=== PATIENT | female | born 1955 | race Caucasian/White ===

== ENCOUNTER → 2018-11-08 16:11 | Outpatient (CLI) | payer OTHER, SELFPAY ==
[2018-11-11 16:06] LABS: HPV Reflexed? NOT INDICATED
== END ==
PROVIDERS: Visit Provider Obstetrics & Gynecology
DX: Z01.419 Encounter for gynecological examination (general) (routine) without abnormal findings (principal)
CPT/HCPCS: 88175; G0145

== ENCOUNTER 2021-11-02 03:55 | Emergency (ER) | payer MEDICARE, OTHER, SELFPAY ==
[2021-11-02 03:56] VITALS: BP 171/101; PULSE 73; RESP 15; TEMP 36.6; O2SAT 99; BMI 21.8
[2021-11-02 04:10] VITALS: BP 158/99; PULSE 69; RESP 15; O2SAT 96
--- NOTE | 2021-11-02 04:12 | EX.ED.VIS.UR ---
HPI HPI - URI History of Present Illness Chief Complaint: Ear Problem Narrative Narrative: 66-year-old female presenting with left ear pain. She states it woke him up from sleep. She states has had a cold for a couple of days with a minor cough. She states she is also had a little bit of loss of her voice. She denies fever, chills, body aches. She denies shortness of breath or chest pain. Patient states that she does not feel significantly congested nasally. She states she has a history of sporadic ear infections as an adult. Patient states that she developed a headache and took [place] plus cold medicine. She states that this did not help. ROS ROS ED Constitutional Constitutional ED: Denies chills or fever(s) Eyes Eyes: Denies blurry vision or diplopia ENT ENT ED: Denies rhinorrhea Cardiovascular Cardiovascular: Denies chest pain or palpitations Respiratory/Chest Respiratory/Chest: Reports cough; Denies dyspnea Gastrointestinal Gastrointestinal: Denies abdominal pain or nausea Genitourinary Genitourinary ED: Denies dysuria or hematuria Musculoskeletal Musculoskeletal: Denies myalgias Integumentary Denies rash Neurologic Neurologic: Reports headache(s); Denies paresthesias or weakness Psychiatric Psychiatric: Denies anxiety or depression PFSH PFSH Home Medications amoxicillin-pot clavulanate 1 tab PO BID #20 tab 11/02/21 [Rx Last Taken Unknown] atorvastatin 20 mg PO QHS 11/02/21 [History Last Taken Unknown] Allergy/AdvReac Type Severity Reaction Status Date / Time celecoxib [From Celebrex] Allergy Itching Verified 11/02/21 03:59 levofloxacin [From Levaquin] Allergy Other Verified 11/02/21 03:59 Social History Smoking Status: Never smoker EXAM Physical Exam Const Vital Signs: 11/02/21 03:56 Temperature 97.8 F Temperature Source Oral Pulse Rate 73 Respiratory Rate 15 Blood Pressure 171/101 H Blood Pressure Mean 124 Pulse Ox 99 Oxygen Delivery Method Room Air General Appearance ED: Negative for pallor HEENT Reports moist mucous membranes normocephalic External Ear: external ears normal and mastoids normal Tympanic Membrane ED: Yes TM normal on the right and TM abnormal obstructed by cerumen Neck supple Resp normal respiratory effort Cardio Rate: regular rate Rhythm: regular rhythm Neuro oriented x3 and CN's II-XII intact bilaterally Sensorium / Orientation: alert Psych mental status grossly normal Skin General Skin Exam: Negative for jaundice or pallor MDM MDM MDM Narrative Medical decision making narrative: Patient presenting with left ear pain. She has a cerumen impaction. I cannot see her eardrum. The right side looks okay. Patient states that she has earwax removal kits at home and can do this herself. She states she is very concerned that she has an ear infection and has had these repeatedly as an adult. She request antibiotics for this. The rest of her HEENT exam is normal. I will start her on Augmentin and discharged home with a prescription for this. She will do her best to remove the cerumen impaction. I did give her follow-up with ENT if needed for cerumen impaction versus not improving otitis. Impression: 1. Left ear cerumen impaction 2. Otitis media Discharge Plan Triage Chief Complaint: Ear Problem ED Provider: Chintan Lynn Dx/Rx/DC Orders Instructions: CERUMEN IMPACTION, Home Care, ED Otitis Media Antibiotic ... Prescriptions: New amoxicillin-pot clavulanate 875-125 mg tablet 1 tab PO BID Qty: 20 RF: 0 No Action atorvastatin 20 mg tablet 20 mg PO QHS RF: 0 Primary Care Provider: Care Physician,No Primary Referrals: Chas Jenkins MD [STAFF PHYSICIAN] - 3-5 Days Care Physician,No Primary [Primary Care Provider] - Disposition Disposition: Home, Self Care
[2021-11-02] MEDS: Amox/Clavulanate 875 MG Tablet PO (04:28)
== END 2021-11-02 04:32 | disposition home or self-care (01) ==
LOC: ED 04:25
PROVIDERS: Emergency Provider Student in an Organized Health Care Education/Training Program; PCP Family Medicine; Visit Provider Student in an Organized Health Care Education/Training Program
DX: H61.22 Impacted cerumen, left ear (principal); H66.92 Otitis media, unspecified, left ear
CPT/HCPCS: 99283

== ENCOUNTER → 2022-03-10 | Outpatient (CLI) | payer MEDICARE, BC, SELFPAY ==
[2022-03-10 12:59] LABS: Bacteria 0 SEEN /hpf (None Seen); Mucous, Urine 0 SEEN /hpf (<or=2+); Squamous Epithelial Cells - UA 0 SEEN /hpf (5-10)
[2022-03-10 13:02] LABS: Color, Urine Yellow (Yellow); Glucose, Dipstick Normal (Normal); Ketone-Dipstick Negative (Negative); Leukocyte Esterase-Dipstick 25 /ul (Negative); Nitrite-Dipstick Negative (Negative); Occult Blood-Urine 25 /ul (Negative); Protein-Dipstick 15 mg/dl (Negative); Specific Gravity, Urine 1.015 (1.002-1.030); Urine Bilirubin Dipstick Negative (Negative); Urine Clarity Clear (Clear); Urine Urobilinogen Normal (Normal); Urine pH 6.5 (5.0 - 8.0)
[2022-03-10 13:08] LABS: Red Blood Cells-Urine 0-5 SEEN /hpf (0-5); White Blood Cells 0-5 SEEN /hpf (0-5)
== END | disposition home or self-care (01) ==
PROVIDERS: Visit Provider Physician Assistant
DX: R10.9 Unspecified abdominal pain (principal)
CPT/HCPCS: 81001; 87086; 87088

== ENCOUNTER → 2022-04-12 | Outpatient (CLI) | payer MEDICARE, BC, SELFPAY ==
[2022-04-12 08:00] LABS: Absolute Lymphocyte Count 2.07 X10^3/uL (0.83-4.51); Absolute Neutrophil Count 2.6 X10^3/uL (2.0-7.7); Basophil# 0.06 X10^3/uL; Basophil% 1.1 % (0-1); Eosinophil# 0.17 X10^3/uL; Eosinophils% 3.2 % (0-5); Hematocrit 40.5 % (37-47); Hemoglobin 13.7 g/dL (12.0-15.0); Lymphocyte # 2.07 X10^3/ul (0.83-4.51); Lymphocyte % 38.9 % (19-41); Mean Corp Hgb Conc 33.8 g/dL (32-36); Mean Corpuscular Hgb 32.7 pg (27.0-32.0); Mean Corpuscular Volume 96.7 fL (81-99); Mean Platelet Vol. 9.7 fl (6.2-12.0); Monocyte% 7.5 % (0-10); NRBC Flagged by Analyzer 0 % (0-5); Neutrophil # 2.61 X10^3/uL (2.7-7.7); Neutrophil % 49.1 % (47-70); Platelet Count 242 K/mm3 (150-450); RBC Distribution Width CV 12.5 % (11.6-14.6); RBC Distribution Width SD 44.6 fl (35.1-43.9); Red Blood Count 4.19 M/mm3 (4.2-5.4); White Blood Count 5.3 K/mm3 (4.4-11.0)
[2022-04-12 08:59] LABS: Anion Gap 4 (5-15); BUN 19 mg/dL (7-18); BUN/Creat Ratio 21.5 RATIO (10-20); Calcium,Total 8.9 mg/dL (8.5-10.1); Chloride 105 mmol/L (98-107); Cholesterol 194 mg/dL (200); Creatinine, Serum 0.88 mg/dL (0.55-1.02); EST Glomerular Filtration Rate 68 mL/min (>60); Est Glom Filt Rate - Afr Amer 82 mL/min (>60); Glucose 85 mg/dL (74-106); High Density Lipoprotein 96 mg/dL; Potassium 4.4 mmol/L (3.5-5.1); Sodium Level 140 mmol/L (136-145); Triglycerides 60 mg/dL; Very Low Density Lipoprotein 12 mg/dL (5-40)
== END | disposition home or self-care (01) ==
LOC: MTLAB 07:21 → LAB 07:22
PROVIDERS: PCP Family Medicine; Referring Provider Family Medicine; Visit Provider Family Medicine
DX: E78.5 Hyperlipidemia, unspecified (principal); Z13.0 Encounter for screening for diseases of the blood and blood-forming organs and certain disorders involving the immune mechanism; Z13.1 Encounter for screening for diabetes mellitus
CPT/HCPCS: 36415; 80048; 80061; 85025

== ENCOUNTER → 2022-07-07 | Outpatient (CLI) | payer MEDICARE, BC, SELFPAY ==
[2022-07-09 17:32] LABS: HPV APTIMA, High Risk Negative (Negative)
== END | disposition home or self-care (01) ==
LOC: LABSPEC 09:52
PROVIDERS: PCP Family Medicine; Visit Provider Student in an Organized Health Care Education/Training Program
DX: Z12.4 Encounter for screening for malignant neoplasm of cervix (principal)
CPT/HCPCS: 87624; 88175; G0145

== ENCOUNTER → 2022-07-15 | Outpatient (CLI) | payer MEDICARE, BC, SELFPAY ==
--- NOTE | 2022-07-15 14:36 | BD_ITS ---
STUDY: DUAL ENERGY X-RAY ABSORPTIOMETRY / DXA REASON FOR EXAM: Female, 67 years old. [id number] TECHNIQUE: Bone Mineral Density (BMD) measurements of lumbar spine and bilateral hips were obtained. COMPARISON: None. FINDINGS: Lumbar Spine (L1-L4): g/cm2 (0.887) / T-score (-1.5) / Z-score (0.5) Findings are suggestive of osteopenia with a low fracture risk. Left Femur Total: g/cm2 (0.910) / T-score (-0.3) / Z-score (1.1) Left Femoral Neck: g/cm2 (0.767) / T-score (-0.7) / Z-score (0.9) Right Femur Total: g/cm2 (0.873) / T-score (-0.6) / Z-score (0.8) Right Femoral Neck: g/cm2 (0.727) / T-score (-1.1) / Z-score (0.5) BD/Dexa Bone Density Study IMPRESSION: The patient is considered osteopenic as outlined below according to World [place] Organization (WHO) criteria with a low fracture risk. Reference Information: The T-score is the number of standard deviations above or below the standard which is normal for young adults at their peak bone mineral density. The World Health Organization (WHO) interprets the T-scores as follows: Above -1 Normal bone density Between -1 and -2.5 Osteopenia Equal to / or below -2.5 Osteoporosis As a practical clinical guideline, osteopenia may be graded as follows: Mild -1 through -1.5 Moderate -1.6 through -2.0 Severe -2.1 through -2.4 The Z-score is the number of standard deviations above or below age-matched controls. A Z-score of less than -1.5 would be considered abnormal. References: 1. NIH Osteoporosis and Related Bone Diseases www osteo.org 2. International Society for Clinical Densitometry www iscd.org 3. National Osteoporosis Foundation www nof.org Electronically Signed: Danny De Paz MD at 8:41 EST ,
--- NOTE | 2022-07-15 14:36 | BI_ITS ---
MAMMOGRAPHY - BILATERAL SCREENING REASON FOR EXAM: Female, 67 years old. Routine annual screening examination. PERTINENT HISTORY: Non-contributory. TECHNIQUE: Digital bilateral breast enma (3D mammographic acquisition) in the CC and MLO projections. 2-D mediolateral oblique (MLO) and craniocaudad (CC) views of both breasts were obtained. CAD: Full Field Digital Mammography with Computer Added Detection was performed. COMPARISON: Comparison is made with prior outside examination dated 03/25/2021. FINDINGS: Breast Composition: The breasts are extremely dense, which lowers the sensitivity of mammography. There are no dominant masses or suspicious calcifications. No other significant abnormalities are identified. There has been no significant change since the prior study. BI/SCRN MAMM (CAD)W/ENMA BILAT IMPRESSION: Stable bilateral screening mammogram. Yearly follow-up mammogram recommended. (A) ASSESSMENT CATEGORY: BIRADS Category 1: Negative. A letter regarding these results will be sent to the patient by the facility within 30 days. Approximately 10% of breast cancers are not detected by mammography. A normal mammogram should not delay biopsy of a clinically suspicious abnormality. [id number] Electronically Signed: Danny De Paz MD at 15:44 EST ,
== END | disposition home or self-care (01) ==
LOC: OPBD 14:33
PROVIDERS: PCP Family Medicine; Referring Provider Student in an Organized Health Care Education/Training Program; Visit Provider Student in an Organized Health Care Education/Training Program
DX: N95.9 Unspecified menopausal and perimenopausal disorder (principal); Z12.31 Encounter for screening mammogram for malignant neoplasm of breast
CPT/HCPCS: 77063; 77067; 77080

== ENCOUNTER → 2023-07-13 | Outpatient (CLI) | payer MEDICARE, BC, SELFPAY ==
[2023-07-13 13:03] LABS: AST(SGOT) 26 U/L (15-37); Alanine Aminotransfer ALT/SGPT 32 U/L (13-56); Albumin, Serum 3.7 g/dL (3.2-5.0); Alkaline Phosphatase 109 U/L (45-117); Bilirubin, Direct 0.15 mg/dL (0.00-0.30); Globulin 3.2 g/dL (2.2-4.2); Protein, Total 6.9 g/dL (6.4-8.2)
== END | disposition home or self-care (01) ==
LOC: LAB 11:22
PROVIDERS: PCP Family Medicine; Referring Provider Family Medicine; Visit Provider Family Medicine
DX: R79.89 Other specified abnormal findings of blood chemistry (principal)
CPT/HCPCS: 36415; 80076

== ENCOUNTER 2024-02-01 13:00 | Outpatient (RCR) | payer MEDICARE, BC, SELFPAY ==
--- NOTE | 2023-12-22 14:35 | HP.PTEVAL ---
Patient's Visit Information Visit Information Visit Information: CAPRICE MUELLER is a 68 year old F referred to Physical Therapy by Dr. Junito Márquez DO with a diagnosis of LUMBAR RADICULOPATHY. Date of Evaluation: 12/22/23 Physical Therapist: Nelda Flores PT, Cert MDT Visit Plan Frequency: 2-3x /Week Duration: 4-6 Weeks Plan: Neutral Spine Core Stability Exercises. Safia LE Strengthening. R Knee ROM/Stretching. R knee modalities as needed. Instruction in Proper Posture Control, Body Mechanics, and Appropriate Activity Modifications. HEP Instruction Subjective Subjective: Work/Leisure: RETIRED. 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 LIKES TO READ. Present symptoms: R LOW BACK PAIN. R GROIN, R THIGH, R KNEE, R LEG AND R FOOT PAIN. SAFIA TOE NUMBNESS. WORSENING OF SAFIA LEG CRAMPS AT NIGHT. Present since: NINE MONTHS Pain Scale: WORST 4/10, LEAST 0/10 Currently: 1/10 Is it getting better, worse or staying the same: STAYING THE SAME FOR THE PAST MONTH Commenced as a result of: BENDING IN [place]OGA FELT A ZINGER IN R LOW BACK. Symptoms at onset: R LOW BACK PAIN Worse: SITTING, LEANING, GARDENING, SLEEPING, PROLONGED WALKING IT TIGHTENS UP SOMETIMES. Better: ROLLING HELPS FOR ABOUT 15 MIN, IBUPROFEN, ICING KNEE Disturbed sleep: YES Previous history/Previous treatment: NO H/O LOW BACK PROBLEMS. TENDS TO USE CHIROPRACTIC A LOT AND THEY HAVE ADJUSTED HER LOW BACK BUT NOT FOR ANY LOW BACK PAIN OR PROBLEMS. NO CHIROPRACTIC IN THE LAST 9 MONTHS ON LOW BACK. Treatment this episode: NONE - IT WAS COMING AND GOING SO NONE. ONE CONSULT WITH DR. METCALF. HE REFERRED HER TO DR. GUILLEN AND THAT [facility] IS PENDING IN 2 WEEKS. ALSO PRESCRIBED PREDNISONE AND SHE IS ON DAY 4 OF 5. HE ALSO LOOKED AT HER KNEE. SHE HAD KNEE X-RAYS SHOWING BONE ON BONE AND SHE REPORTS SHE ALSO HAS A SMALL MENISCUS TEAR FROM [address]. [address] MÁRQUEZ IS CONCERNED HER BACK IS A PROBLEM TOO. Coughing/sneezing/straining: NE ON PAIN. Gait: PATIENT REPORTS SHE IS WALKING SLOWER AND WALKING IS LESS COMFORTABLE. Bowel or Bladder Dysfunction: NO Unexplained weight loss: NO Imaging: NO LOW BACK IMAGING. PMH/Recent major surgery: HIGH CHOLESTEROL. cryptogenic polyneuropathy. Objective Objective: Sitting/Standing Posture: NORMAL LORDOSIS. NO RELEVANT LATERAL SHIFT. Other Observations: INDEP GAIT AND TRANSFERS. Sensory deficit: SAFIA LE LIGHT TOUCH SENSATION GROSSLY INTACT AND SYMMETRICAL INCLUDING TOES. ROM deficit: SAFIA LE'S WFL AND PATIENT DENIES PAIN WITH TESTING EXCEPT -15 TO 120 R KNEE ROM Motor deficit: SAFIA LE'S GROSSLY 5/5 EXCEPT R HIP 4/5 AND R KNEE 4/5 (IN AVAILABLE ROM) Reflexes: 2+ Dural Signs: POSITIVE R LE Lumbar mvmt loss: flex - NIL ext - MIN R SG - MIN L SG - MIN PATIENT REPORTS R LB TIGHTNESS WITH ASFIA SG TESTING THAT REMAINS W A RESULT. Core strength: GOOD Palpation: NO ACUTE TENDERNESS WITH PALPATION OF LUMBAR SPINE OR SACRUM BUT INCREASED M. TONE R LUMBAR PARASPINALS. TREATMENT: NEUROMUSCULAR REEDUCATION - RETRAINING OF MVMT AND POSTURE FOR SITTING, LYING AND STANDING ACTIVITIES. PATIENT DEMONSTRATED/COMMUNICATED A GOOD UNDERSTANDING OF ALL INSTRUCTIONS AFTER GIVEN. Balance/Special Test Scores Oswestry Low Back Score: 10 Goals Goal 1:: DECREASE C/O LOW BACK AND R LE SX'S BY AT LEAST 75% TO HELP RETURN TO PLOF Goal Time Frame: 4-6 Weeks Goal 2:: IMPROVE BENDING/LEANING, WALKING, SITTING, SLEEP AND RECREATIONAL FUNCTION Goal Time Frame: 4-6 Weeks Goal 3:: PATIENT WILL BE INDEP WITH A HEP FOR CONTINUED IMPROVEMENT ONCE FORMAL PHYSICAL THERAPY CONCLUDES. Goal Time Frame: 4-6 Weeks Rehabilitation Potential Physical Therapy Diagnosis: THIS PATIENT PRESENTS TO PT WITH R LOW BACK AND LE PAIN AND TIGHTNESS, CORE WEAKNESS AND LIMITED FUNCTION IN TERMS OF BENDING, WALKING, SITTING, SLEEP AND RECREATIONAL HOBBIES. Rehabilitation Potential: Good Anticipated Interventions Patient/Client Instruction: Educate patient on: Condition, Plan of Care and Risk Factors For the Purpose of:: To improve self management Therapeutic Exercise to Include: Strength training, Body mechanics, Postural training, Flexibilty training, Neuromotor development and Dynamic Lumbar Stabilization For the Purpose of:: To decrease pain, To improve muscle performance and motor function, To increase tolerance to activity/condition/position, To improve ability of physical actions for home/community/work/leisure and To improve gait and locomotor functions Cryotherapy (ice pack, ice massage): Yes (Low back and/or R knee) Thermo therapy (hot pack): Yes (Low back and/or R knee) Ultrasound (thermal/non thermal): Yes (R low back 1.5 w/cm2 and/or R knee 1.3 w/cm2) For the Purpose of:: To decrease pain, To increase ROM and To improve nutrient delivery to tissue Text: Thank you for the opportunity to evaluate your patient. For Medicare and Medicare HMO plans, please review the plan of care and approve it. It will need to be FAXED BACK to us at [phone] for Medicare purposes. For Medicare only, by signing this I certify the plan of care. Please let me know if there are questions or concerns regarding this plan of care. Physician Signature: Date:
--- NOTE | 2024-01-06 10:14 | HP.PTREVAL ---
Re-Evaluation Intro: Dr. Junito Andrews, DO, It has been my pleasure to treat CAPRICE MUELLER over the last 8 visits for LUMBAR RADICULOPATHY. Please see the progress note below for an update on the physical therapy plan of care! Subjective Subjective: PATIENT REPORTS HER LEG ISN'T SPASMING AND ISN'T TIGHT. SITTING IS ALSO BETTER. SLEEPING IS A LOT BETTER. SHE REPORTS HER LEG SX'S WERE THE MAIN ISSUE AND TO A LARGE EXTENT THAT HAS CLEARED UP. SHE REPORTS SHE IS STILL HAVING RIGHT LOW BACK TIGHTNESS THAT TURNS INTO PAIN AND WRAPS AROUND INTO HER GROIN BUT IT ISN'T NEAR BAD IT WAS. SHE REPORTS SITTING IS STILL THE MOST provocative position. SHE ALSO REPORTS SHE IS STILL LIMITING BENDING LIFTING AND TWISTING SO SHE IS NOT BACK TO HER NORMAL ACTIVITY LEVEL. SHE REPORTS IF SHE WALKS TOO FAR IT ALSO PROVOKES HER SX'S. PATIENT REPORTS ALL OF HER SX'S COME AND GO. PATIENT REPORTS SHE HAS 4 LONG DAYS OF DRIVING COMING UP AND NEEDS STRATEGIES TO TRY TO DEAL WITH THAT. CONSULT WITH DR. GUILLEN STILL PENDING. Objective Objective/Function: PATIENT IS IMPROVING BUT SHE STILL HAS LIMITED LUMBAR EXTENSION ROM, CORE STRENGTH AND FUNCTION. SHE IS A GOOD CANDIDATE TO CONTINUE PT BASED ON PROGRESS MADE AND ROOM FOR FURTHER IMPROVEMENT. PATIENT IS AGREEABLE. UPON EXAM TODAY: ROM deficit: R KNEE AROM IN SUPINE WITH A HEEL SLIDE HAS IMPROVED TO -11 TO 136 DEG BUT SHE STILL HAS ERP BOTH DIRECTIONS. Motor deficit: SAFIA LE'S GROSSLY 5/5 EXCEPT R HIP 4+/5 AND R KNEE 4/5 (IN AVAILABLE ROM) Dural Signs: R LE DURAL SIGN IS NEG NOW AND L REMAINS NEG Lumbar mvmt loss: flex - NIL ext - MIN TO MOD R SG - NIL L SG - NIL LUMBAR ROM TESTING NO LONGER PROVOKES PAIN. Core strength: THERE IS SOME WEAKNESS EVIDENT WITH CHALLENGE TODAY. Palpation: NO ACUTE TENDERNESS WITH PALPATION OF LUMBAR SPINE OR SACRUM BUT MILD INCREASED M. TONE R LUMBAR PARASPINALS. OTHER: GOOD MECHANICAL AND SYMPTOMATIC RESPONSE TO REP EIL. ASYMPTOMATIC UPON DEPARTURE. Plan Plan Plan: CONT PT 1-2 TIMES A WK X 3-4 WKS TRIAL OF LINDSEY'S EXT PRINCIPLE OF TREATMENT AND PROGRESSION OF CORE AND LE STRENGTHENING. Balance/Gait/Functional tests Balance/Special Test Scores Oswestry Low Back Score: 8 Goals Goals Goal 1:: DECREASE C/O LOW BACK AND R LE SX'S BY AT LEAST 75% TO HELP RETURN TO PLOF Goal Time Frame: 4-6 Weeks Goal Progress: Progressing Goal 2:: IMPROVE BENDING/LEANING, WALKING, SITTING, SLEEP AND RECREATIONAL FUNCTION Goal Time Frame: 4-6 Weeks Goal Progress: Progressing Goal 3:: PATIENT WILL BE INDEP WITH A HEP FOR CONTINUED IMPROVEMENT ONCE FORMAL PHYSICAL THERAPY CONCLUDES. Goal Time Frame: 4-6 Weeks Goal Progress: Progressing Anticipated Interventions Anticipated Interventions Patient/Client Instruction: Educate patient on: Condition, Plan of Care and Risk Factors For the Purpose of:: To improve self management Therapeutic Exercise to Include: Strength training, Body mechanics, Postural training, Flexibilty training, Neuromotor development and Dynamic Lumbar Stabilization For the Purpose of:: To decrease pain, To improve muscle performance and motor function, To increase tolerance to activity/condition/position, To improve ability of physical actions for home/community/work/leisure and To improve gait and locomotor functions Cryotherapy (ice pack, ice massage): Yes (Low back and/or R knee) Thermo therapy (hot pack): Yes (Low back and/or R knee) Ultrasound (thermal/non thermal): Yes (R low back 1.5 w/cm2 and/or R knee 1.3 w/cm2) For the Purpose of:: To decrease pain, To increase ROM and To improve nutrient delivery to tissue Re-Evaluation Ending Re-evaluation ending: Please do not hesitate to contact me at [phone] by phone or if you have questions or concerns regarding this new plan of care! Sincerely, Nelda Flores, PT, Cert MDT
--- NOTE | 2024-02-01 14:09 | HP.PTDCSUM_ITS ---
Discharge Summary D/C summary: It has been my pleasure to treat CAPRICE MUELLER referred by Dr. Junito Andrews DO, with the diagnosis of LUMBAR RADICULOPATHY for a total of 12 visit(s). Discharge Date: 02/01/24 Please see the following information for a summary of their discharge status. Subjective Subjective: SAW DR. GUILLEN TODAY FOR LUMBAR MRI RESULTS AND HE SAW SLIGHT BULGE BETWEEN L3 AND L4 AND RECOMMENDED NICK. SHE STATES HE DIDN'T RECOMMEND FURTHER PT. SHE PLANS TO HAVE NICK NEXT THURSDAY BY DR. GUILLEN. SHE WOULD LIKE TO REVIEW EX RECOMMENDATIONS FOR DISCHARGE TODAY. STILL GETTING FLEEING JABS OUTSIDE OF R ANKLE WHICH DR. GUILLEN STATES MIGHT RELATE TO HER LUMBAR SPINE AND MIGHT BE HELPED BY THE NICK. SHE REPORTS SHE HAS LEARNED A LOT, MADE A LOT OF CHANGES AND IS A LOT BETTER SINCE STARTING PT. Pain Bilateral Back: Pain Intensity (Out of 10): 0 R knee: Pain Intensity (Out of 10): 1 Overall Improvement % Improvement: 90 Objective Objective/Function: THIS PATIENT IS IMPROVING BUT SHE STILL HAS LIMITED LUMBAR EXTENSION ROM, CORE STRENGTH AND FUNCTION (PAIN WITH SITTING AND WALKING). SHE IS A GOOD CANDIDATE TO CONTINUE PT BASED ON PROGRESS MADE AND ROOM FOR FURTHER IMPROVEMENT BUT NO FURTHER PT HAS BEEN RECOMMENDED AT THIS POINT AND SHE IS G OING TO HAVE AN NICK NEXT THURSDAY. SHE PLANS TO PURSUE PERSONAL TRAINING NEEDED. UPON EXAM TODAY: ROM deficit: R KNEE AROM IN SUPINE WITH A HEEL SLIDE IS -5 TO 130 DEG WITH ERP BOTH DIRECTIONS. Motor deficit: SAFIA LE'S GROSSLY 5/5 EXCEPT R HIP 4+/5 AND R KNEE 4/5 (IN AVAILABLE ROM) Dural Signs: NEGATIVE SAFIA LE'S. Lumbar mvmt loss: flex - NIL ext - MIN R SG - NIL L SG - NIL NO INCREASED C/O PAIN WITH LUMBAR ROM TESTING TODAY. Core strength: MILD WEAKNESS. Goals Goal 1:: DECREASE C/O LOW BACK AND R LE SX'S BY AT LEAST 75% TO HELP RETURN TO PLOF Goal Progress: Goal Met Goal 2:: IMPROVE BENDING/LEANING, WALKING, SITTING, SLEEP AND RECREATIONAL FUNCTION Goal Progress: Goal Met Goal 3:: PATIENT WILL BE INDEP WITH A HEP FOR CONTINUED IMPROVEMENT ONCE FORMAL PHYSICAL THERAPY CONCLUDES. Goal Progress: Goal Met Plan Plan: D/C. PATIENT AGREEABLE. WE WOULD BE HAPPY TO RESUME PT NEEDED IN THE FUTURE. D/C Information d/c sentence: If there are questions or concerns regarding this patient's physical therapy, please feel free to call me at [phone]. Thank you for the referral of this patient. Sincerely, Nelda Flores, PT, Cert MDT Balance/Gait/Functional tests Balance/Special Test Scores Oswestry Low Back Score: 3 Improvement % Improvement: 90
== END 2024-02-01 14:17 | disposition home or self-care (01) ==
LOC: PT 13:00
PROVIDERS: PCP Family Medicine; Referring Provider Student in an Organized Health Care Education/Training Program; Visit Provider Student in an Organized Health Care Education/Training Program
DX: M54.16 Radiculopathy, lumbar region (principal)
CPT/HCPCS: 97110; 97112; 97162; 97530

== ENCOUNTER → 2024-04-07 | Outpatient (CLI) | payer MEDICARE, BC, SELFPAY ==
--- NOTE | 2024-04-07 10:32 | BI_ITS ---
MAMMOGRAPHY - BILATERAL SCREENING 3-D TOMOSYNTHESIS REASON FOR EXAM: Female, 69 years old. SCREENING PERTINENT HISTORY: No significant family history. TECHNIQUE: 2-D mammograms and 3-D Tomosynthesis of the breast (s) were performed. CAD was performed. COMPARISON: 07/15/2022 FINDINGS: The breast composition is Extermely dense tissue. Scattered benign calcifications are seen. No dense spiculated masses or suspicious microcalcifications are identified. No architectural distortion is identified. There is no skin thickening or retraction. There has been no significant change since the prior study. BI/SCRN MAMM (CAD)W/ENMA BILAT IMPRESSION: No mammographic signs of malignancy. Routine yearly mammograms recommended. ASSESSMENT CATEGORY: BIRADS Category 1: Negative. A letter regarding these results will be sent to the patient by the facility within 30 days. FOLLOW UP RECOMMENDATION: Yearly follow up mammogram recommended. (A) Approximately 10% of breast cancers are not detected by mammography. A normal mammogram should not delay biopsy of a clinically suspicious abnormality. Electronically Signed: Kevin Palomino MD at 13:21 EDT ,
== END | disposition home or self-care (01) ==
LOC: OPBI 10:29
PROVIDERS: PCP Family Medicine; Referring Provider Family Medicine; Visit Provider Family Medicine
DX: Z12.31 Encounter for screening mammogram for malignant neoplasm of breast (principal)
CPT/HCPCS: 77063; 77067

== ENCOUNTER → 2024-04-13 | Outpatient (CLI) | payer MEDICARE, BC, SELFPAY ==
--- OUTSIDE RECORDS SUMMARY | 2024-04-13 07:21 | XMS RPT_ITS | CCD ---
Author Organization [facility] Care Team Providers Care Buncher Machine Name Role Phone Staci Obando MD Unavailable [phone] Staci Obando MD Unavailable Rheumatolgy Provider Unavailable Unavailable Maria Elena RODRÍGUEZ, Dr. Lux Myles Unavailable Stefanie BHATT, Dr. Valentina Mattson Unavailable [phone] Yury RODRÍGUEZ, Dr. Sage Unavailable Yury RODRÍGUEZ, Dr. Maurisio Ovalle Unavailable [phone] Rolan RODRÍGUEZ, Dr. Yoly Campbell Unavailable [phone] Genesis RAILROAD FIRER, Silvia Unavailable Hector RODRÍGUEZ, Marcello Myles Unavailable Lázaro RAILROAD FIRER, Valentina Unavailable Unavailable Markel RAILROAD FIRER, Diane Unavailable Unavailable Yoly Perry RN Unavailable UnavailDiya Valadez RN Unavailable Mutersbaugh RAILROAD FIRER, Reshma K Unavailable Unavai aguilar Lawrence PA-C, Sherrell Guardado Unavailable [phone] Lawanda INFORMATION ASSISTANT, Bruna Unavailable Unavailable Artem RAILROAD FIRER, Kyra M Unavailable Unavailab le Harpreet RAILROAD FIRER, Maya Unavailable Unavailab le Vess RAILROAD FIRER, Neilee L Unavailable Unavailable Med RAILROAD FIRER, Alona Unavailable Unavailaileen e Williams RAILROAD FIRER, Tiarra Unavailable Unavailable Unavailable Unavailable Tanvir RAILROAD FIRER, Art Unavailable Unavailable STACI OBANDO Admitting Unavailable STACI OBANDO Attending Unavailable STACI OBANDO Primary Care Unavailable STACI OBANDO Consulting Unavailable PROVIDER, UNKNOWN Consulting Unavailable PROVIDER, UNKNOWN Consulting Unavailable PROVIDER, UNKNOWN Consulting Unavailable Allergies Allergy Classification Reported Allergen(s) Allergy Type Date of Onset Reaction(s) Facility (10 sources) [facility]. (10 sources) CeleBREX *ANALGESICS - ANTI-INFLAMMATORY * [facility]. (1 source) celecoxib Drug Allergy [facility] Repository (1 source) levoFLOXacin Drug Allergy [facility] Medications Current Medications Medication Drug Class(es) Dates Sig (Normalized) Sig (Original) atorvastatin 20 mg oral tablet (10 sources) HMG-CoA Reductase Inhibitor Start: 12-18-2023 atorvastatin 20 mg tablet ; 1 (one) Tablet qhs for 0 days Quantity: 30 {Tablet} Refills: 3 Ordered: 18-Dec-2023 MD Staci Obando Start: 18-Dec-2023 Start: 07-27-2023 atorvastatin 2 0 mg tablet ; 1 (one) Tablet qhs for 0 days Quantity: 30 {Tablet} Refills: 3 Ordered: 27-Jul-2023 MD Staci Obando Start: 27-Jul-2023 Start: 04-22-2023 atorvastatin 2 0 mg tablet ; 1 (one) Tablet qhs for 0 days Quantity: 30 {Tablet} Refills: 3 Ordered: 22-Apr-2023 MD Marcello Young Start: 22-Apr-2023 B Complex Oral Tablet (10 sources) B Complex Oral T ablet FISH OIL, 1200MG (Oral Capsu le) (10 sources) FISH OIL, 1200MG (Oral Capsule) ; (1200 MG) linseed oil 1000 mg oral cap matthew (10 sources) Flax Seed Oil 10 00 MG Oral Capsule ; (1000 MG) MENOPAUSE SUPPORT (Oral Tabl et) (10 sources) MENOPAUSE SUPPOR T (Oral Tablet) Comments: herbal Comment on above: herbal triamcinolone acetonide 0.05 5 mg/actuat metered dose nasal spray (10 sources) Corticosteroid Nasacort 55 MCG/ ACT Nasal Aerosol Solution ; (55 MCG/ACT) Comments: from ENT Comment on above: from ENT Completed/Discontinued Medications Medication Drug Class(es) Dates Sig (Normalized) Sig (Original) amoxicillin 500 mg oral tablet (10 sources) Penicillin-class Antibacterial Start: 10-29-2015 End: 11-08-2015 take 1 tablet by mouth three times daily AMOXICILLIN, 500MG (Oral Tablet) ; 1 Tablet TID for 10 days Quantity: 30 {Tablet} Refills: 0 Ordered: 29-Oct-2015 MD Marcello Young Start: 29-Oct-2015 End: 08-Nov-2015 Status: Inactive amoxicillin 875 mg / clavulanate 125 mg oral tablet (20 sources) Penicillin-class Antibacterial Start: 08-11-2019 End: 10-25-2019 take 1 tablet by mouth twice daily Amoxicillin-Pot Clavulanate 875-125 MG Oral Tablet ; 1 Tablet bid for 0 days Quantity: 20 {Tablet} Refills: 0 Ordered: 25-Oct-2019 GRACIA Hurtado Start: 11-Aug-2019 End: 25-Oct-2019 Status: Inactive Start: 09-16-2013 End: 09-26-2013 take 1 tablet by mouth twice daily at mealtime AUGMENTIN, 875-125MG (Oral Tablet) ; 1 Tab two times daily for 10 days Quantity: 20 {Tablet} Refills: 0 Ordered: 16-Sep-2013 Start: 16-Sep-2013 End: 26-Sep-2013 Status: Inactive Comments: Take with food Comment on above: Take with food Ascorbate Manganese / Chondroitin Sulfates / Glucosamine (10 sources) COSAMIN DS, 500-400MG (Oral Capsule) ; (500-400 MG) Status: Inactive azithromycin 250 mg oral tablet (10 sources) Macrolide Antimicrobial Start: End: Azithromycin 250 MG Oral Tablet ; 2 (two) Tablet day one, then one daily x 4 for 0 days Quantity: 6 {Tablet} Refills: 0 Ordered: 29-Nov-2019 GRACIA Hurtado Start: 23-Nov-2019 End: 29-Nov-2019 Status: Inactive black cohosh extract 540 mg oral capsule (10 sources) BLACK COHOSH, 54 0MG (Oral Capsule) ; (540 MG) Status: Inactive Calcium Carbonate (10 sources) Calcium 600 Stat us: Inactive cephalexin 500 mg oral capsule (10 sources) Cephalosporin Antibacterial Start: 018 End: 018 take 1 capsule by mouth three times daily Cephalexin 500 MG Oral Capsule ; 1 Capsule tid for 0 days Quantity: 30 {Capsule} Refills: 0 Ordered: 11-Mar-2018 GRACIA Hurtado Start: 10-Aug-2017 End: 11-Mar-2018 Status: Inactive cetirizine hydrochloride 10 mg oral tablet (10 sources) Histamine-1 Receptor Antagonist CETIRIZINE HCL, 10MG (Oral Tablet) ; (10 MG) Status: Inactive famotidine 10 mg oral tablet (10 sources) Histamine-2 Receptor Antagonist take 1 mg by mouth before mealtime PEPCID AC, 10MG (Oral Tablet) ; (10 MG) Status: Inactive fexofenadine hydrochloride 60 mg oral tablet (10 sources) Histamine-1 Receptor Antagonist JANKI ALLERGY, 60MG (Oral Tablet) ; (60 MG) Status: Inactive fluticasone propionate 0.05 mg/actuat metered dose nasal spray (10 sources) Corticosteroid Start: End: take 2 spray(s) nasal route twice daily FLONASE, 50MCG/ACT (Nasal Suspension) ; 2 (two) spray(s) in each nostril BID for 0 days Quantity: 1 {bottle(s)} Refills: 2 Ordered: 24-May-2014 GRACIA Hurtado Start: 13-Jan-2013 End: 24-May-2014 Status: Inactive GINKOBA, 40MG (Oral Tablet) (10 sources) GINKOBA, 40MG (O ral Tablet) ; (40 MG) Status: Inactive Glucosamine (10 sources) Glucosamine HCl Status: Inactive hydrocortisone acetate 25 mg rectal suppository (10 sources) Corticosteroid Start: End: ANUSOL-HC, 25MG (Rectal Suppository) ; 1 Suppository BID for 7 days Quantity: 14 {Suppository} Refills: 0 Ordered: 01-Dec-2012 ESTER Lawrence Start: 01-Dec-2012 End: 08-Dec-2012 Status: Inactive 12 hr hyoscyamine sulfate 0.375 mg extended release oral tablet (10 sources) Start: End: take 1 tablet by mouth every twelve hours as needed hyoscyamine ER 0.375 mg tablet,extended release,12 hr ; 1 (one) Tablet every twelve hours, as needed for 0 days Quantity: 30 {Tablet} Refills: 0 Ordered: 17-Apr-2023 GRACIA Mcgill Start: 13-Mar-2022 End: 17-Apr-2023 Status: Inactive Comments: Medication taken as needed. Comment on above: Medication taken as needed. loratadine 10 mg oral tablet (10 sources) LORATADINE, 10MG (Oral Tablet) ; (10 MG) Status: Inactive meloxicam 15 mg oral tablet (10 sources) Nonsteroidal Anti-inflammatory Drug Start: End: MOBIC, 15MG (Oral Tablet) ; 1 Tablet Tablet prn pain not more than 1/24 hrs for 0 days Quantity: 30 {Tablet} Refills: 2 Ordered: 24-May-2014 GRACIA Hurtado Start: 13-May-2013 End: 24-May-2014 Status: Inactive MULTIVITAMINS (Oral Tablet) (10 sources) take 1 tablet by mouth once daily MULTIVITAMINS (Oral Tablet) ; 1 daily Status: Inactive omeprazole 20 mg delayed release oral tablet (10 sources) Proton Pump Inhibitor Start: End: PRILOSEC OTC, 20MG (Oral Tablet Delayed Release) ; [address] daily for 0 days Quantity: 30 {Tablet_DR} Refills: 2 Ordered: 13-May-2013 GRACIA Hurtado Start: 28-Apr-2012 End: 13-May-2013 Status: Inactive sulfamethoxazole 800 mg / trimethoprim 160 mg oral tablet (10 sources) Dihydrofolate Reductase Inhibitor Antibacterial, Sulfonamide Antimicrobial Start: End: take 1 tablet by mouth twice daily Sulfamethoxazole-Tr imethoprim 800-160 MG Oral Tablet ; 1 (one) Tablet bid for 0 days Quantity: 10 {Tablet} Refills: 0 Ordered: 11-Aug-2019 GRACIA Hurtado Start: 18-Apr-2019 End: 11-Aug-2019 Status: Inactive Problems Active Problems Problem Classification Problem Date Documented Date Episodic/Chronic Abdominal pain (20 sources) Lower abdominal pain; Translations: [Lower abdominal pain, unspecified] 04-17-2023 Episodic Administrative/socia l admission (10 sources) Education with explicit context; Translations: [Other specified counseling] 11-17-2019 Episodic Anal and rectal conditions (10 sources) Anal fissure; Translations: [Anal fissure, unspecified] 12-02-2012 Episodic Benign neoplasm of uterus (20 sources) Uterine leiomyoma; Translations: [Leiomyoma of uterus, unspecified] 04-17-2023 Episodic Disorders of lipid metabolism (20 sources) Hyperlipidemia; Translations: [Hyperlipidemia, unspecified] 04-17-2023 Chronic E Codes: Natural/environment (20 sources) Tick bite; Translations: [Bitten or stung by nonvenomous insect and other nonvenomous arthropods, initial encounter] 01-01-2017 Episodic Esophageal disorders (20 sources) Gastroesophageal reflux disease; Translations: [Gastro-esophageal reflux disease without esophagitis] 04-17-2023 Chronic Genitourinary symptoms and ill-defined conditions (10 sources) Dysuria; Translations: [Dysuria] 04-18-2019 Episodic Headache; including migraine (10 sources) Headache; Translations: [Headache] 11-30-2014 Episodic Immunizations and screening for infectious disease (20 sources) Needs influenza immunization; Translations: [Encounter for immunization] 04-14-2022 Episodic Joint disorders and dislocations; trauma-related (10 sources) Derangement of medial meniscus of right knee; Translations: [Other meniscus derangements, unspecified medial meniscus, right knee] 01-07-2017 Chronic Open wounds of extremities (10 sources) Open wound of finger; Translations: [Laceration without foreign body of unspecified finger without damage to nail, subsequent encounter] 11-09-2013 Episodic Osteoarthritis (20 sources) Arthritis; Translations: [Unspecified osteoarthritis, unspecified site] 04-17-2023 Chronic Other connective tissue disease (10 sources) Muscle spasm of cervical muscle of neck; Translations: [Other muscle spasm] 11-30-2014 Episodic Other ear and sense organ disorders (20 sources) Bilateral hearing loss; Translations: [Unspecified hearing loss, bilateral] 04-17-2023 Chronic Other injuries and conditions due to external causes (10 sources) Foreign body in skin; Translations: [Other injury of unspecified body region, initial encounter] 06-09-2018 Episodic Other nervous system disorders (20 sources) Carpal tunnel syndrome of left wrist; Translations: [Carpal tunnel syndrome, left upper limb] 04-17-2023 Chronic Other nervous system disorders (20 sources) Sensory polyneuropathy; 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] Onset: 06-22-2017 04-17-2023 Chronic Comment on above: dx by NEUROLOGY Other nervous system disorders (20 sources) Ulnar neuropathy; 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 nerve, left upper limb] 04-17-2023 Chronic Other nervous system disorders (10 sources) Peripheral nerve disease ; Translations: [Polyneuropathy, unspecified] 12-10-2017 Chronic Other nervous system disorders (20 sources) Neuropathy; Translations: [Polyneuropathy, unspecified] 01-07-2016 Chronic Other nervous system disorders (10 sources) Numbness of toe; Translations: [Anesthesia of skin] 01-07-2017 Episodic Other screening for suspected conditions (not mental disorders or infectious disease) (20 sources) Liver function tests abnormal; Translations: [Other specified abnormal findings of blood chemistry] 07-06-2023 Episodic Other skin disorders (10 sources) Eruption; Translations: [Rash and other nonspecific skin eruption] 02-20-2020 Episodic Other upper respiratory infections (10 sources) Sinusitis; Translations: [Chronic sinusitis, unspecified] 10-29-2015 Chronic Other upper respiratory infections (20 sources) Acute sinusitis; Translations: [Acute sinusitis, unspecified] 08-14-2018 Episodic Otitis media and related conditions (20 sources) Otitis media of left ear; Translations: [Otitis media, unspecified, left ear] 08-10-2017 Episodic Pneumonia (except that caused by tuberculosis or sexually transmitted disease) (20 sources) Pneumonitis; Translations: [Pneumonia, unspecified organism] 01-19-2020 Episodic Residual codes; unclassified (20 sources) Body mass index 20-24 - normal; Translations: [Body mass index (BMI) 22.0-22.9, adult] 04-14-2022 Episodic Residual codes; unclassified (20 sources) History of vaccination; Translations: [Personal history of other drug therapy] 04-17-2023 Episodic Comment on above: September 2020 Residual codes; unclassified (20 sources) Up-to-date with immunizations; Translations: [Personal history of other drug therapy] 04-14-2022 Episodic Residual codes; unclassified (20 sources) Menopause present; Translations: [Asymptomatic menopausal state] 04-17-2023 Episodic Residual codes; unclassified (20 sources) Non-smoker; Translations: [Other specified health status] 04-17-2023 Episodic Residual codes; unclassified (20 sources) Patient refused laboratory test; Translations: [Procedure and treatment not carried out because of patient's decision for other reasons] 04-17-2023 Episodic Unclassified (10 sources) Number of Children 04-17-2023 Comment on above: 2 Unclassified (10 sources) Number of Pregnancies 04-17-2023 Comment on above: 2 Unclassified (10 sources) Vaginal deliveries 04-17-2023 Comment on above: 2 Unclassified (10 sources) Well adult female - The patient feels well with minor complaints, has decreased energy level and is sleeping well. The patient has a balanced diet and takes supplemental vitamins. The patient exercises 3 - 4 times per week (riding bike, otherwise just very active outside). The patient sleeps 7 hours per night. 01-07-2016 Viral infection (20 sources) Disease caused by 2019-nCoV; Translations: [COVID-19] 11-23-2019 Episodic Past or Other Problems Problem Classification Problem Date Documented Date Episodic/Chronic Other infections; including parasitic (10 sources) Personal history of other infectious and parasitic diseases Onset: 11-17-2019 04-17-2023 Episodic Unclassified (10 sources) MCR Well Adult - In general the patient feels well with minor complaints, has decreased energy level and is sleeping well. The patient has a balanced diet and takes supplemental vitamins. The patient exercises 3 - 4 times per week and sleeps 8 hours per night. The patient denies having trouble with bathing, dressing/grooming, toileting, preparing meals and ambulating. The patient denies having trouble with grocery shopping, driving, use of telephone, housework, laundry, preparing/taking medications and finances. The patient performs monthly self breast exam. The patient has a Healthcare Power of Script Supervisor and a Living Will. 04-20-2023 Unclassified (20 sources) MCR Well Adult - In general the patient feels well with no complaints, has good energy level and is sleeping poorly. The patient takes supplemental vitamins. The patient exercises weekly and sleeps 6 hours per night. The patient denies having trouble with bathing, dressing/grooming, toileting, preparing meals and ambulating. The patient denies having trouble with grocery shopping, driving, use of telephone, housework, laundry, preparing/taking medications and finances. The patient has a Healthcare Power of Script Supervisor and a Living Will. 04-14-2022 Unclassified (10 sources) Abdominal pain - The onset of the abdominal pain has been sudden and has been occurring in an intermittent pattern for 1 week. The course has been increasing. The pain is described as a fullness. The pain is located in the lower abdomen. Note for Abdominal pain : [facility]. Culture negative she was advised to stop ATB. Leaving for [place] on Thursday. 03-12-2022 Unclassified (10 sources) Well adult female - The patient feels well with no complaints, has good energy level and is sleeping well. The patient takes supplemental vitamins. The patient exercises daily. The patient sleeps 6 hours per night. Note for Well adult female : -Fully recovered from recent covid19 infection. 01-19-2020 Unclassified (10 sources) Cold Symptoms - Symptoms include general malaise and headache, but do not include nasal congestion, ear pain, sore throat, dry cough or fever. The onset was sudden 1 week(s) ago. The patient describes this as moderate in severity. The patient is not currently being treated for this problem. Risk factors do not include smoking. 08-11-2019 Unclassified (3 sources) Cold Symptoms - Symptoms include nasal congestion, ear fullness, sore throat and dry cough, but do not include fever. The onset was sudden 3 day(s) ago. The symptoms occur constantly. The patient is not currently being treated for this problem. 04-18-2019 Unclassified (3 sources) [ADDITIONAL REASON] UTI - Symptoms include dysuria and urinary frequency, but do not include flank pain. Onset was gradual 2 week(s) ago. The patient describes this as moderate in severity. Symptoms are relieved by phenazopyridine. Associated symptoms do not include fever. Note for UTI : -Does have vaginal itching. 04-18-2019 Unclassified (10 sources) Cold Symptoms - Symptoms include nasal congestion, sore throat, scratchy throat, hoarseness, productive cough, general malaise and headache, but do not include ear fullness or fever. The onset was sudden 6 day(s) ago. The symptoms occur constantly. The patient describes this as moderate in severity. The patient is not currently being treated for this problem. Risk factors do not include smoking. 10-14-2018 Unclassified (10 sources) Cold Symptoms - Symptoms include nasal congestion, runny nose, purulent discharge (blood tinged), chills, general malaise, headache and facial pain, but do not include sore throat, dry cough, productive cough or fever. The onset was sudden 3 day(s) ago. The symptoms occur frequently. The patient describes this as moderate in severity and worsening. Current treatment includes non-prescription cold medication, acetaminophen and NSAIDs. Risk factors do not include smoking. The patient has been exposed to an individual with a cough and an individual with similar symptoms. Patient denies history of seasonal allergies or asthma. 08-14-2018 Unclassified (10 sources) Insect Bite/Sting - The insect causing the bite/sting is thought to be a tick. Note for Insect bite/sting : -Found tick on her right upper inner thigh. DOes not know how long it was there however, it was very difficult for her to remove and he could not get all of it. 06-09-2018 Unclassified (10 sources) Well adult female - The patient feels well with no complaints, has good energy level and is sleeping well. The patient has a balanced diet and takes supplemental vitamins. 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 The patient sleeps 7 (still wakes with hot flashes) hours per night. 04-05-2018 Unclassified (10 sources) Cold Symptoms - Symptoms include nasal congestion, ear fullness, scratchy throat, dry cough, general malaise and headache, but do not include fever. The onset was gradual 1 week(s) ago. The symptoms occur constantly. The patient describes this as mild and worsening. Current treatment includes non-prescription cold medication. Risk factors do not include smoking. The patient has not been exposed to secondhand smoke. Note for Upper respiratory infection : -FLying later this week. 08-10-2017 Unclassified (10 sources) Well adult female - The patient feels well with minor complaints, has good energy level and is sleeping well. The patient has a balanced diet and takes supplemental vitamins. The patient exercises daily. The patient sleeps 8 hours per night. 01-07-2017 Unclassified (10 sources) Cold Symptoms - Symptoms include nasal congestion, runny nose, ear fullness, sore throat, hoarseness, productive cough, general malaise and headache, but do not include fever or chills. The onset was gradual 2 week(s) ago. The symptoms occur constantly. The patient describes this as moderate in severity and worsening. Current treatment includes non-prescription cold medication. The patient has been exposed to an individual with similar symptoms. Medical history includes seasonal allergies, but patient denies history of recurrent sinusitis, recurrent strep pharyngitis, asthma, tonsillectomy or recurrent ear infections. Note for Upper respiratory infection : reviewed by [facility] 10-29-2015 Unclassified (10 sources) Cold Symptoms - Symptoms include sore throat, fever (didn't check temp), chills, general malaise and headache, but do not include nasal congestion, runny nose, ear pain, dry cough or productive cough. The onset was gradual 4 day(s) ago. The symptoms occur constantly. The patient describes this as moderate in severity and unchanged. Current treatment includes an oral decongestant and NSAIDs. The patient has been exposed to an individual with similar symptoms (works at the [employer]). Medical history includes seasonal allergies, but patient denies history of recurrent sinusitis, recurrent strep pharyngitis, asthma, tonsillectomy or recurrent ear infections. 09-07-2015 Unclassified (10 sources) Headache - Note for Headache : -Sudden onset in [place] yesterday. Frontal headache that rapidly progressed to her whole head and neck. Was unable to turn her head. She felt like she could not move. Went home and recovered with ice/heat/ Aleve and rest. Later in the evening headache returned but not as intense. Today still has mild headache and feels weird in her back. 11-30-2014 Unclassified (10 sources) Well adult female - The patient feels well with no complaints, has good energy level and is sleeping well. The patient has a balanced diet. The patient exercises weekly. The patient sleeps 8 hours per night. Note for Well adult female : -Asking for flu vaccine and Zostavax. 05-24-2014 Unclassified (10 sources) Follow up consultation - The patient is here to follow-up after Emergency Room/Urgent Care on : (11/06). Note for Consultation follow-up : -To ER with tuft fx and laceration of the left middle finger. Injured in a ball/hitch when gardening on Thursday afternoon. The nail was avulsed from the nailbed. The physician cleaned the wound, placed 5 sutures and set the nail back into the finger to help the new nail grow . The patient reports she was told at one of her follow up visits we would remove the old nail. She reports she has vicryl sutures that should not need to be removed. She has not changed her dressing that was given in the ER. 11-09-2013 Unclassified (10 sources) Cold Symptoms - Symptoms include nasal congestion, ear fullness, sore throat (swollen glands), dry cough and headache, but do not include fever or chills. The onset was gradual 2 week(s) ago. The symptoms occur frequently. The patient describes this as moderate in severity and unchanged. 08-25-2013 Unclassified (10 sources) Well adult female - The patient feels well with minor complaints, has good energy level and is sleeping well. The patient has a balanced diet and takes supplemental vitamins. The patient exercises 3 - 4 times per week. The patient sleeps 8 hours per night. 05-13-2013 Unclassified (10 sources) Bloody stools - The onset of the bloody stools has been acute , and they have been occurring in an intermittent (4 nights ago she had the first episode of bleeding and it has been with every BM since. For the past month she has had pain with her BMs whenever they are hard. Says it is a sharp pain. Has a BM almost daily. Admits to eating poorly recently. Drinks at least a quart of water daily.) pattern for 1 week. The bloody stools are characterized as blood streaking of toilet paper and bloody toilet bowl water. The symptoms have been associated with hard stools and painful bowel movements but have not been associated with abdominal pain, constipation or diarrhea. Note for Bloody stools : Last colonoscpoy 2004, stool cards 05/2012 negative. 12-02-2012 Unclassified (10 sources) Ear pain - The onset of the pain has been acute and has been occurring in an intermittent pattern for 1 month. The course has been recurrent. The pain is described as a moderate sharp pain, stabbing and pressure. The pain is described as being located in the inner ear. The pain is felt in the left ear. There has been no associated fever, sore throat, runny nose or cough. Medical History includes ear infections. Note for Ear pain : Has had some nasal congestion which she contributes to her allergies. Takes claritin daily and sudafed occasaionally. Right ear has felt fine. Decreased hearing and itching of the left ear. 11-18-2012 Unclassified (10 sources) Well adult female - The patient feels well with minor complaints, has good energy level and is sleeping well. The patient has a balanced diet and takes supplemental vitamins. The patient does not exercise. Note for Well adult female : Here today to address her labwork. 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 This note has been reviewed and approved in it's entirety by me. feeling well has concrete sculptor exam in Jun 2012. 04-28-2012 Unclassified (10 sources) Ear pain - The onset of the pain has been acute and has been occurring in an intermittent pattern for 2 days. The course has been increasing. The pain is described as a moderate stabbing. The pain is described as being located in the inner ear. The pain is felt in the left ear. There has been no associated fever or cough. Note for Ear pain : pt states she has slight cold sx and pressure in that ear. 01-06-2011 Unclassified (10 sources) Well adult female - The patient feels well with minor complaints, has good energy level and is sleeping well. Most recent Pap smear: : (2010 dr thomas). The first day of the last menstrual period was : (). Date of last mammogram : (2010martha). Patient has not had bone density screening. Date of most recent cholesterol screening : (). Date of most recent glucose screening : (). Date of most recent influenza vaccine : (last fall). Last Tetanus booster: Date: (2008). The patient has a balanced diet. Patient exercises daily. Patient sleeps 7 hours per night. 10-28-2010 Unclassified (7 sources) UTI - Symptoms include dysuria and urinary frequency, but do not include flank pain. Onset was gradual 2 week(s) ago. The patient describes this as moderate in severity. Symptoms are relieved by phenazopyridine. Associated symptoms do not include fever. Note for UTI : -Does have vaginal itching. 04-18-2019 Unclassified (7 sources) [ADDITIONAL REASON] Cold Symptoms - Symptoms include nasal congestion, ear fullness, sore throat and dry cough, but do not include fever. The onset was sudden 3 day(s) ago. The symptoms occur constantly. The patient is not currently being treated for this problem. 04-18-2019 Results Test Name Value Interpretation Reference Range Facility Laboratory - Chemistry and C hemistry - challengeon 07-13-2023 Albumin [Mass/Vol] 3.7 g/dL Normal 3.2 - 5.0 g/dL [facility], [facility].; [facility], [facility] ALT [Catalytic activity/Vol] 32 U/L Normal 13 - 56 U/L [facility], [facility] AST [Catalytic activity/Vol] 26 U/L Normal 15 - 37 U/L [facility].; [facility], [facility] Bilirubin [Mass/Vol] 0.50 mg/dL Normal 0.20 - 1.00 mg/dL [facility].; [facility], [facility] Bilirubin.direct [Mass/Vol] 0.15 mg/dL Normal 0.00 - 0.30 mg/dL [facility], [facility].; [facility], [facility] Globulin (S) [Mass/Vol] 3.2 g/dL Normal 2.2 - 4.2 g/dL [facility], [facility].; [facility], [facility] No Panel Informationon 07-13 ALK P 109 U/L Normal 45 - 117 U/L [facility], [facility].; [facility], [employer]. T PROT 6.9 g/dL Normal 6.4 - 8.2 g/dL [facility], [facility].; [facility], [facility] CBC (INCLUDES DIFF/PLT)on Basophils (Bld) [#/Vol] 0.04 10*3/uL Normal 0-200 [facility] Comment on above: Performed By: #### 6 399, 7600, [id number] #### [facility] [address] , [address] [place] [id number] Supervisor Diagnostic: Izaiah Bergman MD Basophils/100 WBC (Bld) 0.8 % Normal [facility] Comment on above: Performed By: #### 6 399, 7600, 01268 #### [facility] [address] , [address] [place] [phone] Supervisor Diagnostic: Izaiah Bergman MD Eosinophils (Bld) [#/Vol] 0.09 10*3/uL Normal 15-500 [facility] Comment on above: Performed By: #### 6 399, 7600, 75927 #### [facility] [place] [address] Supervisor Diagnostic: Izaiah Bergman MD Eosinophils/100 WBC (Bld) 1.8 % Normal [facility] Comment on above: Performed By: #### 6 399, 7600, 56390 #### [facility] [place] [address] Supervisor Diagnostic: Izaiah Bergman MD Erythrocyte distribution width (RBC) [Ratio] 12.1 % Normal 11.0-15.0 [facility] Comment on above: Performed By: #### 6 399, 7600, 62443 #### [facility] [place] [address] Supervisor Diagnostic: Izaiah Bergman MD Hematocrit (Bld) [Volume fraction] 40.3 % Normal 35.0-45.0 [facility] Comment on above: Performed By: #### 6 399, 7600, 09526 #### [facility] [place] [address] Supervisor Diagnostic: Izaiah Bergman MD Hemoglobin (Bld) [Mass/Vol] 13.8 g/dL Normal 11.7-15.5 [facility] Comment on above: Performed By: #### 6 399, 7600, 10509 #### [facility] [place] [address] Supervisor Diagnostic: Izaiah Bergman MD Lymphocytes (Bld) [#/Vol] 1.555 10*3/uL Normal 850-3900 [facility] Comment on above: Performed By: #### 6 399, 7600, 94220 #### [facility] [place] [address] Supervisor Diagnostic: Izaiah Bergman MD Lymphocytes/100 WBC (Bld) 31.1 % Normal [facility] Comment on above: Performed By: #### 6 399, 7600, 74268 #### [facility] [place] [address] Supervisor Diagnostic: Izaiah Bergman MD MCH (RBC) [Entitic mass] 33.4 pg High 27.0-33.0 [facility] Comment on above: Performed By: #### 6 399, 7600, 89065 #### [facility] [place] [address] Supervisor Diagnostic: Izaiah Bergman MD MCHC (RBC) [Mass/Vol] 34.2 g/dL Normal 32.0-36.[address] [facility] Comment on above: Performed By: #### 6 399, 7600, 53156 #### [facility] [place] [address] Supervisor Diagnostic: Izaiah Bergman MD MCV (RBC) [Entitic vol] 97.6 fL Normal 80.0-100.0 [facility] Comment on above: Performed By: #### 6 399, 7600, 34215 #### [facility] [place] [address] Supervisor Diagnostic: Izaiah Bergman MD Monocytes (Bld) [#/Vol] 0.38 10*3/uL Normal 200-950 [facility] Comment on above: Performed By: #### 6 399, 7600, 02768 #### [facility] [place] [address] Supervisor Diagnostic: Izaiah Bergman MD Monocytes/100 WBC (Bld) 7.6 % Normal [facility] Comment on above: Performed By: #### 6 399, 7600, 32236 #### [facility] [place] [address] Supervisor Diagnostic: Izaiah Bergman MD Neutrophils (Bld) [#/Vol] 2.935 10*3/uL Normal 7195-4262 [facility] Comment on above: Performed By: #### 6 399, 7600, 61272 #### [facility] of [address], [address] [place] [address] Supervisor Diagnostic: Izaiah Bergman MD Neutrophils/100 WBC (Bld) 58.7 % Normal [facility] Comment on above: Performed By: #### 6 399, 7600, 68704 #### [facility] of [address], [address] [place] [address] Supervisor Diagnostic: Izaiah Bergman MD Platelet mean volume (Bld) [Entitic vol] 10.3 fL Normal 7.5-12.5 [facility] Comment on above: Performed By: #### 6 399, 7600, 38878 #### [facility] [place] [address] Supervisor Diagnostic: Izaiah Bergman MD Platelets (Bld) [#/Vol] 236 10*3/uL Normal 140-400 [facility] Comment on above: Performed By: #### 6 399, 7600, 08591 #### [facility] of [address], [address] [place] [address] Supervisor Diagnostic: Izaiah Bergman MD RBC (Bld) [#/Vol] 4.13 10*6/uL Normal 3.80-5.10 [facility] Comment on above: Performed By: #### 6 399, 7600, 95191 #### [facility] [place] [address] Supervisor Diagnostic: Izaiah Bergman MD WBC (Bld) [#/Vol] 5.0 10*3/uL Normal 3.8-10.8 [facility] Comment on above: Performed By: #### 6 399, 7600, 01031 #### [facility] [place] [address] Supervisor Diagnostic: Izaiah Bergman MD COMPREHENSIVE METABOLIC PANE [facility] 04-10-2023 Albumin [Mass/Vol] 4.3 g/dL Normal 3.6-5.1 [facility] Comment on above: Performed By: #### 6 399, 7600, 77423 #### [facility] of [address], [address] [place] [address] Supervisor Diagnostic: Izaiah Bergman MD Albumin/Globulin [Mass ratio] 2.0 {ratio} Normal 1.0-2.5 [facility] Comment on above: Performed By: #### 6 399, 7600, 75667 #### [facility] of [address], [address] [place] [address] Supervisor Diagnostic: Izaiah Bergman MD ALP [Catalytic activity/Vol] 103 U/L Normal 37-153 [facility] Comment on above: Performed By: #### 6 399, 7600, 85516 #### [facility] of [address], [address] [place] [address] Supervisor Diagnostic: Izaiah Bergman MD ALT [Catalytic activity/Vol] 49 U/L High 6-29 [facility] Comment on above: Performed By: #### 6 399, 7600, 13503 #### [facility] of [address], [address] [place] [address] Supervisor Diagnostic: Izaiah Bergman MD AST [Catalytic activity/Vol] 44 U/L High 10-35 [facility] Comment on above: Performed By: #### 6 399, 7600, 19062 #### [facility] of [address], [address] [place] [address] Supervisor Diagnostic: Izaiah Bergman MD Bilirubin [Mass/Vol] 0.8 mg/dL Normal 0.2-1.2 [facility] Comment on above: Performed By: #### 6 399, 7600, 41057 #### [facility] of [address], [address] [place] [address] Supervisor Diagnostic: Izaiah Bergman MD BUN/CREATININE RATIO SEE NOTE: Normal 6-22 [facility] Comment on above: Result Comment: Not Reported: BUN and Creatinine are within reference range. Performed By: #### 6 399, 7600, 72283 #### [facility] of [address], [address] [place] [address] Supervisor Diagnostic: Izaiah Bergman MD Calcium [Mass/Vol] 9.3 mg/dL Normal 8.6-10.4 [facility] Comment on above: Performed By: #### 6 399, 7600, 89788 #### [facility] of [address], [address] [place] [address] Supervisor Diagnostic: Izaiah Bergman MD Chloride [Moles/Vol] 103 mmol/L Normal 98-110 [facility] Comment on above: Performed By: #### 6 399, 7600, 12153 #### [facility] of [address], [address] [place] [address] Supervisor Diagnostic: Izaiah Bergman MD CO2 [Moles/Vol] 30 mmol/L Normal 20-32 [facility] Comment on above: Performed By: #### 6 399, 7600, 03379 #### [facility] [place] [address] Supervisor Diagnostic: Izaiah Bergman MD Creatinine [Mass/Vol] 0.80 mg/dL Normal 0.50-1.[address] [facility] [address] [facility] Comment on above: Performed By: #### 6 399, 7600, 62583 #### [facility] [place] [address] Supervisor Diagnostic: Izaiah Bergman MD GFR/1.73 sq M.predicted among non-blacks MDRD (S/P/Bld) [Vol rate/Area] 80 mL/min/{1.73_m2} Normal > OR = 60 [facility] Comment on above: Performed By: #### 6 399, 7600, 74924 #### [facility] [place] [address] Supervisor Diagnostic: Izaiah Bergman MD Globulin (S) [Mass/Vol] 2.1 g/dL Normal 1.9-3.7 [facility] Comment on above: Performed By: #### 6 399, 7600, 19634 #### [facility] [place] [address] Supervisor Diagnostic: Izaiah Bergman MD Glucose [Mass/Vol] 87 mg/dL Normal 65-99 [facility] Comment on above: Result Comment: Fasting reference interval Performed By: #### 6 399, 7600, 79667 #### [facility] [place] [address] Supervisor Diagnostic: Izaiah Bergman MD Potassium [Moles/Vol] 4.3 mmol/L Normal 3.5-5.[address] [facility] Comment on above: Performed By: #### 6 399, 7600, 75519 #### [facility] of [address], [address] [place] [address] Supervisor Diagnostic: Izaiah Bergman MD Protein [Mass/Vol] 6.4 g/dL Normal 6.1-8.1 [facility] Comment on above: Performed By: #### 6 399, 7600, 33523 #### [facility] [place] [address] Supervisor Diagnostic: Izaiah Bergman MD Sodium [Moles/Vol] 141 mmol/L Normal 135-146 [facility] Comment on above: Performed By: #### 6 399, 7600, 92542 #### [facility] [place] [address] Supervisor Diagnostic: Izaiah Bergman MD Urea nitrogen [Mass/Vol] 17 mg/dL Normal 7-25 [facility] Comment on above: Performed By: #### 6 399, 7600, 49495 #### [facility] of [place] [address] Supervisor Diagnostic: Izaiah Bergman MD LIPID PANEL, [facility] 10-2 0 Cholesterol [Mass/Vol] 174 mg/dL Normal <200 [facility] Comment on above: Performed By: #### 6 399, 7600, 15756 #### [facility] [place] [address] Supervisor Diagnostic: Izaiah Bergman MD Cholesterol in HDL [Mass/Vol] 82 mg/dL Normal > OR = 50 [facility] Comment on above: Performed By: #### 6 399, 7600, 71426 #### [facility] [address], [address] [place] [address] Supervisor Diagnostic: Izaiah Bergman MD Cholesterol in LDL [Mass/Vol] 79 mg/dL Normal [facility] Comment on above: Result Comment: Refe rence range: <100 Desirable range <100 mg/dL for primary prevention; <70 mg/dL for patients with CHD or diabetic patients with > or = 2 CHD risk factors. LDL-C is now calculated using the Khris calculation, which is a validated novel method providing better accuracy than the Friedewald equation in the estimation of LDL-C. Matthew SS et al. GORGE. 2013;310(19): 2026-2894 (http://education.Colingo/faq/PBJ607) Performed By: #### 6 399, 7600, 17546 #### [facility] [address], [address] [place] [address] Supervisor Diagnostic: Izaiah Bergman MD Cholesterol.total/Cho lesterol in HDL [Mass ratio] 2.1 {ratio} Normal <5.0 [facility] Comment on above: Performed By: #### 6 399, 7600, 76284 #### [facility] [address], [address] [place] [address] Supervisor Diagnostic: Izaiah Bergman MD NON HDL CHOLESTEROL 92 mg/dL (calc) Normal <130 [facility] Comment on above: Result Comment: For patients with diabetes plus 1 major ASCVD risk factor, treating to a non-HDL-C goal of <100 mg/dL (LDL-C of <70 mg/dL) is considered a therapeutic option. Performed By: #### 6 399, 7600, 16420 #### [facility] [address], [address] [place] [address] Supervisor Diagnostic: Izaiah Bergman MD Triglyceride [Mass/Vol] 46 mg/dL Normal <150 [facility] Comment on above: Performed By: #### 6 399, 7600, 27966 #### [facility] [place] [address] Supervisor Diagnostic: Izaiah Bergman MD Laboratory - Chemistry and C hemistry - challengeon 04-09-2023 Albumin [Mass/Vol] 4.3 g/dL Normal 3.6 - 5.1 g/dL [facility]; [facility], [facility] Albumin/Globulin [Mass ratio] 2.0 {ratio} Normal 1.0 - 2.5 [facility]; [facility] ALP [Catalytic activity/Vol] 103 U/L Normal 37 - 153 U/L [facility].; [facility], [facility]. ALT [Catalytic activity/Vol] 49 U/L Abnormal 6 - 29 U/L [facility].; [facility]. AST [Catalytic activity/Vol] 44 U/L Abnormal 10 - 35 U/L [facility].; [facility]. Bilirubin [Mass/Vol] 0.8 mg/dL Normal 0.2 - 1 .2 mg/dL [facility].; [facility]. Calcium [Mass/Vol] 9.3 mg/dL Normal 8.6 - 10. 4 mg/dL [facility].; [place] [employer] [facility]. Chloride [Moles/Vol] 103 mmol/L Normal 98 - 11 0 mmol/L [facility].; [facility]. Cholesterol [Mass/Vol] 174 mg/dL Normal [facility]; [facility]. Cholesterol in HDL [Mass/Vol] 82 mg/dL Normal [facility].; [place] [employer] [facility]. Cholesterol in LDL [Mass/Vol] 79 mg/dL Normal [facility].; [place] [employer] [facility]. CO2 [Moles/Vol] 30 mmol/L Normal 20 - 32 mmol/L [facility].; [facility]. Creatinine [Mass/Vol] 0.80 mg/dL Normal 0.50 - 1.05 mg/dL [facility].; [facility]. GFR/1.73 sq M.predicted among non-blacks MDRD (S/P/Bld) [Vol rate/Area] 80 mL/min/{1.73_m2} Normal [facility].; [facility], [facility]. Glucose [Mass/Vol] 87 mg/dL Normal 65 - 99 mg/dL [facility].; [facility], [facility]. Potassium [Moles/Vol] 4.3 mmol/L Normal 3.5 - 5.3 mmol/L [facility], [facility].; [facility], [facility] Protein [Mass/Vol] 6.4 g/dL Normal 6.1 - 8.1 g/dL [facility].; [facility], [facility] Sodium [Moles/Vol] 141 mmol/L Normal 135 - 146 mmol/L [facility], [facility].; [facility], [facility] Triglyceride [Mass/Vol] 46 mg/dL Normal [facility]; [facility], [facility] Urea nitrogen [Mass/Vol] 17 mg/dL Normal 7 - 25 mg/dL [facility], [facility].; [facility], [facility] Laboratory - Hematology and Cell countson 04-09-2023 Basophils (Bld) [#/Vol] 0.04 10*3/uL Normal 0 - 200 {cells/uL} [facility].; [facility], [facility] Basophils/100 WBC (Bld) 0.8 % Normal [facility].; [facility], [facility] Eosinophils (Bld) [#/Vol] 0.09 10*3/uL Normal 15 - 500 {cells/uL} [facility], [facility].; [facility], [facility] Eosinophils/100 WBC (Bld) 1.8 % Normal [facility]; [facility], [facility] Erythrocyte distribution width (RBC) [Ratio] 12.1 % Normal 11.0 - 15.0 % [facility], [facility].; [facility], [facility] Hematocrit (Bld) [Volume fraction] 40.3 % Normal 35.0 - 45.0 % [facility], [facility].; [facility], [facility] Hemoglobin (Bld) [Mass/Vol] 13.8 g/dL Normal 11.7 - 15.5 g/dL [facility], [facility].; [facility], [facility] Lymphocytes (Bld) [#/Vol] 1.555 10*3/uL Normal 850 - 3900 {cells/uL} [place] [employer] [facility].; [employer], [employer]. Lymphocytes/100 WBC (Bld) 31.1 % Normal [facility].; [place] [employer] [facility], [employer]. MCH (RBC) [Entitic mass] 33.4 pg Abnormal 27.0 - 33.0 pg [facility], [facility].; [place] [employer], [employer]. MCHC (RBC) [Mass/Vol] 34.2 g/dL Normal 32.0 - 36.0 g/dL [facility] [employer] [facility].; [place] [employer] MCV (RBC) [Entitic vol] 97.6 fL Normal 80.0 - 100.0 fL [facility] [employer] [place] [employer], [employer]. Monocytes (Bld) [#/Vol] 0.38 10*3/uL Normal 200 - 950 {cells/uL} [facility] [employer] [place] [employer], [employer]. Monocytes/100 WBC (Bld) 7.6 % Normal [place] [employer] [facility].; [place] [employer], [employer]. Neutrophils (Bld) [#/Vol] 2.935 10*3/uL Normal 1500 - 7800 {cells/uL} [place] [employer], [facility].; [place] [employer], [employer]. Neutrophils/100 WBC (Bld) 58.7 % Normal [place] [employer] [facility].; [place] [employer] Platelet mean volume (Bld) [Entitic vol] 10.3 fL Normal 7.5 - 12.5 fL [facility].; [employer] Platelets (Bld) [#/Vol] 236 10*3/uL Normal 140 - 400 [place] [employer] [facility].; [place] [employer], [employer]. RBC (Bld) [#/Vol] 4.13 10*6/uL Normal 3.80 - 5.1 0 {Million/uL} [place] [employer] [place] [employer] WBC (Bld) [#/Vol] 5.0 10*3/uL Normal 3.8 - 10.8 [place] [employer] [place] [employer], [employer]. No Panel Informationon 04-09 BUN/CREATININE RATIO SEE NOTE: Normal 6 - 22 [facility].; [facility], [facility] CHOL/HDLC RATIO 2.1 Normal [facility]; [facility], [facility] GLOBULIN 2.1 Normal 1.9 - 3.7 [facility].; [facility], [facility] NON HDL CHOLESTEROL 92 Normal [facility].; [facility], [facility] Laboratory - Chemistry and C hemistry - challengeon 04-12-2022 Chloride [Moles/Vol] 105 mmol/L Normal 98 - 10 7 mmol/L [facility]; [facility], [facility] Cholesterol [Mass/Vol] 194 mg/dL Normal [facility]; [facility], [facility] Cholesterol in HDL [Mass/Vol] 96 mg/dL Normal [facility].; [facility], [facility]. Cholesterol in LDL [Mass/Vol] 86 mg/dL Normal 0 - 130 mg/dL [facility].; [facility], [facility]. Cholesterol in VLDL [Mass/Vol] 12 mg/dL Normal 5 - 40 mg/dL [facility].; [facility]. CO2 [Moles/Vol] 31.0 mmol/L Normal 21.0 - 32.0 mmol/L [facility]; [facility] [facility], [facility]. Creatinine [Mass/Vol] 0.88 mg/dL Normal 0.55 - 1.02 mg/dL [facility].; [facility], [facility]. GFR/1.73 sq M.predicted among non-blacks MDRD (S/P/Bld) [Vol rate/Area] 68 mL/min/{1.73_m2} Normal [facility].; [facility], [facility]. Glucose [Mass/Vol] 85 mg/dL Normal 74 - 106 mg/dL [facility].; [facility], [facility]. Magnesium [Mass/Vol] 8.9 mg/dL Normal 8.5 - 1 0.1 mg/dL [facility], [facility].; [facility], [facility]. Potassium [Moles/Vol] 4.4 mmol/L Normal 3.5 - 5.1 mmol/L [facility].; [facility]. Sodium [Moles/Vol] 140 mmol/L Normal 136 - 145 mmol/L [facility]; [facility] Triglyceride [Mass/Vol] 60 mg/dL Normal [facility]; [facility], [facility] Urea nitrogen [Mass/Vol] 19 mg/dL Abnormal 7 - 18 mg/dL [facility]; [facility] Laboratory - Hematology and Cell countson 04-12-2022 Basophils/100 WBC (Bld) 1.1 % Abnormal 0 - 1 [facility]; [facility] Eosinophils/100 WBC (Bld) 3.2 % Normal 0 - 5 [facility]; [facility] Erythrocyte distribution width (RBC) [Ratio] 12.5 % Normal 11.6 - 14.6 [facility]; [place] [employer] [facility], [facility] Hematocrit (Bld) [Volume fraction] 40.5 % Normal 37 - 47 [facility]; [facility], [facility] Hemoglobin (Bld) [Mass/Vol] 13.7 g/dL Normal 12.0 - 15.0 g/dL [facility]; [facility] Lymphocytes/100 WBC (Bld) 38.9 % Normal 19 - 41 [facility]; [place] [employer] [facility]. MCH (RBC) [Entitic mass] 32.7 pg Abnormal 27.0 - 32.0 pg [facility].; [place] [employer] [facility], [facility]. MCHC (RBC) [Mass/Vol] 33.8 g/dL Normal 32 - 36 g/dL [facility].; [place] [employer] [facility]. MCV (RBC) [Entitic vol] 96.7 fL Normal 81 - 99 fL [facility]; [place] [employer] [facility], [facility] Monocytes/100 WBC (Bld) 7.5 % Normal 0 - 10 [facility].; [place] [employer] [facility], [facility]. Neutrophils/100 WBC (Bld) 49.1 % Normal 47 - 70 [facility].; [facility] Nucleated RBC (Bld) [#/Vol] 0 10*3/uL Normal 0 - 5 [place] [employer]. Platelet mean volume (Bld) [Entitic vol] 9.7 fL Normal 6.2 - 12.0 fL [facility] [employer]. Platelets (Bld) [#/Vol] 242 10*3/uL Normal 150 - 450 K/mm3 [place] [employer]. RBC (Bld) [#/Vol] 4.19 10*6/uL Abnormal 4.2 - 5.4 {M/mm3} [place] [employer]. WBC (Bld) [#/Vol] 5.3 10*3/uL Normal 4.4 - 11.0 K/mm3 [place] [employer]. No Panel Informationon 04-12 Absolute Lymph 2.07 {X10_3/uL} Normal 0.83 - 4.5 1 {X10_3/uL} [employer]. Absolute Neut 2.6 {X10_3/uL} Normal 2.0 - 7.7 {X10_3/uL} [employer]. BUN/CRE 21.5 {RATIO} Abnormal 10 - 20 {RATIO} [employer]. EST GFR - AA 82 mL/min Normal [place] [employer]. GAP 4 Abnormal 5 - 15 [employer]. IG% 0.200 Normal 0.0 - 0.9 [employer].; [employer] RDW SD 44.6 fL Abnormal 35.1 - 43.9 fL [facility] [employer]. XR HAND RIGHT (MIN 3 VIEWS)o n 11-30-2021 XR HAND RIGHT (MIN 3 VIEWS) EXAMINATION: THREE XRAY VIEWS OF THE RIGHT HAND 11/30/2021 12:09 pm COMPARISON: None. HISTORY: ORDERING SYSTEM PROVIDED HISTORY: pain, swelling fb right index finger TECHNOLOGIST PROVIDED HISTORY: Reason for exam:->pain, swelling fb right index finger FINDINGS: Degenerative changes are noted in all visible interphalangeal joints and at the base of the thumb. No radiopaque foreign body involving the index finger. Mild soft tissue swelling is present in the 2nd digit. No acute fracture or subluxation. IMPRESSION: No evidence of foreign body in the 2nd digit. No acute fracture or subluxation. 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 Interpreted by: Staci Luciano MD Signed by: Staci Luciano MD 11/30/21 Final result Normal [facility] Comment on above: Order Comment: Reaso n for exam:->pain, swelling fb right index finger Laboratory - Chemistry and C hemistry - challengeon 07-18-2021 Albumin [Mass/Vol] 4.5 g/dL Normal 3.6 - 5.1 g/dL [facility] [employer] Albumin/Globulin [Mass ratio] 2.0 {ratio} Normal 1.0 - 2.5 [place] [employer], [facility].; [employer] ALP [Catalytic activity/Vol] 95 U/L Normal 37 - 153 U/L [place] [employer], [facility].; [employer] ALT [Catalytic activity/Vol] 21 U/L Normal 6 - 29 U/L [employer], [employer] AST [Catalytic activity/Vol] 21 U/L Normal 10 - 35 U/L [employer], [employer].; [employer] Bilirubin [Mass/Vol] 0.4 mg/dL Normal 0.2 - 1 .2 mg/dL [employer], [facility].; [employer], [employer]. Bilirubin.indirect [Mass/Vol] 0.1 mg/dL Normal [employer] Protein [Mass/Vol] 6.8 g/dL Normal 6.1 - 8.1 g/dL [facility] Center[facility], Inc.; [employer] No Panel Informationon 07-18 BILIRUBIN, INDIRECT 0.3 Normal 0.2 - 1.2 [facility] [employer] GLOBULIN 2.3 Normal 1.9 - 3.7 [employer], [facility].; [facility]. Laboratory - Chemistry and C hemistry - challengeon 03-15-2021 Albumin [Mass/Vol] 4.6 g/dL Normal 3.6 - 5.1 g/dL [facility]; [facility], [facility] Albumin/Globulin [Mass ratio] 2.0 {ratio} Normal 1.0 - 2.5 [facility]; [facility] ALP [Catalytic activity/Vol] 97 U/L Normal 37 - 153 U/L [facility].; [facility]. ALT [Catalytic activity/Vol] 27 U/L Normal 6 - 29 U/L [facility].; [facility]. AST [Catalytic activity/Vol] 23 U/L Normal 10 - 35 U/L [facility]; [facility] Bilirubin [Mass/Vol] 0.8 mg/dL Normal 0.2 - 1 .2 mg/dL [facility]; [facility] Calcium [Mass/Vol] 9.6 mg/dL Normal 8.6 - 10. 4 mg/dL [facility].; [place] [employer] [facility]. Chloride [Moles/Vol] 103 mmol/L Normal 98 - 11 0 mmol/L [facility]; [facility]. Cholesterol [Mass/Vol] 275 mg/dL Abnormal [facility]; [facility] Cholesterol in HDL [Mass/Vol] 90 mg/dL Normal [facility].; [facility]. Cholesterol in LDL [Mass/Vol] 166 mg/dL Abnormal [facility].; [place] [employer] [facility]. CO2 [Moles/Vol] 30 mmol/L Normal 20 - 32 mmol/L [facility].; [facility]. Creatinine [Mass/Vol] 0.88 mg/dL Normal 0.50 - 0.99 mg/dL [facility].; [place] [employer] [facility]. GFR/1.73 sq M.predicted among blacks MDRD (S/P/Bld) [Vol rate/Area] 79 mL/min/{1.73_m2} Normal [facility], [facility].; [facility], [facility] Glucose [Mass/Vol] 91 mg/dL Normal 65 - 99 mg/dL [facility].; [facility], [facility] Potassium [Moles/Vol] 4.4 mmol/L Normal 3.5 - 5.3 mmol/L [facility].; [facility], [facility] Protein [Mass/Vol] 6.9 g/dL Normal 6.1 - 8.1 g/dL [facility].; [facility], [facility] Sodium [Moles/Vol] 140 mmol/L Normal 135 - 146 mmol/L [facility].; [facility], [facility] Triglyceride [Mass/Vol] 85 mg/dL Normal [facility]; [facility], [facility]. Urea nitrogen [Mass/Vol] 13 mg/dL Normal 7 - 25 mg/dL [facility].; [facility], [facility] Laboratory - Hematology and Cell countson 03-15-2021 Basophils (Bld) [#/Vol] 0.049 10*3/uL Normal 0 - 200 {cells/uL} [facility].; [facility], [facility]. Basophils/100 WBC (Bld) 0.8 % Normal [facility].; [facility], [facility]. Eosinophils (Bld) [#/Vol] 0.128 10*3/uL Normal 15 - 500 {cells/uL} [facility], [facility].; [facility], [facility] Eosinophils/100 WBC (Bld) 2.1 % Normal [facility].; [facility], [facility] Erythrocyte distribution width (RBC) [Ratio] 12.0 % Normal 11.0 - 15.0 % [facility], [facility].; [facility], [facility]. Hematocrit (Bld) [Volume fraction] 43.1 % Normal 35.0 - 45.0 % [facility], [facility].; [facility], [facility]. Hemoglobin (Bld) [Mass/Vol] 14.4 g/dL Normal 11.7 - 15.5 g/dL [facility].; [facility], [facility] Lymphocytes (Bld) [#/Vol] 2.245 10*3/uL Normal 850 - 3900 {cells/uL} [facility], [facility].; [place] [employer], [facility]. Lymphocytes/100 WBC (Bld) 36.8 % Normal [facility].; [facility], Inc[employer] MCH (RBC) [Entitic mass] 32.2 pg Normal 27.0 - 33.0 pg [facility], [facility].; [place] [employer], [facility]. MCHC (RBC) [Mass/Vol] 33.4 g/dL Normal 32.0 - 36.0 g/dL [facility], [facility].; [place] [employer] MCV (RBC) [Entitic vol] 96.4 fL Normal 80.0 - 100.0 fL [facility], [facility].; [facility], [facility]. Monocytes (Bld) [#/Vol] 0.537 10*3/uL Normal 200 - 950 {cells/uL} [facility], [employer] [place] [employer] Monocytes/100 WBC (Bld) 8.8 % Normal [facility].; [place] [employer] Neutrophils (Bld) [#/Vol] 3.142 10*3/uL Normal 1500 - 7800 {cells/uL} [facility], [facility].; [place] [employer] Neutrophils/100 WBC (Bld) 51.5 % Normal [facility], [facility].; [place] [employer] Platelet mean volume (Bld) [Entitic vol] 9.9 fL Normal 7.5 - 12.5 fL [facility], [facility].; [place] [employer] Platelets (Bld) [#/Vol] 272 10*3/uL Normal 140 - 400 [place] [employer] [facility].; [place] [employer] RBC (Bld) [#/Vol] 4.47 10*6/uL Normal 3.80 - 5.1 0 {Million/uL} [place] [employer] [facility], [facility].; [place] [employer] WBC (Bld) [#/Vol] 6.1 10*3/uL Normal 3.8 - 10.8 [place] [employer], [employer] [place] [employer], [employer]. No Panel Informationon 03-15 BUN/CREATININE RATIO NOT APPLICABLE Normal 6 - 22 [facility]; [facility] CHOL/HDLC RATIO 3.1 Normal [facility]; [facility] eGFR NON-AFR. ALBANIAN 68 Normal [facility]; [facility] GLOBULIN 2.3 Normal 1.9 - 3.7 [facility]; [facility] NON HDL CHOLESTEROL 185 Abnormal [facility]; [facility] ANAND by IFAon 02-23-2020 ANAND Pattern ANANOT Normal [facility] Reference Lab Comment on above: Performed By: #### R F, ENAID #### [facility] Routine Lab [address] [id number] #### ANA1, ANAIFS #### [facility] Immuno Assay [address] [phone] #### DNA #### [facility] Immunology [address] [phone] ANAND Titer Normal Negative [facility] Reference Lab Comment on above: Result Comment: Nega tive Normal range : negatie at <1:80 serum dilution. Performed By: #### R F, ENAID #### [facility] Routine Lab [address] [phone] #### ANA1, ANAIFS #### [facility] [employer] Immuno Assay [address] [phone] #### DNA #### [facility] [address] [phone] Nuclear Ab IF (S) [Titer] Negative Normal Negative [facility] Reference Lab Comment on above: Performed By: #### R F, ENAID #### [facility] Routine Lab [address] [phone] #### ANA1, ANAIFS #### [facility] [employer] Immuno Assay [address] [phone] #### DNA #### [facility] Immunology [address] [place] [address] DNA Antibody w/ Conf.on DNA Antibody w/ Conf. <12 Normal <30 [facility] Reference Lab Comment on above: Performed By: #### R F, ENAID #### [facility] Routine Lab [address] [place] [phone] #### ANA1, ANAIFS #### [facility] Immuno Assay [address] [place] [address] #### DNA #### [facility] [address] [phone] ANA Antibody Panelon 020 [employer] <0.2 Normal <1.0 [facility] Reference Lab Comment on above: Performed By: #### R F, ENAID #### [facility] Routine Lab [address] [place] [address] #### ANA1, ANAIFS #### [facility]o Assay [address] [address] #### DNA #### [facility] [address] [address] Chromatin Antibody <0.2 Normal <1.0 [facility] Reference Lab Comment on above: Performed By: #### R F, ENAID #### [facility] Routine Lab [address] [place] [address] #### ANA1, ANAIFS #### [facility] Immuno Assay [address] [address] #### DNA #### [facility] [address] [address] BROOK 1 Antibody <0.2 Normal <1.0 [facility] Reference Lab Comment on above: Performed By: #### R F, ENAID #### [facility] Routine Lab [address] [place] [phone] #### ANA1, ANAIFS #### [facility] Immuno Assay [phone] #### DNA #### [facility] [address] [place] [phone] Ribosomal ESTIMATION MANAGER <0.2 Normal <1.0 [facility] Reference Lab Comment on above: Performed By: #### R F, ENAID #### [facility] Routine Lab [address] [phone] #### ANA1, ANAIFS #### [facility]o [facility] [address] [phone] #### DNA #### [facility] [address] [phone] ESTIMATION MANAGER Antibody <0.2 Normal <1.0 [facility] Reference Lab Comment on above: Performed By: #### R F, ENAID #### [facility] Routine Lab [address] [phone] #### ANA1, ANAIFS #### [facility] Immuno Assay [address] [phone] #### DNA #### [facility] [address] [place] [phone] Scleroderma IgG Ab <0.2 Normal <1.0 [facility] Reference Lab Comment on above: Performed By: #### R F, ENAID #### [facility] Routine Lab [address] [place] [phone] #### ANA1, ANAIFS #### [facility] Immuno Assay [address] [phone] #### DNA #### [facility] [address] [phone] Sm Antibody <0.2 Normal <1.0 [facility] Reference Lab Comment on above: Performed By: #### R F, ENAID #### [facility] Routine Lab [address] [phone] #### ANA1, ANAIFS #### [facility] Immuno Assay [address] [phone] #### DNA #### [facility] [address] [phone] SSA Antibody >8.0 High <1.0 [facility] Reference Lab Comment on above: Performed By: #### R F, ENAID #### [facility] Routine Lab [address] [place] [phone] #### ANA1, ANAIFS #### [facility] Immuno Assay [address] [phone] #### DNA #### [facility] [address] [phone] SSB Antibody <0.2 Normal <1.0 [facility] Reference Lab Comment on above: Performed By: #### R F, ENAID #### [facility] Routine Lab [address] [phone] #### ANA1, ANAIFS #### [facility]o Assay [address] [phone] #### DNA #### [facility] [address] [phone] ANAND Panel 1on 02-22-2020 ANAND by EIA 3.1 OD Ratio Normal [facility] Reference Lab Comment on above: Performed By: #### R F, ENAID #### [facility] Routine Lab [address] [phone] #### ANA1, ANAIFS #### [facility] Immuno Assay [address] [phone] #### DNA #### [facility] [address] [phone] ANAND by EIA, Qual Positive Abnormal Negative [facility] Reference Lab Comment on above: Performed By: #### R F, ENAID #### [facility] Routine Lab [address] [phone] #### ANA1, ANAIFS #### [facility]o Assay [address] [phone] #### DNA #### [facility] [address] [place] [phone] LYME LATE (>30 DAYS)on 02-21 Lyme IgG/IgM AB Negative Normal Negative [facility] Reference Lab Comment on above: Performed By: #### L MLATE #### [facility] Routine Lab [address] [place] [phone] Rheumatoid Factoron 02-22-20 20 Rheumatoid Factor <10 Normal <16 [facility] Reference Lab Comment on above: Performed By: #### R F, ENAID #### [facility] Routine Lab [address] [place] [phone] #### ANA1, ANAIFS #### [facility] Immuno Assay [address] [phone] #### DNA #### [facility] [address] [phone] Laboratory - Microbiology an d Antimicrobial susceptibilityon 02-20-2020 B. burgdorferi Ab (S) [Interp] Negative Normal [facility].; [facility] Laboratory - Chemistry and C hemistry - challengeon 12-30-2019 Calcium [Mass/Vol] 9.4 mg/dL Normal 8.6 - 10. 4 mg/dL [facility].; [facility], [facility]. Chloride [Moles/Vol] 103 mmol/L Normal 98 - 11 0 mmol/L [facility].; [facility], [facility]. Cholesterol [Mass/Vol] 244 mg/dL Abnormal [facility].; [facility], [facility]. Cholesterol in HDL [Mass/Vol] 82 mg/dL Normal [facility].; [facility], [facility]. Cholesterol in LDL [Mass/Vol] 146 mg/dL Abnormal [facility].; [facility], [facility]. CO2 [Moles/Vol] 29 mmol/L Normal 20 - 32 mmol/L [facility].; [facility], [facility]. Creatinine [Mass/Vol] 0.83 mg/dL Normal 0.50 - 0.99 mg/dL [facility].; [facility], [facility]. GFR/1.73 sq M.predicted among blacks MDRD (S/P/Bld) [Vol rate/Area] 86 mL/min/{1.73_m2} Normal [facility], [facility].; [facility], [facility]. Glucose [Mass/Vol] 90 mg/dL Normal 65 - 99 mg/dL [facility].; [facility], [facility]. Potassium [Moles/Vol] 4.3 mmol/L Normal 3.5 - 5.3 mmol/L [facility], [facility].; [facility], [facility]. Sodium [Moles/Vol] 140 mmol/L Normal 135 - 146 mmol/L [facility], [facility].; [facility], [facility]. Triglyceride [Mass/Vol] 56 mg/dL Normal [facility].; [facility], [facility]. Urea nitrogen [Mass/Vol] 15 mg/dL Normal 7 - 25 mg/dL [facility], [facility].; [facility], [facility]. No Panel Informationon 12-29 BUN/CREATININE RATIO NOT APPLICABLE Normal 6 - 22 [facility], [facility].; [place] [employer] [facility] CHOL/HDLC RATIO 3.0 Normal [facility], [facility] eGFR NON-AFR. ALBANIAN 75 Normal [facility].; [facility] NON HDL CHOLESTEROL 162 Abnormal [facility]; [facility] TSH W/REFLEX TO FT4 1.03 {mIU/L} Normal 0.40 - 4 .50 {mIU/L} [facility]; [facility] Laboratory - Hematology and Cell countson 11-21-2019 Basophils (Bld) [#/Vol] 0.00 {3/UL} Normal 0.00 - 0.10 {3/UL} [facility]; [facility] Basophils/100 WBC (Bld) 0.3 % Normal 0.0 - 2.0 % [facility]; [facility] CBC W Auto Differential panel (Bld) CBC + DIFF Normal [facility]; [facility] Eosinophils (Bld) [#/Vol] 0.00 {3/UL} Normal 0.00 - 0.50 {3/UL} [facility]; [facility] Eosinophils/100 WBC (Bld) 0.6 % Normal 0.0 - 7.0 % [facility]; [facility] Erythrocyte distribution width (RBC) [Ratio] 12.5 % Normal 12.0 - 15.6 % [facility]; [facility], [facility] Hematocrit (Bld) [Volume fraction] 37.6 % Normal 34.0 - 46.0 % [facility]; [facility] Hemoglobin (Bld) [Mass/Vol] 13.0 g/dL Normal 12.0 - 16.0 g/dL [facility]; [facility] Lymphocytes (Bld) [#/Vol] 1.00 {3/UL} Normal 0.80 - 2.80 {3/UL} [facility].; [facility], [facility] Lymphocytes/100 WBC (Bld) 16.4 % Abnormal 20.0 - 45.0 % [facility].; [place] [employer] [facility] MCH (RBC) [Entitic mass] 33 pg Normal 27 - 33 pg [facility]; [employer]. MCHC (RBC) [Mass/Vol] 34 {X10_3} Normal 32 - 3 6 {X10_3} [employer], [employer]. MCV (RBC) [Entitic vol] 95 fL Normal 80 - 99 fL [employer].; [employer], [employer]. Monocytes (Bld) [#/Vol] 0.50 {3/UL} Normal 0.20 - 1.00 {3/UL} [employer].; [employer]. Monocytes/100 WBC (Bld) 8.4 % Normal 0.0 - 10.0 % [employer].; [employer]. Morphology Stanley (Bld) [Interp] N/A Normal [employer].; [employer]. Neutrophils (Bld) [#/Vol] 4.50 {3/UL} Normal 1.50 - 7.10 {3/UL} [employer].; [employer]. Neutrophils/100 WBC (Bld) 74.3 % Normal 46.0 - 76.0 % [employer].; [employer]. Platelet mean volume (Bld) [Entitic vol] 7.7 fL Normal 6.6 - 10.[address] [facility] [employer], [employer]. Platelets (Bld) [#/Vol] 363 {3/UL} Normal 150 - 450 {3/UL} [employer], [employer]. RBC (Bld) [#/Vol] 3.95 {6/UL} Abnormal 4.10 - 5.3 0 {6/UL} [employer], [employer]. WBC (Bld) [#/Vol] 6.0 {3/UL} Normal 4.5 - 10.8 {3/UL} [employer], [employer]. No Panel Informationon 11-20 MANUAL DIFF N/A Normal [employer]. Coronavirus 2019on 0 COVID 19 Source CONVERSION MAN Normal [facility] Comment on above: Result Comment: Naso pharyngeal Swab Called to and read back by: [facility] Corrected on 11/11 AT 1251: Previously reported as NASOPHARYNGEAL 11/12/2019 1250 BBlu Corrected on 11/11 AT 1251: Previously reported as NASOPHARYNGEAL COVID 19 Result CONVERSION MAN Abnormal Negative for COVID19 (SARS CoV2) by PCR. [facility] Comment on above: Result Comment: Posi tive for This test was developed and its performance characteristics determined by [facility] [place]. This test has been authorized by FDA under an Emergency Use Authorization (EUA). This test has been validated in accordance with the FDA's Guidance Document Policy for Diagnostics Testing in Laboratories Certified to Perform High Complexity Testing under CLIA prior to Emergency use Authorization for Coronavirus Disease 2019 during the Public Health Emergency issued on August 20, 2019. COVID19 (SARS This test was developed and its performance characteristics determined by [facility] [place]. This test has been authorized by FDA under an Emergency Use Authorization (EUA). This test has been validated in accordance with the FDA's Guidance Document Policy for Diagnostics Testing in Laboratories Certified to Perform High Complexity Testing under CLIA prior to Emergency use Authorization for Coronavirus Disease 2019 during the Public Health Emergency issued on August 20, 2019. CoV2) by This test was developed and its performance characteristics determined by [facility] [place]. This test has been authorized by FDA under an Emergency Use Authorization (EUA). This test has been validated in accordance with the FDA's Guidance Document Policy for Diagnostics Testing in Laboratories Certified to Perform High Complexity Testing under CLIA prior to Emergency use Authorization for Coronavirus Disease 2019 during the Public Health Emergency issued on August 20, 2019. PCR.(*) This test was developed and its performance characteristics determined by [facility] [place]. This test has been authorized by FDA under an Emergency Use Authorization (EUA). This test has been validated in accordance with the FDA's Guidance Document Policy for Diagnostics Testing in Laboratories Certified to Perform High Complexity Testing under CLIA prior to Emergency use Authorization for Coronavirus Disease 2019 during the Public Health Emergency issued on August 20, 2019. Laboratory - Chemistry and C hemistry - challengeon 04-18-2019 Bilirubin Ql (U) Negative Normal [facility] [employer]. Ketones Ql (U) Negative Normal [facility] [employer], [employer]. pH (U) 7.5 [pH] Normal [employer].; [employer]. Specific gravity (U) [Rel density] 1.020 Normal [employer].; [employer]. Urobilinogen Qn (U) 0.2 mg/dL Normal [facility] [employer].; [employer]. Laboratory - Hematology and Cell countson 04-18-2019 Hemoglobin Ql (U) moderate Abnormal [employer].; [employer]. Laboratory - Specimen inform ationon 04-18-2019 Appearance (U) clear Normal [facility] [employer] [facility].; [employer]. Color (U) yellow Normal [employer].; [employer]. Laboratory - Urinalysison Glucose Test strip (U) [Mass/Vol] Negative Normal [employer].; [employer]. Leukocyte esterase Test strip Ql (U) large Abnormal [employer].; [employer]. Nitrite Ql (U) Negative Normal [facility] [employer] [facility].; [employer]. Protein Ql (U) trace Normal [facility] [employer] [facility].; [employer]. Laboratory - Chemistry and C hemistry - challengeon 03-31-2018 Albumin [Mass/Vol] 4.7 g/dL Normal 3.4 - 4.8 g/dL [facility] [employer].; [employer], [employer]. Albumin [Mass/Vol] 2.0 g/dL Abnormal 0.9 - 1.6 [employer].; [employer], [employer]. ALP [Catalytic activity/Vol] 97 U/L Normal 38 - 126 U/L [employer].; [employer], [employer]. ALT [Catalytic activity/Vol] 26 U/L Normal 8 - 35 U/L [facility]. ALT No additional P-5'-P [Catalytic activity/Vol] 26 U/L Normal 8 - 35 U/L [facility]; [facility] Anion gap [Moles/Vol] 12 mmol/L Normal 10 - 20 mmol/L [facility]; [facility]. AST [Catalytic activity/Vol] 19 U/L Normal 13 - 39 U/L [facility]; [facility] Bilirubin [Mass/Vol] 0.7 mg/dL Normal 0.0 - 1 .5 mg/dL [facility]; [facility] Calcium [Mass/Vol] 9.8 mg/dL Normal 8.6 - 10. 2 mg/dL [facility]; [facility]. Chloride [Moles/Vol] 101 mmol/L Normal 98 - 10 7 mmol/L [facility]; [facility]. Cholesterol [Mass/Vol] 256 mg/dL Abnormal 0 - 200 mg/dL [facility]; [facility], [facility]. Cholesterol in HDL [Mass or moles/Vol] 82 mg/dL Abnormal 40 - 60 mg/dL [facility]; [facility]. Cholesterol in LDL [Mass/Vol] 156 mg/dL Abnormal 0 - 129 mg/dL [facility].; [facility], [facility]. Cholesterol.total/Cho lesterol in HDL [Mass ratio] 3.1 {ratio} Normal 0.0 - 5.0 [facility]; [facility] CO2 [Moles/Vol] 30.0 mmol/L Normal 21.0 - 31.0 mmol/L [facility]; [facility], [facility]. Comprehensive metabolic 2000 panel CMP with eGFR Normal [facility]; [facility], [facility] Creatinine [Mass/Vol] 1.0 mg/dL Normal 0.6 - 1.2 mg/dL [facility]; [facility], [facility]. GFR/1.73 sq M.predicted among blacks MDRD (S/P/Bld) [Vol rate/Area] mL/min/{1.73_m2} Normal 60 - 999 {ML/MINUTE} [facility], [facility].; [facility], [facility]. GFR/1.73 sq M.predicted MDRD (S/P/Bld) [Vol rate/Area] 56 {ML/MINUTE} Abnormal 60 - 999 {ML/MINUTE} [facility], [facility].; [place] [employer] [facility], [facility]. Globulin (S) [Mass/Vol] 2.4 g/dL Normal 1.5 - 3.8 g/dL [facility], [facility].; [place] [employer], [facility]. Glucose [Mass/Vol] 85 mg/dL Normal 74 - 106 mg/dL [facility].; [facility], [facility] Lipid 1996 panel LIPID PROFILE Normal [facility].; [place] [employer] [facility], [facility] Potassium [Moles/Vol] 4.4 mmol/L Normal 3.5 - 5.1 mmol/L [facility], [facility].; [place] [employer] [facility], [facility] Protein [Mass/Vol] 7.1 g/dL Normal 6.4 - 8.3 g/dL [facility].; [facility], [facility] Sodium [Moles/Vol] 139 mmol/L Normal 136 - 145 mmol/L [facility].; [place] [employer] [facility], [facility]. Triglyceride [Mass/Vol] 89 mg/dL Normal 0 - 150 mg/dL [facility], [facility].; [place] [employer], [facility]. Urea nitrogen [Mass/Vol] 18 mg/dL Normal 6 - 20 mg/dL [facility].; [place] [employer] [facility], [facility]. Urea nitrogen/Creatinine [Mass ratio] 18 {ratio} Normal 0 - 30 {ratio} [facility].; [place] [employer], [facility]. Laboratory - Hematology and Cell countson 03-31-2018 Basophils (Bld) [#/Vol] 0.10 {3/UL} Normal 0.00 - 0.10 {3/UL} [facility], [facility].; [place] [employer] Basophils/100 WBC (Bld) 0.5 % Normal 0.0 - 2.0 % [facility].; [place] [employer], [employer]. CBC W Auto Differential panel (Bld) CBC Normal [facility].; [facility], [facility] Eosinophils (Bld) [#/Vol] 0.00 {3/UL} Normal 0.00 - 0.50 {3/UL} [facility].; [facility], [facility]. Eosinophils/100 WBC (Bld) 0.5 % Normal 0.0 - 7.0 % [facility], [facility].; [facility], [facility] Erythrocyte distribution width (RBC) [Ratio] 13.0 % Normal 12.0 - 15.6 % [facility].; [facility], [facility] Hematocrit (Bld) [Volume fraction] 42.3 % Normal 34.0 - 46.0 % [facility].; [facility], [facility] Hemoglobin (Bld) [Mass/Vol] 14.4 g/dL Normal 12.0 - 16.0 g/dL [facility], [facility].; [facility], [facility] Lymphocytes (Bld) [#/Vol] 1.50 {3/UL} Normal 0.80 - 2.80 {3/UL} [facility].; [facility], [facility] Lymphocytes/100 WBC (Bld) 15.6 % Abnormal 20.0 - 45.0 % [facility].; [place] [employer] [facility], [facility]. MCH (RBC) [Entitic mass] 33 pg Normal 27 - 33 pg [facility].; [place] [employer] [facility], [facility]. MCHC (RBC) [Mass/Vol] 34 {X10_3} Normal 32 - 3 6 {X10_3} [facility].; [place] [employer], [facility]. MCV (RBC) [Entitic vol] 97 fL Normal 80 - 99 fL [facility].; [place] [employer] [facility], [facility]. Monocytes (Bld) [#/Vol] 0.50 {3/UL} Normal 0.20 - 1.00 {3/UL} [facility], [facility].; [place] [employer] [facility], [facility]. Monocytes/100 WBC (Bld) 5.2 % Normal 0.0 - 10.0 % [facility], [facility].; [place] [employer] [facility], [facility] Morphology Stanley (Bld) [Interp] N/A Normal [facility].; [employer]. Neutrophils (Bld) [#/Vol] 7.40 {3/UL} Abnormal 1.50 - 7.10 {3/UL} [place] [employer].; [employer], [employer]. Neutrophils/100 WBC (Bld) 78.2 % Abnormal 46.0 - 76.0 % [facility] [employer], [employer]. Platelet mean volume (Bld) [Entitic vol] 8.6 fL Normal 6.6 - 10.5 fL [facility].; [place] [employer], [employer]. Platelets (Bld) [#/Vol] 303 {3/UL} Normal 150 - 450 {3/UL} [place] [employer].; [employer], [employer]. RBC (Bld) [#/Vol] 4.34 {6/UL} Normal 4.10 - 5.3 0 {6/UL} [place] [employer].; [employer], [employer]. WBC (Bld) [#/Vol] 9.4 {3/UL} Normal 4.5 - 10.8 {3/UL} [employer].; [employer], [employer]. No Panel Informationon 03-31 AGE 63 {years} Normal [place] [employer]. MANUAL DIFF N/A Normal [facility] [employer].; [employer]. Laboratoryon 01-14-2017 Lower GI hemoglobin IA Ql (Stl) Not detected Normal [place] [employer].; [employer]. Laboratory - Chemistry and C hemistry - challengeon 01-01-2017 Anion gap [Moles/Vol] 9 mmol/L Abnormal 10 - 20 mmol/L [place] [employer].; [employer], [employer]. Basic metabolic 2000 panel BMP with eGFR Normal [employer].; [employer], [employer]. Calcium [Mass/Vol] 8.9 mg/dL Normal 8.6 - 10. 2 mg/dL [place] [employer].; [employer], [employer]. Chloride [Moles/Vol] 102 mmol/L Normal 98 - 10 7 mmol/L [place] [employer].; [employer] [facility]. Cholesterol [Mass/Vol] 223 mg/dL Abnormal 0 - 200 mg/dL [facility], [facility].; [facility], [facility]. Cholesterol in HDL [Mass or moles/Vol] 73 mg/dL Abnormal 40 - 60 mg/dL [facility], [facility].; [facility], [facility]. Cholesterol in LDL [Mass/Vol] 137 mg/dL Abnormal 0 - 129 mg/dL [facility], [facility].; [facility], [facility]. Cholesterol.total/Cho lesterol in HDL [Mass ratio] 3.1 {ratio} Normal 0.0 - 5.0 [facility].; [facility], [facility]. CO2 [Moles/Vol] 32.8 mmol/L Abnormal 21.0 - 31.0 mmol/L [facility].; [facility], [facility]. Creatinine [Mass/Vol] 0.9 mg/dL Normal 0.6 - 1.2 mg/dL [facility], [facility].; [facility], [facility]. GFR/1.73 sq M.predicted among blacks MDRD (S/P/Bld) [Vol rate/Area] mL/min/{1.73_m2} Normal 60 - 999 {ML/MINUTE} [facility], [facility].; [facility], [facility]. GFR/1.73 sq M.predicted MDRD (S/P/Bld) [Vol rate/Area] mL/min/{1.73_m2} Normal 60 - 999 {ML/MINUTE} [facility], [facility].; [facility], [facility]. Glucose [Mass/Vol] 77 mg/dL Normal 74 - 106 mg/dL [facility], [facility].; [facility], [facility]. Lipid 1996 panel LIPID PROFILE Normal [facility].; [facility], [facility]. Potassium [Moles/Vol] 4.5 mmol/L Normal 3.5 - 5.1 mmol/L [facility], [facility].; [facility], [facility]. Sodium [Moles/Vol] 139 mmol/L Normal 136 - 145 mmol/L [facility], [facility].; [facility], [facility]. Triglyceride [Mass/Vol] 67 mg/dL Normal 0 - 150 mg/dL [facility], [facility].; [facility], [employer] TSH Qn 1.79 m[IU]/L Normal 0.34 - 5.60 {uIU/ml} [facility].; [place] [employer] [facility] Urea nitrogen [Mass/Vol] 14 mg/dL Normal 6 - 20 mg/dL [facility].; [place] [employer] Laboratory - Hematology and Cell countson 01-01-2017 Basophils (Bld) [#/Vol] 0.00 {3/UL} Normal 0.00 - 0.10 {3/UL} [facility].; [place] [employer] [facility] Basophils/100 WBC (Bld) 1.0 % Normal 0.0 - 2.0 % [facility].; [place] [employer] CBC W Auto Differential panel (Bld) CBC Normal [facility].; [place] [employer] [facility] Eosinophils (Bld) [#/Vol] 0.20 {3/UL} Normal 0.00 - 0.50 {3/UL} [facility].; [employer] Eosinophils/100 WBC (Bld) 3.1 % Normal 0.0 - 7.0 % [place] [employer] [facility].; [employer] [facility] Erythrocyte distribution width (RBC) [Ratio] 12.8 % Normal 12.0 - 15.6 % [place] [employer] [facility].; [employer], [employer] Hematocrit (Bld) [Volume fraction] 39.7 % Normal 34.0 - 46.0 % [place] [employer] [facility].; [place] [employer] [facility] Hemoglobin (Bld) [Mass/Vol] 13.4 g/dL Normal 12.0 - 16.0 g/dL [place] [employer] [facility].; [place] [employer] [facility] Lymphocytes (Bld) [#/Vol] 1.50 {3/UL} Normal 0.80 - 2.80 {3/UL} [place] [employer] [facility].; [place] [employer], [facility] Lymphocytes/100 WBC (Bld) 31.7 % Normal 20.0 - 45.0 % [place] [employer].; [employer] MCH (RBC) [Entitic mass] 32 pg Normal 27 - 33 pg [place] [employer].; [employer]. MCHC (RBC) [Mass/Vol] 34 {X10_3} Normal 32 - 3 6 {X10_3} [place] [employer].; [employer]. MCV (RBC) [Entitic vol] 94 fL Normal 80 - 99 fL [place] [employer].; [employer], [employer]. Monocytes (Bld) [#/Vol] 0.50 {3/UL} Normal 0.20 - 1.00 {3/UL} [place] [employer].; [employer]. Monocytes/100 WBC (Bld) 11.1 % Abnormal 0.0 - 10.0 % [place] [employer].; [employer]. Morphology Stanley (Bld) [Interp] N/A Normal [place] [employer].; [employer]. Neutrophils (Bld) [#/Vol] 2.60 {3/UL} Normal 1.50 - 7.10 {3/UL} [place] [employer].; [employer]. Neutrophils/100 WBC (Bld) 53.1 % Normal 46.0 - 76.0 % [place] [employer].; [employer]. Platelet mean volume (Bld) [Entitic vol] 8.6 fL Normal 6.6 - 10.5 fL [facility] [employer], [employer]. Platelets (Bld) [#/Vol] 232 {3/UL} Normal 150 - 450 {3/UL} [employer].; [employer]. RBC (Bld) [#/Vol] 4.21 {6/UL} Normal 4.10 - 5.3 0 {6/UL} [employer].; [employer], [employer]. WBC (Bld) [#/Vol] 4.8 {3/UL} Normal 4.5 - 10.8 {3/UL} [employer].; [employer], [employer]. Laboratory - Microbiology an d Antimicrobial susceptibilityon 01-01-2017 B. burgdorferi Ab IA Qn (S) LYME DISEASE AB W/RFX IGG,IGM [QU] Normal [employer]. No Panel Informationon 01-01 AGE 61 {years} Normal [facility]; [place] [place] [facility] MANUAL DIFF N/A Normal [facility]; [facility] Laboratory - Hematology and Cell countson 05-06-2016 ESR (Bld) [Velocity] 2 mm/h Normal 0 - 30 mm/h [facility].; [facility] Laboratory - Serology - non- microon 05-06-2016 Rheumatoid factor Qn RHEUMATOID FACTOR [QUEST] Normal [facility]; [place] [employer] [facility] Laboratory - Chemistry and C hemistry - challengeon 01-04-2016 Albumin [Mass/Vol] 4.2 g/dL Normal 3.4 - 4.8 g/dL [facility]; [place] [employer] [facility], [facility] Albumin [Mass/Vol] 1.9 g/dL Abnormal 0.9 - 1.6 [facility]; [place] [employer] [facility]. ALP [Catalytic activity/Vol] 100 U/L Normal 38 - 126 U/L [facility]; [place] [employer], [facility]. ALT [Catalytic activity/Vol] 31 U/L Normal 8 - 35 U/L [facility].; [place] [employer], [facility]. ALT No additional P-5'-P [Catalytic activity/Vol] 31 U/L Normal 8 - 35 U/L [facility].; [place] [employer], [facility] Anion gap [Moles/Vol] 9 mmol/L Abnormal 10 - 20 mmol/L [facility]; [place] [employer] [facility], [facility]. AST [Catalytic activity/Vol] 23 U/L Normal 13 - 39 U/L [facility].; [place] [employer], [facility]. Bilirubin [Mass/Vol] 0.7 mg/dL Normal 0.0 - 1 .5 mg/dL [facility].; [place] [employer] [facility], [facility]. Calcium [Mass/Vol] 9.0 mg/dL Normal 8.6 - 10. 2 mg/dL [facility], [facility].; [place] [employer], [facility]. Chloride [Moles/Vol] 103 mmol/L Normal 98 - 10 7 mmol/L [facility].; [facility], [facility]. Cholesterol [Mass/Vol] 243 mg/dL Abnormal 0 - 200 mg/dL [facility]; [facility]. Cholesterol in HDL [Mass or moles/Vol] 72 mg/dL Abnormal 40 - 60 mg/dL [facility], [facility] Cholesterol in LDL [Mass/Vol] 155 mg/dL Abnormal 0 - 129 mg/dL [facility].; [facility], [facility] Cholesterol.total/Cho lesterol in HDL [Mass ratio] 3.4 {ratio} Normal 0.0 - 5.0 [facility]; [facility], [facility] CO2 [Moles/Vol] 30.0 mmol/L Abnormal 13.0 - 29.0 mmol/L [facility]; [facility], [facility] Comprehensive metabolic 2000 panel CMP with eGFR Normal [facility]; [facility], [facility] Creatinine [Mass/Vol] 0.8 mg/dL Normal 0.6 - 1.2 mg/dL [facility]; [facility], [facility]. GFR/1.73 sq M.predicted among blacks MDRD (S/P/Bld) [Vol rate/Area] mL/min/{1.73_m2} Normal 60 - 999 {ML/MINUTE} [facility].; [facility], [facility]. GFR/1.73 sq M.predicted MDRD (S/P/Bld) [Vol rate/Area] mL/min/{1.73_m2} Normal 60 - 999 {ML/MINUTE} [facility].; [facility], [facility]. Globulin (S) [Mass/Vol] 2.2 g/dL Normal 1.5 - 3.8 g/dL [facility]; [facility], [facility]. Glucose [Mass/Vol] 91 mg/dL Normal 74 - 106 mg/dL [facility]; [facility], [facility] Lipid 1996 panel LIPID PROFILE Normal [facility], [facility]; [facility], [facility] Potassium [Moles/Vol] 4.2 mmol/L Normal 3.5 - 5.1 mmol/L [facility].; [facility], [facility] Protein [Mass/Vol] 6.4 g/dL Normal 6.4 - 8.3 g/dL [facility].; [facility], [facility] Sodium [Moles/Vol] 138 mmol/L Normal 136 - 145 mmol/L [facility]; [facility], [facility] Triglyceride [Mass/Vol] 81 mg/dL Normal 0 - 150 mg/dL [facility]; [facility], [facility] Urea nitrogen [Mass/Vol] 16 mg/dL Normal 6 - 20 mg/dL [facility]; [facility], [facility] Urea nitrogen/Creatinine [Mass ratio] 20 {ratio} Normal 0 - 30 {ratio} [facility].; [facility], [facility] Laboratory - Hematology and Cell countson 01-04-2016 Basophils (Bld) [#/Vol] 0.00 {3/UL} Normal 0.00 - 0.10 {3/UL} [facility]; [facility], [facility] Basophils/100 WBC (Bld) 0.9 % Normal 0.0 - 2.0 % [facility]; [facility], [facility] CBC W Auto Differential panel (Bld) CBC Normal [facility]; [facility], [facility] Eosinophils (Bld) [#/Vol] 0.10 {3/UL} Normal 0.00 - 0.50 {3/UL} [facility].; [facility], [facility] Eosinophils/100 WBC (Bld) 2.1 % Normal 0.0 - 7.0 % [facility]; [facility], [facility] Erythrocyte distribution width (RBC) [Ratio] 13.0 % Normal 12.0 - 15.6 % [facility].; [facility], [facility] Hematocrit (Bld) [Volume fraction] 39.5 % Normal 34.0 - 46.0 % [facility], [facility]; [facility], [facility] Hemoglobin (Bld) [Mass/Vol] 13.4 g/dL Normal 12.0 - 16.0 g/dL [facility]; [facility] [employer] Lymphocytes (Bld) [#/Vol] 1.30 {3/UL} Normal 0.80 - 2.80 {3/UL} [employer], [employer] Lymphocytes/100 WBC (Bld) 24.4 % Normal 20.0 - 45.0 % [employer] MCH (RBC) [Entitic mass] 33 pg Normal 27 - 33 pg [employer] MCHC (RBC) [Mass/Vol] 34 {X10_3} Normal 32 - 3 6 {X10_3} [employer] MCV (RBC) [Entitic vol] 96 fL Normal 80 - 99 fL [place] [employer], [employer] Monocytes (Bld) [#/Vol] 0.40 {3/UL} Normal 0.20 - 1.00 {3/UL} [employer] Monocytes/100 WBC (Bld) 7.1 % Normal 0.0 - 10.0 % [employer].; [employer], [employer]. [employer] Stanley (Bld) [Interp] N/A Normal [employer].; [employer] Neutrophils (Bld) [#/Vol] 3.60 {3/UL} Normal 1.50 - 7.10 {3/UL} [employer] Neutrophils/100 WBC (Bld) 65.5 % Normal 46.0 - 76.0 % [employer].; [employer] Platelet mean volume (Bld) [Entitic vol] 8.8 fL Normal 6.6 - 10.5 fL [employer], [employer].; [employer] Platelets (Bld) [#/Vol] 236 {3/UL} Normal 150 - 450 {3/UL} [employer] RBC (Bld) [#/Vol] 4.13 {6/UL} Normal 4.10 - 5.3 0 {6/UL} [employer].; [employer]. WBC (Bld) [#/Vol] 5.5 {3/UL} Normal 4.5 - 10.8 {3/UL} [place] [employer]. No Panel Informationon 01-03 AGE 60 {years} Normal [facility] [employer]. MANUAL DIFF N/A Normal [place] [employer] [facility].; [employer] Laboratory - Microbiology an d Antimicrobial susceptibilityon 09-07-2015 S. pyogenes Ag EIA Ql (Throat) Negative Normal [place] [employer] [facility].; [employer]. Laboratoryon 05-27-2014 Lower GI hemoglobin IA Ql (Stl) Not detected Normal [place] [employer].; [employer]. Laboratory - Chemistry and C hemistry - challengeon 05-06-2013 Cholesterol [Mass/Vol] 231 mg/dL Abnormal 125 - 200 mg/dL [facility] [employer].; [employer]. Cholesterol in HDL [Mass/Vol] 78 mg/dL Normal [place] [employer] [facility].; [employer]. Cholesterol in LDL [Mass/Vol] 137 mg/dL Abnormal [place] [employer].; [employer], [employer]. Cholesterol non HDL [Mass/Vol] 153 mg/dL Normal [place] [employer].; [employer]. Cholesterol.total/Cho lesterol in HDL [Mass ratio] 3.0 {ratio} Normal [place] [employer].; [employer], [employer]. Glucose [Mass/Vol] 78 mg/dL Normal 65 - 99 mg/dL [facility].; [employer], [employer]. Triglyceride [Mass/Vol] 81 mg/dL Normal [employer].; [employer], [employer]. Laboratory - Hematology and Cell countson 05-06-2013 Basophils (Bld) [#/Vol] 20 {Cells}/uL Normal 0 - 200 {Cells}/uL [place] [employer].; [employer]. Basophils/100 WBC (Bld) 0 % Normal 0 - 2 % [place] [employer].; [employer], [employer]. Eosinophils (Bld) [#/Vol] 80 {Cells}/uL Normal 15 - 500 {Cells}/uL [facility].; [place] [employer] [facility]. Eosinophils/100 WBC (Bld) 2 % Normal 0 - 8 % [facility].; [facility], [facility]. Erythrocyte distribution width (RBC) [Ratio] 12.9 % Normal 11.0 - 15.0 % [facility], [facility].; [place] [employer] [facility], [facility]. Hematocrit (Bld) [Volume fraction] 39.6 % Normal 35.0 - 45.0 % [facility].; [place] [employer], [facility] Hemoglobin (Bld) [Mass/Vol] 13.4 g/dL Normal 11.7 - 15.5 g/dL [facility].; [facility], [facility]. Lymphocytes (Bld) [#/Vol] 1140 {Cells}/uL Normal 850 - 3900 {Cells}/uL [facility], [facility].; [place] [employer], [facility]. Lymphocytes/100 WBC (Bld) 28 % Normal 15 - 49 % [facility].; [place] [employer], [employer]. MCH (RBC) [Entitic mass] 33.4 pg Abnormal 27.0 - 33.0 PG [place] [employer] [facility].; [place] [employer], [facility]. MCHC (RBC) [Mass/Vol] 33.7 g/dL Normal 32.0 - 36.0 g/dL [facility], [facility].; [place] [employer], [facility]. MCV (RBC) [Entitic vol] 98.9 fL Normal 80.0 - 100.0 fL [place] [employer] [facility].; [place] [employer], [facility]. Monocytes (Bld) [#/Vol] 250 {Cells}/uL Normal 200 - 950 {Cells}/uL [place] [employer] [facility].; [employer], [employer]. Monocytes/100 WBC (Bld) 6 % Normal 0 - 13 % [place] [employer] [facility].; [place] [employer] [facility], [facility]. Neutrophils (Bld) [#/Vol] 2530 {Cells}/uL Normal 1500 - 7800 {Cells}/uL [place] [employer], [facility].; [place] [employer], [employer]. Neutrophils/100 WBC (Bld) 63 % Normal 38 - 80 % [place] [employer] [facility].; [employer]. Platelets (Bld) [#/Vol] 253 10*3/uL Normal 140 - 400 10*3/uL [place] [employer].; [employer]. RBC (Bld) [#/Vol] 4.01 10*6/uL Normal 3.80 - 5.1 0 10*6/uL [place] [employer].; [employer]. WBC (Bld) [#/Vol] 4.0 10*3/uL Normal 3.8 - 10.8 10*3/uL [place] [employer].; [employer]. Laboratoryon 05-25-2012 Lower GI hemoglobin IA Ql (Stl) Not detected Normal [employer].; [employer]. Laboratory - Chemistry and C hemistry - challengeon 04-20-2012 Calcium [Mass/Vol] 9.2 mg/dL Normal 8.6 - 10. 4 mg/dL [place] [employer] [facility] [employer].; [employer]. Chloride [Moles/Vol] 104 mmol/L Normal 98 - 11 0 mmol/L [place] [employer] [facility].; [employer]. Cholesterol [Mass/Vol] 249 mg/dL Abnormal 125 - 200 mg/dL [place] [employer].; [employer]. Cholesterol in HDL [Mass/Vol] 92 mg/dL Normal [place] [employer] [facility].; [employer]. Cholesterol in LDL [Mass/Vol] 146 mg/dL Abnormal [place] [employer].; [employer]. Cholesterol non HDL [Mass/Vol] 157 mg/dL Normal [place] [employer] [facility].; [employer]. Cholesterol.total/Cho lesterol in HDL [Mass ratio] 2.7 {ratio} Normal [employer].; [employer]. CO2 [Moles/Vol] 30 mmol/L Normal 21 - 33 mmol/L [facility].; [employer]. Creatinine [Mass/Vol] 0.89 mg/dL Normal 0.50 - 1.05 mg/dL [facility] Hospital[facility].; [employer]. GFR/1.73 sq M.predicted among blacks MDRD (S/P/Bld) [Vol rate/Area] 83 {ML/MIN/1.73M2} Normal [facility].; [facility], [facility] GFR/1.73 sq M.predicted MDRD (S/P/Bld) [Vol rate/Area] 72 {ML/MIN/1.73M2} Normal [facility], [facility].; [facility], [facility] Glucose [Mass/Vol] 81 mg/dL Normal 65 - 99 mg/dL [facility].; [facility], [facility] Potassium [Moles/Vol] 4.2 mmol/L Normal 3.5 - 5.3 mmol/L [facility].; [facility], [facility] Sodium [Moles/Vol] 142 mmol/L Normal 135 - 146 mmol/L [facility].; [facility], [facility] Triglyceride [Mass/Vol] 54 mg/dL Normal [facility]; [facility], [facility] Urea nitrogen [Mass/Vol] 14 mg/dL Normal 7 - 25 mg/dL [facility].; [facility], [facility] Urea nitrogen/Creatinine [Mass ratio] 15.8 mg/mg Normal 6 - 22 [facility]; [facility], [facility] Laboratory - Hematology and Cell countson 04-20-2012 Basophils (Bld) [#/Vol] 20 {Cells}/uL Normal 0 - 200 {Cells}/uL [facility].; [facility], [facility] Basophils/100 WBC (Bld) 0 % Normal 0 - 2 % [facility].; [facility], [facility]. Eosinophils (Bld) [#/Vol] 110 {Cells}/uL Normal 15 - 500 {Cells}/uL [facility].; [facility], [facility] Eosinophils/100 WBC (Bld) 2 % Normal 0 - 8 % [facility].; [facility], [facility] Erythrocyte distribution width (RBC) [Ratio] 13.2 % Normal 11.0 - 15.0 % [facility], [facility].; [facility], [facility] Hematocrit (Bld) [Volume fraction] 39.3 % Normal 35.0 - 45.0 % [facility]; [facility], [facility]. Hemoglobin (Bld) [Mass/Vol] 13.5 g/dL Normal 11.7 - 15.5 g/dL [facility], [facility].; [facility], [facility]. Lymphocytes (Bld) [#/Vol] 1270 {Cells}/uL Normal 850 - 3900 {Cells}/uL [facility], [facility].; [facility], [facility]. Lymphocytes/100 WBC (Bld) 27 % Normal 15 - 49 % [facility], [facility].; [facility], [facility]. MCH (RBC) [Entitic mass] 34.2 pg Abnormal 27.0 - 33.0 PG [facility], [facility].; [facility], [facility]. MCHC (RBC) [Mass/Vol] 34.3 g/dL Normal 32.0 - 36.0 g/dL [facility], [facility].; [place] [employer] [facility], [facility]. MCV (RBC) [Entitic vol] 99.5 fL Normal 80.0 - 100.0 fL [facility].; [facility], [facility]. Monocytes (Bld) [#/Vol] 260 {Cells}/uL Normal 200 - 950 {Cells}/uL [facility], [facility].; [place] [employer] [facility], [facility]. Monocytes/100 WBC (Bld) 6 % Normal 0 - 13 % [facility].; [facility], [facility]. Neutrophils (Bld) [#/Vol] 3000 {Cells}/uL Normal 1500 - 7800 {Cells}/uL [facility], [facility].; [place] [employer], [facility]. Neutrophils/100 WBC (Bld) 64 % Normal 38 - 80 % [facility], [facility].; [place] [employer], [facility]. Platelets (Bld) [#/Vol] 275 10*3/uL Normal 140 - 400 10*3/uL [facility], [facility].; [place] [employer] [facility], [facility]. RBC (Bld) [#/Vol] 3.95 10*6/uL Normal 3.80 - 5.1 0 10*6/uL [facility], [facility].; [place] [employer] WBC (Bld) [#/Vol] 4.7 10*3/uL Normal 3.8 - 10.8 10*3/uL [facility].; [employer] [facility]. Laboratory - Chemistry and C hemistry - challengeon 04-22-2011 Cholesterol [Mass/Vol] 255 mg/dL Abnormal 125 - 200 mg/dL [facility].; [place] [employer] [facility], [employer]. Cholesterol in HDL [Mass/Vol] 92 mg/dL Normal [facility].; [employer]. Cholesterol in LDL [Mass/Vol] 145 mg/dL Abnormal [place] [employer] [facility].; [employer], [employer]. Cholesterol.total/Cho lesterol in HDL [Mass ratio] 2.8 {ratio} Normal [place] [employer] [facility].; [employer]. Triglyceride [Mass/Vol] 89 mg/dL Normal [place] [employer] [facility].; [employer]. Laboratory - Chemistry and C hemistry - challengeon 10-24-2010 Calcium [Mass/Vol] 9.3 mg/dL Normal 8.6 - 10. 2 mg/dL [facility].; [employer]. Chloride [Moles/Vol] 104 mmol/L Normal 98 - 11 0 mmol/L [facility].; [employer], [employer]. Cholesterol [Mass/Vol] 247 mg/dL Abnormal 125 - 200 mg/dL [place] [employer] [facility].; [employer], [employer]. Cholesterol in HDL [Mass/Vol] 95 mg/dL Normal [place] [employer] [facility].; [employer]. Cholesterol in LDL [Mass/Vol] 140 mg/dL Abnormal [place] [employer] [facility].; [employer]. Cholesterol.total/Cho lesterol in HDL [Mass ratio] 2.6 {ratio} Normal [place] [employer] [facility].; [employer]. CO2 [Moles/Vol] 32 mmol/L Normal 21 - 33 mmol/L [facility].; [place] [employer]. Creatinine [Mass/Vol] 0.80 mg/dL Normal 0.60 - 1.10 mg/dL [facility].; [employer], [employer]. GFR/1.73 sq M.predicted among blacks MDRD (S/P/Bld) [Vol rate/Area] 96 {ML/MIN/1.73M2} Normal [facility].; [facility], [facility] GFR/1.73 sq M.predicted MDRD (S/P/Bld) [Vol rate/Area] 83 {ML/MIN/1.73M2} Normal [facility].; [facility], [facility] Glucose [Mass/Vol] 87 mg/dL Normal 65 - 99 mg/dL [facility].; [facility], [facility] Potassium [Moles/Vol] 4.1 mmol/L Normal 3.5 - 5.3 mmol/L [facility]; [facility], [facility] Sodium [Moles/Vol] 143 mmol/L Normal 135 - 146 mmol/L [facility]; [facility], [facility] Triglyceride [Mass/Vol] 62 mg/dL Normal [facility]; [facility], [facility] Urea nitrogen [Mass/Vol] 16 mg/dL Normal 7 - 25 mg/dL [facility]; [facility], [facility] Urea nitrogen/Creatinine [Mass ratio] 20.5 mg/mg Normal 6 - 22 [facility]; [facility] Laboratory - Hematology and Cell countson 10-24-2010 Basophils (Bld) [#/Vol] 10 {Cells}/uL Normal 0 - 200 {Cells}/uL [facility].; [facility], [facility]. Basophils/100 WBC (Bld) 0 % Normal 0 - 2 % [facility].; [facility], [facility] [facility] (Bld) [#/Vol] 70 {Cells}/uL Normal 15 - 500 {Cells}/uL [facility], [facility] Eosinophils/100 WBC (Bld) 2 % Normal 0 - 8 % [facility]; [facility], [facility] Erythrocyte distribution width (RBC) [Ratio] 12.7 % Normal 11.0 - 15.0 % [facility], [facility] Hematocrit (Bld) [Volume fraction] 41.5 % Normal 35.0 - 45.0 % [facility], [facility] Hemoglobin (Bld) [Mass/Vol] 13.8 g/dL Normal 11.7 - 15.5 g/dL [facility], [facility].; [facility], [facility]. Lymphocytes (Bld) [#/Vol] 1270 {Cells}/uL Normal 850 - 3900 {Cells}/uL [facility], [facility].; [place] [employer] Lymphocytes/100 WBC (Bld) 29 % Normal 15 - 49 % [facility], Inc.; [place] [employer] [facility], Inc[facility] MCH (RBC) [Entitic mass] 33.7 pg Abnormal 27.0 - 33.0 PG [facility], [facility].; [place] [employer] [facility], [facility]. MCHC (RBC) [Mass/Vol] 33.2 g/dL Normal 32.0 - 36.0 g/dL [facility], [facility].; [place] [employer] MCV (RBC) [Entitic vol] 101.4 fL Abnormal 80.0 - 100.0 fL [facility], [facility].; [place] [employer] [facility], [facility]. Monocytes (Bld) [#/Vol] 230 {Cells}/uL Normal 200 - 950 {Cells}/uL [facility].; [place] [employer] Monocytes/100 WBC (Bld) 5 % Normal 0 - 13 % [facility].; [place] [employer] Neutrophils (Bld) [#/Vol] 2840 {Cells}/uL Normal 1500 - 7800 {Cells}/uL [place] [employer] [facility], [facility].; [place] [employer] Neutrophils/100 WBC (Bld) 64 % Normal 38 - 80 % [facility], [facility].; [place] [employer], [facility]. Platelets (Bld) [#/Vol] 243 10*3/uL Normal 140 - 400 10*3/uL [place] [employer], [facility].; [place] [employer] RBC (Bld) [#/Vol] 4.09 10*6/uL Normal 3.80 - 5.1 0 10*6/uL [place] [employer] [place] [employer] WBC (Bld) [#/Vol] 4.4 10*3/uL Normal 3.8 - 10.8 10*3/uL [place] [employer] Vital Signs Date Time Vital Sign Value Performing Clinician Facility 04-17-2023 09:55-0400 Body height 173.99 cm Kyra Mcgill [facility], [facility].; [place] [employer] [facility], [facility]. 04-17-2023 09:55-0400 Body mass index (BMI) [Ratio] 20.68 kg/m2 Kyra Mcgill [facility], [facility].; [place] [employer] [facility], [facility] 04-17-2023 09:55-0400 Body surface area Derived from formula 1.76 m2 Kyra Mcgill [facility], [facility].; [place] [employer] [facility], [facility]. 04-17-2023 09:55-0400 Body weight 62.6 kg Kyra Mcgill [facility], [facility].; [place] [employer] [facility], [facility]. 04-17-2023 09:55-0400 Diastolic blood pressure 65 mm[Hg] Kyra Mcgill [facility], Inc.; [employer]. Comment on above: Patient Position: Sitting; Cuff Location : Left Arm; Cuff Size: Standard 04-17-2023 09:55-0400 Heart rate 62 /min Kyra Mcgill [facility], [facility].; [employer], [employer]. Comment on above: Pattern: Regular 04-17-2023 09:55-0400 Systolic blood pressure 97 mm[Hg] Kyra Mcgill [facility], [facility].; [place] [employer]. Comment on above: Patient Position: Sitting; Cuff Location : Left Arm; Cuff Size: Standard 04-14-2022 14:27-0400 Body height 173.99 cm [facility] Work Phone: [facility] Hospital[facility] Software Inc.; [employer]. 04-14-2022 14:27-0400 Body mass index (BMI) [Ratio] 22.03 kg/m2 [facility] Work Phone: [place] [employer] [facility], [employer].; [employer] 04-14-2022 14:27-0400 Body surface area Derived from formula 1.8 m2 [facility] Work Phone: [employer].; [employer]. 04-14-2022 14:27-0400 Body weight 66.68 kg Silviashilo Loredoy [employer] Work Phone: [employer].; [employer]. 04-14-2022 14:27-0400 Diastolic blood pressure 83 mm[Hg] Silvia Genesis [employer] Work Phone: [employer]; [employer]. Comment on above: Patient Position: Sitting; Cuff Location : Left Arm; Cuff Size: Standard 04-14-2022 14:27-0400 Heart rate 82 /min Silvia Genesis [employer] Work Phone: [employer]; [employer]. Comment on above: Pattern: Regular 04-14-2022 14:27-0400 Systolic blood pressure 130 mm[Hg] Silvia Genesis [employer] Work Phone: [employer]; [employer]. Comment on above: Patient Position: Sitting; Cuff Location : Left Arm; Cuff Size: Standard 03-12-2022 15:170400 Body height 173.99 cm [facility]ber [facility] HospitalL[facility] Software Inc.; [employer]. 03-12-2022 15:17-0400 Body mass index (BMI) [Ratio] 21.13 kg/m2 Bruna Webber [facility] [employer].; [employer]. 03-12-2022 15:17-0400 Body surface area Derived from formula 1.77 m2 Bruna Webber [facility] [employer].; [employer]. 03-12-2022 15:17-0400 Body temperature 97.7 [degF] Bruna Webber [facility] [employer].; [employer]. Comment on above: Method: Tympanic 03-12-2022 15:17-0400 Body weight 63.96 kg Bruna Webber [facility] [employer].; [employer]. 03-12-2022 15:17-0400 Diastolic blood pressure 78 mm[Hg] Bruna Webber [facility] [employer].; [employer]. Comment on above: Patient Position: Sitting; Cuff Location : Left Arm; Cuff Size: Standard 03-12-2022 15:17-0400 Heart rate 80 /min Bruna Webber [facility] [employer].; [employer]. Comment on above: Pattern: Regular 03-12-2022 15:17-0400 Systolic blood pressure 112 mm[Hg] Bruna Webber [facility] [employer].; [employer] Comment on above: Patient Position: Sitting; Cuff Location : Left Arm; Cuff Size: Standard 03-20-2021 09:50-0400 Body height 173.99 cm Silvia Genesis [employer] Work Phone: [employer].; [employer]. 03-20-2021 09:50-0400 Body mass index (BMI) [Ratio] 20.98 kg/m2 Silvia Genesis [employer] Work Phone: [employer].; [employer]. 03-20-2021 09:50-0400 Body surface area Derived from formula 1.77 m2 Silvia Genesis [employer] Work Phone: [employer].; [employer]. 03-20-2021 09:50-0400 Body weight 63.5 kg Silvia Genesis [employer] Work Phone: [employer].; [employer]. 03-20-2021 09:50-0400 Diastolic blood pressure 60 mm[Hg] Silvia Genesis [employer] Work Phone: [employer].; [employer]. Comment on above: Patient Position: Sitting; Cuff Location : Left Arm; Cuff Size: Standard 03-20-2021 09:50-0400 Heart rate 63 /min Silvia Genesis [employer] Work Phone: [employer]; [employer]. Comment on above: Pattern: Regular 03-20-2021 09:50-0400 Systolic blood pressure 111 mm[Hg] Silvia Genesis [employer] Work Phone: [employer].; [employer]. Comment on above: Patient Position: Sitting; Cuff Location : Left Arm; Cuff Size: Standard 08-11-2019 10:55-0500 Body height 172.72 cm Silvia Genesis [employer] Work Phone: [employer].; [employer]. 08-11-2019 10:55-0500 Body mass index (BMI) [Ratio] 22.81 kg/m2 Silvia Genesis [employer] Work Phone: [employer].; [employer]. 08-11-2019 10:55-0500 Body surface area Derived from formula 1.81 m2 Silvia Genesis [employer] Work Phone: [employer].; [employer]. 08-11-2019 10:55-0500 Body temperature 98.4 [degF] Silvia Loredoy [employer] Work Phone: [employer].; [employer]. Comment on above: Method: Tympanic 08-11-2019 10:55-0500 Body weight 68.04 kg Silvia Loredoy [employer] Work Phone: [employer].; [employer]. 08-11-2019 10:55-0500 Diastolic blood pressure 69 mm[Hg] Silvia Genesis [employer] Work Phone: [employer].; [employer]. Comment on above: Patient Position: Sitting; Cuff Location : Left Arm; Cuff Size: Standard 08-11-2019 10:55-0500 Heart rate 64 /min Silvia Genesis [employer] Work Phone: [employer].; [employer]. Comment on above: Pattern: Regular 08-11-2019 10:55-0500 Systolic blood pressure 117 mm[Hg] Silvia Genesis [employer] Work Phone: [employer].; [employer]. Comment on above: Patient Position: Sitting; Cuff Location : Left Arm; Cuff Size: Standard 04-18-2019 10:33-0400 Body height 172.72 cm Silvia Hurtado [employer] Work Phone: [employer].; [employer]. 04-18-2019 10:33-0400 Body mass index (BMI) [Ratio] 22.5 kg/m2 Silvia Genesis [employer] Work Phone: [employer].; [employer]. 04-18-2019 10:33-0400 Body surface area Derived from formula 1.8 m2 Silvia [employer] Work Phone: [employer].; [employer]. 04-18-2019 10:33-0400 Body weight 67.13 kg Silvia Genesis [employer] Work Phone: [employer].; [employer]. 04-18-2019 10:33-0400 Diastolic blood pressure 73 mm[Hg] Silvia Genesis [employer] Work Phone: [employer].; [employer]. Comment on above: Patient Position: Sitting; Cuff Location : Left Arm; Cuff Size: Standard 04-18-2019 10:33-0400 Heart rate 70 /min Silvia Genesis [employer] Work Phone: [employer]; [employer]. Comment on above: Pattern: Regular 04-18-2019 10:33-0400 Systolic blood pressure 118 mm[Hg] Silvia Genesis [employer] Work Phone: [employer].; [employer]. Comment on above: Patient Position: Sitting; Cuff Location : Left Arm; Cuff Size: Standard 10-14-2018 14:40-0400 Body height 172.72 cm Silvia Loredoy [employer] Work Phone: [employer].; [employer]. 10-14-2018 14:40-0400 Body mass index (BMI) [Ratio] 23.11 kg/m2 Silvia Genesis [employer] Work Phone: [employer].; [employer]. 10-14-2018 14:40-0400 Body surface area Derived from formula 1.82 m2 Silvia Hurtado [employer] Work Phone: [employer].; [employer]. 10-14-2018 14:40-0400 Body temperature 98.1 [degF] Silvia Hurtado LPN Work Phone: [employer]; [employer]. Comment on above: Method: Tympanic 10-14-2018 14:40-0400 Body weight 68.95 kg Silvia Hurtado LPN Work Phone: [employer]; [employer]. 10-14-2018 14:40-0400 Diastolic blood pressure 74 mm[Hg] Silvia Hurtado LPN Work Phone: [employer]; [employer]. Comment on above: Patient Position: Sitting; Cuff Location : Left Arm; Cuff Size: Standard 10-14-2018 14:40-0400 Heart rate 67 /min Silvia Hurtado LPN Work Phone: [employer]; [employer]. Comment on above: Pattern: Regular 10-14-2018 14:40-0400 Systolic blood pressure 114 mm[Hg] Silvia Hurtado LPN Work Phone: [employer]; [employer]. Comment on above: Patient Position: Sitting; Cuff Location : Left Arm; Cuff Size: Standard 08-14-2018 10:51-0500 Body height 172.72 cm Neilee L Vess [employer].; [employer]. 08-14-2018 10:51-0500 Body mass index (BMI) [Ratio] 23.11 kg/m2 Neilee L Vess [employer].; [employer]. 08-14-2018 10:51-0500 Body surface area Derived from formula 1.82 m2 Neilee L Vess [employer].; [employer]. 08-14-2018 10:51-0500 Body temperature 98.2 [degF] Basiliailee L Vess [employer].; [employer]. Comment on above: Method: Tympanic 08-14-2018 10:51-0500 Body weight 68.95 kg Grahame L Vess [employer]. 08-14-2018 10:51-0500 Diastolic blood pressure 73 mm[Hg] Neilee L Vess [employer].; [employer]. Comment on above: Patient Position: Sitting; Cuff Location : Right Arm; Cuff Size: Standard 08-14-2018 10:51-0500 Heart rate 75 /min Grahame L Vess [employer].; [employer]. Comment on above: Pattern: Regular 08-14-2018 10:51-0500 Systolic blood pressure 121 mm[Hg] Basiliailee L Vess [employer].; [employer]. Comment on above: Patient Position: Sitting; Cuff Location : Right Arm; Cuff Size: Standard 06-09-2018 10:22-0500 Body height 172.72 cm Silvia Hurtado LPN Work Phone: [employer].; [employer]. 06-09-2018 10:22-0500 Body mass index (BMI) [Ratio] 22.2 kg/m2 Silvia Genesis [employer] Work Phone: [employer].; [employer]. 06-09-2018 10:22-0500 Body surface area Derived from formula 1.79 m2 [employer] Work Phone: [employer].; [employer]. 06-09-2018 10:22-0500 Body weight 66.23 kg Silvia Genesis [employer] Work Phone: [employer].; [employer]. 06-09-2018 10:22-0500 Diastolic blood pressure 75 mm[Hg] Silvia Loredoy [employer] Work Phone: [employer].; [employer]. Comment on above: Patient Position: Sitting; Cuff Location : Left Arm; Cuff Size: Standard 06-09-2018 10:22-0500 Heart rate 93 /min Silvia Loredoy [employer] Work Phone: [employer].; [employer]. Comment on above: Pattern: Regular 06-09-2018 10:22-0500 Systolic blood pressure 142 mm[Hg] Silvia Loredoy [employer] Work Phone: [employer].; [employer]. Comment on above: Patient Position: Sitting; Cuff Location : Left Arm; Cuff Size: Standard 04-05-2018 09:33-0400 Body height 172.72 cm Silvia Hurtado [employer] Work Phone: [employer].; [employer] 04-05-2018 09:33-0400 Body mass index (BMI) [Ratio] 21.59 kg/m2 Silvia Genesis [employer] Work Phone: [employer].; [employer] 04-05-2018 09:33-0400 Body surface area Derived from formula 1.77 m2 Silvia Genesis [employer] Work Phone: [employer].; [employer] 04-05-2018 09:33-0400 Body weight 64.41 kg Silvia Hurtado LPN Work Phone: [employer].; [employer]. 04-05-2018 09:33-0400 Diastolic blood pressure 69 mm[Hg] Silvia Genesis [employer] Work Phone: [employer].; [employer]. Comment on above: Patient Position: Sitting; Cuff Location : Left Arm; Cuff Size: Standard 04-05-2018 09:33-0400 Heart rate 68 /min Silvia Genesis [employer] Work Phone: [employer].; [employer]. Comment on above: Pattern: Regular 04-05-2018 09:33-0400 Systolic blood pressure 113 mm[Hg] Silvia Genesis [employer] Work Phone: [employer].; [employer]. Comment on above: Patient Position: Sitting; Cuff Location : Left Arm; Cuff Size: Standard 08-10-2017 10:09-0500 Body height 172.72 cm Silvia Loredoy [employer] Work Phone: [employer].; [employer]. 08-10-2017 10:09-0500 Body mass index (BMI) [Ratio] 22.96 kg/m2 Silvia Loredoy [employer] Work Phone: [employer].; [employer]. 08-10-2017 10:09-0500 Body surface area Derived from formula 1.81 m2 Silvia Loredoy [employer] Work Phone: [employer].; [employer]. 08-10-2017 10:09-0500 Body temperature 98.3 [degF] Silvia Loredoy [employer] Work Phone: [employer].; [employer]. Comment on above: Method: Tympanic 08-10-2017 10:09-0500 Body weight 68.49 kg Silvia Loredoy [employer] Work Phone: [employer].; [employer]. 08-10-2017 10:09-0500 Diastolic blood pressure 74 mm[Hg] Silvia Loredoy [employer] Work Phone: [employer].; [employer]. Comment on above: Patient Position: Sitting; Cuff Location : Left Arm; Cuff Size: Standard 08-10-2017 10:09-0500 Heart rate 69 /min Silvia Genesis [employer] Work Phone: [employer].; [employer]. Comment on above: Pattern: Regular 08-10-2017 10:09-0500 Systolic blood pressure 119 mm[Hg] Silvia Genesis [employer] Work Phone: [employer].; [employer]. Comment on above: Patient Position: Sitting; Cuff Location : Left Arm; Cuff Size: Standard 01-07-2017 10:03-0400 Body height 172.72 cm Silvia Genesis [employer] Work Phone: [employer].; [employer]. 01-07-2017 10:03-0400 Body mass index (BMI) [Ratio] 21.59 kg/m2 Silvia Genesis [employer] Work Phone: [employer].; [employer]. 01-07-2017 10:03-0400 Body surface area Derived from formula 1.77 m2 Silvia Genesis [employer] Work Phone: [employer].; [employer]. 01-07-2017 10:03-0400 Body weight 64.41 kg Silvia Loredoy [employer] Work Phone: [employer].; [employer]. 01-07-2017 10:03-0400 Diastolic blood pressure 66 mm[Hg] Silvia Genesis [employer] Work Phone: [employer].; [employer]. Comment on above: Patient Position: Sitting; Cuff Location : Left Arm; Cuff Size: Standard 01-07-2017 10:03-0400 Heart rate 64 /min Silvia Genesis [employer] Work Phone: [employer].; [employer]. Comment on above: Pattern: Regular 01-07-2017 10:03-0400 Systolic blood pressure 98 mm[Hg] Silvia Genesis [employer] Work Phone: [employer].; [employer]. Comment on above: Patient Position: Sitting; Cuff Location : Left Arm; Cuff Size: Standard 01-07-2016 09:50-0400 Body height 172.72 cm Silvia Genesis [employer] Work Phone: [employer].; [employer]. 01-07-2016 09:50-0400 Body mass index (BMI) [Ratio] 22.43 kg/m2 Silvia Hurtado LPN Work Phone: [employer].; [employer]. 01-07-2016 09:50-0400 Body surface area Derived from formula 1.8 m2 Silvia Hurtado LPN Work Phone: [employer].; [employer]. 01-07-2016 09:50-0400 Body weight 66.91 kg Silvia Hurtado LPN Work Phone: [employer].; [employer]. 01-07-2016 09:50-0400 Diastolic blood pressure 65 mm[Hg] Silvia Hurtado LPN Work Phone: [employer].; [employer]. Comment on above: Patient Position: Sitting; Cuff Location : Left Arm; Cuff Size: Standard 01-07-2016 09:50-0400 Heart rate 65 /min Silvia Hurtado LPN Work Phone: [employer].; [employer]. Comment on above: Pattern: Regular 01-07-2016 09:50-0400 Systolic blood pressure 109 mm[Hg] Silvia Hurtado LPN Work Phone: [employer].; [employer]. Comment on above: Patient Position: Sitting; Cuff Location : Left Arm; Cuff Size: Standard 10-29-2015 08:07-0400 Body height 172.72 cm Alona Jovel LPN [employer].; [employer]. 10-29-2015 08:07-0400 Body mass index (BMI) [Ratio] 22.58 kg/m2 Alona Jovel LPN [employer] 10-29-2015 08:07-0400 Body surface area Derived from formula 1.8 m2 Alona Jovel LPN [employer].; [employer]. 10-29-2015 08:07-0400 Body temperature 97.5 [degF] Alona Olverachilo FAGAN [facility], Inc.; [place] [employer] Comment on above: Method: Tympanic 10-29-2015 08:07-0400 Body weight 67.36 kg Alona Wechilo FAGAN [facility], Inc.; [employer] 10-29-2015 08:07-0400 Diastolic blood pressure 65 mm[Hg] Alona Med FAGAN [facility], Inc.; [place] [employer] Comment on above: Patient Position: Sitting; Cuff Location : Left Arm; Cuff Size: Standard 10-29-2015 08:07-0400 Heart rate 71 /min Alonanikki Jovel LPN [facility], Inc.; [place] [employer] Comment on above: Pattern: Regular 10-29-2015 08:07-0400 Inhaled oxygen concentration 20 % Alona Jovel [employer] [facility], Inc.; [place] [employer] Comment on above: Room air 10-29-2015 08:07-0400 Inhaled oxygen concentration 21 % Alonanikki Jovel LPN [facility], Inc.; [place] [employer] Comment on above: Room air 10-29-2015 08:07-0400 SaO2% (BldA) [Mass fraction] 99 % Alona Wechilo FAGAN [facility], Inc.; [employer] 10-29-2015 08:07-0400 Systolic blood pressure 107 mm[Hg] Alona Med FAGAN [facility], Inc.; [employer] Comment on above: Patient Position: Sitting; Cuff Location : Left Arm; Cuff Size: Standard 09-07-2015 08:41-0400 Body height 172.72 cm Alona Jovel LPN [facility], Inc.; [place] [employer], [employer]. 09-07-2015 08:41-0400 Body mass index (BMI) [Ratio] 23.11 kg/m2 Alona Jovel LPN [facility], Inc.; [place] [employer] 09-07-2015 08:41-0400 Body surface area Derived from formula 1.82 m2 Alona Med FAGAN [facility], [facility].; [facility] [facility], Inc[facility] 09-07-2015 08:41-0400 Body temperature 98.2 [degF] Alona Olverachilo [facility], [facility].; [employer] Comment on above: Method: Tympanic 09-07-2015 08:41-0400 Body weight 68.95 kg Alona Med FAGAN [facility], Inc.; [employer] 09-07-2015 08:41-0400 Diastolic blood pressure 77 mm[Hg] [facility]ona Med [facility], [facility].; [employer] Comment on above: Patient Position: Sitting; Cuff Location : Left Arm; Cuff Size: Standard 09-07-2015 08:41-0400 Heart rate 77 /min Alonanikki Jovel [employer] [facility], [facility].; [employer] Comment on above: Pattern: Regular 09-07-2015 08:41-0400 Inhaled oxygen concentration 20 % Alona Jovel LPN [facility], [facility].; [employer] Comment on above: Room air 09-07-2015 08:41-0400 Inhaled oxygen concentration 21 % Alonanikki Jovel [facility], [facility].; [employer] Comment on above: Room air 09-07-2015 08:41-0400 SaO2% (BldA) [Mass fraction] 99 % Alona Jovel [facility], Inc.; [employer] 09-07-2015 08:41-0400 Systolic blood pressure 120 mm[Hg] Alona Wechilo [facility] [employer] [facility], [facility].; [employer], [employer]. Comment on above: Patient Position: Sitting; Cuff Location : Left Arm; Cuff Size: Standard 11-27-2014 11:34-0400 Body height 172.72 cm Silvia Hurtado GRACIA Work Phone: [facility] HospitalLucid Software Inc.; [employer]. 11-27-2014 11:34-0400 Body mass index (BMI) [Ratio] 22.05 kg/m2 Silvia Genesis [employer] Work Phone: [employer].; [employer]. 11-27-2014 11:34-0400 Body surface area Derived from formula 1.78 m2 Silvia Hurtado LPN Work Phone: [employer].; [employer]. 11-27-2014 11:34-0400 Body weight 65.77 kg Silvia Hurtado LPN Work Phone: [employer]; [employer]. 11-27-2014 11:34-0400 Diastolic blood pressure 73 mm[Hg] Silviashilo Hurtado LPN Work Phone: [employer]; [employer]. Comment on above: Patient Position: Sitting; Cuff Location : Left Arm; Cuff Size: Standard 11-27-2014 11:34-0400 Heart rate 47 /min Silvia Genesis LPN Work Phone: [employer]; [employer]. Comment on above: Pattern: Regular 11-27-2014 11:34-0400 Systolic blood pressure 120 mm[Hg] Silvia Hurtado LPN Work Phone: [employer]; [employer]. Comment on above: Patient Position: Sitting; Cuff Location : Left Arm; Cuff Size: Standard 05-24-2014 09:57-0500 Body height 172.72 cm Silvia Genesis LPN Work Phone: [employer]; [employer]. 05-24-2014 09:57-0500 Body mass index (BMI) [Ratio] 22.5 kg/m2 Silvia Genesis [employer] Work Phone: [employer]; [employer]. 05-24-2014 09:57-0500 Body surface area Derived from formula 1.8 m2 Silvia Genesis [employer] Work Phone: [employer]; [employer]. 05-24-2014 09:57-0500 Body weight 67.13 kg Silviashilo Loredoy RAILROAD FIRER Work Phone: [employer]. 05-24-2014 09:57-0500 Diastolic blood pressure 69 mm[Hg] Silvia Genesis RAILROAD FIRER Work Phone: [employer]. Comment on above: Patient Position: Sitting; Cuff Location : Left Arm; Cuff Size: Standard 05-24-2014 09:57-0500 Heart rate 58 /min Silvia Genesis RAILROAD FIRER Work Phone: [employer]. Comment on above: Pattern: Regular 05-24-2014 09:57-0500 Systolic blood pressure 116 mm[Hg] Silvia Genesis RAILROAD FIRER Work Phone: [employer]. Comment on above: Patient Position: Sitting; Cuff Location : Left Arm; Cuff Size: Standard 11-09-2013 11:58-0400 Body weight 65.77 kg Silviashilo Loredoy RAILROAD FIRER Work Phone: [employer]. 11-09-2013 11:58-0400 Diastolic blood pressure 77 mm[Hg] Silvia Genesis RAILROAD FIRER Work Phone: [employer]. Comment on above: Patient Position: Sitting; Cuff Location : Left Arm; Cuff Size: Standard 11-09-2013 11:58-0400 Heart rate 66 /min Silvia Genesis RAILROAD FIRER Work Phone: [employer]. Comment on above: Pattern: Regular 11-09-2013 11:58-0400 Systolic blood pressure 122 mm[Hg] Silvia Genesis RAILROAD FIRER Work Phone: [employer]. Comment on above: Patient Position: Sitting; Cuff Location : Left Arm; Cuff Size: Standard 08-25-2013 11:40-0500 Body temperature 98.1 [degF] Neilee L Vess RAILROAD FIRER [employer]. Comment on above: Method: Tympanic 08-25-2013 11:40-0500 Body weight 68.04 kg Neilee L Vess RAILROAD FIRER [employer] 08-25-2013 11:40-0500 Diastolic blood pressure 56 mm[Hg] Neilee L Vess RAILROAD FIRER [place] [employer]. Comment on above: Patient Position: Sitting; Cuff Location : Left Arm; Cuff Size: Standard 08-25-2013 11:40-0500 Heart rate 60 /min Neilee L Vess RAILROAD FIRER [employer] [facility], [employer]. Comment on above: Pattern: Regular 08-25-2013 11:40-0500 Systolic blood pressure 109 mm[Hg] Neilee L Vess RAILROAD FIRER [employer]. Comment on above: Patient Position: Sitting; Cuff Location : Left Arm; Cuff Size: Standard 05-13-2013 09:46-0500 Body height 172.72 cm Silvia Genesis RAILROAD FIRER Work Phone: [employer] 05-13-2013 09:46-0500 Body mass index (BMI) [Ratio] 22.2 kg/m2 SilviaPricebets RAILROAD FIRER Work Phone: [employer].; [employer]. 05-13-2013 09:46-0500 Body surface area Derived from formula 1.79 m2 SilviaKontrony RAILROAD FIRER Work Phone: [employer].; [employer]. 05-13-2013 09:46-0500 Body weight 66.23 kg Silvia Genesis RAILROAD FIRER Work Phone: [employer].; [employer]. 05-13-2013 09:46-0500 Diastolic blood pressure 73 mm[Hg] Silvia Genesis RAILROAD FIRER Work Phone: [employer]. Comment on above: Patient Position: Sitting; Cuff Location : Left Arm; Cuff Size: Standard 05-13-2013 09:46-0500 Heart rate 68 /min Silvia Hurtado LPN Work Phone: [facility], [facility].; [employer]. Comment on above: Pattern: Regular 05-13-2013 09:46-0500 Systolic blood pressure 112 mm[Hg] Silvia Hurtado LPN Work Phone: [facility], [facility].; [employer]. Comment on above: Patient Position: Sitting; Cuff Location : Left Arm; Cuff Size: Standard 12-01-2012 15:28-0400 Body height 172.72 cm Alona Jovel LPN [facility], [facility].; [place] [employer] [facility] [employer] 12-01-2012 15:28-0400 Body mass index (BMI) [Ratio] 21.61 kg/m2 Alona [facility], Inc.; [place] [employer] [facility], Inc[facility] 12-01-2012 15:28-0400 Body surface area Derived from formula 1.77 m2 Alona Jovel LPN [facility], [facility].; [employer] 12-01-2012 15:28-0400 Body weight 64.47 kg Alona [facility]vel [facility], [facility].; [employer] 12-01-2012 15:28-0400 Diastolic blood pressure 64 mm[Hg] Alona Jovel LPN [facility], Inc[employer], [employer]. Comment on above: Patient Position: Sitting; Cuff Location : Left Arm; Cuff Size: Standard 12-01-2012 15:28-0400 Heart rate 69 /min Alona Jovel LPN [facility], Inc[employer], [employer]. Comment on above: Pattern: Regular 12-01-2012 15:28-0400 Systolic blood pressure 105 mm[Hg] Alona Jovel LPN [facility], Inc[employer], [employer]. Comment on above: Patient Position: Sitting; Cuff Location : Left Arm; Cuff Size: Standard 11-18-2012 10:57-0400 Body height 172.72 cm Alona Jenningscindy FAGAN [facility], [facility].; [facility], [facility]. 11-18-2012 10:57-0400 Body mass index (BMI) [Ratio] 21.44 kg/m2 Alona Olverachilo [facility], [facility].; [facility], [facility]. 11-18-2012 10:57-0400 Body surface area Derived from formula 1.76 m2 Alona Wadechilo [facility], [facility].; [place] [employer] [facility], [facility]. 11-18-2012 10:57-0400 Body weight 63.96 kg Alona Olverachilo [facility], [facility].; [place] [employer] [facility], [facility]. 11-18-2012 10:57-0400 Diastolic blood pressure 62 mm[Hg] Alona Olverachilo [facility], [facility].; [employer], [employer]. Comment on above: Patient Position: Sitting; Cuff Location : Left Arm; Cuff Size: Standard 11-18-2012 10:57-0400 Heart rate 81 /min Alona Olverachilo [facility], [facility].; [employer], [employer]. Comment on above: Pattern: Regular 11-18-2012 10:57-0400 Systolic blood pressure 94 mm[Hg] Alona Olverachilo [facility], [facility].; [place] [employer] Comment on above: Patient Position: Sitting; Cuff Location : Left Arm; Cuff Size: Standard 01-06-2011 14:05-0400 Body temperature 97.8 [degF] Basiliailee L Vess RAILROAD FIRER [facility], [facility].; [place] [employer], [facility]. 01-06-2011 14:05-0400 Body weight 64.86 kg Basiliailee L Vess [facility], [facility].; [place] [employer], [employer]. 01-06-2011 14:05-0400 Diastolic blood pressure 72 mm[Hg] Neilee L Vess RAILROAD FIRER [facility], [facility].; [employer], [employer]. Comment on above: Patient Position: Sitting; Cuff Location : Left Arm; Cuff Size: Standard 01-06-2011 14:05-0400 Heart rate 69 /min Basiliailee L Vess RAILROAD FIRER [facility] Inc.; [employer]. Comment on above: Pattern: Regular 01-06-2011 14:05-0400 Systolic blood pressure 115 mm[Hg] Basiliavalentine Alcocer Loreta RAILROAD FIRER [facility] HospitalLucid Software Inc.; [employer]. Comment on above: Patient Position: Sitting; Cuff Location : Left Arm; Cuff Size: Standard 10-28-2010 14:11-0400 Body height 172.72 cm Silvia Hurtado RAILROAD FIRER Work Phone: [employer].; [employer]. 10-28-2010 14:11-0400 Body mass index (BMI) [Ratio] 22.2 kg/m2 tvComp[employer] RAILROAD FIRER Work Phone: [employer].; [employer]. 10-28-2010 14:11-0400 Body surface area Derived from formula 1.79 m2 Silvia Genesis RAILROAD FIRER Work Phone: [employer].; [employer]. 10-28-2010 14:11-0400 Body weight 66.23 kg Silvia Genesis RAILROAD FIRER Work Phone: [employer].; [employer]. 10-28-2010 14:11-0400 Diastolic blood pressure 66 mm[Hg] Silvia Loredoy RAILROAD FIRER Work Phone: [employer].; [employer]. Comment on above: Patient Position: Sitting; Cuff Location : Left Arm; Cuff Size: Standard 10-28-2010 14:11-0400 Heart rate 72 /min Silvia Loredoy RAILROAD FIRER Work Phone: [employer].; [employer]. Comment on above: Pattern: Regular 10-28-2010 14:11-0400 Systolic blood pressure 106 mm[Hg] Silvia Genesis RAILROAD FIRER Work Phone: [employer].; [employer]. Comment on above: Patient Position: Sitting; Cuff Location : Left Arm; Cuff Size: Standard Encounters Encounter Date Encounter Type Care Provider Facility Start: [facility]-07-[facility]24 [facility] Start: 03-17-2024 End: 03-17-2024 Procedure Staci Obando MD Work Phone: [employer] Start: 07-06-2023 End: 07-06-2023 Orders Staci Obando MD Work Phone: [employer] Start: 04-17-2023 End: 04-17-2023 Patient encounter procedure Staci Obando MD Work Phone: [employer] Start: 01-28-2023 End: 01-28-2023 Orders Staci Obando MD Work Phone: [employer] Start: 07-16-2022 End: 07-16-2022 Historical Summary Staci Obando MD Work Phone: [facility] Start: 04-14-2022 End: 04-14-2022 Patient encounter procedure Staci Obando MD Work Phone: [employer] Start: 03-13-2022 End: 03-14-2022 Historical Summary Staci Obando MD Work Phone: [employer] Start: 03-13-2022 End: 03-13-2022 Orders Staci Obando MD Work Phone: [employer] Start: 03-12-2022 End: 03-12-2022 Patient encounter procedure Staci Obando MD Work Phone: [employer] Start: 02-26-2022 End: 02-26-2022 Orders Staci Obando MD Work Phone: [employer] Start: 12-06-2021 End: 12-06-2021 Telephone follow-up Staci Obando MD Work Phone: [employer] Start: 11-30-2021 End: 11-30-2021 Emergency department patient visit [facility] Start: 11-05-2021 End: 11-05-2021 Telephone follow-up Staci Obando MD Work Phone: [employer] Start: 07-18-2021 End: 07-19-2021 Orders Staci Obando MD Work Phone: [employer] Start: 03-20-2021 End: 03-18-2021 Historical Summary Staci Obando MD Work Phone: [employer] Start: 03-20-2021 End: 03-20-2021 Patient encounter procedure Staci Obando MD Work Phone: [employer] Start: 03-15-2021 End: 03-15-2021 Orders Staci Obando MD Work Phone: [employer] Start: 03-15-2020 End: 03-15-2020 Orders Staci Obando MD Work Phone: [employer] Start: 02-20-2020 End: 02-20-2020 Orders Staci Obando MD Work Phone: [employer] Start: 01-19-2020 End: 01-19-2020 Patient encounter procedure Staci Obando MD Work Phone: [employer] Start: 12-30-2019 End: 12-30-2019 Orders Staci Obando MD Work Phone: [employer] Start: 12-02-2019 End: 12-02-2019 Orders Staci Obando MD Work Phone: [employer] Start: 11-23-2019 End: 11-23-2019 Orders Staci Obando MD Work Phone: [employer]. Start: 11-21-2019 End: 11-21-2019 Orders Staci Obando MD Work Phone: [employer] Start: 11-17-2019 End: 11-17-2019 Patient encounter procedure Staci Obando MD Work Phone: [employer] Start: 10-26-2019 End: 10-26-2019 Orders Staci Obando MD Work Phone: [employer] Start: 08-11-2019 End: 08-11-2019 Office outpatient visit 15 minutes Staci Obando MD Work Phone: [employer] Start: 04-18-2019 End: 04-18-2019 Office outpatient visit 10 minutes Staci Obando MD Work Phone: [employer] Start: 04-07-2019 End: 04-07-2019 Orders Staci Obando MD Work Phone: [employer] Start: 10-14-2018 End: 10-14-2018 Patient encounter procedure Staci Obando MD Work Phone: [employer] Start: 08-14-2018 End: 08-14-2018 Patient encounter procedure Staci Obando MD Work Phone: [employer] Start: 06-09-2018 End: 06-09-2018 Procedure Staci Obando MD Work Phone: [employer] Start: 04-05-2018 End: 04-05-2018 Patient encounter procedure Staci Obando MD Work Phone: [employer] Start: 03-31-2018 End: 03-31-2018 Orders Staci Obando MD Work Phone: [employer] Start: 03-15-2018 End: 03-15-2018 Orders Staci Obando MD Work Phone: [employer] Start: 12-10-2017 End: 12-10-2017 Historical Summary Staci Obando MD Work Phone: [employer] Start: 08-10-2017 End: 08-10-2017 Patient encounter procedure Staci Obando MD Work Phone: [employer] Start: 01-22-2017 End: 01-22-2017 Historical Summary Staci Obando MD Work Phone: [employer] Start: 01-07-2017 End: 01-07-2017 Patient encounter procedure Staci Obando MD Work Phone: [employer] Start: 01-06-2017 End: 01-06-2017 Wellness Visit Staci Obando MD Work Phone: [employer] Start: 01-01-2017 End: 01-01-2017 Orders Staci Obando MD Work Phone: [employer] Start: 12-30-2016 End: 12-30-2016 Orders Staci Obando MD Work Phone: [employer] Start: 11-21-2016 End: 11-21-2016 Orders Staci Obando MD Work Phone: [employer] Start: 05-01-2016 End: 05-01-2016 Orders Staci Obando MD Work Phone: [employer] Start: 01-07-2016 End: 01-07-2016 Patient encounter procedure Staci Obando MD Work Phone: [employer] Start: 01-04-2016 End: 01-04-2016 Orders Staci Obando MD Work Phone: [employer] Start: 12-18-2015 End: 12-18-2015 Orders Staci Obando MD Work Phone: [employer] Start: 10-29-2015 End: 10-29-2015 Office outpatient visit 15 minutes Staci Obando MD Work Phone: [employer] Start: 09-07-2015 End: 09-07-2015 Patient encounter procedure Staci Obando MD Work Phone: [employer] Start: 11-27-2014 End: 11-30-2014 Patient encounter procedure Staci Obando MD Work Phone: [employer] Start: 05-24-2014 End: 05-24-2014 Patient encounter procedure Staci Obando MD Work Phone: [employer] Start: 04-04-2014 End: 04-05-2014 Orders Staci Obando MD Work Phone: [employer] Start: 11-09-2013 End: 11-09-2013 Patient encounter procedure Staci Obando MD Work Phone: [employer]. Start: 08-25-2013 End: 08-25-2013 Patient encounter procedure Staci Obando MD Work Phone: [employer] Start: 05-13-2013 End: 05-13-2013 Patient encounter procedure Staci Obando MD Work Phone: [employer] Start: 05-06-2013 End: 05-06-2013 Orders Staci Obando MD Work Phone: [employer] Start: 03-23-2013 End: 03-23-2013 Orders Staci Obando MD Work Phone: [employer] Start: 12-01-2012 End: 12-02-2012 Patient encounter procedure Staci Obando MD Work Phone: [employer] Start: 11-18-2012 End: 11-18-2012 Patient encounter procedure Staci Obando MD Work Phone: [employer] Start: 04-28-2012 End: 04-28-2012 Patient encounter procedure Staci Obando MD Work Phone: [employer] Start: 04-20-2012 End: 04-21-2012 Orders Staci Obando MD Work Phone: [employer] Start: 04-07-2012 End: 04-07-2012 Orders Staci Obando MD Work Phone: [employer] Start: 08-15-2011 End: 08-18-2011 Orders Staci Obando MD Work Phone: [employer] Start: 04-22-2011 End: 04-23-2011 Orders Staci Obando MD Work Phone: [employer] Start: 04-21-2011 End: 04-21-2011 Orders Staci Obando MD Work Phone: [employer] Start: 01-17-2011 End: 01-17-2011 Medication Staci Obando MD Work Phone: [employer] Start: 01-06-2011 End: 01-06-2011 Patient encounter procedure Staci Obando MD Work Phone: [employer] Start: 10-28-2010 End: 10-28-2010 Patient encounter procedure Staci Obando MD Work Phone: [employer] Start: 09-26-2010 End: 09-26-2010 Orders Staci Obando MD Work Phone: [employer] Start: 09-24-2010 End: 09-24-2010 Historical Summary Staci Obando MD Work Phone: [employer] Start: 04-29-2010 End: 04-29-2010 Historical Summary Staci Obando MD Work Phone: [employer] Procedures Date Procedure Procedure Detail Performing Clinician Start: 04-07-2024 End: 04-07-2024 Screening mammography Staci Obando MD Work Phone: Comment on above: Within Normal Limits . Martha 06/2014 neg, 12/2015 neg (density 50-75%)--another planned later this month, 01/16/17 neg, 12/08/2019 neg, 03/25/2021 neg, 07/15/22 neg, 04/07/24 neg Start: 03-17-2024 End: 04-12-2024 Screening digital breast tomosynthesis bi Staci Obando MD Work Phone: Start: 04-17-2023 End: 04-17-2023 Adv care pln/ no alt dcsn mkr docd or refusal Staci Obando MD Work Phone: Start: 04-17-2023 End: 04-17-2023 Depression screening Staci Obando MD Work Phone: Start: 04-17-2023 End: 04-17-2023 Falls risk assessment documented Staci Obando MD Work Phone: Start: 04-17-2023 End: 04-17-2023 PPPS, subseq visit Staci Glass Work Phone: Start: 04-17-2023 End: 04-17-2023 Pt falls assess docd w/o fall/injury past year Staci Obando MD Work Phone: Start: 04-17-2023 End: 04-17-2023 Scr dep neg, no plan reqd Staci benitez MD Work Phone: Start: 04-10-2023 End: 04-10-2023 Lab findings surveillance Kyra alvarado LPN Comment on above: 87 CMP Start: 04-10-2023 End: 04-10-2023 Lipid panel results documented & reviewed Kyra Mcgill LPN Comment on above: Abnormal. tc 174 hdl 82 ldl 79 trig 46 Start: 07-15-2022 End: 07-15-2022 Bone density scan Kyra Quintanilla Comment on above: Abnormal. 07/15/22 wo mita osteopenia vertebra and femoral neck Start: 07-15-2022 End: 07-15-2022 Screening mammography Kyra Mcgill LPN Comment on above: Within Normal Limits . Martha 06/2014 neg, 12/2015 neg (density 50-75%)--another planned later this month, 01/16/17 neg, 12/08/2019 neg, 03/25/2021 neg, 07/15/22 neg Start: 04-14-2022 End: 04-14-2022 Ecg routine ecg w/least 12 lds i&r only Staci Obando MD Work Phone: Start: 04-14-2022 End: 04-14-2022 Adv care pln/ no alt dcsn mkr docd or refusal Staci Obando MD Work Phone: Start: 04-14-2022 End: 04-14-2022 Body mass index documented Staci bro MD Work Phone: Start: 04-14-2022 End: 04-14-2022 Depression screening Staci Obando MD Work Phone: Start: 04-14-2022 End: 04-14-2022 Falls risk assessment documented Staci Obando MD Work Phone: Start: 04-14-2022 End: 04-14-2022 PPPS, subseq visit Staci Glass Work Phone: Start: 04-14-2022 End: 04-14-2022 Pt falls assess docd w/o fall/injury past year Staci Obando MD Work Phone: Start: 04-14-2022 End: 04-14-2022 Scr dep neg, no plan reqd Staci benitez MD Work Phone: Start: 03-13-2022 End: 03-13-2022 pelvic u/s Kyra Mcgill LP N Comment on above: Abnormal. 3x3x3 left fundal fibroid Start: 03-12-2022 End: 03-14-2022 Us pelvic nonobstetric real-time image complete Staci Obando MD Work Phone: Start: 11-30-2021 Radex hand minimum 3 views Start: 03-20-2021 End: 03-20-2021 Body mass index documented Staci bro MD Work Phone: Start: 03-20-2021 End: 03-20-2021 Depression screening Staci Obando MD Work Phone: Start: 03-20-2021 End: 03-20-2021 Falls risk assessment documented Staci Obando MD Work Phone: Start: 03-20-2021 End: 03-20-2021 Flu immunize order/admin Staci pickett MD Work Phone: Start: 03-20-2021 End: 03-20-2021 PPPS, initial visit Staci Glass Work Phone: Start: 03-20-2021 End: 03-20-2021 Pt falls assess docd w/o fall/injury past year Staci Obando MD Work Phone: Start: 03-20-2021 End: 03-20-2021 Scr dep neg, no plan reqd Staci benitez MD Work Phone: Start: 03-20-2021 End: 03-28-2021 Screening mammography bi 2-view breast inc cad Staci Obando MD Work Phone: Start: 01-19-2020 End: 01-19-2020 Alcohol consumption screening Staci Obando MD Work Phone: Start: 01-19-2020 End: 01-19-2020 Depression screening Staci Obando MD Work Phone: Start: 01-19-2020 End: 01-19-2020 Docrev cur meds by billy Obando MD Work Phone: Start: 01-19-2020 End: 01-19-2020 Most recent diastolic blood pressure 80-89 mm hg Staci Obando MD Work Phone: Start: 01-19-2020 End: 01-19-2020 Most recent systolic blood pressure <130 mm hg Staci Obando MD Work Phone: Start: 01-19-2020 End: 01-19-2020 Scr dep neg, no plan reqd Staci benitez MD Work Phone: Start: 11-21-2019 End: 11-23-2019 Radiologic exam chest 2 views Staci Obando MD Work Phone: Start: 04-07-2019 End: 04-07-2019 Flu immunize order/admin FLOAT NURSE Start: 06-09-2018 End: 06-09-2018 Debridement subcutaneous tissue 20 sq cm/< Staci Obando MD Work Phone: Start: 05-31-2018 End: 05-31-2018 Screening colonoscopy Kyra Mcgill LPN Comment on above: Normal. [facility], dr larry velasquez Start: 04-05-2018 End: 04-05-2018 BP scrn perf rec interval Staci benitez MD Work Phone: Start: 04-05-2018 End: 04-05-2018 Current tobacco non-user cad cap copd pv dm Staci Obando MD Work Phone: Start: 04-05-2018 End: 04-05-2018 Docrev cur meds by billy Obando MD Work Phone: Start: 04-05-2018 End: 04-05-2018 Flu immunize order/admin Staci pickett MD Work Phone: Start: 04-05-2018 End: 04-05-2018 Most recent diastolic blood pressure < 80 mm hg Staci Obando MD Work Phone: Start: 04-05-2018 End: 04-05-2018 Most recent systolic blood pressure <130 mm hg Staci Obando MD Work Phone: Start: 08-10-2017 End: 08-10-2017 Body mass index documented Staci bro MD Work Phone: Start: 08-10-2017 End: 08-10-2017 Flu immunize order/admin Staci pickett MD Work Phone: Start: 01-13-2017 End: 01-13-2017 Screening for malignant neoplasm of large intestine Kyra Mcgill LPN Comment on above: Normal. stool cards 12/2016 stool heme neg Start: 01-07-2017 End: 01-07-2017 Current tobacco non-user cad cap copd pv dm Staci Obando MD Work Phone: Start: 01-07-2017 End: 01-07-2017 Docrev cur meds by billy Obando MD Work Phone: Start: 01-07-2017 End: 01-07-2017 Pt falls assess docd 2/> falls/fall w/injury/yr Staci Obando MD Work Phone: Start: 01-07-2017 End: 01-07-2017 Pure tone audiometry air only Staci Obando MD Work Phone: Start: 01-07-2017 End: 01-07-2017 Scr dep neg, no plan reqd Staci benitez MD Work Phone: Start: 01-07-2017 End: 01-07-2017 Falls risk assessment documented Staci Obando MD Work Phone: Start: 01-07-2017 End: 01-07-2017 Depression screen annual Staci pickett MD Work Phone: Start: 01-07-2017 End: 01-07-2017 Body mass index documented Staci bro MD Work Phone: Start: 11-21-2016 End: 03-11-2018 Screening mammography bi 2-view breast inc cad Staci Obando MD Work Phone: Start: 12-18-2015 End: 01-16-2016 Mammogram, screening Staci Obando MD Work Phone: Start: 11-21-2015 End: 11-21-2015 Ophthalmic examination and evaluation Kyra Mcgill LPN Comment on above: [employer] Start: 09-11-2015 End: 09-11-2015 Microscopic examination of cervical Papanicolaou smear Kyra Mcgill LPN Comment on above: Normal. Benekos, hpv not done [facility] Date Care Activity Detail Author Start: 04-18-2024 Patient encounter procedure Medical; PHYSICAL - AWV. will have labs done at [facility] [employer] Start: 18-Apr-2024 09:40-04:00 MD Staci Obando Appointment Request [employer]. Start: 03-17-2024 Basic metabolic pane l calcium total BMP w/ GFR (F) (30640) Start: 17-Mar-2024 Request [facility]; [facility] Start: 03-17-2024 Lipid panel LIPID PANEL ([id number]) Start: 17-Mar-2024 [facility] [place] [employer] [facility] Start: 03-17-2024 Screening digital br east tomosynthesis bi Mammogram 3D (tomosynthesis), bilateral ([id number]) Start: 17-Mar-2024 [facility] [place] [employer] Start: 02-26-2022 Screening mammograph y bi 2-view breast inc cad Mammogram Bilateral Screening Digital w/CAD ([id number]) with 3D (tomosynthesis), bilateral ([id number]) Start: 26-Feb-2022 [facility] [place] [employer] Immunizations Immunization Date Immunization Notes Care Provider Fa cility 07-13-2023 RSV, bivalent, prote in subunit RSVpreF, 0.5 mL Staci Obando MD Work Phone: [facility]; [facility] 04-22-2023 COVID-Moderna (100 MCG/0.5 ML) Staci Obando MD Work Phone: [facility].; [place] [employer] [facility] 03-05-2023 influenza, high dose seasonal, preservative-free Staci Obando MD Work Phone: [facility]; [place] [employer] [facility] 03-10-2022 COVID-Pfizer (30 MCG /0.3 ML) Staci Obando MD Work Phone: [facility]; [place] [employer] [facility] 11-25-2021 tetanus toxoid, redu devaughn diphtheria toxoid, and acellular pertussis vaccine, adsorbed Staci Obando MD Work Phone: [facility]; [place] [employer] [facility] 08-28-2021 zoster vaccine recombinant Staci Obando MD Work Phone: [facility] [place] [employer] 06-04-2021 COVID-Pfizer (30 MCG /0.3 ML) Staci Obando MD Work Phone: [facility]; [employer] 06-04-2021 zoster vaccine recombinant Staci Obando MD Work Phone: [facility] [employer]; [employer] 03-20-2021 influenza virus vacc ine, unspecified formulation Staci Obando MD Work Phone: [employer]; [employer] 03-20-2021 Shingrix 50 MCG/0.5M L Intramuscular Suspension Reconstituted Staci Obando MD Work Phone: [employer]; [employer] 03-20-2021 influenza, injectabl e, quadrivalent, contains preservative Staci Obando MD Work Phone: [place] [employer]; [employer] Comment on above: Site: Left DeltoidVI S Given: * Influenza - Inactivated (02/03/19) 03-20-2021 pneumococcal polysaccharide vaccine, 23 valent Staci Obando MD Work Phone: [employer]; [employer]. Comment on above: Site: Right DeltoidV IS Given: * Pneumococcal Polysaccharide (PPSV23) (10/13/14) 10-18-2020 COVID-Pfizer (30 MCG /0.3 ML) Staci Obando MD Work Phone: [employer]; [employer] 09-25-2020 COVID-Pfizer (30 MCG /0.3 ML) Staci Obando MD Work Phone: [employer]; [employer] 04-07-2019 influenza virus vacc ine, unspecified formulation Staci Obando MD Work Phone: [employer]; [employer]. 04-07-2019 influenza, injectabl e, quadrivalent, contains preservative Staci Obando MD Work Phone: [employer]; [employer] Comment on above: Site: Left ArmVIS Gi jordyn: * Influenza - Inactivated (01/26/15) 03-31-2018 influenza, injectabl e, quadrivalent, contains preservative Staci Obando MD Work Phone: [employer]; [employer] Comment on above: at [facility] 03-22-2017 influenza, injectabl e, quadrivalent, contains preservative Staci Obando MD Work Phone: [employer]; [employer] Comment on above: at pharmacy 05-24-2014 IMMUNIZATION ADMIN ([id number]) Staci Obando MD Work Phone: [employer]; [employer] 05-24-2014 influenza, seasonal, injectable Staci Obando MD Work Phone: [employer]; [employer] Comment on above: Site: Deltoid (Left) VIS Given: * Influenza, Inactivated () 05-24-2014 zoster vaccine, live Staci monge MD Work Phone: [employer]; [employer]. Comment on above: Site: Posterior Uppe r Arm (Left)VIS Given: * Shingles (Herpes Zoster) (03/27/09) 10-20-2013 TD(adult) unspecifie d formulation Staci Obando MD Work Phone: [employer]; [employer] Comment on above: PH 06-22-2013 zoster vaccine, live Staci monge MD Work Phone: [employer]; [employer] 05-13-2013 influenza, seasonal, injectable Staci Obando MD Work Phone: [employer]; [employer] Comment on above: Site: Deltoid (Left) VIS Given: * Inactivated Influenza Vaccine (01/30/09) * Inactivated Influenza Vaccine (01/14/11) * Influenza vaccine [id number], inactivated (12/22/2011) * Influenza, Inactivated () * VIS Given (Unspecified) 05-13-2013 IMMUNIZATION ADMIN ([id number]) Staci Obando MD Work Phone: [employer]; [employer] 04-28-2012 influenza, seasonal, injectable Staci Obando MD Work Phone: [employer]; [employer] Comment on above: Site: Deltoid (Left) VIS Given: * Inactivated Influenza Vaccine (01/30/09) * Inactivated Influenza Vaccine (01/14/11) * Influenza vaccine , inactivated (12/22/2011) * VIS Given (Unspecified) 04-28-2012 IMMUNIZATION ADMIN ([id number]) Staci Obando MD Work Phone: [employer]; [employer] 08-15-2011 influenza, seasonal, injectable Staci Obnado MD Work Phone: [employer]; [employer] Comment on above: Site: Deltoid (Left) VIS Given: * Inactivated Influenza Vaccine (01/30/09) * Inactivated Influenza Vaccine (01/14/11) * Inactivated Influenza Vaccine (01/14/11) * Inactivated Influenza Vaccine (01/14/11) * Inactivated Influenza Vaccine (01/14/11) * Inactivated Influenza Vaccine (01/14/11) * Inactivated Influenza Vaccine (01/14/11) * Inactivated Influenza Vaccine (01/14/11) * VIS Given (Unspecified) * VIS Given (Unspecified) 08-15-2011 IMMUNIZATION ADMIN ([id number]) Staci Obando MD Work Phone: [employer]; [employer] 04-29-2010 influenza, seasonal, injectable Staci Obando MD Work Phone: [employer]; [employer] Comment on above: Site: Deltoid (Left) VIS Given: * Inactivated Influenza Vaccine (01/30/09) 04-29-2010 IMMUNIZATION ADMIN ([id number]) Staci Obando MD Work Phone: [employer]; [employer] 04-13-2009 tetanus toxoid, redu devaughn diphtheria toxoid, and acellular pertussis vaccine, adsorbed Staci Obando MD Work Phone: [email or web address] [email or web address]; [employer] Payers Date Payer Category Payer Unknown [id number] 2021 Medicare [id number] 1955 Unknown [id number] 1955 Unknown [id number] Unknown [id number] Social History Date Type Detail Facility Alcohol Use Alcohol Use [facility] [employer]; [employer] Tobacco Use: Tobacco Use: ; Never smoker. [employer]; [employer] Female [place] [employer]; [employer] Work Phone: Never smoked tobacco [place] [email or web address]; [employer] Work Phone: Summary Purpose Family History Coronary Artery Disease Status:Active Comments :parents Diabetes Mellitus Type II Status:Active Commen ts:parents Father Status:Active Comments: d. at age 57 [place] Hypertension Status:Active Comments:parents Mother Status:Active Comments: d. covid infection Coronary Artery Disease Status:Active Comments :parents Diabetes Mellitus Type II Status:Active Commen ts:parents Father Status:Active Comments: d. at [place] 57 [place] Hypertension Status:Active Comments:parents Mother Status:Active Comments: d. covid infection Coronary Artery Disease Status:Active Comments :parents Diabetes Mellitus Type II Status:Active Commen ts:parents Father Status:Active Comments: d. at [place] 57 [place] Hypertension Status:Active Comments:parents Mother Status:Active Comments: d. covid infection Coronary Artery Disease Status:Active Comments :parents Diabetes Mellitus Type II Status:Active Commen ts:parents Father Status:Active Comments: d. [place] 57 [place] Hypertension Status:Active Comments:parents Mother Status:Active Comments: d. covid infection Coronary Artery Disease Status:Active Comments :parents Diabetes Mellitus Type II Status:Active Commen ts:parents Father Status:Active Comments: d. [place] 57 [place] Hypertension Status:Active Comments:parents Mother Status:Active Comments: d. covid infection Coronary Artery Disease Status:Active Comments :parents Diabetes Mellitus Type II Status:Active Commen ts:parents Father Status:Active Comments: d. [place] 57 [place] Hypertension Status:Active Comments:parents Mother Status:Active Comments: d. covid infection Coronary Artery Disease Status:Active Comments :parents Diabetes Mellitus Type II Status:Active Commen ts:parents Father Status:Active Comments: d. [place] 57 [place] Hypertension Status:Active Comments:parents Mother Status:Active Comments: d. covid infection Coronary Artery Disease Status:Active Comments :parents Diabetes Mellitus Type II Status:Active Commen ts:parents Father Status:Active Comments: d. [place] 57 [place] Hypertension Status:Active Comments:parents Mother Status:Active Comments: d. covid infection Coronary Artery Disease Status:Active Comments :parents Diabetes Mellitus Type II Status:Active Commen ts:parents Father Status:Active Comments: d. [place] 57 [place] Hypertension Status:Active Comments:parents Mother Status:Active Comments: d. covid infection Coronary Artery Disease Status:Active Comments :parents Diabetes Mellitus Type II Status:Active Commen ts:parents Father Status:Active Comments: d. [place] 57 [place] Hypertension Status:Active Comments:parents Mother Status:Active Comments: d. covid infection Advance Directives No Advanced Directives Records FoundNo Advanced Directives Records FoundNo Advanced Directives Records FoundNo Advanced Directives Records Found Additional Source Comments INFORMATION SOURCE (unrecogn ized section and content) DATE CREATED AUTHOR 02/23/2020 [facility] DATE CREATED AUTHOR AUTHOR'S ORGANIZ ATION 11/30/2021 [facility] DATE CREATED AUTHOR AUTHOR'S ORGANIZ ATION 04/11/2023 [facility] DATE CREATED AUTHOR AUTHOR'S ORGANIZ ATION 04/10/2024 [facility] FOR RECORDS PERTAINING TO PATIENTS WHO ARE OR HAVE BEEN ENROLLED IN A CHEMICAL DEPENDENCY/SUBSTANCEABUSE PROGRAM, SOME INFORMATION MAY BE OMITTED. This clinical summary was aggregated from multiple sources. Caution should be exercised in using it in the provision of clinical care. This summary normalizes information from multiple sources, and as a consequence, information in this document may materially change the coding, format and clinical context of patient data. In addition, data may be omitted in some cases. CLINICAL DECISIONS SHOULD BE BASED ON THE PRIMARY CLINICAL RECORDS. [employer] [facility]. provides no warranty or guarantee of the accuracy or completeness of information in this document.
[2024-04-13 08:12] LABS: Anion Gap 2 (5-15); BUN 17 mg/dL (7-18); BUN/Creat Ratio 21.5 RATIO (10-20); Calcium,Total 8.9 mg/dL (8.5-10.1); Chloride 109 mmol/L (98-107); Cholesterol 184 mg/dL (200); Creatinine, Serum 0.79 mg/dL (0.55-1.02); EST Glomerular Filtration Rate 77 mL/min (>60); Est Glom Filt Rate - Afr Amer 93 mL/min (>60); Glucose 92 mg/dL (74-106); High Density Lipoprotein 101 mg/dL; Potassium 4.2 mmol/L (3.5-5.1); Sodium Level 142 mmol/L (136-145); Triglycerides 44 mg/dL; Very Low Density Lipoprotein 9 mg/dL (5-40)
== END | disposition home or self-care (01) ==
PROVIDERS: PCP Family Medicine; Referring Provider Family Medicine; Visit Provider Family Medicine
DX: E78.5 Hyperlipidemia, unspecified (principal); Z13.1 Encounter for screening for diabetes mellitus
CPT/HCPCS: 36415; 80048; 80061

== ENCOUNTER 2024-06-20 11:00 | Outpatient (RCR) | payer MEDICARE, BC, SELFPAY ==
--- NOTE | 2024-05-24 10:55 | HP.PTEVAL_ITS ---
Patient's Visit Information Visit Information Visit Information: CAPRICE MUELLER is a 69 year old F referred to Physical Therapy by Dr. Junito Andrews DO with a diagnosis of R knee OA. Date of Evaluation: 05/24/24 Physical Therapist: Lonnie Javed, PT, ATC Visit Plan Frequency: 2x /Week Duration: 4-6 Weeks Plan: R knee stretching and strengthening, core stab ex's (use caution secondary to LBP Hx), balance and proprio, nustep, and HEP Subjective Subjective: Pt reports having R knee pain since November of this year. Pt reports she has been treated in the past, which helped, but that was mostly due to a bulging disc in her LB. Pt reports about a month ago, she pivoted on her R knee which resulted in severe medial R knee pain. Pt reports she had an xray in November that revealed OA throughout her R knee. Pt reports she has not had an MRI at this time. Pt reports her R knee will lock up on her on occasion, and has given out on her for several years. Pt reports sleep difficulty secondary to R knee pain at this time. Pt has stairs to her basement that she has to negotiate one step at a time sideways. Pt gets tingling and numbness in both feet secondary to polynueropathy. Pt reports she is an avid walker, but is very limited at this time secondary to pain. 1/10 pain while sitting here at rest, 9/10 pain at worst (when her knee locked up on her) Pain R knee pain: Pain Intensity (Out of 10): 1 Pain Intensity Range: 9 Objective Objective: Neuro: B LE sensation is WNL to light touch. B patellar reflex= 1/3 Gait. Pt is able to ambulate from waiting room to Rx room without difficulty. Minor limp of R LE. ROM: L knee 0-135 degrees; R knee 0-12-120 degrees MMT: L knee flex= 42, ext= 47 #F; R knee flex= 27, ext= 26 #F SPecial tests: Pos McConnels sign Balance/Special Test Scores Lower Extremity Functional Score: 59 Goals Goal 1:: Decrease R knee pain x 50 % to aid with sleep Goal Time Frame: 4-6 Weeks Goal 2:: Increase R knee flex and ext strength x 10 #F to aid with stair negotiation Goal Time Frame: 4-6 Weeks Goal 3:: Increase R knee ROM x 20 degrees to aid with IADL's Goal Time Frame: 4-6 Weeks Goal 4:: I with HEP Goal Time Frame: 4-6 Weeks Rehabilitation Potential Physical Therapy Diagnosis: Pt has R knee pain, weakness, and limited ROM secondary to R knee OA Rehabilitation Potential: Good Anticipated Interventions Patient/Client Instruction: Educate patient on: Condition and Plan of Care For the Purpose of:: To improve self management Text: Thank you for the opportunity to evaluate your patient. For Medicare and Medicare HMO plans, please review the plan of care and approve it. It will need to be FAXED BACK to us at [phone] for Medicare purposes. For Medicare only, by signing this I certify the plan of care. Please let me know if there are questions or concerns regarding this plan of care. Physician Signature: Date:__
--- NOTE | 2024-06-20 11:32 | HP.PTDCSUM ---
Discharge Summary D/C summary: It has been my pleasure to treat CAPRICE MUELLER referred by Dr. Junito Andrews DO, with the diagnosis of R knee OA for a total of 8 visit(s). Discharge Date: Please see the following information for a summary of their discharge status. Subjective Subjective: I am ready for discharge Pain R knee pain: Pain Intensity (Out of 10): 2 Overall Improvement % Improvement: 80 Objective Objective/Function: R knee pain ranges from 2-4/10 R knee ROM: 0-7-105 degrees R knee MMT: flex= 22, ext= 22 #F Pt is I with HEP Goals Goal 1:: Decrease R knee pain x 50 % to aid with sleep Goal Progress: Goal Met Goal 2:: Increase R knee flex and ext strength x 10 #F to aid with stair negotiation Goal Progress: Progressing Goal 3:: Increase R knee ROM x 20 degrees to aid with IADL's Goal Progress: Progressing Goal 4:: I with HEP Goal Progress: Goal Met Plan Plan: Discharge to HEP D/C Information d/c sentence: If there are questions or concerns regarding this patient's physical therapy, please feel free to call me at [phone]. Thank you for the referral of this patient. Sincerely, Lonnie Javed, PT, ATC Balance/Gait/Functional tests Balance/Special Test Scores Lower Extremity Functional Score: 50 Improvement % Improvement: 80
== END 2024-06-20 19:00 | disposition home or self-care (01) ==
LOC: PT 11:00
PROVIDERS: PCP Family Medicine; Referring Provider Student in an Organized Health Care Education/Training Program; Visit Provider Student in an Organized Health Care Education/Training Program
DX: M17.11 Unilateral primary osteoarthritis, right knee (principal)
CPT/HCPCS: 97110; 97161; 97530

== ENCOUNTER 2024-07-21 06:54 | Emergency (ER) | payer MEDICARE, BC, SELFPAY ==
[2024-07-21 06:54] VITALS: BP 111/66; PULSE 73; RESP 14; TEMP 36.4; O2SAT 99; BMI 21.7
--- NOTE | 2024-07-21 07:05 | EKG12_ITS ---
Test Reason : Blood Pressure : */* mmHG Vent. Rate : 75 BPM Atrial Rate : 75 BPM P-R Int : 180 ms QRS Dur : 82 ms QT Int : 420 ms P-R-T Axes : 68 31 45 degrees QTcB Int : 469 ms Normal sinus rhythm Nonspecific ST and T wave abnormality Abnormal ECG Confirmed by RAYNA JONES MD ([id number]), supervising editor news reel LOPEZ DIAZ ([id number]) on 07/25/2024 7:07:51 AM Referred By: ROSALES Confirmed By: RAYNA JONES MD
--- NOTE | 2024-07-21 07:13 | EDS_ITS ---
HPI History of Present Illness Chief Complaint: Syncope Informant: patient and spouse/S.O. Onset/Context/Timing Onset: Today Current Severity: Mild Maximum Severity: Mild Narrative Narrative: Healthy 69-year-old female treated for high cholesterol. URI the last 2 to 3 days. Cough of green sputum. When she got up this morning she went to her bathroom and sit on the toilet and she lost her balance falling forward striking her right forehead causing a laceration. She may have had brief loss of consciousness. She is on no blood thinners. Denies any head or neck pain. Denies any other injuries. heard her fall and went in and saw her immediately after the fall. She denies any vomiting or diarrhea. She has had a cough. No chest pain. Prior similar symptoms: Yes Recent Illness/Hospitalization: No [facility] Medical History Hypercholesteremia UTI (urinary tract infection) Home Medications ?Medication ?Instructions ?Recorded ?Last Taken ?Type atorvastatin 20 mg tablet 20 mg PO QHS 11/02/21 Unknow n History Cecilia's wort 300 mg capsule 300 mg PO QDAY 06/03/24 Unknown History calcium carbonate 600 mg PO QDAY 06/03/24 Unkn own History cholecalciferol (vitamin D3) 50 50 mcg PO QDAY 4 Unknown History mcg (2,000 unit) capsule sour powell extract 1,000 mg mg PO 06/03/24 Unknown Hi story capsule (Tart Powell Extract) Allergy/AdvReac Type Severity Reaction Status Date / Time celecoxib (From Celebrex) Allergy Intermediate Rash Verified 07/21/24 06:55 levofloxacin (From Levaquin) Allergy Intermediate Rash Verified 07/21/24 06:55 Social History Smoking Status: Never smoker ROS ROS ED ROS Narrative Cough. Green sputum. Constitutional Constitutional ED: Denies chills or fever(s) Eyes Eyes: Denies blurry vision ENT ENT ED: Denies ear pain Cardiovascular Cardiovascular: Denies chest pain Respiratory/Chest Respiratory/Chest: Reports cough and sputum Gastrointestinal Gastrointestinal: Denies abdominal pain, constipation or diarrhea Genitourinary Genitourinary ED: Denies dysuria or hematuria Musculoskeletal Musculoskeletal: Denies arthralgias or back pain Integumentary Denies abscess Neurologic Neurologic: Denies headache(s) Psychiatric Psychiatric: Denies anxiety or depression Endocrine Endocrinology: Denies cold intolerance Hematologic/Lymphatic Hematologic/Lymphatic: Reports none Allergic/Immunologic Allergic/Immunologic ED: Denies mouth swelling, tongue swelling or urticaria EXAM Physical Exam Narrative Exam Narrative: Well-appearing 69-year-old female. Vital signs are stable afebrile. Pulse ox 9 9% on room air no signs hypoxia. She is in no distress. seated at bedside. H EENT exam pupils round reactive light. She has a superficial laceration lateral to her right eyebrow. It is closed. Dried blood. No active bleeding. Does not gape. I think we can close this with Dermabond. No other facial trauma. Scalp nontender no hematomas. Neck and trachea nontender normal range of motion. Back and spine nontender. Lungs clear to auscultation bilaterally. Dry cough. Heart regular rhythm rate about 70 no murmur. Chest wall ribs nontender. Abdomen soft nontender. Moving all 4 extremities. 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 Normal dorsi plantarflexion. Normal range of motion both upper and lower extremities. No deformity. No tenderness. Neurologically she is awake and alert no focal motor deficits. Const Vital Signs: 07/21/24 06:54 07/21/24 06:54 07/21/24 07:05 Temperature 97.5 F L Temperature Source Oral Pulse Rate 73 Respiratory Rate 14 Respiratory Effort Normal Non-Labored Blood Pressure 111/66 Blood Pressure Mean 81 Pulse Ox 99 Oxygen Delivery Method Room Air Room Air 07/21/24 07:54 Temperature Temperature Source Pulse Rate 72 Respiratory Rate Respiratory Effort Blood Pressure 107/66 Blood Pressure Mean 79 Pulse Ox 98 Oxygen Delivery Method Positive well nourished and well developed; Negative for obese, cachectic, contractures or unkempt General Appearance ED: well developed and NAD; Negative for unkempt, cachectic, contractures, cyanotic, diaphoretic or pallor Nutritional Appearance: Negative for cachectic or obese HEENT Reports moist mucous membranes HEENT Narrative: Right lateral forehead laceration. No active bleeding. No hematoma. trauma Eyes PERRL and EOMs intact bilaterally General Eye ED: Negative for pale conjunctiva or scleral icterus Neck no lymphadenopathy, supple and no JVD General: Negative for tenderness Lymph Lymphatic: Negative for other Chest Wall inspection of chest normal and palpation of chest normal Resp normal respiratory effort and clear to auscultation bilaterally Resp Narrative: Dry cough. Auscultation: Negative for rales, rhonchi, wheezes or diminished lung sounds Cardio regular rate, regular rhythm, S1 normal heart sound, S2 normal heart sound and no murmurs Palpation: Negative for palpable S3 or palpable S4 Rate: Negative for bradycardia or tachycardic Rhythm: Negative for abnormal rhythm GI normal to inspection, nondistended, normoactive bowel sounds, non-tender, non- distended and no masses Inspection: Negative for abdominal distention Palpation: soft; Negative for tender, guarding or rebound tenderness present Back/Spine no CVA tenderness General Back: Negative for CVA tenderness Cervical Spine: Negative for cervical spine tenderness Thoracic Spine / Upper Back: Negative for thoracic spinal tenderness or paraspinal muscle tenderness Lumbar Spine / Lower Back: Negative for lumbar spinal tenderness Extremity normal to inspection General Extremety ED: Negative for edema or tenderness General Extremity: Negative for edema Neuro oriented x3 and CN's II-XII intact bilaterally Sensorium / Orientation: alert; Negative for orientation impaired, lethargic or stuporous Motor Exam: strength 5/5 throughout; Negative for general weakness or strength abnormal Psych mental status grossly normal Appearance: Negative for unkempt Attitude: No agitated Mood & Affect: Negative for depressed, anxious or tearful Skin no rashes or lesions noted Skin Narrative: Right forehead laceration. General Skin Exam: Negative for jaundice or pallor Lesions: No lesion noted Rashes: No rashes noted Trauma: Negative for abrasion MDM MDM MDM Narrative Medical decision making narrative: 69-year-old female syncopal episode this morning fell and hit the right side of her forehead. Minor laceration think we can Dermabond repair. She believes her tetanus is about 10 years old to be updated. I do not think she needs a CAT scan of her head she is neurologically intact. Her GCS is 15. I am going to check screening labs due to her recent URI. I suspect a viral syndrome. Will rule out pneumonia with a chest x-ray. Her and her did not want to be specifically tested for flu or COVID. Repeat exam patient is doing well at 8:27 AM. We went over all of her test results of both her and her . Again her neurologic exam is normal. I do not think she needs any brain imaging. I did repair the right forehead laceration with Dermabond and Steri-Strips. Her tetanus was updated. She was given head injury instructions. Wound care instructions. Patient will be ambulated prior to discharge. History & Record Review Discussion w/independent historian: Patient and Family Additional record(s) reviewed:: Prior inpatient record, Prior outpatient record, Prior ED visit and Prior labs Lab Data Attestation: I reviewed the patient's lab results. Lab results narrative: CBC shows a white count of 4.1. H&H 13 and 39. Platelets 165. Chest x-ray normal. Chemistries show gap 5. Normal BUN of 12 and creatinine 0.9. Glucose 103. Troponin normal at 6. Labs: Laboratory Results - last 24 hr 07/21/24 07:30 WBC 4.1 L RBC 4.16 L Hgb 13.7 Hct 39.7 MCV 95.4 MCH 32.9 H MCHC 34.5 RDW Std Deviation 43.4 RDW Coeff of Moncho 12.4 Plt Count 165 MPV 9.3 Immature Gran % (Auto) 0.500 Neut % (Auto) 75.8 H Lymph % (Auto) 13.3 L Bladen % (Auto) 9.2 Eos % (Auto) 0.7 Baso % (Auto) 0.5 Absolute Neuts (auto) 3.1 Absolute Lymphs (auto) 0.55 L Nucleated RBC % 0 Sodium 140 Potassium 3.6 Chloride 104 Carbon Dioxide 31.0 Anion Gap 5 BUN 12 Creatinine 0.94 Estim Creat Clear Calc 56.98 Est GFR (MDRD) Af Amer 76 Est GFR (MDRD) Non-Af 63 BUN/Creatinine Ratio 12.7 Glucose 103 Calcium 8.7 Troponin I High Sens 6 Radiography Chest X-Ray - ED: 1 View, Read by ED Physician, Normal, Heart, Lungs, Mediastinum, Bony Structures, No Acute Disease and Chronic Changes Diagnostic Testing: Clinical Impression(s) from Imaging Studies Chest X-Ray 07/21/24 07:40 IMPRESSION: NEGATIVE CHEST. Reading Location: [facility] Chest x-ray, portable, single view interpreted by myself shows no acute abnormality. Normal cardiac silhouette. Normal lung mehta. No pneumonia. Rhythm Strip Rhythm Strip: Sinus Rhythm Rate: 75 Ectopy: None EKG Initial EKG: Attestation: I personally reviewed and interpreted this EKG as follows: Interpretation: Sinus Rhythm and No Acute Injury Pattern Comments: Normal sinus rhythm rate of 75 no acute signs of TX or ischemia. No dysrhythmia. Procedures Lacerations Right lateral forehead laceration repair:: Length: 1 in Shape: Linear Comment: Right lateral forehead laceration approximately 1 inch. Cleaned. Explored. Did not gape. Dermabond and Steri-Strip. There is a's very small parallel laceration less than a half a centimeter beside it. Proper hemostasis wound closure was obtained. Discharge Plan Triage Chief Complaint: Syncope ED Provider: Jakob Melo Dx/Rx/DC Orders Clinical Impression: Fall, Viral URI, Forehead laceration, Syncope Instructions: What Is Syncope, ED Laceration, Face: Skin Glue, ED URI, Viral, No Abx (Adult) Prescriptions: No Action calcium carbonate 600 mg calcium (1,500 mg) tablet 600 mg PO QDAY cholecalciferol (vitamin D3) 50 mcg (2,000 unit) capsule 50 mcg PO QDAY Cecilia's wort 300 mg capsule 300 mg PO QDAY Tart Powell Extract 1,000 mg capsule PO atorvastatin 20 mg tablet 20 mg PO QHS Patient Comments: TAKE 1 TABLET BY MOUTH EVERY DAY AT BEDTIME Primary Care Provider: Nikhil Hanna Referrals: Nikhil Hanna MD [Primary Care Provider] - 3-5 Days if not improving Activity Restrictions/Additional Instructions: Plenty of fluids and rest. Tylenol for any headache or fevers. Follow-up with your doctor if not improving. Skin glue or Dermabond was used for closure right forehead laceration. You can take the Steri-Strips off in a week if they do not come off before that. Do not pick the glue off. Just leave it alone for now. It will eventually dry off and come off. If you would develop severe headache, vomiting or not acting right we need to reevaluate you. Print Language: [place]an Disposition Disposition: Home, Self Care
[2024-07-21] MEDS: Diphth,Pertuss(Acell),Tet Vac 0.5 ML Vial IM (07:30)
[2024-07-21 07:38] LABS: Absolute Lymphocyte Count 0.55 X10^3/uL (0.83-4.51); Absolute Neutrophil Count 3.1 X10^3/uL (2.0-7.7); Basophil# 0.02 X10^3/uL; Basophil% 0.5 % (0-1); Eosinophil# 0.03 X10^3/uL; Eosinophils% 0.7 % (0-5); Hematocrit 39.7 % (37-47); Hemoglobin 13.7 g/dL (12.0-15.0); Lymphocyte # 0.55 X10^3/ul (0.83-4.51); Lymphocyte % 13.3 % (19-41); Mean Corp Hgb Conc 34.5 g/dL (32-36); Mean Corpuscular Hgb 32.9 pg (27.0-32.0); Mean Corpuscular Volume 95.4 fL (81-99); Mean Platelet Vol. 9.3 fl (6.2-12.0); Monocyte# 0.38 X10^3/uL; Monocyte% 9.2 % (0-10); NRBC Flagged by Analyzer 0 % (0-5); Neutrophil # 3.13 X10^3/uL (2.7-7.7); Neutrophil % 75.8 % (47-70); POSITIVE DIFFERENTIAL YES; Platelet Count 165 K/mm3 (150-450); RBC Distribution Width CV 12.4 % (11.6-14.6); RBC Distribution Width SD 43.4 fl (35.1-43.9); Red Blood Count 4.16 M/mm3 (4.2-5.4); White Blood Count 4.1 K/mm3 (4.4-11.0)
--- NOTE | 2024-07-21 07:40 | RAD_ITS ---
PROCEDURE: CHEST 1 VIEW (PORTABLE) REASON FOR EXAM: Syncopal episode. TECHNIQUE: Frontal view of the chest. COMPARISON: No prior study available for comparison. FINDINGS: EKG electrodes are seen. The heart size is normal. The lungs are clear. RAD/Chest 1 View (Portable) IMPRESSION: NEGATIVE CHEST. Reading Location: [place] [id number]
[2024-07-21 07:54] VITALS: BP 107/66; PULSE 72; O2SAT 98
[2024-07-21 08:10] LABS: Anion Gap 5 (5-15); BUN 12 mg/dL (7-18); BUN/Creat Ratio 12.7 RATIO (10-20); Calcium,Total 8.7 mg/dL (8.5-10.1); Chloride 104 mmol/L (98-107); Creatinine, Serum 0.94 mg/dL (0.55-1.02); EST Glomerular Filtration Rate 63 mL/min (>60); Est Glom Filt Rate - Afr Amer 76 mL/min (>60); Estimated Creatinine Clearance 56.98 ml/min; Glucose 103 mg/dL (74-106); Potassium 3.6 mmol/L (3.5-5.1); Sodium Level 140 mmol/L (136-145); Troponin-I HS (w/2H Reflex) 6 pg/mL (3.0-54.0)
[2024-07-21 08:44] VITALS: BP 112/77; PULSE 75; RESP 16; TEMP 36.2; O2SAT 95
[2024-07-21 09:34] LABS: Reflex Troponin-HS? (from REC) Y
== END 2024-07-21 08:45 | disposition home or self-care (01) ==
PROVIDERS: Emergency Provider Emergency Medicine; PCP Family Medicine; Visit Provider Emergency Medicine
DX: J06.9 Acute upper respiratory infection, unspecified (principal); S01.81XA Laceration without foreign body of other part of head, initial encounter; R55 Syncope and collapse; W19.XXXA Unspecified fall, initial encounter
CPT/HCPCS: 12011; 71045; 80048; 84484; 85025; 90715; 93005; 96372; 99285

== ENCOUNTER → 2024-10-31 | Outpatient (CLI) | payer MEDICARE, BC, SELFPAY ==
--- NOTE | 2024-10-31 09:47 | STE_ITS ---
Reason For Study Reason For Study: EXERTIONAL DYSPNEA Stress Results Protocol: Jeanmarie Protocol Maximum Predicted HR: 151 bpm Target HR: 128 bpm % Maximum Predicted HR: 112 % DurationHeart Rate Stage (mm:ss) (bpm) BP Comment BASELINE 76 112/82 STAGE 1 3:00 108 130/82 STAGE 2 3:00 139 140/76 STAGE 3 3:00 169 142/84HEAVIER BREATHING, KNEE DISCOMFORT RECOVERY 84 112/72 Stress Duration: 9:00 mm:ss Maximum Stress HR: 169 bpm Baseline Echocardiogram Findings Stress Echo Wall motion Data Resting WM Intermediate WM Stress WM Time Measurements MV dec time: 0.26 sec Doppler Measurements & Calculations MV E max sherri: 60.7 cm/sec MV dec slope: 233.2 cm/sec2 TR max sherri: 221.1 cm/sec MV A max sherri: 49.7 cm/sec TR max P.5 mmHg MV E/A: 1.2 ECHO/Stress Test Echo w/o Contrast Interpretation Summary Stress echo Patient exercised according to the regular Jeanmarie protocol for total duration of 9 minutes. The maximum heart rate was 181 bpm which was 119% of max impacted heart rate the maximum workload was 10.1 metabolic equivalents. At rest there were no ST or T wave changes noted suggest ischemia and at peak exercise horizo ntal ST depression of approximately 1.6 mm was noted in lead to 3 and aVF and 1.[address] depression noted in lead V6 suggestive but not diagnostic of ischemia. No clinical angina was noted shortness of breath was present. The peak blood pressure was 142/84 mmHg with a rate-pressure product of 23,990. Stress echocardiogram. The resting echocardiogram demonstrated preserved ejecti on fraction with a thickened anterior mitral valve leaflet and mild mitral regurgitation. With exercise there was thi ckening of all michel with no obvious regional wall motion abnormalities to suggest ischemia at the workload attained . The resting ejection fraction was 55% with a peak ejection fraction of 65%. Conclusion: Exercise stress echocardiogram with EKG changes suggestive of ischemia. No clinical angina noted. Stress and resting echocardiographic images demonstrating no wall motion abnorm alities noted. Ordering Physician: Nikhil Hanna Referring Physician: Nikhil Hanna Performed By: Annette Singleton, PRISCILLA, RVT
== END | disposition home or self-care (01) ==
LOC: CVS 09:46
PROVIDERS: PCP Family Medicine; Referring Provider Family Medicine; Visit Provider Family Medicine
DX: R06.09 Other forms of dyspnea (principal)
CPT/HCPCS: 93017; 93350

== ENCOUNTER → 2024-12-14 | Outpatient (CLI) | payer MEDICARE, BC, SELFPAY ==
[2024-12-14 13:10] LABS: Absolute Neutrophil Count 4.9 X10^3/uL (2.0-7.7); Basophil# 0.05 X10^3/uL; Basophil% 0.7 % (0-1); Eosinophil# 0.18 X10^3/uL; Eosinophils% 2.6 % (0-5); Hematocrit 39.4 % (37-47); Hemoglobin 13.1 g/dL (12.0-15.0); Lymphocyte % 21.4 % (19-41); Mean Corp Hgb Conc 33.2 g/dL (32-36); Mean Corpuscular Hgb 32.7 pg (27.0-32.0); Mean Corpuscular Volume 98.3 fL (81-99); Mean Platelet Vol. 10.3 fl (6.2-12.0); Monocyte# 0.39 X10^3/uL; Monocyte% 5.6 % (0-10); NRBC Flagged by Analyzer 0 % (0-5); Neutrophil # 4.88 X10^3/uL (2.7-7.7); Neutrophil % 69.6 % (47-70); Platelet Count 265 K/mm3 (150-450); RBC Distribution Width CV 12.4 % (11.6-14.6); RBC Distribution Width SD 44.5 fl (35.1-43.9); Red Blood Count 4.01 M/mm3 (4.2-5.4)
[2024-12-14 14:15] LABS: Anion Gap 10 (5-15); BUN 17 mg/dL (4-19); BUN/Creat Ratio 19.8 RATIO (10-20); Calcium,Total 9.5 mg/dL (7.6-11.0); Carbon Dioxide 27.6 mmol/L (21.0-32.0); Chloride 103 mmol/L (98-108); Creatinine, Serum 0.86 mg/dL (0.70-1.20); EST Glomerular Filtration Rate 73 (>60); Glucose 90 mg/dL (70-99); Potassium 4.5 mmol/L (3.3-5.1); Sodium Level 140 mmol/L (133-145)
== END | disposition home or self-care (01) ==
LOC: LAB 11:18
PROVIDERS: PCP Family Medicine; Referring Provider Internal Medicine Cardiovascular Disease; Visit Provider Internal Medicine Cardiovascular Disease
DX: R06.09 Other forms of dyspnea (principal); R94.39 Abnormal result of other cardiovascular function study; R07.9 Chest pain, unspecified; I25.9 Chronic ischemic heart disease, unspecified
CPT/HCPCS: 36415; 80048; 85025

== ENCOUNTER 2025-01-02 09:26 | Day surgery (SDC) | payer MEDICARE, BC, SELFPAY ==
[2024-12-30 10:09] VITALS: BMI 22.1
--- NOTE | 2025-01-30 09:46 | CL.D_ITS ---
Patient Name: CAPRICE MUELLER Study Date: 01/02/2025 Performing: Vlad Santos MD Ht: 68 inches 172.72 cm : 1955 Wt: 145.99 lbs 66.22 kg Age: 69 Gender: female BSA: 1.79 PROCEDURE(S) PERFORMED [id number])[facility] CLINICAL PROFILE AND INDICATIONS Indications: Suspected CAD Heart Failure: None Stress/Imaging Stress Echocardiogram: Yes Result: NegativeStress Echocardiogram: Negative CAD Presentations: No Sxs, no angina. CONCLUSIONS Normal coronary arteries RECOMMENDATIONS Medical therapy DESCRIPTION OF PROCEDURE The patient arrived to the procedure lab. The risks and benefits of the procedure as well as a full description of our services here and current unavailability of surgical backup were fully explained to the patient and/or their significant other prior to the catheterization. The Timeout was completed, verifying the correct patient and procedure. The patient's procedural site was prepped and draped in the usual fashion. Local anesthetic was given subcutaneously to right radial region with Lidocaine 2%. Using a modified Seldinger technique, arterial access was obtained via the right radial artery, a 6Fr sheath was inserted. Right Coronary Artery selective angiography was then performed in multiple views using a 5 Fr. 4.0 [place] catheter. Left Coronary Artery selective angiography was performed in multiple views using a 5 Fr. JL3.5 catheter.The arterial sheath was pulled and a TR Band was applied for hemostasis. 10cc air CORONARY ANGIOGRAPHY DOMINANCE: Right Dominant LEFT HEART ASSESSMENT Left Ventricular Ejection Fraction: by Echo 65 % Normal LV wall motion LEFT MAIN: Angiographically normal LEFT ANTERIOR DESCENDING ARTERY: Angiographically normal CIRCUMFLEX ARTERY: Angiographically normal RIGHT CORONARY ARTERY: Angiographically normal COMPLICATIONS No Complications PROCEDURE MEDICATIONS Fentanyl 501 mcg IV Versed 1 mg IV Oxygen: 2 L/min via nasal cannula Heparin given IA 01/02/2025 11:20:06 Verapamil 2.5mg, Ntg 100mcgs, 3000 units of Heparin given IA 01/02/2025 11:20:06 SUMMARY OF HEMODYNAMIC DATA Time AIR REST ECG 09:47:30 AO 121/71 (93) SA 11:33:12 Signed By Vlad Santos MD On 01/02/2025 12:11:18 Vlad Santos MD
== END 2025-01-02 13:45 | disposition home or self-care (01) ==
PROVIDERS: PCP Family Medicine; Referring Provider Internal Medicine Cardiovascular Disease; Visit Provider Internal Medicine Cardiovascular Disease
DX: R94.39 Abnormal result of other cardiovascular function study (principal); K21.9 Gastro-esophageal reflux disease without esophagitis; E78.00 Pure hypercholesterolemia, unspecified; Z79.82 Long term (current) use of aspirin; Z79.899 Other long term (current) drug therapy
CPT/HCPCS: 93454; 99152; 99153; Q9967; C1769; C1894

== ENCOUNTER → 2025-03-22 | Outpatient (CLI) | payer MEDICARE, BC, SELFPAY ==
[2025-03-22 08:50] LABS: AST(SGOT) 24 U/L (<=31); Alanine Aminotransfer ALT/SGPT 26 U/L (<=34); Albumin, Serum 4.4 g/dL (3.4-4.8); Alkaline Phosphatase 125 U/L (35-104); Anion Gap 8 (5-15); BUN 12 mg/dL (4-19); BUN/Creat Ratio 14.7 RATIO (10-20); Calcium,Total 9.3 mg/dL (7.6-11.0); Carbon Dioxide 28.2 mmol/L (21.0-32.0); Chloride 105 mmol/L (98-108); Globulin 2.2 g/dL (2.2-4.2); Glucose 87 mg/dL (70-99); Potassium 4.8 mmol/L (3.3-5.1)
[2025-03-22 09:11] LABS: Cholesterol 182 mg/dL (<=200); Low Density Lipoprotein Calc. 80 mg/dL; Triglycerides 50 mg/dL; Very Low Density Lipoprotein 10 mg/dL (5-40); cholesterol:hdl ratio screen 1.98
== END | disposition home or self-care (01) ==
LOC: LAB 07:23
PROVIDERS: PCP Family Medicine; Referring Provider Family Medicine; Visit Provider Family Medicine
DX: E78.5 Hyperlipidemia, unspecified (principal); Z13.1 Encounter for screening for diabetes mellitus
CPT/HCPCS: 36415; 80053; 80061

== ENCOUNTER → 2025-04-20 | Outpatient (CLI) | payer MEDICARE, BC, SELFPAY ==
--- NOTE | 2025-04-20 07:37 | BI_ITS ---
EXAM: SCRN MAMM (CAD)W/ENMA BILAT DATE: 04/20/2025 CLINICAL HISTORY: F, Age 70 y/o , SCREENING No family history. TECHNIQUE: Procedure Code: [id number] Modality: MG Procedure: SCRN MAMM (CAD)W/ENMA BILAT COMPARISON: Prior exam(s) dated April 07, 2024.. FINDINGS: TISSUE DENSITY: The breasts are extremely dense, which lowers the sensitivity of mammography. Bilateral Breast Mammographic Findings: No significant masses, calcifications or other abnormalities are identified. No suspicious masses, areas of developing architectural distortion, or suspicious calcifications. There has been no significant interval change. BI/SCRN MAMM (CAD)W/ENMA BILAT IMPRESSION: Stable bilateral screening mammogram. OVERALL FINAL ASSESSMENT BI-RADS 1: NEGATIVE. RECOMMENDATION: Routine annual follow-up in 1 Year Additional Recommendation none A letter with findings and recommendations will be mailed to the patient. Reading Location: [facility]
--- OUTSIDE RECORDS SUMMARY | 2025-04-20 07:42 | XMS RPT_ITS | CCD ---
Author Organization [facility]iniSy[facility] Care Team Providers Care Web Site Specialist Name Role Phone Staci Obando MD Unavailable [phone] Staci Obando MD Unavailable Rheumatolgy Provider Unavailable Unavailable Maria Elena RODRÍGUEZ, Dr. Lux Myles Unavailable [phone] Stefanie BHATT, Dr. Valentina Mattson Unavailable Yury RODRÍGUEZ, Dr. Sage Unavailable Yury RODRÍGUEZ, Dr. Maurisio Ovalle Unavailable Rolan RODRÍGUEZ, Dr. Yoly Campbell Unavailable [phone] Genesis SHIELD OPERATOR, Silvia Unavailable Marcello Young MD Unavailable Lázaro SHIELD OPERATOR, Valentina Unavailable Unavailable Markel JERNIGANN, Diane Unavailable Unavailable Yoly Perry RN Unavailable UnavailDiya Valadez RN Unavailable [phone] [place]augh SHIELD OPERATOR, Reshma K Unavailable Unavai aguilar Lawrence PA-C, Sherrell Guardado Unavailable [phone] Lawanda [employer]IC [employer] TRUCK DRIVER, Bruna Unavailable Unavailable Artem SHIELD OPERATOR, Kyra M Unavailable Unavailab le Harpreet SHIELD OPERATOR, Maya Unavailable Unavailab le Vess SHIELD OPERATOR, Neilee L Unavailable Unavailable Med SHIELD OPERATOR, Alona Unavailable Unavailabl e Williams SHIELD OPERATOR, Tiarra Unavailable Unavailable Unavailable Unavailable Tanvir SHIELD OPERATOR, Art Unavailable Unavailable STACI OBANDO Admitting Unavailable STACI OBANDO Attending Unavailable STACI OBANDO Primary Care Unavailable STACI OBANDO Consulting Unavailable PROVIDER, UNKNOWN Consulting Unavailable PROVIDER, UNKNOWN Consulting Unavailable PROVIDER, UNKNOWN Consulting Unavailable Beni RODRÍGUEZ, Dr. Elmore Unavailable [phone] Danielle RODRÍGUEZ, Dr. Michael Ovalle Unavailable Jacques RODRÍGUEZ, Dr. Tejeda Primary Care Provider Kameron RODRÍGUEZ, Dr. Robert Attending Provider Kameron RODRÍGUEZ, Dr. Robert Emergency Provider Jacques RODRÍGUEZ, Dr. Tejeda Attending Provider [phone] Jacques RODRÍGUEZ, Dr. Tejeda Referring Provider Danielle RODRÍGUEZ, Dr. Chu Attending Provider [phone] Jacques RODRÍGUEZ, Dr. Tejeda Primary Care Provider Danielle RODRÍGUEZ, Dr. Chu Referring Provider Beni RODRÍGUEZ, Dr. Elmore Unavailable Vaccariello, Staci Attending Unavailable Vaccariello, Staci Referring Unavailable Vaccariello, Staci Primary Care Unavailable Vaccariello, Staci Primary Care Unavailable Jakob Melo Attending Unavailable Vaccariello, Staci Primary Care Unavailable Vaccariello, Staci Attending Unavailable Vaccariello, Staci Referring Unavailable Danielle, Vlad Referring Unavailable Vaccariello, Staci Primary Care Unavailable Danielle, [place] Attending Unavailable Vaccariello, Staci Primary Care Unavailable Danielle, Vlad Referring Unavailable Danielle, Vlad Attending Unavailable Vaccariello, Staci Primary Care Unavailable Vaccariello, Staci Attending Unavailable Vaccariello, Staci Referring Unavailable Vaccariello, Staci Primary Care Unavailable Spittsae, Junito Attending Unavailable SpittEmily quevedos Referring Unavailable Danielle, [place] Attending Unavailable Vaccariello, Staci Primary Care Unavailable Vaccariello, Staci Primary Care Unavailable Danielle, Vlad Attending Unavailable Vaccariello, Staci Referring Unavailable Vaccariello, Staci Primary Care Unavailable Alexi Lackey Attending Unavailable Vaccariello, Staci Referring Unavailable Allergies Allergy Classification Reported Allergen(s) Allergy Type Date of Onset Reaction(s) Facility (8 sources) celecoxib Drug Allergy 2 Itching, [facility] (20 sources) levoFLOXacin Drug Allergy 2 Other, [facility] (3 sources) celecoxib; Translations: [CELEBREX] Drug Allergy 3 [facility] (3 sources) levoFLOXacin; Translations: [LEVAQUIN] Drug Allergy 3 [facility] (20 sources) CeleBREX *ANALGESICS - ANTI-INFLAMMATORY * [facility], [facility], [facility]. (1 source) celecoxib Drug Allergy [facility] (1 source) levoFLOXacin Drug Allergy 5 [facility] Medications Current Medications Medication Drug Class(es) Dates Sig (Normalized) Sig (Original) aspirin 81 mg delayed release oral tablet (3 sources) Platelet Aggregation Inhibitor, Nonsteroidal Anti-inflammatory Drug Start: 12-14-2024 take 1 tablet by mouth once daily Aspirin (Adult Aspirin Regimen) 81 mg tablet,delayed release (DR/EC) Active 81 mg PO DAILY 30 December 14, 2024 12:00am atorvastatin 20 mg oral tablet (20 sources) HMG-CoA Reductase Inhibitor Start: 03-10-2022 End: 06-03-2024 take 1 tablet by mouth once daily Atorvastatin 10 mg tablet Discontinued 10 mg PO DAILY March 10, 2022 12:00am June 03, 2024 9:21am Start: 11-02-2021 atorvastatin 2 0 mg tablet ; 1 (one) Tablet qhs for 0 days Quantity: 90 {Tablet} Refills: 3 Ordered: 18-Apr-2024 MD Staci Obando Start: 18-Apr-2024 B Complex Oral Tablet (20 sources) B Complex Oral T ablet calcium carbonate 1500 mg oral tablet (20 sources) Start: 06-03-2024 take 1 tablet by mouth once daily Calcium Carbonate 600 mg calcium (1,500 mg) tablet Active 600 mg PO daily June 03, 2024 1:00am Calcium 600 Stat us: Inactive cholecalciferol 0.05 mg oral capsule (4 sources) Vitamin D Start: 06-03-2024 take 1 capsule by mouth once daily Cholecalciferol (Vitamin D3) 50 mcg (2,000 unit) capsule Active 50 ug PO daily June 03, 2024 1:00am fexofenadine hydrochloride 180 mg oral tablet (20 sources) Histamine-1 Receptor Antagonist Start: 12-14-2024 take 1 tablet by mouth once daily as needed Fexofenadine (Krysta Allergy) 180 mg tablet Active 180 mg PO daily as needed for allergic symptoms December 14, 2024 12:00am KRYSTA ALLERGY, 60MG (Oral Tablet) ; (60 MG) Status: Inactive FISH OIL, 1200MG (Oral Capsule) (20 sources) FISH OIL, 1200MG (Oral Capsule) ; (1200 MG) linseed oil 1000 mg oral capsule (20 sources) Flax Seed Oil 10 00 MG Oral Capsule ; (1000 MG) Magnesium (3 sources) Start: 12-14-2024 take 1 tablet by mouth once daily Magnesium 250 mg tablet Active 250 mg PO daily December 14, 2024 12:00am MENOPAUSE SUPPORT (Oral Tablet) (20 sources) MENOPAUSE SUPPOR T (Oral Tablet) Comments: herbal Comment on above: herbal Cecilia's Wort (4 sources) Start: 06-03-2024 take 1 capsule by mouth once daily Notus's Wort 300 mg capsule Active 300 mg PO daily June 03, 2024 1:00am triamcinolone acetonide 0.055 mg/actuat metered dose nasal spray (20 sources) Corticosteroid Nasacort 55 MCG/ ACT Nasal Aerosol Solution ; (55 MCG/ACT) Comments: from ENT Comment on above: from ENT Completed/Discontinued Medications Medication Drug Class(es) Dates Sig (Normalized) Sig (Original) amoxicillin 500 mg oral tablet (20 sources) Penicillin-class Antibacterial Start: 10-29-2015 End: 11-08-2015 take 1 tablet by mouth three times daily AMOXICILLIN, 500MG (Oral Tablet) ; 1 Tablet TID for 10 days Quantity: 30 {Tablet} Refills: 0 Ordered: 29-Oct-2015 MD Marcello Young Start: 29-Oct-2015 End: 08-Nov-2015 Status: Inactive amoxicillin 875 mg / clavulanate 125 mg oral tablet (20 sources) Penicillin-class Antibacterial Start: 05-22-2023 End: 06-01-2023 Amoxicillin-Pot Clavulanate 875-125 mg tablet Discontinued 1 {tbl} PO Q12H 20 10 0 May 22, 2023 1:00am May 31, 2023 1:00am June 01, 2023 1:04am Acute sinusitis, unspecified Start: 11-02-2021 End: 11-26-2021 Amoxicillin-Pot Clavulanate 875-125 mg tablet Discontinued 1 {tbl} PO TWICE A DAY November 02, 2021 12:00am November 26, 2021 7:58am Start: 11-02-2021 End: 11-26-2021 take 1 tablet by mouth twice daily Amoxicillin-Pot Clavulanate Discontinued 1 TABLET PO TWICE A DAY November 01, 2021 11:00pm November 26, 2021 6:58am Start: 08-11-2019 End: 10-25-2019 take 1 tablet by mouth twice daily Amoxicillin-Pot Clavulanate 875-125 MG Oral Tablet ; 1 Tablet bid for 0 days Quantity: 20 {Tablet} Refills: 0 Ordered: 25-Oct-2019 Genesis GRACIA Elisela Start: 11-Aug-2019 End: 25-Oct-2019 Status: Inactive Start: 09-16-2013 End: 09-26-2013 take 1 tablet by mouth twice daily at mealtime AUGMENTIN, 875-125MG (Oral Tablet) ; 1 Tab two times daily for 10 days Quantity: 20 {Tablet} Refills: 0 Ordered: 16-Sep-2013 Start: 16-Sep-2013 End: 26-Sep-2013 Status: Inactive Comments: Take with food Comment on above: Take with food Ascorbate Manganese / Chondroitin Sulfates / Glucosamine (20 sources) COSAMIN DS, 500-400MG (Oral Capsule) ; (500-400 MG) Status: Inactive azithromycin 250 mg oral tablet (20 sources) Macrolide Antimicrobial Start: 11-23-19 End: 11-29-19 Azithromycin 250 MG Oral Tablet ; 2 (two) Tablet day one, then one daily x 4 for 0 days Quantity: 6 {Tablet} Refills: 0 Ordered: 29-Nov-2019 Genesis GRACIA Elisela Start: 23-Nov-2019 End: 29-Nov-2019 Status: Inactive black cohosh extract 540 mg oral capsule (20 sources) BLACK COHOSH, 54 0MG (Oral Capsule) ; (540 MG) Status: Inactive cephalexin 500 mg oral capsule (20 sources) Cephalosporin Antibacterial Start: 11-27-19 End: 12-07-19 take 1 capsule by mouth every eight hours Cephalexin 500 mg capsule Discontinued 500 mg PO Q8H 30 10 0 November 26, 2021 12:00am December 05, 2021 12:00am December 06, 2021 12:04am Start: 08-10-2017 End: 03-11-2018 take 1 capsule by mouth three times daily Cephalexin 500 MG Oral Capsule ; 1 Capsule tid for 0 days Quantity: 30 {Capsule} Refills: 0 Ordered: 11-Mar-2018 [facility] GRACIA Silvia Start: 10-Aug-2017 End: 11-Mar-2018 Status: Inactive cetirizine hydrochloride 10 mg oral tablet (20 sources) Histamine-1 Receptor Antagonist CETIRIZINE HCL, 10MG (Oral Tablet) ; (10 MG) Status: Inactive famotidine 10 mg oral tablet (20 sources) Histamine-2 Receptor Antagonist take 1 mg by mouth before mealtime PEPCID AC, 10MG (Oral Tablet) ; (10 MG) Status: Inactive fluticasone propionate 0.05 mg/actuat metered dose nasal spray (20 sources) Corticosteroid Start: End: take 2 spray(s) nasal route twice daily FLONASE, 50MCG/ACT (Nasal Suspension) ; 2 (two) spray(s) in each nostril BID for 0 days Quantity: 1 {bottle(s)} Refills: 2 Ordered: 24-May-2014 GRACIA Hurtado Start: 13-Jan-2013 End: 24-May-2014 Status: Inactive GINKOBA, 40MG (Oral Tablet) (20 sources) GINKOBA, 40MG (O ral Tablet) ; (40 MG) Status: Inactive Glucosamine (20 sources) Glucosamine HCl Status: Inactive hydrocortisone acetate 25 mg rectal suppository (20 sources) Corticosteroid Start: End: ANUSOL-HC, 25MG (Rectal Suppository) ; 1 Suppository BID for 7 days Quantity: 14 {Suppository} Refills: 0 Ordered: 01-Dec-2012 ESTER Lawrence Start: 01-Dec-2012 End: 08-Dec-2012 Status: Inactive 12 hr hyoscyamine sulfate 0.375 mg extended release oral tablet (20 sources) Start: End: take 1 tablet by [...] as needed. loratadine 10 mg oral tablet (20 sources) LORATADINE, 10MG (Oral Tablet) ; (10 MG) Status: Inactive meloxicam 15 mg oral tablet (20 sources) Nonsteroidal Anti-inflammatory Drug Start: 013 End: 014 MOBIC, 15MG (Oral Tablet) ; 1 Tablet Tablet prn pain not more than 1/24 hrs for 0 days Quantity: 30 {Tablet} Refills: 2 Ordered: 24-May-2014 GRACIA Hurtado Silvia Start: 13-May-2013 End: 24-May-2014 Status: Inactive MULTIVITAMINS (Oral Tablet) (20 sources) take 1 tablet by mouth once daily MULTIVITAMINS (Oral Tablet) ; 1 daily Status: Inactive nitrofurantoin, macrocrystals 25 mg / nitrofurantoin, monohydrate 75 mg oral capsule (6 sources) Nitrofuran Antibacterial Start: End: take 1 capsule by mouth every twelve hours at mealtime Nitrofurantoin Monohyd/M-Cryst (Macrobid) 100 mg capsule Discontinued 100 mg PO Q12H 14 7 0 March 10, 2022 12:00am March 16, 2022 12:00am March 17, 2022 12:03am must administer with a meal/food [place] 9-Kcj-Swf-Fish Oil (Fish Oil) 1,200 (144-216) mg capsule (3 sources) Start: 025 End: [place] 1-Skd-Ogq-Fish Oil (Fish Oil) 1,200 (144-216) mg capsule Discontinued 1 NMA PO DAILY November 16, 2024 12:00am December 14, 2024 10:31am [place] 7-Zzq-Fxx-Fish Oil (Fish Oil) 60-90-500 mg capsule (6 sources) Start: 022 End: [place] 1-Oag-Rgr-Fish Oil (Fish Oil) 60-90-500 mg capsule Discontinued 1 NMA PO DAILY March 10, 2022 12:00am June 03, 2024 9:22am Start: 03-10-2022 [facility] [place] 7-Vfp-Wbf-Fish Oil (Fish Oil) 60-90-500 mg capsule Active 1 CAP PO DAILY March 09, 2022 11:00pm omeprazole 20 mg delayed release oral tablet (20 sources) Proton Pump Inhibitor Start: 04-28-2012 End: 05-13-2013 PRILOSEC OTC, 20MG (Oral Tablet Delayed Release) ; [address] daily for 0 days Quantity: 30 {Tablet_DR} Refills: 2 Ordered: 13-May-2013 GRACIA Hurtado Start: 28-Apr-2012 End: 13-May-2013 Status: Inactive sour flynn allergenic extract (4 sources) Non-Standardized Food Allergenic Extract, Non-Standardized Plant Allergenic Extract Start: 06-03-2024 End: 12-14-2024 Sour Flynn Extract (Tart Flynn Extract) 1,000 mg capsule Discontinued mg PO June 03, 2024 1:00am December 14, 2024 10:31am Start: 06-03-2024 Sour Flynn Ex tract (Tart Flynn Extract) 1,000 mg capsule Active mg PO June 03, 2024 1:00am sulfamethoxazole 800 mg / trimethoprim 160 mg oral tablet (20 sources) Dihydrofolate Reductase Inhibitor Antibacterial, Sulfonamide Antimicrobial Start: 04-18-2019 End: 08-11-2019 take 1 tablet by mouth twice daily Sulfamethoxazole-Trimethoprim 800-160 MG Oral Tablet ; 1 (one) Tablet bid for 0 days Quantity: 10 {Tablet} Refills: 0 Ordered: 11-Aug-2019 GRACIA Hurtado Start: 18-Apr-2019 End: 11-Aug-2019 Status: Inactive Vitamin B Complex tablet (3 sources) Start: 11-16-2024 End: 12-14-2024 Vitamin B Complex tablet Discontinued 1 {tbl} PO daily November 16, 2024 12:00am December 14, 2024 10:31am vitamin b12 1 mg oral capsule (6 sources) Vitamin B12 Start: 03-10-2022 End: 06-03-2024 take 1 capsule by mouth every month Cyanocobalamin (Vitamin B-12) 1,000 mcg capsule Discontinued 1000 ug PO EVERY MONTH March 10, 2022 12:00am June 03, 2024 9:22am Problems Active Problems Problem Classification Problem Date Documented Date Episodic/Chronic Abdominal pain (20 sources) Abdominal pain; Translations: [Unspecified abdominal pain] 07-11-2022 Episodic Administrative/social admission (20 sources) Education with explicit context; Translations: [Other specified counseling] 11-17-2019 Episodic Anal and rectal conditions (20 sources) Anal fissure; Translations: [Anal fissure, unspecified] 12-02-2012 Episodic Benign neoplasm of uterus (20 sources) Uterine leiomyoma; Translations: [Leiomyoma of uterus, unspecified] 04-17-2023 Episodic Coronary atherosclerosis and other heart disease (14 sources) Acute myocardial ischemia; Translations: [Acute ischemic heart disease, unspecified] Onset: 12-14-2024 11-02-2024 Chronic Disorders of lipid metabolism (20 sources) Hyperlipidemia; Translations: [Hyperlipidemia, unspecified] Onset: 04-15-2025 04-17-2023 Chronic Comment on above: atorvastatin E Codes: Fall (4 sources) Fall; Translations: [Unspecified fall, initial encounter] 07-29-2024 Episodic E Codes: Natural/environment (20 sources) Tick bite; Translations: [Bitten or stung by nonvenomous insect and other nonvenomous arthropods, initial encounter] 01-01-2017 Episodic Esophageal disorders (20 sources) Gastroesophageal reflux disease; Translations: [Gastro-esophageal reflux disease without esophagitis] 04-17-2023 Chronic Comment on above: was on omeprazole in past Genitourinary symptoms and ill-defined conditions (20 sources) Female stress incontinence; Translations: [Stress incontinence (female) (male)] 04-18-2024 Chronic Genitourinary symptoms and ill-defined conditions (20 sources) Dysuria; Translations: [Dysuria] 04-18-2019 Episodic Headache; including migraine (20 sources) Headache; Translations: [Headache] 11-30-2014 Episodic Immunizations and screening for infectious disease (20 sources) Needs influenza immunization; Translations: [Encounter for immunization] 04-14-2022 Episodic Joint disorders and dislocations; trauma-related (20 sources) Derangement of medial meniscus of right knee; Translations: [Other meniscus derangements, unspecified medial meniscus, right knee] 01-07-2017 Chronic Open wounds of extremities (20 sources) Open wound of finger; Translations: [Laceration without foreign body of unspecified finger without damage to nail, subsequent encounter] 11-09-2013 Episodic Open wounds of head; neck; and trunk (4 sources) Laceration of forehead; Translations: [Laceration without foreign body of other part of head, initial encounter] 07-29-2024 Episodic Osteoarthritis (20 sources) Arthritis; Translations: [Unspecified osteoarthritis, unspecified site] 04-17-2023 Chronic Other connective tissue disease (20 sources) Muscle spasm of cervical muscle of neck; Translations: [Other muscle spasm] 11-30-2014 Episodic Other ear and sense organ disorders (20 sources) Bilateral hearing loss; Translations: [Unspecified hearing loss, bilateral] 04-17-2023 Chronic Other injuries and conditions due to external causes (20 sources) Foreign body in skin; Translations: [Other injury of unspecified body region, initial encounter] 06-09-2018 Episodic Other lower respiratory disease (17 sources) Dyspnea on exertion; Translations: [Other forms of dyspnea] 09-21-2024 Episodic Other nervous system disorders (20 sources) [...] Chronic Other nervous system disorders (20 sources) Peripheral nerve disease ; Translations: [Polyneuropathy, unspecified] 12-10-2017 Chronic Other nervous system disorders (20 sources) Neuropathy; Translations: [Polyneuropathy, unspecified] 01-07-2016 Chronic Other nervous system disorders (3 sources) Polyneuropathy; Translations: [Polyneuropathy, unspecified] 11-16-2024 Chronic Other nervous system disorders (20 sources) Numbness of toe; Translations: [Anesthesia of skin] 01-07-2017 Episodic Other screening for suspected conditions (not mental disorders or infectious disease) (20 sources) Liver function tests abnormal; Translations: [Other specified abnormal findings of blood chemistry] Onset: 01-12-2025 07-06-2023 Episodic Other skin disorders (20 sources) Eruption; Translations: [Rash and other nonspecific skin eruption] 02-20-2020 Episodic Other upper respiratory infections (20 sources) Sinusitis; Translations: [Chronic sinusitis, unspecified] 10-29-2015 [...] patient's decision for other reasons] 04-17-2023 Episodic Spondylosis; intervertebral disc disorders; other back problems (4 sources) Lumbar radiculopathy; Translations: [Radiculopathy, lumbar region] 06-03-2024 Episodic Superficial injury; contusion (7 sources) Foreign body in hand with infection; Translations: [Superficial foreign body of right index finger, initial encounter] 11-26-2021 Episodic Unclassified (20 sources) Number of Children 04-17-2023 Comment on above: 2 Unclassified (20 sources) Number of Pregnancies 04-17-2023 Comment on above: 2 Unclassified (20 sources) Vaginal deliveries 04-17-2023 Comment on above: 2 Unclassified (20 sources) Well adult female - The patient feels well with minor complaints, has decreased energy level and is sleeping well. The patient has a balanced diet and takes supplemental vitamins. The patient exercises 3 - 4 times per week (riding bike, otherwise just very active outside). The patient sleeps 7 hours per night. 01-07-2016 Urinary tract infections (6 sources) Urinary tract infectious disease; Translations: [Urinary tract infection, site not specified] 07-11-2022 Episodic Viral infection (20 sources) Disease caused by 2019-nCoV; Translations: [COVID-19] 11-23-2019 Episodic Past or Other Problems Problem Classification Problem Date Documented Date Episodic/Chronic Nonspecific chest pain (4 sources) Chest pain; Translations: [Chest pain, unspecified] Onset: 12-14-2024 11-16-2024 Episodic Other infections; including parasitic (20 sources) Personal history of other infectious and parasitic diseases Onset: 11-17-2019 04-17-2023 Episodic Other lower respiratory disease (1 source) Other forms of dyspnea; Translations: [Other forms of dyspnea] Onset: 12-19-2024 Episodic Syncope (5 sources) Syncope; Translations: [Syncope and collapse] Onset: 08-08-2024 07-29-2024 Episodic Unclassified (20 sources) MCR Well Adult - [...] The patient has a Healthcare Power of Dental Ceramist and a Living Will. 04-20-2023 Unclassified (20 [...] The patient has a Healthcare Power of Dental Ceramist and a Living Will. 04-14-2022 Unclassified (20 sources) Abdominal pain - The onset of the abdominal pain has been sudden and has been occurring in an intermittent pattern for 1 week. The course has been increasing. The pain is described as a fullness. The pain is located in the lower abdomen. Note for "Abdominal pain": [facility]. Culture negative she was advised to stop ATB. Leaving for [place] on Thursday. 03-12-2022 Unclassified (20 sources) Well adult female - The patient feels well with no complaints, has good energy level and is sleeping well. The patient takes supplemental vitamins. The patient exercises daily. The patient sleeps 6 hours per night. Note for "Well adult female": -Fully recovered from recent covid19 infection. 01-19-2020 Unclassified (20 sources) Cold Symptoms - Symptoms include general malaise and headache, but do not include nasal congestion, ear pain, sore throat, dry cough or fever. The onset was sudden 1 week(s) ago. The patient describes this as moderate in severity. The patient is not currently being treated for this problem. Risk factors do not include smoking. 08-11-2019 Unclassified (9 sources) Cold Symptoms - Symptoms include nasal congestion, ear fullness, sore throat and dry cough, but do not include fever. The onset was sudden 3 day(s) ago. The symptoms occur constantly. The patient is not currently being treated for this problem. 04-18-2019 Unclassified (9 sources) [ADDITIONAL REASON] UTI - Symptoms include dysuria and urinary frequency, but do not include flank pain. Onset was gradual 2 week(s) ago. The patient describes this as moderate in severity. Symptoms are relieved by phenazopyridine. Associated symptoms do not include fever. Note for "UTI": -Does have vaginal itching. 04-18-2019 Unclassified (20 sources) Cold Symptoms - Symptoms include nasal [...] factors do not include smoking. 10-14-2018 Unclassified (20 sources) Cold Symptoms - Symptoms include nasal [...] of seasonal allergies or asthma. 08-14-2018 Unclassified (20 sources) Insect Bite/Sting - The insect causing the bite/sting is thought to be a tick. Note for "Insect bite/sting": -Found tick on her right upper inner thigh. DOes not know how long it was there however, it was very difficult for her to remove and he could not get all of it. 06-09-2018 Unclassified (20 sources) Well adult female - The patient feels well with no complaints, has good energy level and is sleeping well. The patient has a balanced diet and takes supplemental vitamins. 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 The patient sleeps 7 (still wakes with hot flashes) hours per night. 04-05-2018 Unclassified (20 sources) Cold Symptoms - Symptoms include nasal [...] been exposed to secondhand smoke. Note for "Upper respiratory infection": -FLying later this week. 08-10-2017 Unclassified (20 sources) Well adult female - The patient feels well with minor complaints, has good energy level and is sleeping well. The patient has a balanced diet and takes supplemental vitamins. The patient exercises daily. The patient sleeps 8 hours per night. 01-07-2017 Unclassified (20 sources) Cold Symptoms - Symptoms include nasal [...] recurrent ear infections. Note for Upper respiratory infection": reviewed by [facility] 10-29-2015 Unclassified (20 sources) Cold Symptoms - Symptoms include sore [...] individual with similar symptoms (works at the [employer]). Medical history includes seasonal allergies, but patient denies history of recurrent sinusitis, recurrent strep pharyngitis, asthma, tonsillectomy or recurrent ear infections. 09-07-2015 Unclassified (20 sources) Headache - Note for "Headache": -Sudden onset in caodaism yesterday. Frontal headache that rapidly progressed to her whole head and neck. Was unable to turn her head. She felt like she could not move. Went home and recovered with ice/heat/ Aleve and rest. Later in the evening headache returned but not as intense. Today still has mild headache and feels "weird" in her back. 11-30-2014 Unclassified (20 sources) Well adult female - The patient feels well with no complaints, has good energy level and is sleeping well. The patient has a balanced diet. The patient exercises weekly. The patient sleeps 8 hours per night. Note for "Well adult female": -Asking for flu vaccine and Zostavax. 05-24-2014 Unclassified (20 sources) Follow up consultation - The patient is here to follow-up after Emergency Room/Urgent Care on : (11/06). Note for Consultation follow-up": -To [facility] with tuft fx and laceration of the left middle finger. Injured in a ball/hitch when gardening on Thursday afternoon. The nail was avulsed from the nailbed. The physician cleaned the wound, placed 5 sutures and set the nail back into the finger to "help the new nail grow". The patient reports she was told at one of her follow up visits we would remove the old nail. She reports she has vicryl sutures that should not need to be removed. She has not changed her dressing that was given in the ER. 11-09-2013 Unclassified (20 sources) Cold Symptoms - Symptoms include nasal congestion, ear fullness, sore throat (swollen glands), dry cough and headache, but do not include fever or chills. The onset was gradual 2 week(s) ago. The symptoms occur frequently. The patient describes this as moderate in severity and unchanged. 08-25-2013 Unclassified (20 sources) Well adult female - The patient feels well with minor complaints, has good energy level and is sleeping well. The patient has a balanced diet and takes supplemental vitamins. The patient exercises 3 - 4 times per week. The patient sleeps 8 hours per night. 05-13-2013 Unclassified (20 sources) Bloody stools - The onset of [...] abdominal pain, constipation or diarrhea. Note for "Bloody stools": Last colonoscpoy 2004, stool cards 05/2012 negative. 12-02-2012 Unclassified (20 sources) Ear pain - The onset of [...] Medical History includes ear infections. Note for "Ear pain": Has had some nasal congestion which she contributes to her allergies. Takes claritin daily and sudafed occasaionally. Right ear has felt fine. Decreased hearing and itching of the left ear. 11-18-2012 Unclassified (20 sources) Well adult female - The patient feels well with minor complaints, has good energy level and is sleeping well. The patient has a balanced diet and takes supplemental vitamins. The patient does not exercise. Note for "Well adult female": Here today to address her labwork. Does not need personal financial representative care. This note has been reviewed and approved in it's entirety by me. feeling well has personal financial representative exam in Jun 2012. 04-28-2012 Unclassified (20 sources) Ear pain - The onset of [...] no associated fever or cough. Note for "Ear pain": pt states she has slight cold sx and pressure in that ear. 01-06-2011 Unclassified (20 sources) Well adult female - The patient [...] sleeps 7 hours per night. 10-28-2010 Unclassified (20 sources) UTI - Symptoms include dysuria and urinary frequency, but do not include flank pain. Onset was gradual 2 week(s) ago. The patient describes this as moderate in severity. Symptoms are relieved by phenazopyridine. Associated symptoms do not include fever. Note for "UTI": -Does have vaginal itching. 04-18-2019 Unclassified (20 sources) [ADDITIONAL REASON] Cold Symptoms - Symptoms include nasal congestion, ear fullness, sore throat and dry cough, but do not include fever. The onset was sudden 3 day(s) ago. The symptoms occur constantly. The patient is not currently being treated for this problem. 04-18-2019 Unclassified (18 sources) MCR Well Adult - In general the patient feels well with minor complaints and is sleeping well. The patient has [...] The patient has a Healthcare Power of Dental Ceramist and a Living Will. 04-18-2024 Unclassified (1 source) feeling unwell with exertion - Has never had cardiac testing. 09-21-2024 Unclassified (7 sources) feeling unwell with exertion - Reports she has worked out regularly for a long time. In past six weeks has noticed at the end of any exertional exercise she has to sit and recover before moving on to the next. She describes the feeling as lightheaded and tachycardia. She told her sister who is a nurse and she encouraged her to check it out. She had a cardiac work up "years ago with an carousel attendant" and it was normal.Home bp was 147/81 and 122/83. 09-21-2024 Results Test Name Value Interpretation Reference Range Facility Comprehensive Metabolic Prof sofia 03-22-2025 Albumin [Mass/Vol] 4.4 g/dL Normal 3.4-4.8 [facility] Comment on above: Performed By: #### L 500.4100, L500.4050 #### [facility] [address], [place], [id number] Albumin/Globulin [Mass ratio] 2.0 {ratio} Normal 0.9-2.4 [facility] Comment on above: Performed By: #### L 500.4100, L500.4050 #### [facility] [address] [place], [address] ALK PHOS 125 U/L High 35-104 [facility] Comment on above: Performed By: #### L 500.4100, L500.4050 #### [facility] [address] [place], [address] ALT [Catalytic activity/Vol] 26 U/L Normal <=34 [facility] Comment on above: Performed By: #### L 500.4100, L500.4050 #### [facility] [address] [place], [address] AST [Catalytic activity/Vol] 24 U/L Normal <=31 [facility] Comment on above: Performed By: #### L 500.4100, L500.4050 #### [facility] [address] [place], [address] Bilirubin [Mass/Vol] 0.45 mg/dL Normal 0.00-1.30 [facility] Comment on above: Performed By: #### L 500.4100, L500.4050 #### [facility] [address] [place], [address] BUN/CRE 14.7 RATIO Normal 10-20 [facility] Comment on above: Performed By: #### L 500.4100, L500.4050 #### [facility] [address] [place], [address] Calcium [Mass/Vol] 9.3 mg/dL Normal 7.6-11.0 [facility] Comment on above: Performed By: #### L 500.4100, L500.4050 #### [facility] [address] [place], [address] Chloride [Moles/Vol] 105 mmol/L Normal 98-108 [facility] Comment on above: Performed By: #### L 500.4100, L500.4050 #### [facility] [address] [place], [address] CO2 [Moles/Vol] 28.2 mmol/L Normal 21.0-32.0 [facility] Comment on above: Performed By: #### L 500.4100, L500.4050 #### [facility] [address] [place], [address] Creatinine [Mass/Vol] 0.84 mg/dL Normal 0.70-1.20 [facility] Comment on above: Performed By: #### L 500.4100, L500.4050 #### [facility] [address] [place], [address] GAP 8 Normal 5-15 [facility] Comment on above: Performed By: #### L 500.4100, L500.4050 #### [facility] [address] [place], [address] GFR/1.73 sq M.predicted among non-blacks MDRD (S/P/Bld) [Vol rate/Area] 75 mL/min/{1.73_m2} Normal >60 [facility] Comment on above: Result Comment: mL/m in/1.73m2 CKD-EPI Creatinine Equation (2020) Performed By: #### L 500.4100, L500.4050 #### [facility] [address] [place], [address] Globulin (S) [Mass/Vol] 2.2 g/dL Normal 2.2-4.2 [facility] Comment on above: Performed By: #### L 500.4100, L500.4050 #### [facility] [address] [place], [address] Glucose [Mass/Vol] 87 mg/dL Normal 70-99 [facility] Comment on above: Performed By: #### L 500.4100, L500.4050 #### [facility] [address] [place], [address] Potassium [Moles/Vol] 4.8 mmol/L Normal 3.3-5.1 [facility] Comment on above: Performed By: #### L 500.4100, L500.4050 #### [facility] [address] [place], [address] Sodium [Moles/Vol] 142 mmol/L Normal 133-145 [facility] Comment on above: Performed By: #### L 500.4100, L500.4050 #### [facility] [address] [place], [address] T PROT 6.6 g/dL Normal 5.9-8.4 [facility] Comment on above: Performed By: #### L 500.4100, L500.4050 #### [facility] [address] [place], [address] Urea nitrogen [Mass/Vol] 12 mg/dL Normal 4-19 [facility] Comment on above: Performed By: #### L 500.4100, L500.4050 #### [facility] [address] [place], [address] Lipid Profileon 03-22-2025 CHOL:HDL 1.98 Normal [facility] Comment on above: Performed By: #### L 500.4100, L500.4050 ####[facility] [address] [place], [address] Cholesterol [Mass/Vol] 182 mg/dL Normal <=200 [facility] Comment on above: Result Comment: Chol esterol level, Desirable <200 mg/dL Borderline high cholesterol 200-239 mg/dL High cholesterol >=240 mg/dL Recommendations of the NCEP Adult Treatment Panel for the following risk-cutoff thresholds for the [place] population. Performed By: #### L 500.4100, L500.4050 ####[facility] [address] [place], [address] Cholesterol in HDL [Mass/Vol] 92 mg/dL Normal [facility] Comment on above: Result Comment: Jane onal Cholesterol Education Program (NCEP) guidelines: <40 mg/dL: Low HDL-cholesterol (major risk factor for CHD) >= 60 mg/dL: High HDL-cholesterol (negative risk factor for CHD) HDL-cholesterol is affected by a number of factors, e.g. smoking, exercise, hormones, sex and age. Performed By: #### L 500.4100, L500.4050 ####[facility] [address] [place], [address] Cholesterol in LDL [Mass/Vol] 80 mg/dL Normal [facility] Comment on above: Result Comment: Bord ajejjx=148-827 mg/dL Higher Wsiz=555 mg/dL or greater Friedwald Equation for LDL-C Performed By: #### L 500.4100, L500.4050 ####[facility] [address] [place], [address] Cholesterol in VLDL [Mass/Vol] 10 mg/dL Normal 5-40 [facility] Comment on above: Performed By: #### L 500.4100, L500.4050 ####[facility] [address] [place], [address] Triglyceride [Mass/Vol] 50 mg/dL Normal [facility] Comment on above: Result Comment: The drugs N-Acetylcysteine and Metamizole may falsely depress this assay. Normal range: <150 mg/dL Borderline High: 150-199 mg/dL High: 200-499 mg/dL Very High: >500 mg/dL Performed By: #### L 500.4100, L500.4050 ####[facility] [address] [place], [address] Cardiac Cath Diagnostic Cardiac Cath Diagnostic [facility] [address] [place] [address] Cardiac Cath Diagnostic MR#: [id number] Acct: [id number] Name: CAPRICE MUELLER Rep #: [id number] : 1955 69 From: Vlad Santos MD PCP: Dr. Staci Obando MD Status:DEP [facility] [place] Patient Name: CAPRICE MUELLER Study Date: 01/02/2025 Performing: Vlad Santos MD Ht: 68 inches 172.72 cm : 1955 Wt: 145.99 lbs 66.22 kg Age: 69 Gender: female BSA: 1.79 PROCEDURE(S) PERFORMED [id number]-([id number])[facility] CLINICAL PROFILE AND INDICATIONS Indications: Suspected CAD Heart Failure: None Stress/Imaging Stress Echocardiogram: Yes Result: NegativeStress Echocardiogram: Negative CAD Presentations: No Sxs, no angina. CONCLUSIONS Normal coronary arteries RECOMMENDATIONS Medical therapy DESCRIPTION OF PROCEDURE The patient arrived to the procedure lab. The risks and benefits of the procedure as well as a full description of our services here and current unavailability of surgical backup were fully explained to the patient and/or their significant other prior to the catheterization. The Timeout was completed, verifying the correct patient and procedure. The patient's procedural site was prepped and draped in the usual fashion. Local anesthetic was given subcutaneously to right radial region with Lidocaine 2%. Using a modified Seldinger technique, arterial access was obtained via the right radial artery, a 6Fr sheath was inserted. Right Coronary Artery selective angiography was then performed in multiple views using a 5 Fr. 4.0 [place] catheter. Left Coronary Artery selective angiography was performed in multiple views using a 5 Fr. JL3.5 catheter.The arterial sheath was pulled and a TR Band was applied for hemostasis. 10cc air CORONARY ANGIOGRAPHY DOMINANCE: Right Dominant LEFT HEART ASSESSMENT Left Ventricular Ejection Fraction: by Echo 65 % Normal LV wall motion LEFT MAIN: Angiographically normal LEFT ANTERIOR DESCENDING ARTERY: Angiographically normal CIRCUMFLEX ARTERY: Angiographically normal RIGHT CORONARY ARTERY: Angiographically normal COMPLICATIONS No Complications PROCEDURE MEDICATIONS Fentanyl 501 mcg IV Versed 1 mg IV Oxygen: 2 L/min via nasal cannula Heparin given IA 01/02/2025 11:20:06 Verapamil 2.5mg, Ntg 100mcgs, 3000 units of Heparin given IA 01/02/2025 11:20:06 SUMMARY OF HEMODYNAMIC DATA Time AIR REST ECG 09:47:30 AO 121/71 (93) SA 11:33:12 Signed By Vlad Santos MD On 01/02/2025 12:11:18 Vlad Santos MD 01/30/25 0946 Date Vlad Santos MD Cosigner Signature: Date (if indicated) CC: Dr. Vlad Santos MD; Dr. Staci Obando MD Date Dictated: 01/02/25 1111 Date Transcribed: 01/02/25 1211 Limb Driver: CO Signed Normal [facility] Absolute lymphocyte countOrd ered By: Vlad Santos on 12-14-2024 Lymphocytes Auto (Unsp spec) [#/Vol] 1.50 10*3/uL 0.83-4.51 [facility] Absolute neutrophil countOrd ered By: Vlad Santos on 12-14-2024 Neutrophils (Bld) [#/Vol] 4.9 10*3/uL 2.0-7.7 [facility] Anion gap in Serum or Plasma Ordered By: Vlad Santos on 12-14-2024 Anion gap [Moles/Vol] 10 mmol/L 5-15 [facility] Automated lymphocyte count a s percentage of total leukocytesOrdered By: Vlad Santos on 12-14-2024 Lymphocytes/100 WBC Auto (Unsp spec) 21.4 % 19-41 [facility] BUN/creatinine ratioOrdered By: Vlad Santos on 12-14-2024 Urea nitrogen/Creatinine [Mass ratio] 19.8 mg/mg 10-20 [facility] Basic Metabolic Profile (BMP )on 12-14-2024 BUN/CRE 19.8 RATIO Normal 10-20 [facility] Comment on above: Performed By: #### L 500.2500, L100.0100 #### [facility] [address] [place], [address] Calcium [Mass/Vol] 9.5 mg/dL Normal 7.6-11.0 [facility] Comment on above: Performed By: #### L 500.2500, L100.0100 #### [facility] [address] [place], [address] Chloride [Moles/Vol] 103 mmol/L Normal 98-108 [facility] Comment on above: Performed By: #### L 500.2500, L100.0100 #### [facility] [address] [place], [address] CO2 [Moles/Vol] 27.6 mmol/L Normal 21.0-32.0 [facility] Comment on above: Performed By: #### L 500.2500, L100.0100 #### [facility] [address] [place], [address] Creatinine [Mass/Vol] 0.86 mg/dL Normal 0.70-1.20 [facility] Comment on above: Performed By: #### L 500.2500, L100.0100 #### [facility] [address] [place], [address] GAP 10 Normal 5-15 [facility] Comment on above: Performed By: #### L 500.2500, L100.0100 #### [facility] [address] [place], [address] GFR/1.73 sq M.predicted among non-blacks MDRD (S/P/Bld) [Vol rate/Area] 73 mL/min/{1.73_m2} Normal >60 [facility] Comment on above: Result Comment: mL/m in/1.73m2 CKD-EPI Creatinine Equation (2020) Performed By: #### L 500.2500, L100.0100 #### [facility] [address] [place], [address] Glucose [Mass/Vol] 90 mg/dL Normal 70-99 [facility] Comment on above: Performed By: #### L 500.2500, L100.0100 #### [facility] [address] [place], [address] Potassium [Moles/Vol] 4.5 mmol/L Normal 3.3-5.1 [facility] Comment on above: Performed By: #### L 500.2500, L100.0100 #### [facility] [address] [place], [address] Sodium [Moles/Vol] 140 mmol/L Normal 133-145 [facility] Comment on above: Performed By: #### L 500.2500, L100.0100 #### [facility] [address] [place], [address] Urea nitrogen [Mass/Vol] 17 mg/dL Normal 4-19 [facility] Comment on above: Performed By: #### L 500.2500, L100.0100 #### [facility] [address] [place], [address] Basophil percentageOrdered B y: [place] Danielle on 12-14-2024 Basophils/100 WBC (Bld) 0.7 % 0-1 [facility] CBC W/Diff, Automatedon 11-21 Absolute Lymph 1.50 X10 3/uL Normal 0.83-4.51 [facility] Comment on above: Performed By: #### L 500.2500, L100.0100 #### [facility] [address] [place], [address] Absolute Neut 4.9 X10 3/uL Normal 2.0-7.7 [facility] Comment on above: Performed By: #### L 500.2500, L100.0100 #### [facility] [address] [place], [address] Basophils/100 WBC (Bld) 0.7 % Normal 0-1 [facility] Comment on above: Performed By: #### L 500.2500, L100.0100 #### [facility] [address] [place], [address] Eosinophils/100 WBC (Bld) 2.6 % Normal 0-5 [facility] Comment on above: Performed By: #### L 500.2500, L100.0100 #### [facility] [address] [place], [address] Erythrocyte distribution width (RBC) [Ratio] 12.4 % Normal 11.6-14.6 [facility] Comment on above: Performed By: #### L 500.2500, L100.0100 #### [facility] [address] [place], [address] Hematocrit (Bld) [Volume fraction] 39.4 % Normal 37-47 [facility] Comment on above: Performed By: #### L 500.2500, L100.0100 #### [facility] [address] [place], [address] Hemoglobin (Bld) [Mass/Vol] 13.1 g/dL Normal 12.0-15.0 [facility] Comment on above: Performed By: #### L 500.2500, L100.0100 #### [facility] [address] [place], [address] IG% 0.100 Normal 0.0-0.9 [facility] Comment on above: Result Comment: IG% - Immature Granulocytes (promyelocytes, myelocytes and metamyelocytes) > 1% indicates that a LEFT SHIFT is Present. Performed By: #### L 500.2500, L100.0100 #### [facility] [address] [place], [address] Lymphocytes/100 WBC (Bld) 21.4 % Normal 19-41 [facility] Comment on above: Performed By: #### L 500.2500, L100.0100 #### [facility] [address] [place], [address] MCH (RBC) [Entitic mass] 32.7 pg High 27.0-32.0 [facility] Comment on above: Performed By: #### L 500.2500, L100.0100 #### [facility] [address] [place], [address] MCHC (RBC) [Mass/Vol] 33.2 g/dL Normal 32-36 [facility] Comment on above: Performed By: #### L 500.2500, L100.0100 #### [facility] [address] [place], [address] MCV (RBC) [Entitic vol] 98.3 fL Normal 81-99 [facility] Comment on above: Performed By: #### L 500.2500, L100.0100 #### [facility] [address] [place], [address] Monocytes/100 WBC (Bld) 5.6 % Normal 0-10 [facility] Comment on above: Performed By: #### L 500.2500, L100.0100 #### [facility] [address] [place], [address] Neutrophils/100 WBC (Bld) 69.6 % Normal 47-70 [facility] Comment on above: Performed By: #### L 500.2500, L100.0100 #### [facility] [address] [place], [address] Nucleated RBC (Bld) [#/Vol] 0 10*3/uL Normal 0-5 [facility] Comment on above: Performed By: #### L 500.2500, L100.0100 #### [facility] [address] [place], [address] Platelet mean volume (Bld) [Entitic vol] 10.3 fL Normal 6.2-12.0 [facility] Comment on above: Performed By: #### L 500.2500, L100.0100 #### [facility] [address] [place], [address] Platelets (Bld) [#/Vol] 265 10*3/uL Normal 150-450 [facility] Comment on above: Performed By: #### L 500.2500, L100.0100 #### [facility] [address] [place], [address] RBC (Bld) [#/Vol] 4.01 10*6/uL Low 4.2-5.4 [facility] Comment on above: Performed By: #### L 500.2500, L100.0100 #### [facility] [address] [place], [address] RDW SD 44.5 fl High 35.1-43.9 [facility] Comment on above: Performed By: #### L 500.2500, L100.0100 #### [facility] [address] [place], [address] WBC (Bld) [#/Vol] 7.0 10*3/uL Normal 4.4-11.0 [facility] Comment on above: Performed By: #### L 500.2500, L100.0100 #### [facility] [address] [place], [address] Carbon dioxide, total [Moles /volume] in Central venous bloodOrdered By: Vlad Santos on 12-14-2024 CO2 [Moles/Vol] 27.6 mmol/L 21.0-32.0 [facility] Cardiology Visit Reporton Cardiology Visit Report [facility] [address] [place] [address] OFFICE VISIT Date of Service: 12/14/24 MR#: [id number] Acct: [id number] Name: CAPRICE MUELLER Rep #: [id number] : 1955 Provider: Dr. Vlad Santos MD Age/Sex: 69/F Location: [facility] [place] Status: Signed HPI HPI History of Present Illness Details: Pleasant 69-year-old otherwise active lady who presents today for an initial evaluation. She says that she has been feeling her heart pounding with minimal exertion and does not think that she has the exertional capacity that she had a few months ago. As a result of this she underwent a stress echocardiogram where she was noted to have significant EKG changes during the stress test even though she attained a fairly high workload of 10 metabolic equivalents. No wall motion abnormalities were noted And she did have preserved ejection fraction. Her blood pressure was also somewhat blunted and she did develop significant heavy breathing. She denies any chest pain at rest no dizziness or diaphoresis no near-syncope or syncope. Her EKG here demonstrates normal sinus rhythm with a rate of 58 bpm and no acute changes noted. Intake Vital Signs 07/21/24 06:54 12/14/24 10:21 Height 5 ft 8.9 in 5 ft 8.9 in Weight: 146 lb BMI 21.6 BP 123/72 H Blood Pressure Location Lt brachial Position Sitting Respiration 16 Pulse 55 L Pulse Source Monitor Intake Visit Reasons: PORTILLO (JACQUES) Sonar Watchstander Required: No Accompanied by: Significant Other Is patient in pain?: No Allergies celecoxib (From Celebrex) Allergy (Intermediate, Verified 12/14/24 10:31) Rash levofloxacin (From Levaquin) Allergy (Intermediate, Verified 12/14/24 10:31) Rash Medications ???Medication ???Instructions ???Recorded ???Confirmed ???Type atorvastatin 20 mg tablet 20 mg PO QHS 11/02/21 12/14/24 His tory Cecilia's wort 300 mg capsule 300 mg PO QDAY 06/03/24 12/14/24 H istory calcium carbonate 600 mg PO QDAY 06/03/24 12/14/24 H istory cholecalciferol (vitamin D3) 50 50 mcg PO QDAY 06/03/24 12/14/24 H istory mcg (2,000 unit) capsule fexofenadine 180 mg tablet 180 mg PO QDAY PRN 12/14/24 History (Krysta Allergy) magnesium 250 mg tablet 250 mg PO QDAY 12/14/24 12/14/24 H istory Have you fallen in the past year?: No PFSH Medical History Abnormal stress echo Exertional dyspnea Myocardial ischemia GERD (gastroesophageal reflux disease) Polyneuropathy Carpal tunnel syndrome of left wrist Uterine fibroid Chest pain Hypercholesteremia Surgical History No history of previous surgery Family History Father Myocardial infarction Mother Hypertension Hypercholesteremia Social History Smoking Status: Never smoker alcohol intake: current alcohol intake frequency: 0-2 drinks per day substance use type: does not use ROS Const Const: Negative for fatigue, weakness, headache(s), daytime sleepiness or difficulty sleeping ENT ENT: Positive for dizziness; Negative for headache(s) or Nosebleed/epistaxis Cardio Chest Pain: No Palpitations: Yes feels like its: pounding Edema: None Resp Respiratory: Negative for SOB with activity, SOB at rest, SOB orthopnea SOB lying down or Cough GI GI: Negative nausea, vomiting or heartburn Neuro Neuro: Positive for dizziness; Negative for lightheadedness, near syncope, headache(s) or weakness Endo Endo: Negative for fatigue Cardiology Exam Const Appearance: cooperative, healthy appearing, no acute distress, well developed and well groomed Nutritional Appearance: average body habitus and well nourished Orientation: alert, awake and oriented x3 Head Head: normal to inspection, normocephalic and atraumatic Ears: hearing grossly normal bilaterally and external ears normal Nose: external nose normal, nares normal, nasal mucous membranes and turbinates normal, septum normal and no nasal discharge Face and Sinus: face symmetric Mouth: oral mucosae normal, tongue normal, oropharynx normal and moist mucous membranes Teeth and gingiva: dentition normal Throat: posterior oropharynx normal, tonsils normal and uvula midline Eyes General: appearance normal, both eyes and all related structures Eyelids: eyelids normal Conjunctivae: conjunctivae normal Pupils: PERRL, normal by confrontation and accommodation normal EOM: EOM intact bilaterally Neck Neck: normal visual inspection, trachea midline and no JVD JVD: +5 Carotids: normal carotid upstroke and bounding pulses Chest Chest inspection: normal inspection of the chest, symmetric ches (more content not included)... [facility] Chloride assayOrdered By: Carlos Santos on 12-14-2024 Chloride [Moles/Vol] 103 mmol/L 98-108 [facility] Eosinophil percentageOrdered By: Vlad Santos on 12-14-2024 Eosinophils/100 WBC (Bld) 2.6 % 0-5 [facility] Erythrocyte distribution wid th ratioOrdered By: Vlad Santos on 12-14-2024 Erythrocyte distribution width (RBC) [Ratio] 12.4 % 11.6-14.6 [facility] Erythrocyte distribution wid th standard deviationOrdered By: Vlad Santos on 12-14-2024 Erythrocyte distribution width (RBC) [Ratio] 44.5 fl High 35.1-43.9 [facility] Glomerular filtration rate ( GFR) estimation/1.73 sq m using serum, plasma, or whole bOrdered By: Vlad Santos on 12-14-2024 GFR/1.73 sq M.predicted among non-blacks MDRD (S/P/Bld) [Vol rate/Area] 73 mL/min/{1.73_m2} >60 [facility] Comment on above: mL/min/1.73m2 CKD-EP I Creatinine Equation (2020) Hematocrit Auto (Bld) [Volum e fraction]Ordered By: Vlad Santos on 12-14-2024 Hematocrit (Bld) [Volume fraction] 39.4 % 37-47 [facility] Hemoglobin measurementOrdere d By: Vlad Santos on 12-14-2024 Hemoglobin (Bld) [Mass/Vol] 13.1 g/dL 12.0-15.0 [facility] Immature granulocytes/100 WB C Auto (Bld)Ordered By: Vlad Danielle on 12-14-2024 Immature granulocytes/100 WBC (Bld) 0.100 % 0.0-0.9 [facility] Comment on above: IG% - Immature Granu locytes (promyelocytes, myelocytes and metamyelocytes) > 1% indicates that a LEFT SHIFT is Present. MCV (mean corpuscular volume ) determinationOrdered By: [place] Danielle on 12-14-2024 MCV (RBC) [Entitic vol] 98.3 fL 81-99 [facility] Mean corpuscular hemoglobin (MCH) determinationOrdered By: [place] Danielle on 12-14-2024 MCH (RBC) [Entitic mass] 32.7 pg High 27.0-32.0 [facility] Mean corpuscular hemoglobin concentration (MCHC) determinationOrdered By: [place] Danielle on 12-14-2024 MCHC (RBC) [Mass/Vol] 33.2 g/dL 32-36 [facility] Mean platelet volume determi nationOrdered By: Vlad Danielle on 12-14-2024 Platelet mean volume (Bld) [Entitic vol] 10.3 fL 6.2-12.0 [facility] Monocyte percentageOrdered B y: Vlad Danielle on 12-14-2024 Monocytes/100 WBC (Bld) 5.6 % 0-10 [facility] Neutrophil percentageOrdered By: Vlad Danielle on 12-14-2024 Neutrophils/100 WBC (Bld) 69.6 % 47-70 [facility] Nucleated red blood cell per centageOrdered By: Vlad Danielle on 12-14-2024 Nucleated RBC/100 WBC (Bld) [Ratio] 0 % 0-5 [facility] Platelet countOrdered By: Cy ril Danielle on 12-14-2024 Platelets (Bld) [#/Vol] 265 10*3/uL 150-450 [facility] Potassium measurement (mass/ volume)Ordered By: Vlad Danielle on 12-14-2024 Potassium (Unsp spec) [Mass/Vol] 4.5 mmol/L 3.3-5.1 [facility] RBC Auto (Bld) [#/Vol]Ordere d By: Vlad Santos on 12-14-2024 RBC (Bld) [#/Vol] 4.01 10*6/uL Low 4.2-5.4 [facility] Serum creatinine measurement (mass/volume)Ordered By: Vlad Santos on 12-14-2024 Creatinine [Mass/Vol] 0.86 mg/dL 0.70-1.20 [facility] Serum glucose measurement (m ass/volume)Ordered By: Vlad Santos on 12-14-2024 Glucose [Mass/Vol] 90 mg/dL 70-99 [facility] Serum or plasma calcium matthew urement (mass/volume)Ordered By: Vlad Santos on 12-14-2024 Calcium [Mass/Vol] 9.5 mg/dL 7.6-11.0 [facility] Serum or plasma urea nitroge n measurement (mass/volume)Ordered By: Vlad Santos on 12-14-2024 Urea nitrogen [Mass/Vol] 17 mg/dL 4-19 [facility] Sodium levelOrdered By: Kandis Santos on 12-14-2024 Sodium [Moles/Vol] 140 mmol/L 133-145 [facility] White blood cell (WBC) count Ordered By: Vlad Santos on 12-14-2024 WBC (Bld) [#/Vol] 7.0 10*3/uL 4.4-11.0 [facility] Stress Test Echo w/o Contras ton 10-31-2024 Stress Test Echo w/o Contrast [facility] [address] [place] [address] Stress Test Echo w/o Contrast MR#: [id number] Acct: [id number] Name: CAPRICE MUELLER Rep #: [id number] : 1955 69 From: Vlad Santos MD Primary Care: Dr. Staci Obando MD Status: REG CLI Ordering Dr: Staci Obando MD Sex: F C Reason For Study Reason For Study: EXERTIONAL DYSPNEA Stress Results Protocol: Jeanmarie Protocol Maximum Predicted HR: 151 bpm Target HR: 128 bpm % Maximum Predicted HR: 112 % DurationHeart Rate Stage (mm:ss) (bpm) BP Comment BASELINE 76 112/82 STAGE 1 3:00 108 130/82 STAGE 2 3:00 139 140/76 STAGE 3 3:00 169 142/84HEAVIER BREATHING, KNEE DISCOMFORT RECOVERY 84 112/72 Stress Duration: 9:00 mm:ss Maximum Stress HR: 169 bpm Baseline Echocardiogram Findings Stress Echo Wall motion Data Resting WM Intermediate WM Stress WM Time Measurements MV dec time: 0.26 sec Doppler Measurements Calculations MV E max sherri: 60.7 cm/sec MV dec slope: 233.2 cm/sec2 TR max sherri: 221.1 cm/sec MV A max sherri: 49.7 cm/sec TR max P.5 mmHg MV E/A: 1.2 ECHO/Stress Test Echo w/o Contrast Interpretation Summary Stress echo Patient exercised according to the regular Jeanmarie protocol for total duration of 9 minutes. The maximum heart rate was 181 bpm which was 119% of max impacted heart rate the maximum workload was 10.1 metabolic equivalents. At rest there were no ST or T wave changes noted suggest ischemia and at peak exercise horizontal ST depression of approximately 1.6 mm was noted in lead to 3 and aVF and 1.[address] depression noted in lead V6 suggestive but not diagnostic of ischemia. No clinical angina was noted shortness of breath was present. The peak blood pressure was 142/84 mmHg with a rate-pressure product of 23,990. Stress echocardiogram. The resting echocardiogram demonstrated preserved ejection fraction with a thickened anterior mitral valve leaflet and mild mitral regurgitation. With exercise there was thickening of all michel with no obvious regional wall motion abnormalities to suggest ischemia at the workload attained. The resting ejection fraction was 55% with a peak ejection fraction of 65%. Conclusion: Exercise stress echocardiogram with EKG changes suggestive of ischemia. No clinical angina noted. Stress and resting echocardiographic images demonstrating no wall motion abnormalities noted. Ordering Physician: Staci Obando Referring Physician: Staci Obando Performed By: Annette Singleton PRISCILLA, RVT 10/31/241857 Date Vlad Santos MD CC: Dr. Staci Obando MD Date Dictated: 10/31/24951 Date Transcribed: 10/31/241857 Limb Driver: Signed [facility] Stress echocardiogram study reportOrdered By: Vlad Santos on 10-31-2024 Stress cardiac echo study report [facility] [address] [place] [address] Stress Test Echo w/o Contrast MR#: [id number] Acct: [id number] Name: CAPRICE MUELLER Rep #: [id number] : 1955 69 From: Vlad Santos MD Primary Care: Dr. Staci Obando MD St atus: REG CLI Ordering Dr: Staci Obando MD Sex: F C Reason For Study Reason For Study: EXERTIONAL DYSPNEA Stress Results Protocol: Jeanmarie Protocol Maximum Predicted HR: 151 bpm Target HR: 128 bpm % Maximum PredictedHR: 112 % DurationHeart Rate Stage (mm:ss) (bpm) BP Comment BASELINE 76 112/82 STAGE 1 3:00 108 130/82 STAGE 2 3:00 139 140/76 STAGE 3 3:00 169 142/84HEAVIER BREATHING, KNEE DISCOMFORT RECOVERY 84 112/72 Stress Duration: 9:00 mm:ss Maximum Stress HR: 169 bpm Baseline Echocardiogram Findings Stress Echo Wall motion Data Resting WM Intermediate WM Stress WM Time Measurements MV dec time: 0.26 sec Doppler Measurements & Calculations MV E max sherri: 60.7 cm/sec MV dec slope: 233.2 cm/sec2 TR max sherri: 221.1 cm/sec MV A max sherri: 49.7 cm/sec TR max P.5 mmHg MV E/A: 1.2 ECHO/Stress Test Echo w/o Contrast Interpretation Summary Stress echo Patient exercised according to the regular Jeanmarie protocol for total duration of 9 minutes. The maximum heart rate was 181 bpm which was 119% of max impacted heart rate the maximum workload was 10.1 metabolic equivalents. At rest there were no ST or T wave changes noted suggest ischemia and at peak exercise horizontal ST depression of approximately 1.6 mm was noted in lead to 3 and aVF and 1.[address] depression noted in lead V6 suggestive but not diagnostic of ischemia. No clinical angina was noted shortness of breath was present. The peak blood pressure was 142/84 mmHg with a rate-pressure product of 23,990. Stress echocardiogram. The resting echocardiogram demonstrated preserved ejection fraction with a thickened anterior mitral valve leaflet and mild mitral regurgitation. With exercise there was thickening of all michel with no obvious regional wall motion abnormalities to suggest ischemia at the workload attained.The resting ejection fraction was 55% with a peak ejection fraction of 65%. Conclusion: Exercise stress echocardiogram with EKG changes suggestive of ischemia. No clinical angina noted. Stress and resting echocardiographic images demonstrating no wall motion abnormalities noted. Ordering Physician: Staci Obando Referring Physician: Staci Obando Performed By: Annette Singleton, RDNUBIA, RVT 10/31/241857 Date _ Vlad Santos MD CC: Dr. Staci Obando MD ~ Date Dictated: 10/31/2452 Date Transcribed: 10/31/241857 Limb Driver: Signed [facility] Work Phone: 12 Lead EKGon 07-21-2024 12 Lead EKG [facility] Cardi[facility] Services [address] [place] [address] 12 Lead EKG 07/21/24 0724 MR#: [id number] Acct: [id number] Name: CAPRICE MUELLER Rep #: [id number] : 1955 69 From: Vlad Santos MD Attending Dr: Status: DEP ER Ordering Dr: Jakob Melo MD Date: 07/21/24 Location: ED Sex: F C Admitted: Test Reason : Blood Pressure : */* mmHG Vent. Rate : 75 BPM Atrial Rate : 75 BPM P-R Int : 180 ms QRS Dur : 82 ms QT Int : 420 ms P-R-T Axes : 68 31 45 degrees QTcB Int : 469 ms Normal sinus rhythm Nonspecific ST and T wave abnormality Abnormal ECG Confirmed by DANIELLE RODRÍGUEZ, VLAD ([id number]), dictionary editor LOPEZ DIAZ ([id number]) on 07/25/2024 7:07:51 AM Referred By: KAMERON Confirmed By: VLAD SANTOS MD 07/25/24 0707 Date Vlad Santos MD CC: Dr. Jakob Melo MD; Dr. Staci Obando MD Signed Normal [facility] Absolute lymphocyte countOrd ered By: Jakob Melo on 07-21-2024 Lymphocytes Auto (Unsp spec) [#/Vol] 0.55 10*3/uL Low 0.83-4.51 [facility] Absolute neutrophil countOrd ered By: Jakob Melo on 07-21-2024 Neutrophils (Bld) [#/Vol] 3.1 10*3/uL 2.0-7.7 [facility] Automated lymphocyte count a s percentage of total leukocytesOrdered By: Jakob Melo on 07-21-2024 Lymphocytes/100 WBC Auto (Unsp spec) 13.3 % Low 19-41 [facility] Basic Metabolic Profile (BMP )on 07-21-2024 BUN/CRE 12.7 RATIO Normal 10-20 [facility] Comment on above: Performed By: #### L 500.2500, L501.5476, L100.0100 #### [facility] [address] [place], [address] CA,Total 8.7 mg/dL Normal 8.5-10.1 [facility] Comment on above: Performed By: #### L 500.2500, L501.5425, L100.0100 #### [facility] [address] [place], [address] Chloride [Moles/Vol] 104 mmol/L Normal 98-107 [facility] Comment on above: Performed By: #### L 500.2500, L501.5425, L100.0100 #### [facility] [address] [place], [address] CO2 [Moles/Vol] 31.0 mmol/L Normal 21.0-32.0 [facility] Comment on above: Performed By: #### L 500.2500, L501.5425, L100.0100 #### [facility] [address] [place], [address] Creatinine [Mass/Vol] 0.94 mg/dL Normal 0.55-1.02 [facility] Comment on above: Result Comment: The validity of the calculated GFR GFRAA in patients over 70 years has not been determined. Clinical correlation is essential. Performed By: #### L 500.2500, L501.5425, L100.0100 #### [facility] [address] [place], [address] ECRCL 56.98 ml/min Normal [facility] Comment on above: Performed By: #### L 500.2500, L501.5425, L100.0100 #### [facility] [address] [place], [address] EST GFR - AA 76 mL/min Normal >60 [facility] Comment on above: Result Comment: Afri can Guatem[place] GFR Calc Performed By: #### L 500.2500, L501.5425, L100.0100 #### [facility] [address] [place], [address] GAP 5 Normal 5-15 [facility] Comment on above: Performed By: #### L 500.2500, L501.5425, L100.0100 #### [facility] [address] [place], [address] GFR/1.73 sq M.predicted among non-blacks MDRD (S/P/Bld) [Vol rate/Area] 63 mL/min/{1.73_m2} Normal >60 [facility] Comment on above: Result Comment: Non- GFR Calc Performed By: #### L 500.2500, L501.5425, L100.0100 #### [facility] [address] [place], [address] Glucose [Mass/Vol] 103 mg/dL Normal 74-106 [facility] Comment on above: Result Comment: Fast ing Glucose result from 100 to 125 mg/dL suggests IMPAIRED HOMEOSTASIS per A.D.A. criteria. Performed By: #### L 500.2500, L501.5425, L100.0100 #### [facility] [address] [place], [address] Potassium [Moles/Vol] 3.6 mmol/L Normal 3.5-5.1 [facility] Comment on above: Performed By: #### L 500.2500, L501.5425, L100.0100 #### [facility] [address] [place], [address] Sodium [Moles/Vol] 140 mmol/L Normal 136-145 [facility] Comment on above: Performed By: #### L 500.2500, L501.5425, L100.0100 #### [facility] [address] [place], [address] Urea nitrogen [Mass/Vol] 12 mg/dL Normal 7-18 [facility] Comment on above: Performed By: #### L 500.2500, L501.5425, L100.0100 #### [facility] [address] [place], [address] Basophil percentageOrdered B y: Jakob Kameron on 07-21-2024 Basophils/100 WBC (Bld) 0.5 % 0-1 [facility] Blood urea nitrogen (BUN)/cr eatinine ratioOrdered By: Jakob Melo on 07-21-2024 Urea nitrogen/Creatinine [Mass ratio] 12.7 mg/mg 10-20 [facility] CBC W/Diff, Automatedon 06-24-2024 Absolute Lymph 0.55 X10 3/uL Low 0.83-4.51 [facility] Comment on above: Performed By: #### L 500.2500, L501.5425, L100.0100 #### [facility] [address] [place], [address] Absolute Neut 3.1 X10 3/uL Normal 2.0-7.7 [facility] Comment on above: Performed By: #### L 500.2500, L501.5425, L100.0100 #### [facility] [address] [place], [address] Basophils/100 WBC (Bld) 0.5 % Normal 0-1 [facility] Comment on above: Performed By: #### L 500.2500, L501.5425, L100.0100 #### [facility] [address] [place], [address] Eosinophils/100 WBC (Bld) 0.7 % Normal 0-5 [facility] Comment on above: Performed By: #### L 500.2500, L501.5425, L100.0100 #### [facility] [address] [place], [address] Erythrocyte distribution width (RBC) [Ratio] 12.4 % Normal 11.6-14.6 [facility] Comment on above: Performed By: #### L 500.2500, L501.5425, L100.0100 #### [facility] [address] [place], [address] Hematocrit (Bld) [Volume fraction] 39.7 % Normal 37-47 [facility] Comment on above: Performed By: #### L 500.2500, L501.5425, L100.0100 #### [facility] [address] [place], [address] Hemoglobin (Bld) [Mass/Vol] 13.7 g/dL Normal 12.0-15.0 [facility] Comment on above: Performed By: #### L 500.2500, L501.5425, L100.0100 #### [facility] [address] [place], [address] IG% 0.500 Normal 0.0-0.9 [facility] Comment on above: Result Comment: IG% - Immature Granulocytes (promyelocytes, myelocytes and metamyelocytes) > 1% indicates that a LEFT SHIFT is Present. Performed By: #### L 500.2500, L501.5425, L100.0100 #### [facility] [address] [place], [address] Lymphocytes/100 WBC (Bld) 13.3 % Low 19-41 [facility] Comment on above: Performed By: #### L 500.2500, L501.5425, L100.0100 #### [facility] [address] [place], [address] MCH (RBC) [Entitic mass] 32.9 pg High 27.0-32.0 [facility] Comment on above: Performed By: #### L 500.2500, L501.5425, L100.0100 #### [facility] [address] [place], [address] MCHC (RBC) [Mass/Vol] 34.5 g/dL Normal 32-36 [facility] Comment on above: Performed By: #### L 500.2500, L501.5425, L100.0100 #### [facility] [address] [place], [address] MCV (RBC) [Entitic vol] 95.4 fL Normal 81-99 [facility] Comment on above: Performed By: #### L 500.2500, L501.5425, L100.0100 #### [facility] [address] [place], [address] Monocytes/100 WBC (Bld) 9.2 % Normal 0-10 [facility] Comment on above: Performed By: #### L 500.2500, L501.5425, L100.0100 #### [facility] [address] [place], [address] Neutrophils/100 WBC (Bld) 75.8 % High 47-70 [facility] Comment on above: Performed By: #### L 500.2500, L501.5425, L100.0100 #### [facility] [address] [place], [address] Nucleated RBC (Bld) [#/Vol] 0 10*3/uL Normal 0-5 [facility] Comment on above: Performed By: #### L 500.2500, L501.5425, L100.0100 #### [facility] [address] [place], [address] Platelet mean volume (Bld) [Entitic vol] 9.3 fL Normal 6.2-12.0 [facility] Comment on above: Performed By: #### L 500.2500, L501.5425, L100.0100 #### [facility] [address] [place], [address] Platelets (Bld) [#/Vol] 165 10*3/uL Normal 150-450 [facility] Comment on above: Performed By: #### L 500.2500, L501.5425, L100.0100 #### [facility] [address] [place], [address] RBC (Bld) [#/Vol] 4.16 10*6/uL Low 4.2-5.4 [facility] Comment on above: Performed By: #### L 500.2500, L501.5425, L100.0100 #### [facility] [address] [place], [address] RDW SD 43.4 fl Normal 35.1-43.9 [facility] Comment on above: Performed By: #### L 500.2500, L501.5425, L100.0100 #### [facility] [address] [place], [address] WBC (Bld) [#/Vol] 4.1 10*3/uL Low 4.4-11.0 [facility] Comment on above: Performed By: #### L 500.2500, L501.5425, L100.0100 #### [facility] [address] [place], [address] Carbon dioxide measurementOr dered By: Jakob Melo on 07-21-2024 CO2 [Moles/Vol] 31.0 mmol/L 21.0-32.0 [facility] Chest 1 View (Portable)on Chest 1 View (Portable) [facility] Imaging Services [address] [place] [address] Chest 1 View (Portable) MR#: [id number] Acct: [id number] Name: CAPRICE MUELLER Rep #: [id number] : 1955 F 69 From: Danny blake MD PCP: Dr. Staci Obando MD Status: [facility] ER Study: Chest 1 View (Portable) Date of Exam: 07/21/24 Exam# [id number] Ordering Dr: Jakob Melo MD PROCEDURE: CHEST 1 VIEW (PORTABLE) REASON FOR EXAM: Syncopal episode. TECHNIQUE: Frontal view of the chest. COMPARISON: No prior study available for comparison. FINDINGS: EKG electrodes are seen. The heart size is normal. The lungs are clear. RAD/Chest 1 View (Portable) IMPRESSION: NEGATIVE CHEST. Reading Location: [place] [address] CC: Dr. Jakob Melo MD; Dr. Staci Obando MD Limb Driver: Signed [facility] Chloride measurementOrdered By: Jakob Melo on 07-21-2024 Chloride [Moles/Vol] 104 mmol/L 98-107 [facility] Emergency Department Summary on 07-21-2024 Emergency Department Summary [facility] Medical Records Department [address] [place] [address] Emergency Department Summary 07/21/24 MR#: [id number] Acct: [id number] Name: CAPRICE MUELLER Rep #: [id number] : 1955 69 From: Jakob Melo MD PCP: Dr. Staci Obando MD Status:REG ER Location: ED HPI History of Present Illness Chief Complaint: Syncope Informant: patient and spouse/S.O. Onset/Context/Timing Onset: Today Current Severity: Mild Maximum Severity: Mild Narrative Narrative: Healthy 69-year-old female treated for high cholesterol. URI the last 2 to 3 days. Cough of green sputum. When she got up this morning she went to her bathroom and sit on the toilet and she lost her balance falling forward striking her right forehead causing a laceration. She may have had brief loss of consciousness. She is on no blood thinners. Denies any head or neck pain. Denies any other injuries. heard her fall and went in and saw her immediately after the fall. She denies any vomiting or diarrhea. She has had a cough. No chest pain. Prior similar symptoms: Yes Recent Illness/Hospitalizat ion: No PFSH PFSH Medical History Hypercholesteremia UTI (urinary tract infection) Home Medications ???Medication ???Instructions ???Recorded ???Last Taken ???Type atorvastatin 20 mg tablet 20 mg PO QHS 11/02/21 Unknown Hist ory Cecilia's wort 300 mg capsule 300 mg PO QDAY 06/03/24 Unknown Hi story calcium carbonate 600 mg PO QDAY 06/03/24 Unknown Hi story cholecalciferol (vitamin D3) 50 50 mcg PO QDAY 06/03/24 Unknown Hi story mcg (2,000 unit) capsule sour flynn extract 1,000 mg mg PO 06/03/24 Unknown History capsule (Tart Flynn Extract) Allergy/AdvReac Type Severity Reaction Status Date / Time celecoxib (From Celebrex) Allergy Intermediate Rash Verified 07/21/24 06:55 levofloxacin (From Levaquin) Allergy Intermediate Rash Verified 07/21/24 06:55 Social History Smoking Status: Never smoker ROS ROS ED ROS Narrative Cough. Green sputum. Constitutional Constitutional ED: Denies chills or fever(s) Eyes Eyes: Denies blurry vision ENT ENT ED: Denies ear pain Cardiovascular Cardiovascular: Denies chest pain Respiratory/Chest Respiratory/Chest: Reports cough and sputum Gastrointestinal Gastrointestinal: Denies abdominal pain, constipation or diarrhea Genitourinary Genitourinary ED: Denies dysuria or hematuria Musculoskeletal Musculoskeletal: Denies arthralgias or back pain Integumentary Denies abscess Neurologic Neurologic: Denies headache(s) Psychiatric Psychiatric: Denies anxiety or depression Endocrine Endocrinology: Denies cold intolerance Hematologic/Lymphati c Hematologic/Lymphati c: Reports none Allergic/Immunologic Allergic/Immunologic ED: Denies mouth swelling, tongue swelling or urticaria EXAM Physical Exam Narrative Exam Narrative: Well-appearing 69-year-old female. Vital signs are stable afebrile. Pulse ox 9 9% on room air no signs hypoxia. She is in no distress. seated at bedside. H EENT exam pupils round reactive light. She has a superficial laceration lateral to her right eyebrow. It is closed. Dried blood. No active bleeding. Does not gape. I think we can close this with Dermabond. No other facial trauma. Scalp nontender no hematomas. Neck and trachea nontender normal range of motion. Back and spine nontender. Lungs clear to auscultation bilaterally. Dry cough. Heart regular rhythm rate about 70 no murmur. Chest wall ribs nontender. Abdomen soft nontender. Moving all 4 extremities. Normal 5 out of 5 vertical borer strength. Normal dorsi plantarflexion. Normal range of motion both upper and lower extremities. No deformity. No tenderness. Neurologically she is awake and alert no focal motor deficits. Const Vital Signs: 07/21/24 06:54 07/21/24 06:54 07/21/24 07:05 Temperature 97.5 F L Temperature Source Oral Pulse Rate 73 Respiratory Rate 14 Respiratory Effort Normal Non-Labored Blood Pressure 111/66 Blood Pressure Mean 81 Pulse Ox 99 Oxygen Delivery Method Room Air Room Air 07/21/24 07:54 Temperature Temperature Source Pulse Rate 72 Respiratory Rate Respiratory Effort Blood Pressure 107/66 Blood Pressure Mean 79 Pulse Ox 98 Oxygen Delivery Method Positive well nourished and well developed; Negative for obese, cachectic, contractures or unkempt General Appearance ED: well developed and NAD; Negative for unkempt, cachectic, contractures, cyanotic, diaphoretic or pallor Nutritional Appearance: Negative for cachectic or obese HEENT Reports moist mucous membranes HEENT Narrative: Right lateral forehead laceration. No active ble (more content not included)... Normal [facility] Eosinophil percentageOrdered By: Jakob Melo on 07-21-2024 Eosinophils/100 WBC (Bld) 0.7 % 0-5 [facility] Erythrocyte distribution wid th ratioOrdered By: Jakob Melo on 07-21-2024 Erythrocyte distribution width (RBC) [Ratio] 12.4 % 11.6-14.6 [facility] Erythrocyte distribution wid th standard deviationOrdered By: Jakob Melo on 07-21-2024 Erythrocyte distribution width (RBC) [Ratio] 43.4 fl 35.1-43.9 [facility] Glomerular filtration rate ( GFR) estimationOrdered By: Jakob Melo on 07-21-2024 GFR/1.73 sq M.predicted among non-blacks MDRD (S/P/Bld) [Vol rate/Area] 63 mL/min/{1.73_m2} >60 [facility] Comment on above: Non- GFR Calc Glucose measurementOrdered B y: Jakob Melo on 07-21-2024 Glucose [Mass/Vol] 103 mg/dL 74-106 [facility] Comment on above: Fasting Glucose resu lt from 100 to 125 mg/dL suggests IMPAIRED HOMEOSTASIS per A.D.A. criteria. Hematocrit Auto (Bld) [Volum e fraction]Ordered By: Jakob Melo on 07-21-2024 Hematocrit (Bld) [Volume fraction] 39.7 % 37-47 [facility] Hemoglobin measurementOrdere d By: Jakob Melo on 07-21-2024 Hemoglobin (Bld) [Mass/Vol] 13.7 g/dL 12.0-15.0 [facility] Immature granulocytes/100 WB C Auto (Bld)Ordered By: Jakob Melo on 07-21-2024 Immature granulocytes/100 WBC (Bld) 0.500 % 0.0-0.9 [facility] Comment on above: IG% - Immature Granu locytes (promyelocytes, myelocytes and metamyelocytes) > 1% indicates that a LEFT SHIFT is Present. L501.5425on 07-21-2024 TROPONIN-I HS 6 pg/mL Normal 3.0-54.0 [facility] Comment on above: Order Comment: 1 Y Result Comment: Plea se Note: New Test Units and Gender Specific Reference Ranges. For more information see Policy Stat Procedure Marks High Sensitivity Troponin (TNIH) and attachments. Performed By: #### L 500.2500, L501.5425, L100.0100 #### [facility] [address] [place], [address] MCV (mean corpuscular volume ) determinationOrdered By: Jakob Melo on 07-21-2024 MCV (RBC) [Entitic vol] 95.4 fL 81-99 [facility] Mean corpuscular hemoglobin (MCH) determinationOrdered By: Jakob Melo on 07-21-2024 MCH (RBC) [Entitic mass] 32.9 pg High 27.0-32.0 [facility] Mean corpuscular hemoglobin concentration (MCHC) determinationOrdered By: Jakob Melo on 07-21-2024 MCHC (RBC) [Mass/Vol] 34.5 g/dL 32-36 [facility] Mean platelet volume determi nationOrdered By: Jakob Melo on 07-21-2024 Platelet mean volume (Bld) [Entitic vol] 9.3 fL 6.2-12.0 [facility] Monocyte percentageOrdered B y: Jakob Melo on 07-21-2024 Monocytes/100 WBC (Bld) 9.2 % 0-10 [facility] Neutrophil percentageOrdered By: Jakob Melo on 07-21-2024 Neutrophils/100 WBC (Bld) 75.8 % High 47-70 [facility] Nucleated red blood cell per centageOrdered By: Jakob Melo on 07-21-2024 Nucleated RBC/100 WBC (Bld) [Ratio] 0 % 0-5 [facility] Platelet countOrdered By: Sukhwinder Melo on 07-21-2024 Platelets (Bld) [#/Vol] 165 10*3/uL 150-450 [facility] Potassium measurementOrdered By: Jakob Melo on 07-21-2024 Potassium [Moles/Vol] 3.6 mmol/L 3.5-5.1 [facility] RBC Auto (Bld) [#/Vol]Ordere d By: Jakob Melo on 07-21-2024 RBC (Bld) [#/Vol] 4.16 10*6/uL Low 4.2-5.4 [facility] Serum anion gap measurementO rdered By: Jakob Melo on 07-21-2024 Anion gap [Moles/Vol] 5 mmol/L 5-15 [facility] Serum or plasma calcium matthew urement (mass/volume)Ordered By: Jakob Melo on 07-21-2024 Calcium [Mass/Vol] 8.7 mg/dL 8.5-10.1 [facility] Serum or plasma cardiac trop onin I panel by high sensitivity methodOrdered By: Jakob Melo on 07-21-2024 Tropinin I.cardiac panel High sensitivity method 6 pg/mL 3.0-54.0 [facility] Comment on above: Please Note: New Chyna t Units and Gender Specific Reference Ranges. For more information see Policy Stat Procedure Marks High Sensitivity Troponin (TNIH) and attachments. Serum or plasma creatinine m easurement (mass/volume)Ordered By: Jakob Melo on 07-21-2024 Creatinine [Mass/Vol] 0.94 mg/dL 0.55-1.02 [facility] Comment on above: The validity of the calculated GFR & GFRAA in patients over 70 years has not been determined. Clinical correlation is essential. Serum or plasma urea nitroge n measurement (mass/volume)Ordered By: Jakob Melo on 07-21-2024 Urea nitrogen [Mass/Vol] 12 mg/dL 7-18 [facility] Sodium levelOrdered By: Jakob Melo on 07-21-2024 Sodium [Moles/Vol] 140 mmol/L 136-145 [facility] White blood cell (WBC) count Ordered By: Jakob Melo on 07-21-2024 WBC (Bld) [#/Vol] 4.1 10*3/uL Low 4.4-11.0 [facility] PT D/C Summary (1)on 024 PT D/C Summary (1) [facility] [address] [place] [address] / REHABILITATION SERVICES DISCHARGE SUMMARY MR#: [id number] Acct: [id number] Name: CAPRICE MUELLER Rep #: [id number] : 1955 69 From: Lonnie Javed PT, ATC Referring Dr.: Dr. Junito Andrews DO Status: REG RCR Insurance: MEDICARE PART A B ANTH Discharge Summary D/C summary: It has been my pleasure to treat CAPRICE MUELLER referred by Dr. Junito Andrews DO, with the diagnosis of R knee OA for a total of 8 visit(s). Discharge Date: Please see the following information for a summary of their discharge status. Subjective Subjective: I am ready for discharge Pain R knee pain: Pain Intensity (Out of 10): 2 Overall Improvement % Improvement: 80 Objective Objective/Function: R knee pain ranges from 2-4/10 R knee ROM: 0-7-105 degrees R knee MMT: flex= 22, ext= 22 #F Pt is I with HEP Goals Goal 1:: Decrease R knee pain x 50 % to aid with sleep Goal Progress: Goal Met Goal 2:: Increase R knee flex and ext strength x 10 #F to aid with stair negotiation Goal Progress: Progressing Goal 3:: Increase R knee ROM x 20 degrees to aid with IADL's Goal Progress: Progressing Goal 4:: I with HEP Goal Progress: Goal Met Plan Plan: Discharge to HEP D/C Information d/c sentence: If there are questions or concerns regarding this patient's physical therapy, please feel free to call me at [phone]. Thank you for the referral of this patient. Sincerely, Lonnie Javed, PT, ATC Balance/Gait/Functio nal tests Balance/Special Test Scores Lower Extremity Functional Score: 50 Improvement % Improvement: 80 06/20/24 1132 CC: Dr. Staci Obando MD; Dr. Junito Andrews DO [facility] Signed Normal [facility] Orthopedic Visit Reporton Orthopedic Visit Report [facility] [address] [place] [address] [address] [place] [address] OFFICE VISIT Date of Service: 06/03/24 MR#: [id number] Acct: [id number] Name: CAPRICE MUELLER Rep #: [id number] : 1955 Provider: Dr. Alexi Lackey MD Age/Sex: 69/F Location: [facility] [place].[facility] Status: Signed Intake Vital Signs 03/10/22 10:16 06/03/24 08:21 Height 5 ft 8 in 5 ft 9 in Weight: 146 lb BMI 21.5 Intake Visit Reasons: LUMBAR SPINE Chief Complaint: lumbar spine Allergies celecoxib (From Celebrex) Allergy (Intermediate, Verified 06/03/24 08:21) Rash levofloxacin (From Levaquin) Allergy (Intermediate, Verified 06/03/24 08:21) Rash Medications ???Medication ???Instructions ???Recorded ???Confirmed ???Type atorvastatin 20 mg tablet 20 mg PO QHS 11/02/21 06/03/24 History Cecilia's wort 300 mg capsule 300 mg PO QDAY 06/03/24 06/03/24 History calcium carbonate 600 mg PO QDAY 06/03/24 06/03/24 History cholecalciferol (vitamin D3) 50 50 mcg PO QDAY 06/03/24 06/03/24 History mcg (2,000 unit) capsule sour flynn extract 1,000 mg mg PO 06/03/24 06/03/24 History capsule (Tart Flynn Extract) Have you fallen in the past year?: No [facility] Hypercholesteremia UTI (urinary tract infection) Social History Smoking Status: Never smoker HPI LUMBAR SPINE Details: This documentation accurately reflects the service provided and the decisions made by me, Dr. Alexi Lackey MD 06/03/24 0819. Part of today???s visit was documented by Pinky Roldan LPN, acting as scribe. CAPRICE MUELLER is a 69 year old F here today for initial evaluation of lumbar spine pain. She was seeing Dr. Moreno before he left the practice and had imaging done which showed a L3-4 bulging disc. She did complete PT which she was reports was helpful. She did receive an epidural steroid injection on January 31 which helped for about a month. She does have a history of neuropathy in her feet which she states has been ongoing for years. She denies previous surgery or injury to her back. She has received care provider in the past. Ortho Exam General General: Yes no acute distress Neurologic: Yes alert and Yes oriented x3 Spine SPINE TESTING CERVICAL THORACIC LUMBAR Musculoskeletal Strength 0=absent - 5=normal Details: Examination the back shows mild right paraspinal tenderness in mid lumbar spine. Neurologic motion of lower extremity shows 5 x 5 power lumbosacral sensations in all dermatomes. Passive straight leg raise test is negative. Coding Level of Care Code Off vis,new,level 4 Diagnoses Lumbar radiculopathy M54.16 Time Spent (min) 45 Assessment and Plan Assessment and Plan (1) Lumbar radiculopathy: Status: Acute Plan Reviewed x-rays and MRI of the lumbar spine done in December and January of this year. These show fairly normal alignment. At L3-4 there is a right extraforaminal disc herniation causing exiting nerve root compression. Explained to her the imaging findings detail. Patient's MRI shows a disc herniation L3-4 on the right extraforaminal. She has had good improvement with epidural injection lasting at least a month. She has had good resolution of majority of her radicular symptoms and only has some paraspinal pain going into the inner thigh. At this point she may consider repeat injections. Pain management consultation was placed. She was comfortable with physical therapy as needed. If the pain recurs or if it worsens with time, she may come back for follow-up on an as-needed basis. Patient was in agreement. Clinical Quality Measures Falls Risk Screening/Assistive Devices Have you fallen in the past year?: No 06/03/24 1049 Date Alexi Bender Signature: Date (if applicable) CC: Dr. Staci Obando MD [facility] Inital Evaluation (1) - PTon 05-24-2024 Inital Evaluation (1) - PT [facility] [address] [place] [address] / REHABILITATION SERVICES INITIAL EVALUATION MR#: [id number] Acct: [id number] Name: CAPRICE MUELLER Rep #: [id number] : 1955 69 From: Lonnie Javed PT, ATC Referring Dr.: Dr. Junito Andrews DO Status: REG RCR Insurance: MEDICARE PART A B [facility] Patient's Visit Information Visit Information Visit Information: CAPRICE MUELLER is a 69 year old F referred to Physical Therapy by Dr. Junito Andrews DO with a diagnosis of R knee OA. Date of Evaluation: 05/24/24 Physical Therapist: Lonnie Javed, PT, ATC Visit Plan Frequency: 2x /Week Duration: 4-6 Weeks Plan: R knee stretching and strengthening, core stab ex's (use caution secondary to LBP Hx), balance and proprio, nustep, and HEP Subjective Subjective: Pt reports having R knee pain since November of this year. Pt reports she has been treated in the past, which helped, but that was mostly due to a bulging disc in her LB. Pt reports about a month ago, she pivoted on her R knee which resulted in severe medial R knee pain. Pt reports she had an xray in November that revealed OA throughout her R knee. Pt reports she has not had an MRI at this time. Pt reports her R knee will lock up on her on occasion, and has given out on her for several years. Pt reports sleep difficulty secondary to R knee pain at this time. Pt has stairs to her basement that she has to negotiate one step at a time sideways. Pt gets tingling and numbness in both feet secondary to polynueropathy. Pt reports she is an avid walker, but is very limited at this time secondary to pain. 1/10 pain while sitting here at rest, 9/10 pain at worst (when her knee locked up on her) Pain R knee pain: Pain Intensity (Out of 10): 1 Pain Intensity Range: 9 Objective Objective: Neuro: B LE sensation is WNL to light touch. B patellar reflex= 1/3 Gait. Pt is able to ambulate from waiting room to Rx room without difficulty. Minor limp of R LE. ROM: L knee 0-135 degrees; R knee 0-12-120 degrees MMT: L knee flex= 42, ext= 47 #F; R knee flex= 27, ext= 26 #F SPecial tests: Pos McConnels sign Balance/Special Test Scores Lower Extremity Functional Score: 59 Goals Goal 1:: Decrease R knee pain x 50 % to aid with sleep Goal Time Frame: 4-6 Weeks Goal 2:: Increase R knee flex and ext strength x 10 #F to aid with stair negotiation Goal Time Frame: 4-6 Weeks Goal 3:: Increase R knee ROM x 20 degrees to aid with IADL's Goal Time Frame: 4-6 Weeks Goal 4:: I with HEP Goal Time Frame: 4-6 Weeks Rehabilitation Potential Physical Therapy Diagnosis: Pt has R knee pain, weakness, and limited ROM secondary to R knee OA Rehabilitation Potential: Good Anticipated Interventions Patient/Client Instruction: Educate patient on: Condition and Plan of Care For the Purpose of:: To improve self management Text: Thank you for the opportunity to evaluate your patient. For Medicare and Medicare HMO plans, please review the plan of care and approve it. It will need to be FAXED BACK to us at [phone] for Medicare purposes. For Medicare only, by signing this I certify the plan of care. Please let me know if there are questions or concerns regarding this plan of care. Physician Signature: D ate: 05/24/24 1056 CC: Dr. Staci Obando MD; Dr. Junito Andrews DO [facility] Signed Normal [facility] - Chemistry and C hemistry - challengeon 04-13-2024 Chloride [Moles/Vol] 109 mmol/L Abnormal 98 - 10 7 mmol/L [facility] [employer] Cholesterol [Mass/Vol] 184 mg/dL Normal [facility] [employer] Cholesterol in HDL [Mass/Vol] 101 mg/dL Normal [employer] [employer] Cholesterol in LDL [Mass/Vol] 74 mg/dL Normal 0 - 130 mg/dL [facility] [employer] [employer] Cholesterol in VLDL [Mass/Vol] 9 mg/dL Normal 5 - 40 mg/dL [facility] [employer] [employer] CO2 [Moles/Vol] 31.0 mmol/L Normal 21.0 - 32.0 mmol/L [facility] [employer] [employer] Creatinine [Mass/Vol] 0.79 mg/dL Normal 0.55 - 1.02 mg/dL [facility] [employer] GFR/1.73 sq M.predicted among non-blacks MDRD (S/P/Bld) [Vol rate/Area] 77 mL/min/{1.73_m2} Normal [facility] [employer] Glucose [Mass/Vol] 92 mg/dL Normal 74 - 106 mg/dL [facility] [employer] [employer] Magnesium [Mass/Vol] 8.9 mg/dL Normal 8.5 - 1 0.1 mg/dL [facility] [employer] [employer] Potassium [Moles/Vol] 4.2 mmol/L Normal 3.5 - 5.1 mmol/L [facility], [facility]. Sodium [Moles/Vol] 142 mmol/L Normal 136 - 145 mmol/L [facility].; [facility], [facility]. Triglyceride [Mass/Vol] 44 mg/dL Normal [facility].; [facility], [facility] Urea nitrogen [Mass/Vol] 17 mg/dL Normal 7 - 18 mg/d L [facility].; [facility] No Panel Informationon 04-13 BUN/CRE 21.5 {RATIO} Abnormal 10 - 20 {RATIO} [facility].; [facility] EST GFR - AA 93 mL/min Normal [facility]; [employer], [employer]. GAP 2 Abnormal 5 - 15 [facility].; [employer], [facility] - Chemistry and C hemistry - challengeon 07-13-2023 Albumin [Mass/Vol] 3.7 g/dL Normal 3.2 - 5.0 g/dL [facility].; [facility], [facility]. ALT [Catalytic activity/Vol] 32 U/L Normal 13 - 56 U/L [facility].; [facility], [facility]. AST [Catalytic activity/Vol] 26 U/L Normal 15 - 37 U/L [facility], [facility].; [employer], [facility]. Bilirubin [Mass/Vol] 0.50 mg/dL Normal 0.20 - 1.00 mg/dL [facility].; [facility], [facility]. Bilirubin.direct [Mass/Vol] 0.15 mg/dL Normal 0.00 - 0.30 mg/dL [facility].; [employer], [employer]. Globulin (S) [Mass/Vol] 3.2 g/dL Normal 2.2 - 4.2 g/dL [facility].; [employer], [facility]. No Panel Informationon 07-13 ALK P 109 U/L Normal 45 - 117 U/L [facility], [facility].; [facility] [employer], [employer]. T PROT 6.9 g/dL Normal 6.4 - 8.2 g/dL [facility] CBC (INCLUDES DIFF/PLT)on Basophils (Bld) [#/Vol] 0.04 10*3/uL Normal 0-200 [facility] Comment on above: Performed By: #### 6 399, 7600, 33681 #### [facility] of [address], [address] [place] [address] Demolition Worker: Izaiah Bergman MD Basophils/100 WBC (Bld) 0.8 % Normal [facility] Comment on above: Performed By: #### 6 399, 7600, 86259 #### [facility] of [place] [address] Demolition Worker: Izaiah Bergman MD Eosinophils (Bld) [#/Vol] 0.09 10*3/uL Normal 15-500 [facility] Comment on above: Performed By: #### 6 399, 7600, 90847 #### [facility] of [address], [address] [place] [address] Demolition Worker: Izaiah Bergman MD Eosinophils/100 WBC (Bld) 1.8 % Normal [facility] Comment on above: Performed By: #### 6 399, 7600, 72851 #### [facility] of [place] [address] Demolition Worker: Izaiah Bergman MD Erythrocyte distribution width (RBC) [Ratio] 12.1 % Normal 11.0-15.0 [facility] Comment on above: Performed By: #### 6 399, 7600, 32714 #### [facility] of [place] [address] Demolition Worker: Izaiah Bergman MD Hematocrit (Bld) [Volume fraction] 40.3 % Normal 35.0-45.0 [facility] Comment on above: Performed By: #### 6 399, 7600, 96515 #### [facility] of [place] [address] Demolition Worker: Izaiah Bergman MD Hemoglobin (Bld) [Mass/Vol] 13.8 g/dL Normal 11.7-15.5 [facility] Comment on above: Performed By: #### 6 399, 7600, 73323 #### [facility] of [place] [address] Demolition Worker: Izaiah Bergman MD Lymphocytes (Bld) [#/Vol] 1.555 10*3/uL Normal 850-3900 [facility] Comment on above: Performed By: #### 6 399, 7600, 76236 #### [facility] of [place] [address] Demolition Worker: Izaiah Bergman MD Lymphocytes/100 WBC (Bld) 31.1 % Normal [facility] Comment on above: Performed By: #### 6 399, 7600, 92868 #### [facility] of [place] [address] Demolition Worker: Izaiah Bergman MD MCH (RBC) [Entitic mass] 33.4 pg High 27.0-33.0 [facility] Comment on above: Performed By: #### 6 399, 7600, 36623 #### [facility] of [place] [address] Demolition Worker: Izaiah Bergman MD MCHC (RBC) [Mass/Vol] 34.2 g/dL Normal 32.0-36.[address] [facility] Comment on above: Performed By: #### 6 399, 7600, 99410 #### [facility] of [place] [address] Demolition Worker: Izaiah Bergman MD MCV (RBC) [Entitic vol] 97.6 fL Normal 80.0-100.0 [facility] Comment on above: Performed By: #### 6 399, 7600, 65212 #### [facility] of [place] [address] Demolition Worker: Izaiah Bergman MD Monocytes (Bld) [#/Vol] 0.38 10*3/uL Normal 200-950 [facility] Comment on above: Performed By: #### 6 399, 7600, 32194 #### [facility] [place] [address] Demolition Worker: Izaiah Bergman MD Monocytes/100 WBC (Bld) 7.6 % Normal [facility] Comment on above: Performed By: #### 6 399, 7600, 46225 #### [facility] of [place] [address] Demolition Worker: Izaiah Bergman MD Neutrophils (Bld) [#/Vol] 2.935 10*3/uL Normal 4464-5211 [facility] Comment on above: Performed By: #### 6 399, 7600, 76961 #### [facility] of [place] [address] Demolition Worker: Izaiah Bergman MD Neutrophils/100 WBC (Bld) 58.7 % Normal [facility] Comment on above: Performed By: #### 6 399, 7600, 95793 #### [facility] of [place] [address] Demolition Worker: Izaiah Bergman MD Platelet mean volume (Bld) [Entitic vol] 10.3 fL Normal 7.5-12.5 [facility] Comment on above: Performed By: #### 6 399, 7600, 40518 #### [facility] of [place] [address] Demolition Worker: Izaiah Bergman MD Platelets (Bld) [#/Vol] 236 10*3/uL Normal 140-400 [facility] Comment on above: Performed By: #### 6 399, 7600, 61382 #### [facility] of [place] [address] Demolition Worker: Izaiah Bergman MD RBC (Bld) [#/Vol] 4.13 10*6/uL Normal 3.80-5.10 [facility] Comment on above: Performed By: #### 6 399, 7600, 26130 #### [facility] of [address], [address] [place] [address] Demolition Worker: Izaiah Bergman MD WBC (Bld) [#/Vol] 5.0 10*3/uL Normal 3.8-10.8 [facility] Comment on above: Performed By: #### 6 399, 7600, 78259 #### [facility] of [address], [address] [place] [address] Demolition Worker: Izaiah Bergman MD [facility] 04-10-2023 Albumin [Mass/Vol] 4.3 g/dL Normal 3.6-5.1 [facility] Comment on above: Performed By: #### 6 399, 7600, 50204 #### [facility] of [place] [address] Demolition Worker: Izaiah Bergman MD Albumin/Globulin [Mass ratio] 2.0 {ratio} Normal 1.0-2.5 [facility] Comment on above: Performed By: #### 6 399, 7600, 83679 #### [facility] of [place] [address] Demolition Worker: Izaiah Bergman MD ALP [Catalytic activity/Vol] 103 U/L Normal 37-153 [facility] Comment on above: Performed By: #### 6 399, 7600, [id number] #### [facility] [place] [address] Demolition Worker: Izaiah Bergman MD ALT [Catalytic activity/Vol] 49 U/L High 6-29 [facility] Comment on above: Performed By: #### 6 399, 7600, 79249 #### [facility] [place] [address] Demolition Worker: Izaiah Bergman MD AST [Catalytic activity/Vol] 44 U/L High 10-35 [facility] Comment on above: Performed By: #### 6 399, 7600, 14844 #### [facility] [place] [id number] Demolition Worker: Izaiah Bergman MD Bilirubin [Mass/Vol] 0.8 mg/dL Normal 0.2-1.2 [facility] Comment on above: Performed By: #### 6 399, 7600, 70858 #### [facility] [address], [address] [place] [address] Demolition Worker: Izaiah Bergman MD BUN/CREATININE RATIO SEE NOTE: Normal 6-22 [facility] Comment on above: Result Comment: Not Reported: BUN and Creatinine are within reference range. Performed By: #### 6 399, 7600, 08909 #### [facility] [address], [address] [place] [address] Demolition Worker: Izaiah Bergman MD Calcium [Mass/Vol] 9.3 mg/dL Normal 8.6-10.4 [facility] Comment on above: Performed By: #### 6 399, 7600, 80235 #### [facility] [address], [address] [place] [address] Demolition Worker: Izaiah Bergman MD Chloride [Moles/Vol] 103 mmol/L Normal 98-110 [facility] Comment on above: Performed By: #### 6 399, 7600, 62809 #### [facility] [place] [address] Demolition Worker: Izaiah Bergman MD CO2 [Moles/Vol] 30 mmol/L Normal 20-32 [facility] Comment on above: Performed By: #### 6 399, 7600, 91029 #### [facility] [place] [address] Demolition Worker: Izaiah Bergman MD Creatinine [Mass/Vol] 0.80 mg/dL Normal 0.50-1.[address] [facility] Comment on above: Performed By: #### 6 399, 7600, 48830 #### [facility] [address], [address] [place] [address] Demolition Worker: Izaiah Bergman MD GFR/1.73 sq M.predicted among non-blacks MDRD (S/P/Bld) [Vol rate/Area] 80 mL/min/{1.73_m2} Normal > OR = 60 [facility] Comment on above: Performed By: #### 6 399, 7600, 34301 #### [facility] [address], [address] [place] [address] Demolition Worker: Izaiah Bergman MD Globulin (S) [Mass/Vol] 2.1 g/dL Normal 1.9-3.7 [facility] Comment on above: Performed By: #### 6 399, 7600, 96493 #### [facility] [place] [address] Demolition Worker: Izaiah Bergman MD Glucose [Mass/Vol] 87 mg/dL Normal 65-99 [facility] Comment on above: Result Comment: Fasting reference interval Performed By: #### 6 399, 7600, 67757 #### [facility] [address], [address] [place] [address] Demolition Worker: Izaiah Bergman MD Potassium [Moles/Vol] 4.3 mmol/L Normal 3.5-5.[address] [facility] Comment on above: Performed By: #### 6 399, 7600, 76847 #### [facility] [place] [address] Demolition Worker: Izaiah Bergman MD Protein [Mass/Vol] 6.4 g/dL Normal 6.1-8.1 [facility] Comment on above: Performed By: #### 6 399, 7600, 36674 #### [facility] [place] [address] Demolition Worker: Izaiah Bergman MD Sodium [Moles/Vol] 141 mmol/L Normal 135-146 [facility] Comment on above: Performed By: #### 6 399, 7600, 24330 #### [facility] [place] [address] Demolition Worker: Izaiah Bergman MD Urea nitrogen [Mass/Vol] 17 mg/dL Normal 7-25 [facility] Comment on above: Performed By: #### 6 399, 7600, 05548 #### [facility] [address], [address] [place] [address] Demolition Worker: Izaiah Bergman MD LIPID PANEL, [place] [phone] Cholesterol [Mass/Vol] 174 mg/dL Normal <200 [facility] Comment on above: Performed By: #### 6 399, 7600, 76822 #### [facility] [address], [address] [place] [address] Demolition Worker: Izaiah Bergman MD Cholesterol in HDL [Mass/Vol] 82 mg/dL Normal > OR = 50 [facility] Comment on above: Performed By: #### 6 399, 7600, 63837 #### [facility] [address], [address] [place] [address] Demolition Worker: Izaiah Bergman MD Cholesterol in LDL [Mass/Vol] 79 mg/dL Normal [facility] Comment on above: Result Comment: Refe rence range: <100 Desirable range <100 mg/dL for primary prevention; <70 mg/dL for patients with CHD or diabetic patients with > or = 2 CHD risk factors. LDL-C is now calculated using the Matthew-Tamera calculation, which is a validated novel method providing better accuracy than the Friedewald equation in the estimation of LDL-C. Matthew GONZALEZ et al. GORGE. 2013;310(19): 4861-8892 (http://education.LogoGarden.Imitix/faq/IRQ808) Performed By: #### 6 399, 7600, 45962 #### [facility] [address], [address] [place] [address] Demolition Worker: Izaiah Bergman MD Cholesterol.total/Choles terol in HDL [Mass ratio] 2.1 {ratio} Normal <5.0 [facility] Comment on above: Performed By: #### 6 399, 7600, 20059 #### [facility] [address], [address] [place] [address] Demolition Worker: Izaiah Bergman MD NON HDL CHOLESTEROL 92 mg/dL (calc) Normal <130 [facility] Comment on above: Result Comment: For patients with diabetes plus 1 major ASCVD risk factor, treating to a non-HDL-C goal of <100 mg/dL (LDL-C of <70 mg/dL) is considered a therapeutic option. Performed By: #### 6 399, 7600, 55843 #### [facility] [address], [address] [place], [place] [id number] Demolition Worker: Izaiah Bergman MD Triglyceride [Mass/Vol] 46 mg/dL Normal <150 [facility] Comment on above: Performed By: #### 6 399, 7600, 86738 #### [facility] [address], [address] [place], [place] [id number] Demolition Worker: Izaiah Bergman MD Laboratory - Chemistry and C hemistry - challengeon 04-09-2023 Albumin [Mass/Vol] 4.3 g/dL Normal 3.6 - 5.1 g/dL [facility], [facility].; [employer], [employer]. Albumin/Globulin [Mass ratio] 2.0 {ratio} Normal 1.0 - 2.5 [facility] [employer], [facility].; [employer], [employer]. ALP [Catalytic activity/Vol] 103 U/L Normal 37 - 153 U/L [facility] [employer], [facility].; [employer] ALT [Catalytic activity/Vol] 49 U/L Abnormal 6 - 29 U/L [employer], [facility].; [employer], [employer]. AST [Catalytic activity/Vol] 44 U/L Abnormal 10 - 35 U/L [employer], [facility].; [employer], [employer]. Bilirubin [Mass/Vol] 0.8 mg/dL Normal 0.2 - 1 .2 mg/dL [employer], [facility].; [employer], [employer]. Calcium [Mass/Vol] 9.3 mg/dL Normal 8.6 - 10. 4 mg/dL [employer], [facility].; [employer], [employer]. Chloride [Moles/Vol] 103 mmol/L Normal 98 - 11 0 mmol/L [employer], [facility].; [employer], [employer]. Cholesterol [Mass/Vol] 174 mg/dL Normal [facility], [facility].; [facility], [facility]. Cholesterol in HDL [Mass/Vol] 82 mg/dL Normal [facility], [facility].; [facility], [facility]. Cholesterol in LDL [Mass/Vol] 79 mg/dL Normal [facility], [facility].; [employer] CO2 [Moles/Vol] 30 mmol/L Normal 20 - 32 mmol/L [facility], [facility].; [facility], [facility]. Creatinine [Mass/Vol] 0.80 mg/dL Normal 0.50 - 1.05 mg/dL [facility], [facility].; [facility], [facility]. GFR/1.73 sq M.predicted among non-blacks MDRD (S/P/Bld) [Vol rate/Area] 80 mL/min/{1.73_m2} Normal [facility], [facility].; [facility] [employer] [facility] Glucose [Mass/Vol] 87 mg/dL Normal 65 - 99 mg/dL [facility], [facility].; [facility], [facility]. Potassium [Moles/Vol] 4.3 mmol/L Normal 3.5 - 5.3 mmol/L [facility], [facility].; [facility], [facility]. Protein [Mass/Vol] 6.4 g/dL Normal 6.1 - 8.1 g/dL [facility], [facility].; [employer] Sodium [Moles/Vol] 141 mmol/L Normal 135 - 146 mmol/L [facility], [facility].; [employer] Triglyceride [Mass/Vol] 46 mg/dL Normal [facility], [facility].; [employer] Urea nitrogen [Mass/Vol] 17 mg/dL Normal 7 - 25 mg/d L [facility], [facility].; [employer], [employer]. Laboratory - Hematology and Cell countson 04-09-2023 Basophils (Bld) [#/Vol] 0.04 10*3/uL Normal 0 - 200 {cells/uL} [facility], [facility].; [employer] Basophils/100 WBC (Bld) 0.8 % Normal [facility], [facility].; [employer] Eosinophils (Bld) [#/Vol] 0.09 10*3/uL Normal 15 - 500 {cells/uL} [facility].; [facility], [facility]. Eosinophils/100 WBC (Bld) 1.8 % Normal [facility].; [facility], [facility] Erythrocyte distribution width (RBC) [Ratio] 12.1 % Normal 11.0 - 15.0 % [facility], [facility].; [facility], [facility] Hematocrit (Bld) [Volume fraction] 40.3 % Normal 35.0 - 45.0 % [facility], [facility].; [facility], [facility] Hemoglobin (Bld) [Mass/Vol] 13.8 g/dL Normal 11.7 - 15.5 g/dL [facility], [facility].; [facility], [facility] Lymphocytes (Bld) [#/Vol] 1.555 10*3/uL Normal 850 - 3900 {cells/uL} [facility], [facility].; [facility], [facility] Lymphocytes/100 WBC (Bld) 31.1 % Normal [facility], [facility].; [facility], [facility]. MCH (RBC) [Entitic mass] 33.4 pg Abnormal 27. 0 - 33.0 pg [facility].; [facility], [facility]. MCHC (RBC) [Mass/Vol] 34.2 g/dL Normal 32.0 - 36.0 g/dL [facility], [facility].; [facility], [facility]. MCV (RBC) [Entitic vol] 97.6 fL Normal 80.0 - 100.0 fL [facility], [facility].; [facility], [facility]. Monocytes (Bld) [#/Vol] 0.38 10*3/uL Normal 200 - 950 {cells/uL} [facility], [facility].; [facility], [facility]. Monocytes/100 WBC (Bld) 7.6 % Normal [facility].; [facility], [facility] Neutrophils (Bld) [#/Vol] 2.935 10*3/uL Normal 1500 - 7800 {cells/uL} [facility], [facility].; [facility], [facility] Neutrophils/100 WBC (Bld) 58.7 % Normal [facility], [facility]; [employer] Platelet mean volume (Bld) [Entitic vol] 10.3 fL Normal 7.5 - 12.5 fL [employer] Platelets (Bld) [#/Vol] 236 10*3/uL Normal 140 - 400 [employer].; [employer] RBC (Bld) [#/Vol] 4.13 10*6/uL Normal 3.80 - 5.1 0 {Million/uL} [facility] [employer]. WBC (Bld) [#/Vol] 5.0 10*3/uL Normal 3.8 - 10.8 [employer].; [employer]. No Panel Informationon 04-09 BUN/CREATININE RATIO SEE NOTE: Normal 6 - 22 [facility] [employer] CHOL/HDLC RATIO 2.[address] [facility].; [employer]. GLOBULIN 2.1 Normal 1.9 - 3.7 [employer] NON HDL CHOLESTEROL 92 Normal [facility] [employer] Cervical or vagninal specime n microscopic examination by cytology stain (reported asOrdered By: Dr. Frey on 07-07-2022 Cytology report Cyto stain Doc (Cvx/Vag) Comment . [facility] Comment on above: The Pap smear is a s creening test designed to aid in thedetection of premalignant and malignant conditions of theuterine cervix. It is not a diagnostic procedure andshould not be used as the sole means of detecting cervicalcancer. Both false-positive and false-negative reports dooccur. Detection in cervical specim en of any of human papilloma virus (HPV) 16, 18, 31, 33,Ordered By: Dr. Frey on 07-07-2022 HPV 16+18+31+33+35+39+45+51+ 52+56+58+59+66+68 DNA Probe+sig amp Ql (Cvx) Negative Negative [facility] Comment on above: This nucleic acid am plification test detects fourteen high-risk HPV types (16,18,31,33,35,39,45,51,52,56,58,59,66,68)without differentiation. Laboratory - CytologyOrdered By: Dr. Frey on 07-07-2022 Mechanical Integrity Specialist Cyto stain Nom (Cvx/Vag) [ID] Comment . [facility] Comment on above: Tiarra Vital, Cyto technologist (ASCP) Laboratory - Miscellaneous t estsOrdered By: Dr. Frey on 07-07-2022 Service comment (Unsp spec) [Interp] Comment . [facility] Comment on above: This liquid based Th inPrep(R) pap test was screened withthe use of an image guided system. Service comment (Unsp spec) [Interp] . . [facility] Liquid-based cerv Pap + CT/G C by ZACK w reflex to high-risk HPV for ASCUSOrdered By: Dr. Frey on 07-07-2022 Cytology report Cyto stain.thin prep Doc (Cvx/Vag) Comment . [facility] Comment on above: Criteria not met, HP V Genotype not performed.Performed at: - [facility] [id number] Director: Corinna Jaffe MD, Phone: [phone] at: = - [facility] [id number] Director: Corinna Jaffe MD, Phone: [phone] No Panel InformationOrdered By: Dr. Frey on 07-07-2022 Pathology report final diagnosis Narrative Comment . [facility] Comment on above: NEGATIVE FOR INTRAEP ITHELIAL LESION OR MALIGNANCY.CELLULAR CHANGES ASSOCIATED WITH ATROPHY ARE PRESENT. Absolute lymphocyte countOrd ered By: Dr. Obando on 04-12-2022 Lymphocytes Auto (Unsp spec) [#/Vol] 2.07 10*3/uL 0.83-4.51 [facility] Automated blood hematocrit ( percentage)Ordered By: Dr. Obando on 04-12-2022 Hematocrit (Bld) [Volume fraction] 40.5 % Normal 37 - 47 [facility] Basophil percentageOrdered B y: Dr. Obando on 04-12-2022 Basophils/100 WBC (Bld) 1.1 % Abnormal 0 - 1 [facility] Chloride [Moles/Vol] 105 mmol/L Normal 98 - 10 7 mmol/L [facility] Cholesterol [Mass/Vol] 194 mg/dL Normal [facility] Comment on above: <200 mg/dL Desirable 200-240 mg/dL Borderline >240 mg/dL High Risk Eosinophils/100 WBC (Bld) 3.2 % Normal 0 - 5 [facility] Glucose [Mass/Vol] 85 mg/dL Normal 74 - 106 mg/dL [facility] Neutrophils (Bld) [#/Vol] 2.6 10*3/uL 2.0-7.7 [facility] Neutrophils/100 WBC (Bld) 49.1 % Normal 47 - 70 [facility] Potassium [Moles/Vol] 4.4 mmol/L Normal 3.5 - 5.1 mmol/L [facility] Sodium [Moles/Vol] 140 mmol/L Normal 136 - 145 mmol/L [facility] Triglyceride [Mass/Vol] 60 mg/dL Normal [facility] Comment on above: The drugs N-Acetylcy steine and Metamizole may falsely depress this assay.Serum Triglycerides Reference Interval Normal <150 mg/dL Borderline high 150 - 199 mg/dL High 200 - 499 mg/dL Very High > or = 500 mg/dL WBC (Bld) [#/Vol] 5.3 10*3/uL Normal 4.4 - 11.0 K/mm3 [facility] Blood erythrocytes count (nu mber/volume)Ordered By: Dr. Obando on 04-12-2022 RBC (Bld) [#/Vol] 4.19 10*6/uL Abnormal 4.2 - 5.4 {M/mm3} [facility] Blood hemoglobin measurement (mass/volume)Ordered By: Dr. Obando on 04-12-2022 Hemoglobin (Bld) [Mass/Vol] 13.7 g/dL Normal 12.0 - 15.0 g/dL [facility] Blood lymphocytes/100 leukoc ytesOrdered By: Dr. Obando on 04-12-2022 Lymphocytes/100 WBC (Bld) 38.9 % Normal 19 - 41 [facility] Blood monocytes/100 leukocyt esOrdered By: Dr. Obando on 04-12-2022 Monocytes/100 WBC (Bld) 7.5 % Normal 0 - 10 [facility] Blood platelet mean volumeOr dered By: Dr. Obando on 04-12-2022 Platelet mean volume (Bld) [Entitic vol] 9.7 fL Normal 6.2 - 12.0 fL [facility] Determination of erythrocyte mean corpuscular volume (MCV)Ordered By: Dr. Obando on 04-12-2022 MCV (RBC) [Entitic vol] 96.7 fL Normal 81 - 99 fL [facility] Laboratory - Chemistry and C hemistry - challengeon 04-12-2022 GFR/1.73 sq M.predicted among non-blacks MDRD (S/P/Bld) [Vol rate/Area] 68 mL/min/{1.73_m2} Normal [facility].; [facility], [facility] Magnesium [Mass/Vol] 8.9 mg/dL Normal 8.5 - 1 0.1 mg/dL [facility]; [facility] Laboratory - Chemistry and C hemistry - challengeOrdered By: Dr. Obando on 04-12-2022 CO2 [Moles/Vol] 31.0 mmol/L Normal 21.0 - 32.0 mmol/L [facility] Urea nitrogen/Creatinine [Mass ratio] 21.5 mg/mg 10- [facility] Laboratory - Hematology and Cell countson 04-12-2022 Nucleated RBC (Bld) [#/Vol] 0 10*3/uL Normal 0 - 5 [facility]; [facility] Laboratory - Hematology and Cell countsOrdered By: Dr. Obando on 04-12-2022 Erythrocyte distribution width (RBC) [Entitic vol] 44.6 fL 35.1-43.9 [facility] Erythrocyte distribution width (RBC) [Ratio] 12.5 % Normal 11.6 - 14.6 [facility] Immature granulocytes/100 WBC (Bld) 0.200 % 0.0-0.9 [facility] Comment on above: IG% - Immature Granu locytes (promyelocytes, myelocytes and metamyelocytes) > 1% indicates that a LEFT SHIFT is Present. MCH (RBC) [Entitic mass] 32.7 pg Abnormal 27. 0 - 32.0 pg [facility] Nucleated RBC/100 WBC (Bld) [Ratio] 0 % 0-5 [facility] MCHC [Mass/volume] by Automa erika countOrdered By: Dr. Obando on 04-12-2022 MCHC (RBC) [Mass/Vol] 33.8 g/dL Normal 32 - 36 g/dL [facility] No Panel Informationon 04-12 Absolute Lymph 2.07 {X10_3/uL} Normal 0.83 - 4.5 1 {X10_3/uL} [employer] Absolute Neut 2.6 {X10_3/uL} Normal 2.0 - 7.7 {X10_3/uL} [employer] BUN/CRE 21.5 {RATIO} Abnormal 10 - 20 {RATIO} [employer].; [employer]. EST GFR - AA 82 mL/min Normal [employer] GAP 4 Abnormal 5 - 15 [employer].; [employer] IG% 0.200 Normal 0.0 - 0.9 [employer]; [employer] RDW SD 44.6 fL Abnormal 35.1 - 43.9 fL [employer].; [employer] No Panel InformationOrdered By: Dr. Obando on 04-12-2022 Estimated GFR (MDRD) Amer 82 mL/min >60 [facility] Comment on above: GFR Calc Estimated GFR (MDRD) Non-Af Amer 68 mL/min >60 [facility] Comment on above: Non- GFR Calc Platelets bldOrdered By: Dr. Obando on 04-12-2022 Platelets (Bld) [#/Vol] 242 10*3/uL Normal 150 - 450 K/mm3 [facility] Serum or plasma calcium matthew urement (mass/volume)Ordered By: Dr. Obando on 04-12-2022 Calcium [Mass/Vol] 8.9 mg/dL 8.5-10.1 [facility] Serum or plasma cholesterol in HDL measurement (mass/volume)Ordered By: Dr. Obando on 04-12-2022 Cholesterol in HDL [Mass/Vol] 96 mg/dL Normal [facility] Comment on above: The drugs N-Acetylcy steine and Metamizole may falsely depress this assay. Reference Range HDL <40 mg/dL Low HDL Cholesterol HDL >or= 60 mg/dL High HDL Cholesterol Serum or plasma cholesterol in VLDL measurement (mass/volume)Ordered By: Dr. Obando on 04-12-2022 Cholesterol in VLDL [Mass/Vol] 12 mg/dL Normal 5 - 40 mg/dL [facility] Serum or plasma creatinine m easurement (mass/volume)Ordered By: Dr. Obando on 04-12-2022 Creatinine [Mass/Vol] 0.88 mg/dL Normal 0.55 - 1.02 mg/dL [facility] Comment on above: The validity of the calculated GFR & GFRAA in patients over 70 years has not been determined. Clinical correlation is essential. Serum or plasma low density lipoprotein (LDL) cholesterol measurement (mass/volume)Ordered By: Dr. Obando on 04-12-2022 Cholesterol in LDL [Mass/Vol] 86 mg/dL Normal 0 - 130 mg/dL [facility] Serum or plasma urea nitroge n measurement (mass/volume)Ordered By: Dr. Obando on 04-12-2022 Urea nitrogen [Mass/Vol] 19 mg/dL Abnormal 7 - 18 mg/d L [facility] Thin prep Papanicolaou smear with manual screeningOrdered By: Dr. Obando on 04-12-2022 Thin prep Papanicolaou smear with manual screening 4 5-15 [facility] XR HAND RIGHT (MIN 3 VIEWS)o n [...] Staci Luciano MD 11/30/21 Final result Normal [facility] Comment on above: Order Comment: Elmo n for exam:->pain, swelling fb right index finger Laboratory - Chemistry and C hemistry - challengeon 07-18-2021 Albumin [Mass/Vol] 4.5 g/dL Normal 3.6 - 5.1 g/dL [facility], [facility].; [employer], [employer]. Albumin/Globulin [Mass ratio] 2.0 {ratio} Normal 1.0 - 2.5 [facility] [employer], [facility].; [employer], [employer]. ALP [Catalytic activity/Vol] 95 U/L Normal 37 - 153 U/L [facility] [employer], [facility].; [employer], [employer]. ALT [Catalytic activity/Vol] 21 U/L Normal 6 - 29 U/L [employer] [facility].; [employer], [employer]. AST [Catalytic activity/Vol] 21 U/L Normal 10 - 35 U/L [employer], [facility].; [employer], [employer]. Bilirubin [Mass/Vol] 0.4 mg/dL Normal 0.2 - 1 .2 mg/dL [facility] [employer] [facility].; [employer], [employer]. Bilirubin.indirect [Mass/Vol] 0.1 mg/dL Normal [employer], [facility].; [employer], [employer]. Protein [Mass/Vol] 6.8 g/dL Normal 6.1 - 8.1 g/dL [employer], [facility].; [employer], [employer]. No Panel Informationon 07-18 BILIRUBIN, INDIRECT 0.3 Normal 0.2 - 1.2 [facility] [facility], [employer].; [employer], [employer]. GLOBULIN 2.3 Normal 1.9 - 3.7 [employer], [employer].; [employer], [employer]. Laboratory - Chemistry and C hemistry - challengeon 03-15-2021 Albumin [Mass/Vol] 4.6 g/dL Normal 3.6 - 5.1 g/dL [employer], [employer].; [employer], [employer]. Albumin/Globulin [Mass ratio] 2.0 {ratio} Normal 1.0 - 2.5 [facility].; [facility], [facility]. ALP [Catalytic activity/Vol] 97 U/L Normal 37 - 153 U/L [facility].; [facility], [facility]. ALT [Catalytic activity/Vol] 27 U/L Normal 6 - 29 U/L [facility], [facility].; [facility], [facility]. AST [Catalytic activity/Vol] 23 U/L Normal 10 - 35 U/L [facility].; [facility], [facility]. Bilirubin [Mass/Vol] 0.8 mg/dL Normal 0.2 - 1 .2 mg/dL [facility], [facility].; [facility], [facility]. Calcium [Mass/Vol] 9.6 mg/dL Normal 8.6 - 10. 4 mg/dL [facility], [facility].; [facility], [facility]. Chloride [Moles/Vol] 103 mmol/L Normal 98 - 11 0 mmol/L [facility].; [facility], [facility]. Cholesterol [Mass/Vol] 275 mg/dL Abnormal [facility].; [facility], [facility] Cholesterol in HDL [Mass/Vol] 90 mg/dL Normal [facility].; [facility], [facility]. Cholesterol in LDL [Mass/Vol] 166 mg/dL Abnormal [facility], [facility].; [facility], [facility]. CO2 [Moles/Vol] 30 mmol/L Normal 20 - 32 mmol/L [facility].; [facility], [facility]. Creatinine [Mass/Vol] 0.88 mg/dL Normal 0.50 - 0.99 mg/dL [facility], [facility].; [facility], [facility]. GFR/1.73 sq M.predicted among blacks MDRD (S/P/Bld) [Vol rate/Area] 79 mL/min/{1.73_m2} Normal [facility], [facility].; [facility] Glucose [Mass/Vol] 91 mg/dL Normal 65 - 99 mg/dL [facility], [facility].; [facility], [facility]. Potassium [Moles/Vol] 4.4 mmol/L Normal 3.5 - 5.3 mmol/L [facility].; [employer]. Protein [Mass/Vol] 6.9 g/dL Normal 6.1 - 8.1 g/dL [facility].; [employer]. Sodium [Moles/Vol] 140 mmol/L Normal 135 - 146 mmol/L [facility], [facility].; [employer], [employer]. Triglyceride [Mass/Vol] 85 mg/dL Normal H [facility].; [facility] [employer] [facility], [facility]. Urea nitrogen [Mass/Vol] 13 mg/dL Normal 7 - 25 mg/d L [facility].; [employer], [employer]. Laboratory - Hematology and Cell countson 03-15-2021 Basophils (Bld) [#/Vol] 0.049 10*3/uL Normal 0 - 200 {cells/uL} [facility].; [employer], [employer]. Basophils/100 WBC (Bld) 0.8 % Normal H [facility].; [facility] [employer] [facility], [facility]. Eosinophils (Bld) [#/Vol] 0.128 10*3/uL Normal 15 - 500 {cells/uL} [facility] [employer] [facility].; [employer], [employer]. Eosinophils/100 WBC (Bld) 2.1 % Normal [facility].; [employer], [employer]. Erythrocyte distribution width (RBC) [Ratio] 12.0 % Normal 11.0 - 15.0 % [facility] [facility].; [employer], [employer]. Hematocrit (Bld) [Volume fraction] 43.1 % Normal 35.0 - 45.0 % [facility] [employer] [facility].; [employer], [employer]. Hemoglobin (Bld) [Mass/Vol] 14.4 g/dL Normal 11.7 - 15.5 g/dL [facility] [facility].; [employer], [facility]. Lymphocytes (Bld) [#/Vol] 2.245 10*3/uL Normal 850 - 3900 {cells/uL} [employer], [facility].; [employer] Lymphocytes/100 WBC (Bld) 36.8 % Normal [facility] [employer] [facility].; [employer], [employer]. MCH (RBC) [Entitic mass] 32.2 pg Normal 27. 0 - 33.0 pg [facility].; [facility] [employer] [facility], [facility]. MCHC (RBC) [Mass/Vol] 33.4 g/dL Normal 32.0 - 36.0 g/dL [facility].; [facility], [facility]. MCV (RBC) [Entitic vol] 96.4 fL Normal 80.0 - 100.0 fL [facility].; [facility], [facility]. Monocytes (Bld) [#/Vol] 0.537 10*3/uL Normal 200 - 950 {cells/uL} [facility], [facility].; [facility], [facility]. Monocytes/100 WBC (Bld) 8.8 % Normal [facility].; [facility], [facility] Neutrophils (Bld) [#/Vol] 3.142 10*3/uL Normal 1500 - 7800 {cells/uL} [facility], [facility].; [employer], [facility]. Neutrophils/100 WBC (Bld) 51.5 % Normal [facility].; [employer], [facility]. Platelet mean volume (Bld) [Entitic vol] 9.9 fL Normal 7.5 - 12.5 fL [facility].; [employer], [facility]. Platelets (Bld) [#/Vol] 272 10*3/uL Normal 140 - 400 [facility].; [employer], [facility]. RBC (Bld) [#/Vol] 4.47 10*6/uL Normal 3.80 - 5.1 0 {Million/uL} [facility].; [employer], [facility]. WBC (Bld) [#/Vol] 6.1 10*3/uL Normal 3.8 - 10.8 [facility].; [facility] [employer] [facility], [facility] No Panel Informationon 03-15 BUN/CREATININE RATIO NOT APPLICABLE Normal - [facility].; [employer] CHOL/HDLC RATIO 3.[address] [facility], [facility].; [employer], [facility] eGFR NON-AFR. VIETNAMESE 68 Normal [facility].; [facility]. GLOBULIN 2.3 Normal 1.9 - 3.7 [facility].; [facility] NON HDL CHOLESTEROL 185 Abnormal [facility]; [facility] ANAND by IFAon 02-23-2020 ANAND Pattern ANANOT Normal [facility] Reference Lab Comment on above: Performed By: #### R F, ENAID #### [facility] Routine Lab [address] [address] #### ANA1, ANAIFS #### [facility] Immuno Assay [address] [address] #### DNA #### [facility] Immunology [address] [place] [phone] ANAND Titer Normal Negative [facility] Reference Lab Comment on above: Result Comment: Nega tive Normal range : negatie at <1:80 serum dilution. Performed By: #### R F, ENAID #### [facility] Routine Lab [address] [address] #### ANA1, ANAIFS #### [facility] [address] [address] #### DNA #### [facility] Immunology [address] [address] Nuclear Ab IF (S) [Titer] Negative Normal Negative [facility] Reference Lab Comment on above: Performed By: #### R F, ENAID #### [facility] Routine Lab [address] [address] #### ANA1, ANAIFS #### [facility] [employer] Immuno Assay [address] [address] #### DNA #### [facility] Immunology [address] [address] DNA Antibody w/ Conf.on DNA Antibody w/ Conf. <12 Normal <30 [facility] Reference Lab Comment on above: Performed By: #### R F, ENAID #### [facility] Routine Lab [address] [place] [phone] #### ANA1, ANAIFS #### [facility] Immuno [facility] [address] [place] [phone] #### DNA #### [facility] Immunology [address] [place] [phone] ANA Antibody Panelon 020 Centromere <0.2 Normal <1.0 [facility] Reference Lab Comment on above: Performed By: #### R F, ENAID #### [facility] Routine Lab [address] [phone] #### ANA1, ANAIFS #### [facility] Immuno Assay [address] [place] [phone] #### DNA #### [facility] Immunology [address] [phone] Chromatin Antibody <0.2 Normal <1.0 [facility] Reference Lab Comment on above: Performed By: #### R F, ENAID #### [facility] Routine Lab [address] [phone] #### ANA1, ANAIFS #### [facility] Immuno Assay [address] [phone] #### DNA #### [facility] Immunology [address] [phone] BROOK 1 Antibody <0.2 Normal <1.0 [facility] Reference Lab Comment on above: Performed By: #### R F, ENAID #### [facility] Routine Lab [address] [place] [phone] #### ANA1, ANAIFS #### [facility] Immuno Assay [address] [phone] #### DNA #### [facility] Immunology [address] [place] [phone] Ribosomal STOCKROOM COORDINATOR <0.2 Normal <1.0 [facility] Reference Lab Comment on above: Performed By: #### R F, ENAID #### [facility] Routine Lab [address] [phone] #### ANA1, ANAIFS #### [facility] Immuno Assay [address] [phone] #### DNA #### [facility] Immunology [address] [phone] STOCKROOM COORDINATOR Antibody <0.2 Normal <1.0 [facility] Reference Lab Comment on above: Performed By: #### R F, ENAID #### [facility] Routine Lab [address] [phone] #### ANA1, ANAIFS #### [facility] Immuno Assay [address] [phone] #### DNA #### [facility] Immunology [address] [phone] Scleroderma IgG Ab <0.2 Normal <1.0 [facility] Reference Lab Comment on above: Performed By: #### R F, ENAID #### [facility] Routine Lab [address] [place] [phone] #### ANA1, ANAIFS #### [facility] Immuno Assay [address] [phone] #### DNA #### [facility] Immunology [address] [phone] Sm Antibody <0.2 Normal <1.0 [facility] Reference Lab Comment on above: Performed By: #### R F, ENAID #### [facility] Routine Lab [address] [place], [place] [address] #### ANA1, ANAIFS #### [facility] Immuno Assay [address] [phone] #### DNA #### [facility] Immunology [address] [phone] SSA Antibody >8.0 High <1.0 [facility] Reference Lab Comment on above: Performed By: #### R F, ENAID #### [facility] Routine Lab [address] [address] #### ANA1, ANAIFS #### [facility] Immuno Assay [address] [phone] #### DNA #### [facility] Immunology [address] [phone] SSB Antibody <0.2 Normal <1.0 [facility] Reference Lab Comment on above: Performed By: #### R F, ENAID #### [facility] Routine Lab [address] [phone] #### ANA1, ANAIFS #### [facility] Immuno Assay [address] [phone] #### DNA #### [facility] Immunology [address] [phone] ANAND Panel 1on 02-22-2020 ANAND by EIA 3.1 OD Ratio Normal [facility] Reference Lab Comment on above: Performed By: #### R F, ENAID #### [facility] Routine Lab [address] [phone] #### ANA1, ANAIFS #### [facility] Immuno Assay [address] [phone] #### DNA #### [facility] Immunology [address] [phone] ANAND by EIA, Qual Positive Abnormal Negative [facility] Reference Lab Comment on above: Performed By: #### R F, ENAID #### [facility] Routine Lab [address] [phone] #### ANA1, ANAIFS #### [facility] Immuno Assay [address] [place] [phone] #### DNA #### [facility] Immunology [address] [place] [phone] LYME LATE (>30 DAYS)on 02-21 Lyme IgG/IgM AB Negative Normal Negative [facility] Reference Lab Comment on above: Performed By: #### L MLATE #### [facility] Routine Lab [address] [place] [phone] Rheumatoid Factoron 02-22-20 20 Rheumatoid Factor <10 Normal <16 [facility] Reference Lab Comment on above: Performed By: #### R F, ENAID #### [facility] Routine Lab [address] [place] [phone] #### ANA1, ANAIFS #### [facility] Immuno Assay [address] [phone] #### DNA #### [facility] Immunology [address] [place] [phone] Laboratory - Microbiology an d Antimicrobial susceptibilityon 02-20-2020 B. burgdorferi Ab (S) [Interp] Negative Normal [facility]; [facility]. Laboratory - Chemistry and C hemistry - challengeon 12-30-2019 Calcium [Mass/Vol] 9.4 mg/dL Normal 8.6 - 10. 4 mg/dL [facility].; [facility], [facility]. Chloride [Moles/Vol] 103 mmol/L Normal 98 - 11 0 mmol/L [facility]; [facility], [facility] Cholesterol [Mass/Vol] 244 mg/dL Abnormal [facility]; [facility], [facility]. Cholesterol in HDL [Mass/Vol] 82 mg/dL Normal [facility]; [facility], [facility] Cholesterol in LDL [Mass/Vol] 146 mg/dL Abnormal [facility].; [facility], [facility] CO2 [Moles/Vol] 29 mmol/L Normal 20 - 32 mmol/L [facility].; [facility], [facility] Creatinine [Mass/Vol] 0.83 mg/dL Normal 0.50 - 0.99 mg/dL [facility].; [facility], [facility] GFR/1.73 sq M.predicted among blacks MDRD (S/P/Bld) [Vol rate/Area] 86 mL/min/{1.73_m2} Normal [facility].; [facility], [facility] Glucose [Mass/Vol] 90 mg/dL Normal 65 - 99 mg/dL [facility].; [facility], [facility]. Potassium [Moles/Vol] 4.3 mmol/L Normal 3.5 - 5.3 mmol/L [facility].; [facility], [facility] Sodium [Moles/Vol] 140 mmol/L Normal 135 - 146 mmol/L [facility], [facility].; [facility], [facility]. Triglyceride [Mass/Vol] 56 mg/dL Normal [facility].; [facility], [facility] Urea nitrogen [Mass/Vol] 15 mg/dL Normal 7 - 25 mg/d L [facility].; [facility], [facility] No Panel Informationon 12-29 BUN/CREATININE RATIO NOT APPLICABLE Normal 6 - 22 [facility].; [facility], [facility] CHOL/HDLC RATIO 3.0 Normal [facility].; [facility], [facility] eGFR NON-AFR. VIETNAMESE 75 Normal [facility], [facility].; [facility] NON HDL CHOLESTEROL 162 Abnormal [facility], [facility].; [facility] [employer] [facility] TSH W/REFLEX TO FT4 1.03 {mIU/L} Normal 0.40 - 4 .50 {mIU/L} [facility].; [facility] [facility] Laboratory - Hematology and Cell countson 11-21-2019 Basophils (Bld) [#/Vol] 0.00 {3/UL} Normal 0.00 - 0.10 {3/UL} [facility].; [facility] [facility] Basophils/100 WBC (Bld) 0.3 % Normal 0.0 - 2.0 % [facility].; [facility] [facility] CBC W Auto Differential panel (Bld) CBC + DIFF Normal [facility].; [facility] [facility] Eosinophils (Bld) [#/Vol] 0.00 {3/UL} Normal 0.00 - 0.50 {3/UL} [facility].; [employer] [facility] Eosinophils/100 WBC (Bld) 0.6 % Normal 0.0 - 7.0 % [facility].; [employer] [facility] Erythrocyte distribution width (RBC) [Ratio] 12.5 % Normal 12.0 - 15.6 % [facility].; [employer], [facility] Hematocrit (Bld) [Volume fraction] 37.6 % Normal 34.0 - 46.0 % [facility].; [employer], [facility] Hemoglobin (Bld) [Mass/Vol] 13.0 g/dL Normal 12.0 - 16.0 g/dL [facility].; [employer], [facility] Lymphocytes (Bld) [#/Vol] 1.00 {3/UL} Normal 0.80 - 2.80 {3/UL} [facility].; [employer], [facility]. Lymphocytes/100 WBC (Bld) 16.4 % Abnormal 20.0 - 45.0 % [facility].; [employer] [facility]. MCH (RBC) [Entitic mass] 33 pg Normal 27 - 33 pg [facility].; [employer], [facility]. MCHC (RBC) [Mass/Vol] 34 {X10_3} Normal 32 - 3 6 {X10_3} [facility].; [employer], [facility]. MCV (RBC) [Entitic vol] 95 fL Normal 80 - 99 fL H [facility].; [employer] Monocytes (Bld) [#/Vol] 0.50 {3/UL} Normal 0.20 - 1.00 {3/UL} [employer], [employer]. Monocytes/100 WBC (Bld) 8.4 % Normal 0.0 - 10.0 % [employer] (Bld) [Interp] N/A Normal [employer].; [employer]. Neutrophils (Bld) [#/Vol] 4.50 {3/UL} Normal 1.50 - 7.10 {3/UL} [employer] Neutrophils/100 WBC (Bld) 74.3 % Normal 46.0 - 76.0 % [employer].; [employer] Platelet mean volume (Bld) [Entitic vol] 7.7 fL Normal 6.6 - 10.5 fL [employer].; [employer] Platelets (Bld) [#/Vol] 363 {3/UL} Normal 150 - 450 {3/UL} [employer].; [employer] RBC (Bld) [#/Vol] 3.95 {6/UL} Abnormal 4.10 - 5.3 0 {6/UL} [employer], [employer]. WBC (Bld) [#/Vol] 6.0 {3/UL} Normal 4.5 - 10.8 {3/UL} [employer].; [employer] No Panel Informationon 11-20 MANUAL DIFF N/A Normal [employer].; [employer] Coronavirus 2019on 0 COVID 19 Source WINE [employer]ERMENTER Normal [facility] Reference Lab Comment on above: Result Comment: Naso pharyngeal Swab Called to and read back by: [facility] Corrected on 11/11 AT 1251: Previously reported as NASOPHARYNGEAL 11/12/2019 1250 BBlum Corrected on 11/11 AT 1251: Previously reported as NASOPHARYNGEAL COVID 19 Result [employer] Abnormal Negative for COVID19 (SARS CoV2) by PCR. [facility] Reference Lab Comment on above: Result Comment: Posi tive for This test was developed and its performance characteristics determined by [facility] Path[facility] and [facility] [place]. This test has been authorized by FDA under an Emergency Use Authorization (EUA). This test has been validated in accordance with the FDA's Guidance Document "Policy for Diagnostics Testing in Laboratories Certified to Perform High Complexity Testing under CLIA prior to Emergency use Authorization for Coronavirus Disease 2019 during the Public Health Emergency" issued on August 20, 2019. COVID19 (SARS This test was developed and its performance characteristics determined by [facility] [place]. This test has been authorized by FDA under an Emergency Use Authorization (EUA). This test has been validated in accordance with the FDA's Guidance Document "Policy for Diagnostics Testing in Laboratories Certified to Perform High Complexity Testing under CLIA prior to Emergency use Authorization for Coronavirus Disease 2019 during the Public Health Emergency" issued on August 20, 2019. CoV2) by This test was developed and its performance characteristics determined by [facility]'s [facility] and [facility] [place]. This test has been authorized by FDA under an Emergency Use Authorization (EUA). This test has been validated in accordance with the FDA's Guidance Document "Policy for Diagnostics Testing in Laboratories Certified to Perform High Complexity Testing under CLIA prior to Emergency use Authorization for Coronavirus Disease 2019 during the Public Health Emergency" issued on August 20, 2019. PCR.(*) This test was developed and its performance characteristics determined by [facility]'s [facility] [place]. This test has been authorized by FDA under an Emergency Use Authorization (EUA). This test has been validated in accordance with the FDA's Guidance Document "Policy for Diagnostics Testing in Laboratories Certified to Perform High Complexity Testing under CLIA prior to Emergency use Authorization for Coronavirus Disease 2019 during the Public Health Emergency" issued on August 20, 2019. Laboratory - Chemistry and C hemistry - challengeon 04-18-2019 Bilirubin Ql (U) Negative Normal [facility] Ketones Ql (U) Negative Normal [facility], [facility].; [employer] pH (U) 7.5 [pH] Normal [employer]; [employer] Specific gravity (U) [Rel density] 1.020 Normal [employer]; [employer] Urobilinogen Qn (U) 0.2 mg/dL Normal [facility] [employer] Laboratory - Hematology and Cell countson 04-18-2019 Hemoglobin Ql (U) moderate Abnormal [employer] Laboratory - Specimen inform ationon 04-18-2019 Appearance (U) clear Normal [facility] [employer]; [employer] Color (U) yellow Normal [employer]; [employer] Laboratory - Urinalysison Glucose Test strip (U) [Mass/Vol] Negative Normal [employer]; [employer] Leukocyte esterase Test strip Ql (U) large Abnormal [facility] [employer]; [employer] Nitrite Ql (U) Negative Normal [facility] [employer]; [employer] Protein Ql (U) trace Normal [facility] [employer]; [employer] Laboratory - Chemistry and C hemistry - challengeon 03-31-2018 Albumin [Mass/Vol] 4.7 g/dL Normal 3.4 - 4.8 g/dL [employer]; [employer] Albumin [Mass/Vol] 2.0 g/dL Abnormal 0.9 - 1.6 [employer]; [employer] ALP [Catalytic activity/Vol] 97 U/L Normal 38 - 126 U/L [employer]; [employer] ALT [Catalytic activity/Vol] 26 U/L Normal 8 - 35 U/L [employer] ALT No additional P-5'-P [Catalytic activity/Vol] 26 U/L Normal 8 - 35 U/L [employer].; [employer] Anion gap [Moles/Vol] 12 mmol/L Normal 10 - 2 0 mmol/L [facility].; [facility]. AST [Catalytic activity/Vol] 19 U/L Normal 13 - 39 U/L [facility]; [facility], [facility] Bilirubin [Mass/Vol] 0.7 mg/dL Normal 0.0 - 1 .5 mg/dL [facility]; [facility] Calcium [Mass/Vol] 9.8 mg/dL Normal 8.6 - 10. 2 mg/dL [facility].; [facility] Chloride [Moles/Vol] 101 mmol/L Normal 98 - 10 7 mmol/L [facility]; [facility] Cholesterol [Mass/Vol] 256 mg/dL Abnormal 0 - 2 00 mg/dL [facility]; [facility], [facility] Cholesterol in HDL [Mass or moles/Vol] 82 mg/dL Abnormal 40 - 60 mg/dL [facility]; [facility] Cholesterol in LDL [Mass/Vol] 156 mg/dL Abnormal 0 - 129 mg/dL [facility].; [facility], [facility] Cholesterol.total/Choles terol in HDL [Mass ratio] 3.1 {ratio} Normal 0.0 - 5.0 [facility]; [facility], [facility] CO2 [Moles/Vol] 30.0 mmol/L Normal 21.0 - 31.0 mmol/L [facility]; [facility], [facility] Comprehensive metabolic 2000 panel CMP with eGFR Normal [facility]; [facility], [facility] Creatinine [Mass/Vol] 1.0 mg/dL Normal 0.6 - 1.2 mg/dL [facility]; [facility], [facility]. GFR/1.73 sq M.predicted among blacks MDRD (S/P/Bld) [Vol rate/Area] mL/min/{1.73_m2} Normal 60 - 999 {ML/MINUTE} [facility].; [facility], [facility] GFR/1.73 sq M.predicted MDRD (S/P/Bld) [Vol rate/Area] 56 {ML/MINUTE} Abnormal 60 - 999 {ML/MINUTE} [facility].; [facility] Globulin (S) [Mass/Vol] 2.4 g/dL Normal 1.5 - 3.8 g/dL [facility].; [facility], [facility] Glucose [Mass/Vol] 85 mg/dL Normal 74 - 106 mg/dL [facility].; [facility] Lipid 1996 panel LIPID PROFILE Normal [facility]; [facility] Potassium [Moles/Vol] 4.4 mmol/L Normal 3.5 - 5.1 mmol/L [facility]; [facility], [facility] Protein [Mass/Vol] 7.1 g/dL Normal 6.4 - 8.3 g/dL [facility]; [facility], [facility] Sodium [Moles/Vol] 139 mmol/L Normal 136 - 145 mmol/L [facility]; [facility] Triglyceride [Mass/Vol] 89 mg/dL Normal 0 - 150 mg/dL [facility]; [facility] Urea nitrogen [Mass/Vol] 18 mg/dL Normal 6 - 20 mg/d L [facility]; [facility], [facility] Urea nitrogen/Creatinine [Mass ratio] 18 {ratio} Normal 0 - 30 {ratio} [facility].; [facility] [facility] Laboratory - Hematology and Cell countson 03-31-2018 Basophils (Bld) [#/Vol] 0.10 {3/UL} Normal 0.00 - 0.10 {3/UL} [facility].; [facility] Basophils/100 WBC (Bld) 0.5 % Normal 0.0 - 2.0 % [facility]; [facility] CBC W Auto Differential panel (Bld) CBC Normal [facility]; [facility], [facility] Eosinophils (Bld) [#/Vol] 0.00 {3/UL} Normal 0.00 - 0.50 {3/UL} [facility]; [facility]. Eosinophils/100 WBC (Bld) 0.5 % Normal 0.0 - 7.0 % [facility], [facility].; [employer], [facility]. Erythrocyte distribution width (RBC) [Ratio] 13.0 % Normal 12.0 - 15.6 % [facility], [facility].; [employer], [facility]. Hematocrit (Bld) [Volume fraction] 42.3 % Normal 34.0 - 46.0 % [facility], [facility].; [employer], [facility]. Hemoglobin (Bld) [Mass/Vol] 14.4 g/dL Normal 12.0 - 16.0 g/dL [facility], [facility].; [facility], [facility]. Lymphocytes (Bld) [#/Vol] 1.50 {3/UL} Normal 0.80 - 2.80 {3/UL} [facility], [facility].; [employer], [facility]. Lymphocytes/100 WBC (Bld) 15.6 % Abnormal 20.0 - 45.0 % [facility], [facility].; [employer], [facility]. MCH (RBC) [Entitic mass] 33 pg Normal 27 - 33 pg [facility] [employer] [facility].; [employer], [employer]. MCHC (RBC) [Mass/Vol] 34 {X10_3} Normal 32 - 3 6 {X10_3} [facility] [employer], [facility].; [employer] MCV (RBC) [Entitic vol] 97 fL Normal 80 - 99 fL H [facility].; [employer], [facility]. Monocytes (Bld) [#/Vol] 0.50 {3/UL} Normal 0.20 - 1.00 {3/UL} [facility] [employer], [facility].; [employer] Monocytes/100 WBC (Bld) 5.2 % Normal 0.0 - 10.0 % [facility] [employer], [facility].; [employer] Morphology Stanley (Bld) [Interp] N/A Normal [facility], [facility].; [facility] [employer] Neutrophils (Bld) [#/Vol] 7.40 {3/UL} Abnormal 1.50 - 7.10 {3/UL} [facility] [employer], [facility].; [employer] Neutrophils/100 WBC (Bld) 78.2 % Abnormal 46.0 - 76.0 % [employer].; [employer], [employer]. Platelet mean volume (Bld) [Entitic vol] 8.6 fL Normal 6.6 - 10.5 fL [employer], [employer].; [employer], [employer]. Platelets (Bld) [#/Vol] 303 {3/UL} Normal 150 - 450 {3/UL} [employer].; [employer], [employer]. RBC (Bld) [#/Vol] 4.34 {6/UL} Normal 4.10 - 5.3 0 {6/UL} [employer], [employer].; [employer], [employer]. WBC (Bld) [#/Vol] 9.4 {3/UL} Normal 4.5 - 10.8 {3/UL} [employer], [employer].; [employer], [employer]. No Panel Informationon 03-31 AGE 63 {years} Normal [employer].; [employer] MANUAL DIFF N/A Normal [employer].; [employer] Laboratoryon 01-14-2017 Lower GI hemoglobin IA Ql (Stl) Not detected Normal [employer].; [employer], [employer]. Laboratory - Chemistry and C hemistry - challengeon 01-01-2017 Anion gap [Moles/Vol] 9 mmol/L Abnormal 10 - 2 0 mmol/L [employer].; [employer], [employer]. Basic metabolic 2000 panel BMP with eGFR Normal [employer].; [employer] Calcium [Mass/Vol] 8.9 mg/dL Normal 8.6 - 10. 2 mg/dL [employer], [employer].; [employer], [employer]. Chloride [Moles/Vol] 102 mmol/L Normal 98 - 10 7 mmol/L [employer], [employer].; [employer] Cholesterol [Mass/Vol] 223 mg/dL Abnormal 0 - 2 00 mg/dL [employer], [employer].; [employer] Cholesterol in HDL [Mass or moles/Vol] 73 mg/dL Abnormal 40 - 60 mg/dL [employer].; [facility]. Cholesterol in LDL [Mass/Vol] 137 mg/dL Abnormal 0 - 129 mg/dL [facility].; [facility], [facility]. Cholesterol.total/Choles terol in HDL [Mass ratio] 3.1 {ratio} Normal 0.0 - 5.0 [facility], [facility].; [facility], [facility]. CO2 [Moles/Vol] 32.8 mmol/L Abnormal 21.0 - 31.0 mmol/L [facility].; [facility], [facility]. Creatinine [Mass/Vol] 0.9 mg/dL Normal 0.6 - 1.2 mg/dL [facility], [facility].; [facility], [facility]. GFR/1.73 sq M.predicted among blacks MDRD (S/P/Bld) [Vol rate/Area] mL/min/{1.73_m2} Normal 60 - 999 {ML/MINUTE} [facility], [facility].; [facility], [facility]. GFR/1.73 sq M.predicted MDRD (S/P/Bld) [Vol rate/Area] mL/min/{1.73_m2} Normal 60 - 999 {ML/MINUTE} [facility], [facility].; [facility], [facility]. Glucose [Mass/Vol] 77 mg/dL Normal 74 - 106 mg/dL [facility], [facility].; [facility], [facility]. Lipid 1996 panel LIPID PROFILE Normal [facility], [facility].; [facility], [facility] Potassium [Moles/Vol] 4.5 mmol/L Normal 3.5 - 5.1 mmol/L [facility].; [facility], [facility]. Sodium [Moles/Vol] 139 mmol/L Normal 136 - 145 mmol/L [facility], [facility].; [facility], [facility]. Triglyceride [Mass/Vol] 67 mg/dL Normal 0 - 150 mg/dL [facility], [facility].; [facility] [employer] [facility], [facility]. TSH Qn 1.79 m[IU]/L Normal 0.34 - 5.60 {uIU/ml} [facility], [facility].; [facility], [facility]. Urea nitrogen [Mass/Vol] 14 mg/dL Normal 6 - 20 mg/d L [facility] [employer].; [employer] Laboratory - Hematology and Cell countson 01-01-2017 Basophils (Bld) [#/Vol] 0.00 {3/UL} Normal 0.00 - 0.10 {3/UL} [facility].; [facility] [employer] [facility] Basophils/100 WBC (Bld) 1.0 % Normal 0.0 - 2.0 % [facility] [employer].; [employer]. CBC W Auto Differential panel (Bld) CBC Normal [facility] [employer] [facility].; [employer] Eosinophils (Bld) [#/Vol] 0.20 {3/UL} Normal 0.00 - 0.50 {3/UL} [facility] [employer].; [employer]. Eosinophils/100 WBC (Bld) 3.1 % Normal 0.0 - 7.0 % [facility] [employer].; [employer] Erythrocyte distribution width (RBC) [Ratio] 12.8 % Normal 12.0 - 15.6 % [facility] [employer].; [employer] Hematocrit (Bld) [Volume fraction] 39.7 % Normal 34.0 - 46.0 % [facility] [employer].; [employer], [employer]. Hemoglobin (Bld) [Mass/Vol] 13.4 g/dL Normal 12.0 - 16.0 g/dL [facility] [employer].; [employer], [employer] Lymphocytes (Bld) [#/Vol] 1.50 {3/UL} Normal 0.80 - 2.80 {3/UL} [employer].; [employer]. Lymphocytes/100 WBC (Bld) 31.7 % Normal 20.0 - 45.0 % [facility] [employer].; [employer], [employer]. MCH (RBC) [Entitic mass] 32 pg Normal 27 - 33 pg [employer].; [employer], [employer]. MCHC (RBC) [Mass/Vol] 34 {X10_3} Normal 32 - 3 6 {X10_3} [facility] [employer].; [employer], [employer]. MCV (RBC) [Entitic vol] 94 fL Normal 80 - 99 fL H [facility].; [employer] [facility]. Monocytes (Bld) [#/Vol] 0.50 {3/UL} Normal 0.20 - 1.00 {3/UL} [facility] [employer].; [employer]. Monocytes/100 WBC (Bld) 11.1 % Abnormal 0.0 - 10.0 % [facility].; [employer] Morphology Stanley (Bld) [Interp] N/A Normal [facility] [employer].; [employer]. Neutrophils (Bld) [#/Vol] 2.60 {3/UL} Normal 1.50 - 7.10 {3/UL} [employer].; [employer]. Neutrophils/100 WBC (Bld) 53.1 % Normal 46.0 - 76.0 % [facility] [employer].; [employer]. Platelet mean volume (Bld) [Entitic vol] 8.6 fL Normal 6.6 - 10.5 fL [facility] [employer].; [employer] Platelets (Bld) [#/Vol] 232 {3/UL} Normal 150 - 450 {3/UL} [employer].; [employer]. RBC (Bld) [#/Vol] 4.21 {6/UL} Normal 4.10 - 5.3 0 {6/UL} [employer].; [employer]. WBC (Bld) [#/Vol] 4.8 {3/UL} Normal 4.5 - 10.8 {3/UL} [employer].; [employer] Laboratory - Microbiology an d Antimicrobial susceptibilityon 01-01-2017 B. burgdorferi Ab IA Qn (S) LYME DISEASE AB W/RFX IGG,IGM [QU] Normal [employer].; [employer] No Panel Informationon 01-01 AGE 61 {years} Normal [employer].; [employer] MANUAL DIFF N/A Normal [employer]; [employer]. Laboratory - Hematology and Cell countson 05-06-2016 ESR (Bld) [Velocity] 2 mm/h Normal 0 - 30 mm/h [facility]; [facility] Laboratory - Serology - non- microon 05-06-2016 Rheumatoid factor Qn RHEUMATOID FACTOR [QUEST] Normal [facility]; [place] [employer] [facility] Laboratoryon 01-15-2016 Lower GI hemoglobin IA Ql (Stl) Not detected Normal [facility]; [facility] Work Phone: Laboratory - Chemistry and C hemistry - challengeon 01-04-2016 Albumin [Mass/Vol] 4.2 g/dL Normal 3.4 - 4.8 g/dL [facility]; [facility] Albumin [Mass/Vol] 1.9 g/dL Abnormal 0.9 - 1.6 [facility]; [facility] ALP [Catalytic activity/Vol] 100 U/L Normal 38 - 126 U/L [facility]; [facility]. ALT [Catalytic activity/Vol] 31 U/L Normal 8 - 35 U/L [facility].; [facility] ALT No additional P-5'-P [Catalytic activity/Vol] 31 U/L Normal 8 - 35 U/L [facility]; [facility] [employer] [facility] Anion gap [Moles/Vol] 9 mmol/L Abnormal 10 - 2 0 mmol/L [facility]; [facility]. AST [Catalytic activity/Vol] 23 U/L Normal 13 - 39 U/L [facility]; [facility]. Bilirubin [Mass/Vol] 0.7 mg/dL Normal 0.0 - 1 .5 mg/dL [facility]; [facility], [facility]. Calcium [Mass/Vol] 9.0 mg/dL Normal 8.6 - 10. 2 mg/dL [facility].; [facility] [employer] [facility], [facility]. Chloride [Moles/Vol] 103 mmol/L Normal 98 - 10 7 mmol/L [facility].; [facility]. Cholesterol [Mass/Vol] 243 mg/dL Abnormal 0 - 2 00 mg/dL [facility].; [facility], [facility] Cholesterol in HDL [Mass or moles/Vol] 72 mg/dL Abnormal 40 - 60 mg/dL [facility].; [facility], [facility] Cholesterol in LDL [Mass/Vol] 155 mg/dL Abnormal 0 - 129 mg/dL [facility].; [facility], [facility] Cholesterol.total/Choles terol in HDL [Mass ratio] 3.4 {ratio} Normal 0.0 - 5.0 [facility]; [facility], [facility] CO2 [Moles/Vol] 30.0 mmol/L Abnormal 13.0 - 29.0 mmol/L [facility]; [facility], [facility] Comprehensive metabolic 2000 panel CMP with eGFR Normal [facility]; [facility], [facility] Creatinine [Mass/Vol] 0.8 mg/dL Normal 0.6 - 1.2 mg/dL [facility].; [facility], [facility]. GFR/1.73 sq M.predicted among blacks MDRD (S/P/Bld) [Vol rate/Area] mL/min/{1.73_m2} Normal 60 - 999 {ML/MINUTE} [facility], [facility].; [facility], [facility]. GFR/1.73 sq M.predicted MDRD (S/P/Bld) [Vol rate/Area] mL/min/{1.73_m2} Normal 60 - 999 {ML/MINUTE} [facility], [facility].; [facility], [facility] Globulin (S) [Mass/Vol] 2.2 g/dL Normal 1.5 - 3.8 g/dL [facility], [facility].; [facility], [facility]. Glucose [Mass/Vol] 91 mg/dL Normal 74 - 106 mg/dL [facility].; [facility], [facility] Lipid 1996 panel LIPID PROFILE Normal [facility]; [facility], [facility] Potassium [Moles/Vol] 4.2 mmol/L Normal 3.5 - 5.1 mmol/L [facility]; [facility] [employer] Protein [Mass/Vol] 6.4 g/dL Normal 6.4 - 8.3 g/dL [facility].; [facility] [employer]. Sodium [Moles/Vol] 138 mmol/L Normal 136 - 145 mmol/L [facility].; [employer], [facility]. Triglyceride [Mass/Vol] 81 mg/dL Normal 0 - 150 mg/dL [facility].; [place] [employer] [facility] Urea nitrogen [Mass/Vol] 16 mg/dL Normal 6 - 20 mg/d L [facility].; [place] [employer] [facility] Urea nitrogen/Creatinine [Mass ratio] 20 {ratio} Normal 0 - 30 {ratio} [facility] [employer].; [employer] Laboratory - Hematology and Cell countson 01-04-2016 Basophils (Bld) [#/Vol] 0.00 {3/UL} Normal 0.00 - 0.10 {3/UL} [facility].; [facility] [employer]. Basophils/100 WBC (Bld) 0.9 % Normal 0.0 - 2.0 % [facility] [employer] [facility].; [employer]. CBC W Auto Differential panel (Bld) CBC Normal [facility] [facility]; [employer], [facility]. Eosinophils (Bld) [#/Vol] 0.10 {3/UL} Normal 0.00 - 0.50 {3/UL} [facility] [employer] [facility].; [employer], [facility]. Eosinophils/100 WBC (Bld) 2.1 % Normal 0.0 - 7.0 % [facility].; [employer]. Erythrocyte distribution width (RBC) [Ratio] 13.0 % Normal 12.0 - 15.6 % [facility] [employer] [facility].; [employer], [employer]. Hematocrit (Bld) [Volume fraction] 39.5 % Normal 34.0 - 46.0 % [facility] [employer] [facility].; [employer], [facility]. Hemoglobin (Bld) [Mass/Vol] 13.4 g/dL Normal 12.0 - 16.0 g/dL [facility].; [facility] [employer] [facility] Lymphocytes (Bld) [#/Vol] 1.30 {3/UL} Normal 0.80 - 2.80 {3/UL} [employer] Lymphocytes/100 WBC (Bld) 24.4 % Normal 20.0 - 45.0 % [employer] MCH (RBC) [Entitic mass] 33 pg Normal 27 - 33 pg [employer] MCHC (RBC) [Mass/Vol] 34 {X10_3} Normal 32 - 3 6 {X10_3} [employer] MCV (RBC) [Entitic vol] 96 fL Normal 80 - 99 fL H [facility] [employer] Monocytes (Bld) [#/Vol] 0.40 {3/UL} Normal 0.20 - 1.00 {3/UL} [employer] Monocytes/100 WBC (Bld) 7.1 % Normal 0.0 - 10.0 % [employer] Morphology Stanley (Bld) [Interp] N/A Normal [employer].; [employer] Neutrophils (Bld) [#/Vol] 3.60 {3/UL} Normal 1.50 - 7.10 {3/UL} [employer] Neutrophils/100 WBC (Bld) 65.5 % Normal 46.0 - 76.0 % [employer] Platelet mean volume (Bld) [Entitic vol] 8.8 fL Normal 6.6 - 10.5 fL [employer] Platelets (Bld) [#/Vol] 236 {3/UL} Normal 150 - 450 {3/UL} [employer] RBC (Bld) [#/Vol] 4.13 {6/UL} Normal 4.10 - 5.3 0 {6/UL} [employer] WBC (Bld) [#/Vol] 5.5 {3/UL} Normal 4.5 - 10.8 {3/UL} [employer].; [employer] No Panel Informationon 01-03 AGE 60 {years} Normal [employer].; [employer] MANUAL DIFF N/A Normal [employer].; [employer] Laboratory - Microbiology an d Antimicrobial susceptibilityon 09-07-2015 S. pyogenes Ag EIA Ql (Throat) Negative Normal [employer].; [employer] Laboratoryon 05-27-2014 Lower GI hemoglobin IA Ql (Stl) Not detected Normal [employer]; [employer] Laboratory - Chemistry and C hemistry - challengeon 05-06-2013 Cholesterol [Mass/Vol] 231 mg/dL Abnormal 125 - 200 mg/dL [employer].; [employer] Cholesterol in HDL [Mass/Vol] 78 mg/dL Normal [employer].; [employer] Cholesterol in LDL [Mass/Vol] 137 mg/dL Abnormal [employer] Cholesterol non HDL [Mass/Vol] 153 mg/dL Normal [employer].; [employer] Cholesterol.total/Choles terol in HDL [Mass ratio] 3.0 {ratio} Normal [employer].; [employer] Glucose [Mass/Vol] 78 mg/dL Normal 65 - 99 mg/dL [employer].; [employer] Triglyceride [Mass/Vol] 81 mg/dL Normal H [facility] [employer].; [employer] Laboratory - Hematology and Cell countson 05-06-2013 Basophils (Bld) [#/Vol] 20 {Cells}/uL Normal 0 - 200 {Cells}/uL [employer].; [employer], [employer]. Basophils/100 WBC (Bld) 0 % Normal 0 - 2 % H [employer] [employer].; [employer] Eosinophils (Bld) [#/Vol] 80 {Cells}/uL Normal 15 - 500 {Cells}/uL [facility].; [facility] [employer] [facility], [facility]. Eosinophils/100 WBC (Bld) 2 % Normal 0 - 8 % [facility].; [facility] [employer] [facility], [facility]. Erythrocyte distribution width (RBC) [Ratio] 12.9 % Normal 11.0 - 15.0 % [facility], [facility].; [employer], [facility]. Hematocrit (Bld) [Volume fraction] 39.6 % Normal 35.0 - 45.0 % [facility], [facility].; [facility] [employer] [facility], [facility]. Hemoglobin (Bld) [Mass/Vol] 13.4 g/dL Normal 11.7 - 15.5 g/dL [facility], [facility].; [facility], [facility]. Lymphocytes (Bld) [#/Vol] 1140 {Cells}/uL Normal 850 - 3900 {Cells}/uL [facility], [facility].; [employer], [facility]. Lymphocytes/100 WBC (Bld) 28 % Normal 15 - 49 % [facility].; [employer], [facility]. MCH (RBC) [Entitic mass] 33.4 pg Abnormal 27. 0 - 33.0 PG [facility] Tir[facility].; [facility] [employer], [facility]. MCHC (RBC) [Mass/Vol] 33.7 g/dL Normal 32.0 - 36.0 g/dL [facility], [facility].; [facility] [employer] MCV (RBC) [Entitic vol] 98.9 fL Normal 80.0 - 100.0 fL [facility].; [employer], [facility]. Monocytes (Bld) [#/Vol] 250 {Cells}/uL Normal 20 0 - 950 {Cells}/uL [facility] Tiragiu [facility].; [employer] Monocytes/100 WBC (Bld) 6 % Normal 0 - 13 % [facility].; [facility], [facility]. Neutrophils (Bld) [#/Vol] 2530 {Cells}/uL Normal 1500 - 7800 {Cells}/uL [facility] [employer], [facility].; [employer] Neutrophils/100 WBC (Bld) 63 % Normal 38 - 80 % [facility] [employer] [facility].; [facility] [employer], [employer]. Platelets (Bld) [#/Vol] 253 10*3/uL Normal 140 - 400 10*3/uL [facility] [employer].; [employer]. RBC (Bld) [#/Vol] 4.01 10*6/uL Normal 3.80 - 5.1 0 10*6/uL [facility] [employer].; [employer]. WBC (Bld) [#/Vol] 4.0 10*3/uL Normal 3.8 - 10.8 10*3/uL [facility] [employer]. Laboratoryon 05-25-2012 Lower GI hemoglobin IA Ql (Stl) Not detected Normal [employer]. Laboratory - Chemistry and C hemistry - challengeon 04-20-2012 Calcium [Mass/Vol] 9.2 mg/dL Normal 8.6 - 10. 4 mg/dL [facility] [employer].; [employer]. Chloride [Moles/Vol] 104 mmol/L Normal 98 - 11 0 mmol/L [facility] Tiragiu [facility].; [employer], [employer]. Cholesterol [Mass/Vol] 249 mg/dL Abnormal 125 - 200 mg/dL [employer].; [employer], [employer]. Cholesterol in HDL [Mass/Vol] 92 mg/dL Normal [facility] Tiragiu [facility].; [employer], [employer]. Cholesterol in LDL [Mass/Vol] 146 mg/dL Abnormal [employer]. Cholesterol non HDL [Mass/Vol] 157 mg/dL Normal [employer] [facility].; [employer]. Cholesterol.total/Choles terol in HDL [Mass ratio] 2.7 {ratio} Normal [employer].; [employer]. CO2 [Moles/Vol] 30 mmol/L Normal 21 - 33 mmol/L [facility] [employer].; [employer], [employer]. Creatinine [Mass/Vol] 0.89 mg/dL Normal 0.50 - 1.05 mg/dL [facility] [employer].; [employer], [employer]. GFR/1.73 sq M.predicted among blacks MDRD (S/P/Bld) [Vol rate/Area] 83 {ML/MIN/1.73M2} Normal [facility].; [facility]. GFR/1.73 sq M.predicted MDRD (S/P/Bld) [Vol rate/Area] 72 {ML/MIN/1.73M2} Normal [facility], [facility].; [facility] [employer] [facility], [facility]. Glucose [Mass/Vol] 81 mg/dL Normal 65 - 99 mg/dL [facility].; [facility] [employer] [facility], [facility]. Potassium [Moles/Vol] 4.2 mmol/L Normal 3.5 - 5.3 mmol/L [facility].; [facility] [employer] [facility], [facility]. Sodium [Moles/Vol] 142 mmol/L Normal 135 - 146 mmol/L [facility].; [facility] [employer] [facility], [facility]. Triglyceride [Mass/Vol] 54 mg/dL Normal H [facility].; [employer], [employer]. Urea nitrogen [Mass/Vol] 14 mg/dL Normal 7 - 25 mg/d L [facility] [facility].; [employer], [employer]. Urea nitrogen/Creatinine [Mass ratio] 15.8 mg/mg Normal 6 - 22 [facility].; [employer], [employer]. Laboratory - Hematology and Cell countson 04-20-2012 Basophils (Bld) [#/Vol] 20 {Cells}/uL Normal 0 - 200 {Cells}/uL [facility].; [employer], [employer]. Basophils/100 WBC (Bld) 0 % Normal 0 - 2 % H [facility].; [employer], [facility]. Eosinophils (Bld) [#/Vol] 110 {Cells}/uL Normal 15 - 500 {Cells}/uL [facility] Tiragiu [facility].; [employer], [employer]. Eosinophils/100 WBC (Bld) 2 % Normal 0 - 8 % [facility] Tiragiu [facility].; [employer], [employer]. Erythrocyte distribution width (RBC) [Ratio] 13.2 % Normal 11.0 - 15.0 % [facility] [employer] [facility], [facility].; [employer], [employer]. Hematocrit (Bld) [Volume fraction] 39.3 % Normal 35.0 - 45.0 % [facility] [facility] [employer].; [employer]. Hemoglobin (Bld) [Mass/Vol] 13.5 g/dL Normal 11.7 - 15.5 g/dL [facility], [facility].; [facility], [facility]. Lymphocytes (Bld) [#/Vol] 1270 {Cells}/uL Normal 850 - 3900 {Cells}/uL [facility], [facility].; [facility], [facility]. Lymphocytes/100 WBC (Bld) 27 % Normal 15 - 49 % [facility], [facility].; [facility], [facility]. MCH (RBC) [Entitic mass] 34.2 pg Abnormal 27. 0 - 33.0 PG [facility], [facility].; [facility] [employer] [facility], [facility]. MCHC (RBC) [Mass/Vol] 34.3 g/dL Normal 32.0 - 36.0 g/dL [facility], [facility].; [employer], [facility]. MCV (RBC) [Entitic vol] 99.5 fL Normal 80.0 - 100.0 fL [facility].; [facility] [facility], [facility]. Monocytes (Bld) [#/Vol] 260 {Cells}/uL Normal 20 0 - 950 {Cells}/uL [facility].; [employer], [facility]. Monocytes/100 WBC (Bld) 6 % Normal 0 - 13 % H [facility].; [facility], [facility]. Neutrophils (Bld) [#/Vol] 3000 {Cells}/uL Normal 1500 - 7800 {Cells}/uL [facility], [facility].; [employer], [facility]. Neutrophils/100 WBC (Bld) 64 % Normal 38 - 80 % [facility], [facility].; [employer], [facility]. Platelets (Bld) [#/Vol] 275 10*3/uL Normal 140 - 400 10*3/uL [employer], [facility].; [employer] RBC (Bld) [#/Vol] 3.95 10*6/uL Normal 3.80 - 5.1 0 10*6/uL [facility] [employer] WBC (Bld) [#/Vol] 4.7 10*3/uL Normal 3.8 - 10.8 10*3/uL [facility].; [facility] Laboratory - Chemistry and C hemistry - challengeon 04-22-2011 Cholesterol [Mass/Vol] 255 mg/dL Abnormal 125 - 200 mg/dL [facility].; [facility] Cholesterol in HDL [Mass/Vol] 92 mg/dL Normal [facility]; [facility] Cholesterol in LDL [Mass/Vol] 145 mg/dL Abnormal [facility].; [place] Tiragiu [facility]. Cholesterol.total/Choles terol in HDL [Mass ratio] 2.8 {ratio} Normal [facility].; [facility] [employer] Triglyceride [Mass/Vol] 89 mg/dL Normal [facility]; [place] [facility] [facility] Laboratory - Chemistry and C hemistry - challengeon 10-24-2010 Calcium [Mass/Vol] 9.3 mg/dL Normal 8.6 - 10. 2 mg/dL [facility].; [facility] Tiragiu [facility]. Chloride [Moles/Vol] 104 mmol/L Normal 98 - 11 0 mmol/L [facility].; [place] Tirag[facility]. Cholesterol [Mass/Vol] 247 mg/dL Abnormal 125 - 200 mg/dL [facility].; [place] [facility] [facility]. Cholesterol in HDL [Mass/Vol] 95 mg/dL Normal [facility].; [facility] [employer] Cholesterol in LDL [Mass/Vol] 140 mg/dL Abnormal [facility].; [place] Tiragiu [facility]. Cholesterol.total/Choles terol in HDL [Mass ratio] 2.6 {ratio} Normal [facility].; [facility] [employer]. CO2 [Moles/Vol] 32 mmol/L Normal 21 - 33 mmol/L [facility].; [employer]. Creatinine [Mass/Vol] 0.80 mg/dL Normal 0.60 - 1.10 mg/dL [facility].; [employer], [facility]. GFR/1.73 sq M.predicted among blacks MDRD (S/P/Bld) [Vol rate/Area] 96 {ML/MIN/1.73M2} Normal [facility]; [facility] GFR/1.73 sq M.predicted MDRD (S/P/Bld) [Vol rate/Area] 83 {ML/MIN/1.73M2} Normal [facility]; [facility] Glucose [Mass/Vol] 87 mg/dL Normal 65 - 99 mg/dL [facility]; [facility] Potassium [Moles/Vol] 4.1 mmol/L Normal 3.5 - 5.3 mmol/L [facility]; [facility] Sodium [Moles/Vol] 143 mmol/L Normal 135 - 146 mmol/L [facility]; [facility] Triglyceride [Mass/Vol] 62 mg/dL Normal H [facility]; [facility] [facility] Urea nitrogen [Mass/Vol] 16 mg/dL Normal 7 - 25 mg/d L [facility]; [facility] Urea nitrogen/Creatinine [Mass ratio] 20.5 mg/mg Normal 6 - 22 [facility]; [place] [facility] [facility] Laboratory - Hematology and Cell countson 10-24-2010 Basophils (Bld) [#/Vol] 10 {Cells}/uL Normal 0 - 200 {Cells}/uL [facility].; [place] Tirag[facility]. Basophils/100 WBC (Bld) 0 % Normal 0 - 2 % [facility].; [facility] Eosinophils (Bld) [#/Vol] 70 {Cells}/uL Normal 15 - 500 {Cells}/uL [facility].; [place] Tirag[facility] Eosinophils/100 WBC (Bld) 2 % Normal 0 - 8 % [facility]; [facility] [facility] Erythrocyte distribution width (RBC) [Ratio] 12.7 % Normal 11.0 - 15.0 % [facility].; [employer], [facility] Hematocrit (Bld) [Volume fraction] 41.5 % Normal 35.0 - 45.0 % [facility].; [facility] [facility] Hemoglobin (Bld) [Mass/Vol] 13.8 g/dL Normal 11.7 - 15.5 g/dL [facility], [facility].; [facility], [facility]. Lymphocytes (Bld) [#/Vol] 1270 {Cells}/uL Normal 850 - 3900 {Cells}/uL [facility], [facility].; [facility] Lymphocytes/100 WBC (Bld) 29 % Normal 15 - 49 % [facility], [facility].; [facility], [facility]. MCH (RBC) [Entitic mass] 33.7 pg Abnormal 27. 0 - 33.0 PG [facility], [facility].; [facility], [facility]. MCHC (RBC) [Mass/Vol] 33.2 g/dL Normal 32.0 - 36.0 g/dL [facility], [facility].; [facility], [facility]. MCV (RBC) [Entitic vol] 101.4 fL Abnormal 80.0 - 100.0 fL [facility], [facility].; [facility], [facility]. Monocytes (Bld) [#/Vol] 230 {Cells}/uL Normal 20 0 - 950 {Cells}/uL [facility], [facility].; [employer], [facility]. Monocytes/100 WBC (Bld) 5 % Normal 0 - 13 % H [facility].; [facility], [facility]. Neutrophils (Bld) [#/Vol] 2840 {Cells}/uL Normal 1500 - 7800 {Cells}/uL [facility], [facility].; [employer] Neutrophils/100 WBC (Bld) 64 % Normal 38 - 80 % [facility], [facility].; [employer], [facility]. Platelets (Bld) [#/Vol] 243 10*3/uL Normal 140 - 400 10*3/uL [facility], [facility].; [employer] RBC (Bld) [#/Vol] 4.09 10*6/uL Normal 3.80 - 5.1 0 10*6/uL [facility], [facility].; [employer] WBC (Bld) [#/Vol] 4.4 10*3/uL Normal 3.8 - 10.8 10*3/uL [facility], [facility].; [employer] Vital Signs Date Time Vital Sign Value Performing Clinician Facility 01-02-2025 09:45-0400 Body height 172.[address] Staci Obando MD Work Phone: [phone] [place] [address] 01-02-2025 09:45-0400 Body weight 66.[address] Staci Obando MD Work Phone: [phone] [place] [address] 12-30-2024 10:09-0400 Body mass index (BMI) [Ratio] 22.1 kg/m2 Dr. Staci Obando MD Work Phone: [phone])176-758087 [address] 12-14-2024 10:21-0400 Body height 175.[address] Staci Obando MD Work Phone: [phone])958-478432 [place] [address] 12-14-2024 10:21-0400 Body mass index (BMI) [Ratio] 21.6 kg/m2 Dr. Staci Obando MD Work Phone: [phone])086-126587 [address] 12-14-2024 10:21-0400 Body weight 66.[address] Staci Obando MD Work Phone: [phone] [place] [address] 12-14-2024 10:21-0400 Diastolic blood pressure 72 mm[Hg] Dr. Staci Obando MD Work Phone: [phone] [place] [address] 12-14-2024 10:21-0400 Heart rate 55 /min Dr. Staci Obando MD Work Phone: [phone])[phone] [address] 12-14-2024 10:21-0400 Respiratory rate 16 /min Dr. Staci Obando MD Work Phone: [phone] [address] 12-14-2024 10:21-0400 Systolic blood pressure 123 mm[Hg] Dr. Staci Obando MD Work Phone: [phone] [address] 09-21-2024 11:30-0400 Body height 173.99 cm Silvia Hurtado LPN Work Phone: [facility], [facility].; [facility], [facility]. 09-21-2024 11:30-0400 Body mass index (BMI) [Ratio] 21.88 kg/m2 [facility] Work Phone: [facility]; [facility] 09-21-2024 11:30-0400 Body surface area Derived from formula 1.8 m2 [facility] Work Phone: [facility]; [facility] 09-21-2024 11:30-0400 Body weight 66.23 kg [facility] Work Phone: [facility]; [facility] 09-21-2024 11:30-0400 Diastolic blood pressure 86 mm[Hg] [facility] Work Phone: [facility]; [employer]. Comment on above: Patient Position: Sitting; Cuff Location : Left Arm; Cuff Size: Large 09-21-2024 11:30-0400 Heart rate 76 /min [facility] Work Phone: [facility]; [employer]. Comment on above: Pattern: Regular 09-21-2024 11:30-0400 Systolic blood pressure 135 mm[Hg] [facility] Work Phone: [facility]; [employer]. Comment on above: Patient Position: Sitting; Cuff Location : Left Arm; Cuff Size: Large 09-20-2024 14:32-0400 Diastolic blood pressure 83 mm[Hg] Staci Obando MD Work Phone: [facility]; [employer]. Comment on above: Patient Position: Sitting; Cuff Location : Left Arm; Cuff Size: Standard 09-20-2024 14:32-0400 Systolic blood pressure 122 mm[Hg] Staci Obando MD Work Phone: [facility]; [employer]. Comment on above: Patient Position: Sitting; Cuff Location : Left Arm; Cuff Size: Standard 07-21-2024 08:44-0500 Body temperature 97.1 [degF] Dr. Staci Obando MD Work Phone: [facility] 07-21-2024 08:44-0500 Diastolic blood pressure 77 mm[Hg] Dr. Staci Obando MD Work Phone: [phone] [address] 07-21-2024 08:44-0500 Heart rate 75 /min Dr. Staci Obando MD Work Phone: [phone] [address] 07-21-2024 08:44-0500 Respiratory rate 16 /min Dr. Staci Obando MD Work Phone: [phone] [address] 07-21-2024 08:44-0500 SaO2% (BldA) [Mass fraction] 95 % Dr. Staci Obando MD Work Phone: [phone])284-824987 [address] 07-21-2024 08:44-0500 Systolic blood pressure 112 mm[Hg] Dr. Staci Obando MD Work Phone: [phone])758-831887 [address] 07-21-2024 06:54-0500 Body height 175.[address] Staci Obando MD Work Phone: [phone] [address] 07-21-2024 06:54-0500 Body mass index (BMI) [Ratio] 21.7 kg/m2 Dr. Staci Obando MD Work Phone: [phone] [place] [address] 07-21-2024 06:54-0500 Body weight 66.[address] Staci Obando MD Work Phone: [phone] [place] [address] 04-18-2024 09:46-0400 Body height 173.99 cm [employer] Work Phone: [facility], [facility].; [facility], [facility]. 04-18-2024 09:46-0400 Body mass index (BMI) [Ratio] 21.58 kg/m2 [facility] Work Phone: [facility], [facility].; [facility], [facility]. 04-18-2024 09:46-0400 Body surface area Derived from formula 1.79 m2 [facility] Work Phone: [facility].; [employer]. 04-18-2024 09:46-0400 Body weight 65.32 kg Silvia Hurtado LPN Work Phone: [facility] [employer]. 04-18-2024 09:46-0400 Diastolic blood pressure 76 mm[Hg] Silvia Hurtado SHIELD OPERATOR Work Phone: [facility] [employer] Comment on above: Patient Position: Sitting; Cuff Location : Left Arm; Cuff Size: Standard 04-18-2024 09:46-0400 Heart rate 70 /min Silvia Hurtado LPN Work Phone: [facility] [employer]; [employer] Comment on above: Pattern: Regular 04-18-2024 09:46-0400 Systolic blood pressure 113 mm[Hg] Silvia Hurtado LPN Work Phone: [facility] [employer] Comment on above: Patient Position: Sitting; Cuff Location : Left Arm; Cuff Size: Standard 04-17-2023 09:55-0400 Body height 173.99 cm Kyra Mcgill LPN [facility] [employer]. 04-17-2023 09:55-0400 Body mass index (BMI) [Ratio] 20.68 kg/m2 Kyra Mcgill LPN [facility] [employer]. 04-17-2023 09:55-0400 Body surface area Derived from formula 1.76 m2 Kyra Mcgill LPN [facility].; [employer]. 04-17-2023 09:55-0400 Body weight 62.6 kg Kyra Mcgill SHIELD OPERATOR [facility].; [employer]. 04-17-2023 09:55-0400 Diastolic blood pressure 65 mm[Hg] Kyra Mcgill LPN [facility].; [employer]. Comment on above: Patient Position: Sitting; Cuff Location : Left Arm; Cuff Size: Standard 04-17-2023 09:55-0400 Heart rate 62 /min Kyra Mcgill LPN [facility] [employer].; [employer] Comment on above: Pattern: Regular 04-17-2023 09:55-0400 Systolic blood pressure 97 mm[Hg] Kyra Tapialabach SHIELD OPERATOR [facility] [employer].; [employer] Comment on above: Patient Position: Sitting; Cuff Location : Left Arm; Cuff Size: Standard 04-14-2022 14:27-0400 Body height 173.99 cm Silvia Hurtado SHIELD OPERATOR Work Phone: [employer].; [employer] 04-14-2022 14:27-0400 Body mass index (BMI) [Ratio] 22.03 kg/m2 Silvia [employer]IELD OPERATOR Work Phone: [employer].; [employer] 04-14-2022 14:27-0400 Body surface area Derived from formula 1.8 m2 Silvia Loredoy SHIELD OPERATOR Work Phone: [employer].; [employer] 04-14-2022 14:27-0400 Body weight 66.68 kg Silvia Loredoy SHIELD OPERATOR Work Phone: [employer].; [employer] 04-14-2022 14:27-0400 Diastolic blood pressure 83 mm[Hg] Silvia Loredoy SHIELD OPERATOR Work Phone: [employer].; [employer] Comment on above: Patient Position: Sitting; Cuff Location : Left Arm; Cuff Size: Standard 04-14-2022 14:27-0400 Heart rate 82 /min Silvia [employer] SHIELD OPERATOR Work Phone: [employer].; [employer] Comment on above: Pattern: Regular 04-14-2022 14:27-0400 Systolic blood pressure 130 mm[Hg] Silvia [employer] SHIELD OPERATOR Work Phone: [employer].; [employer] Comment on above: Patient Position: Sitting; Cuff Location : Left Arm; Cuff Size: Standard 03-12-2022 15:17-0400 Body height 173.99 cm [facility]ber [facility] [employer] 03-12-2022 15:17-0400 Body mass index (BMI) [Ratio] 21.13 kg/m2 Bruna Webber [facility].; [employer]. 03-12-2022 15:17-0400 Body surface area Derived from formula 1.77 m2 Bruna Webber [facility].; [employer]. 03-12-2022 15:17-0400 Body temperature 97.7 [degF] Brunapatricia Webber [facility].; [employer] Comment on above: Method: Tympanic 03-12-2022 15:170400 Body weight 63.96 kg Bruna Webber [facility].; [employer] 03-12-2022 15:17-0400 Diastolic blood pressure 78 mm[Hg] [facility].; [employer] Comment on above: Patient Position: Sitting; Cuff Location : Left Arm; Cuff Size: Standard 03-12-2022 15:17-0400 Heart rate 80 /min Bruna Webber [facility].; [employer] Comment on above: Pattern: Regular 03-12-2022 15:17-0400 Systolic blood pressure 112 mm[Hg] Bruna Web[facility].; [employer] Comment on above: Patient Position: Sitting; Cuff Location : Left Arm; Cuff Size: Standard 11-02-2021 04:10-0400 Diastolic blood pressure 99 mm[Hg] [facility] Work Phone: 11-02-2021 04:10-0400 Heart rate 69 /min [facility] Work Phone: 11-02-2021 04:10-0400 Respiratory rate 15 /min [facility] Work Phone: 11-02-2021 04:10-0400 SaO2% (BldA) [Mass fraction] 96 % [facility] Work Phone: 11-02-2021 04:10-0400 Systolic blood pressure 158 mm[Hg] [facility] Work Phone: 11-02-2021 03:56-0400 Body height 175.26 cm [facility] Work Phone: 11-02-2021 03:56-0400 Body mass index (BMI) [Ratio] 21.8 kg/m2 [facility] Work Phone: 11-02-2021 03:56-0400 Body temperature 97.8 [degF] [facility] Work Phone: 11-02-2021 03:56-0400 Body weight 67 kg [facility] Work Phone: 03-20-2021 09:50-0400 Body height 173.99 cm [facility] Work Phone: [employer]; [employer] 03-20-2021 09:50-0400 Body mass index (BMI) [Ratio] 20.98 kg/m2 [facility] Work Phone: [employer] 03-20-2021 09:50-0400 Body surface area Derived from formula 1.77 m2 [facility] Work Phone: [employer]; [employer] 03-20-2021 09:50-0400 Body weight 63.5 kg [facility] Work Phone: [employer] 03-20-2021 09:50-0400 Diastolic blood pressure 60 mm[Hg] [facility] SHIELD OPERATOR Work Phone: [employer]; [employer] Comment on above: Patient Position: Sitting; Cuff Location : Left Arm; Cuff Size: Standard 03-20-2021 09:50-0400 Heart rate 63 /min Silvia Genesis SHIELD OPERATOR [facility] Phone: [facility]; [employer] Comment on above: Pattern: Regular 03-20-2021 09:50-0400 Systolic blood pressure 111 mm[Hg] Silvia Genesis SHIELD OPERATOR Work Phone: [employer] Comment on above: Patient Position: Sitting; Cuff Location : Left Arm; Cuff Size: Standard 08-11-2019 10:55-0500 Body height 172.72 cm Silvia Genesis SHIELD OPERATOR Work Phone: [employer] 08-11-2019 10:55-0500 Body mass index (BMI) [Ratio] 22.81 kg/m2 Silvia Genesis SHIELD OPERATOR Work Phone: [place] [employer]; [employer] 08-11-2019 10:55-0500 Body surface area Derived from formula 1.81 m2 Silvia Genesis SHIELD OPERATOR Work Phone: [employer]; [employer] 08-11-2019 10:55-0500 Body temperature 98.4 [degF] Silvia Loredoy SHIELD OPERATOR Work Phone: [employer]; [employer] Comment on above: Method: Tympanic 08-11-2019 10:55-0500 Body weight 68.04 kg Silvia Genesis SHIELD OPERATOR Work Phone: [employer] 08-11-2019 10:55-0500 Diastolic blood pressure 69 mm[Hg] Silvia Genesis SHIELD OPERATOR Work Phone: [employer] Comment on above: Patient Position: Sitting; Cuff Location : Left Arm; Cuff Size: Standard 08-11-2019 10:55-0500 Heart rate 64 /min Silvia Genesis SHIELD OPERATOR Work Phone: [employer] Comment on above: Pattern: Regular 08-11-2019 10:55-0500 Systolic blood pressure 117 mm[Hg] Silvia Loredoy SHIELD OPERATOR Work Phone: [employer] Comment on above: Patient Position: Sitting; Cuff Location : Left Arm; Cuff Size: Standard 04-18-2019 10:33-0400 Body height 172.72 cm Silvia Hurtado LPN Work Phone: [employer] 04-18-2019 10:33-0400 Body mass index (BMI) [Ratio] 22.5 kg/m2 Silvia Hurtado SHIELD OPERATOR Work Phone: [employer]; [employer] 04-18-2019 10:33-0400 Body surface area Derived from formula 1.8 m2 Silvia Hurtado LPN Work Phone: [employer]; [employer] 04-18-2019 10:33-0400 Body weight 67.13 kg Silvia Hurtado LPN Work Phone: [employer] 04-18-2019 10:33-0400 Diastolic blood pressure 73 mm[Hg] Silvia Loredoy SHIELD OPERATOR Work Phone: [employer]; [employer] Comment on above: Patient Position: Sitting; Cuff Location : Left Arm; Cuff Size: Standard 04-18-2019 10:33-0400 Heart rate 70 /min Silvia Loredoy SHIELD OPERATOR Work Phone: [employer]; [employer] Comment on above: Pattern: Regular 04-18-2019 10:33-0400 Systolic blood pressure 118 mm[Hg] Silvia Loredoy SHIELD OPERATOR Work Phone: [employer]; [employer] Comment on above: Patient Position: Sitting; Cuff Location : Left Arm; Cuff Size: Standard 10-14-2018 14:40-0400 Body height 172.72 cm Silvia Hurtado LPN Work Phone: [employer] 10-14-2018 14:40-0400 Body mass index (BMI) [Ratio] 23.11 kg/m2 Silvia Hurtado SHIELD OPERATOR Work Phone: [employer] 10-14-2018 14:40-0400 Body surface area Derived from formula 1.82 m2 Silvia Genesis SHIELD OPERATOR Work Phone: [employer] 10-14-2018 14:40-0400 Body temperature 98.1 [degF] Silvia Hurtado SHIELD OPERATOR Work Phone: [employer]; [employer] Comment on above: Method: Tympanic 10-14-2018 14:40-0400 Body weight 68.95 kg Silvia Hurtado SHIELD OPERATOR Work Phone: [employer] 10-14-2018 14:40-0400 Diastolic blood pressure 74 mm[Hg] Silvia Hurtado LPN Work Phone: [employer] Comment on above: Patient Position: Sitting; Cuff Location : Left Arm; Cuff Size: Standard 10-14-2018 14:40-0400 Heart rate 67 /min Silvia Hurtado LPN Work Phone: [employer]; [employer] Comment on above: Pattern: Regular 10-14-2018 14:40-0400 Systolic blood pressure 114 mm[Hg] Silvia Hurtado SHIELD OPERATOR Work Phone: [employer] Comment on above: Patient Position: Sitting; Cuff Location : Left Arm; Cuff Size: Standard 08-14-2018 10:51-0500 Body height 172.72 cm Neilee Leodan Kan SHIELD OPERATOR [employer] 08-14-2018 10:51-0500 Body mass index (BMI) [Ratio] 23.11 kg/m2 Neosmanie Leodan Kan SHIELD OPERATOR [employer] 08-14-2018 10:51-0500 Body surface area Derived from formula 1.82 m2 Grahame Leodan Kan SHIELD OPERATOR [employer] 08-14-2018 10:51-0500 Body temperature 98.2 [degF] Grahame L Loreta SHIELD OPERATOR [employer] Comment on above: Method: Tympanic 08-14-2018 10:51-0500 Body weight 68.95 kg Grahame Leodan Kan SHIELD OPERATOR [employer] 08-14-2018 10:51-0500 Diastolic blood pressure 73 mm[Hg] Grahame Leodan Kan SHIELD OPERATOR [employer] Comment on above: Patient Position: Sitting; Cuff Location : Right Arm; Cuff Size: Standard 08-14-2018 10:51-0500 Heart rate 75 /min Grahame Leodan Kan SHIELD OPERATOR [employer] Comment on above: Pattern: Regular 08-14-2018 10:51-0500 Systolic blood pressure 121 mm[Hg] Grahame Leodan Kan SHIELD OPERATOR [employer] Comment on above: Patient Position: Sitting; Cuff Location : Right Arm; Cuff Size: Standard 06-09-2018 10:22-0500 Body height 172.72 cm [facility] Work Phone: [employer] 06-09-2018 10:22-0500 Body mass index (BMI) [Ratio] 22.2 kg/m2 [facility] Work Phone: [employer] 06-09-2018 10:22-0500 Body surface area Derived from formula 1.79 m2 [facility] Work Phone: [employer] 06-09-2018 10:22-0500 Body weight 66.23 kg Silviashilo Loredoy SHIELD OPERATOR Work Phone: [employer] 06-09-2018 10:22-0500 Diastolic blood pressure 75 mm[Hg] Silvia Genesis SHIELD OPERATOR Work Phone: [employer] Comment on above: Patient Position: Sitting; Cuff Location : Left Arm; Cuff Size: Standard 06-09-2018 10:22-0500 Heart rate 93 /min Silvia Genesis SHIELD OPERATOR Work Phone: [employer]; [employer] Comment on above: Pattern: Regular 06-09-2018 10:22-0500 Systolic blood pressure 142 mm[Hg] Silvia Genesis SHIELD OPERATOR Work Phone: [employer] Comment on above: Patient Position: Sitting; Cuff Location : Left Arm; Cuff Size: Standard 04-05-2018 09:33-0400 Body height 172.72 cm Silvia Genesis SHIELD OPERATOR Work Phone: [employer] 04-05-2018 09:33-0400 Body mass index (BMI) [Ratio] 21.59 kg/m2 Silvia Genesis SHIELD OPERATOR Work Phone: [employer] 04-05-2018 09:33-0400 Body surface area Derived from formula 1.77 m2 Silvia Genesis SHIELD OPERATOR Work Phone: [employer] 04-05-2018 09:33-0400 Body weight 64.41 kg Silvia Genesis SHIELD OPERATOR Work Phone: [employer] 04-05-2018 09:33-0400 Diastolic blood pressure 69 mm[Hg] Silvia Genesis SHIELD OPERATOR Work Phone: [employer] Comment on above: Patient Position: Sitting; Cuff Location : Left Arm; Cuff Size: Standard 04-05-2018 09:33-0400 Heart rate 68 /min Silvia Hurtado LPN Work Phone: [employer] Comment on above: Pattern: Regular 04-05-2018 09:33-0400 Systolic blood pressure 113 mm[Hg] Silvia Hurtado LPN Work Phone: [employer] Comment on above: Patient Position: Sitting; Cuff Location : Left Arm; Cuff Size: Standard 08-10-2017 10:09-0500 Body height 172.72 cm Silvia Hurtado LPN Work Phone: [employer] 08-10-2017 10:09-0500 Body mass index (BMI) [Ratio] 22.96 kg/m2 Silvia Hurtado LPN Work Phone: [employer] 08-10-2017 10:09-0500 Body surface area Derived from formula 1.81 m2 Silvia Hurtado LPN Work Phone: [employer] 08-10-2017 10:09-0500 Body temperature 98.3 [degF] Silvia Hurtado LPN Work Phone: [employer] Comment on above: Method: Tympanic 08-10-2017 10:09-0500 Body weight 68.49 kg Silvia Hurtado LPN Work Phone: [employer] 08-10-2017 10:09-0500 Diastolic blood pressure 74 mm[Hg] Silvia Loredoy SHIELD OPERATOR Work Phone: [employer] Comment on above: Patient Position: Sitting; Cuff Location : Left Arm; Cuff Size: Standard 08-10-2017 10:09-0500 Heart rate 69 /min Silvia Genesis SHIELD OPERATOR Work Phone: [employer] Comment on above: Pattern: Regular 08-10-2017 10:09-0500 Systolic blood pressure 119 mm[Hg] Silvia Genesis SHIELD OPERATOR Work Phone: [employer] Comment on above: Patient Position: Sitting; Cuff Location : Left Arm; Cuff Size: Standard 01-07-2017 10:03-0400 Body height 172.72 cm Silvia Genesis SHIELD OPERATOR Work Phone: [employer] 01-07-2017 10:03-0400 Body mass index (BMI) [Ratio] 21.59 kg/m2 Silvia Genesis SHIELD OPERATOR Work Phone: [employer] 01-07-2017 10:03-0400 Body surface area Derived from formula 1.77 m2 Silvia Genesis SHIELD OPERATOR Work Phone: [employer] 01-07-2017 10:03-0400 Body weight 64.41 kg Silvia Genesis SHIELD OPERATOR Work Phone: [employer] 01-07-2017 10:03-0400 Diastolic blood pressure 66 mm[Hg] Silvia Genesis SHIELD OPERATOR Work Phone: [employer] Comment on above: Patient Position: Sitting; Cuff Location : Left Arm; Cuff Size: Standard 01-07-2017 10:03-0400 Heart rate 64 /min Silvia Genesis SHIELD OPERATOR Work Phone: [employer] Comment on above: Pattern: Regular 01-07-2017 10:03-0400 Systolic blood pressure 98 mm[Hg] Silvia Genesis SHIELD OPERATOR Work Phone: [employer] Comment on above: Patient Position: Sitting; Cuff Location : Left Arm; Cuff Size: Standard 01-07-2016 09:50-0400 Body height 172.72 cm Silvia Genesis SHIELD OPERATOR Work Phone: [employer] 01-07-2016 09:50-0400 Body mass index (BMI) [Ratio] 22.43 kg/m2 Silvia Genesis SHIELD OPERATOR Work Phone: [employer] 01-07-2016 09:50-0400 Body surface area Derived from formula 1.8 m2 Silvia Genesis SHIELD OPERATOR Work Phone: [employer]; [employer] 01-07-2016 09:50-0400 Body weight 66.91 kg Silvia Genesis SHIELD OPERATOR Work Phone: [employer] 01-07-2016 09:50-0400 Diastolic blood pressure 65 mm[Hg] Silvia Genesis SHIELD OPERATOR Work Phone: [employer]; [employer] Comment on above: Patient Position: Sitting; Cuff Location : Left Arm; Cuff Size: Standard 01-07-2016 09:50-0400 Heart rate 65 /min Silvia Genesis SHIELD OPERATOR Work Phone: [employer]; [employer] 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 Comment on above: Patient Position: Sitting; Cuff Location : Left Arm; Cuff Size: Standard 10-29-2015 08:07-0400 Body height 172.72 cm Alona Jovel LPN [employer] 10-29-2015 08:07-0400 Body mass index (BMI) [Ratio] 22.58 kg/m2 Alona Olverabricindy GRACIA [facility] [employer] [facility] 10-29-2015 08:07-0400 Body surface area Derived from formula 1.8 m2 Alona Olverachilo FAGAN [facility], [facility].; [place] [employer] [facility] 10-29-2015 08:07-0400 Body temperature 97.5 [degF] Alona [facility]achilo [facility].; [employer]. Comment on above: Method: Tympanic 10-29-2015 08:07-0400 Body weight 67.36 kg Alona Olverachilo [facility] [employer], [employer]. 10-29-2015 08:07-0400 Diastolic blood pressure 65 mm[Hg] Alona Olverachilo FAGAN [facility] [employer], [employer]. Comment on above: Patient Position: Sitting; Cuff Location : Left Arm; Cuff Size: Standard 10-29-2015 08:07-0400 Heart rate 71 /min Alona Wechilo FAGAN [facility] [employer], [employer]. Comment on above: Pattern: Regular 10-29-2015 08:07-0400 Inhaled oxygen concentration 20 % Alona Wechilo FAGAN [facility] [employer] Comment on above: Room air 10-29-2015 08:07-0400 Inhaled oxygen concentration 21 % Alonanikki Jovel LPN [facility] [employer], [employer]. Comment on above: Room air 10-29-2015 08:07-0400 SaO2% (BldA) [Mass fraction] 99 % Alona Wechilo [facility] [employer] [facility] [employer], [employer]. 10-29-2015 08:07-0400 Systolic blood pressure 107 mm[Hg] Alona Jovel GRACIA [place] [employer] [facility] [employer], [employer]. Comment on above: Patient Position: Sitting; Cuff Location : Left Arm; Cuff Size: Standard 09-07-2015 08:41-0400 Body height 172.72 cm Alona Olverachilo FAGAN [facility] [employer] [facility] [employer], [employer]. 09-07-2015 08:41-0400 Body mass index (BMI) [Ratio] 23.11 kg/m2 Alona Wechilo FAGAN [place] [employer] [facility] [employer] 09-07-2015 08:41-0400 Body surface area Derived from formula 1.82 m2 Alonanikki Jovel LPN [place] [employer] [facility] [employer]. 09-07-2015 08:41-0400 Body temperature 98.2 [degF] Alona Olverachilo JERNIGANRustCardMunch [facility], [facility].; [employer], [employer]. Comment on above: Method: Tympanic 09-07-2015 08:41-0400 Body weight 68.95 kg Alona Wechilo FAGAN [place] [employer] [facility] [employer] 09-07-2015 08:41-0400 Diastolic blood pressure 77 mm[Hg] Alona Med FAGAN [place] [employer] Comment on above: Patient Position: Sitting; Cuff Location : Left Arm; Cuff Size: Standard 09-07-2015 08:41-0400 Heart rate 77 /min Alona Wadechilo FAGAN [place] [employer] [facility] [employer] Comment on above: Pattern: Regular 09-07-2015 08:41-0400 Inhaled oxygen concentration 20 % Alona Jovel LPN [facility] [employer]. Comment on above: Room air 09-07-2015 08:41-0400 Inhaled oxygen concentration 21 % Alona Jovel LPN [employer] Comment on above: Room air 09-07-2015 08:41-0400 SaO2% (BldA) [Mass fraction] 99 % Alona Jovel LPN [employer] 09-07-2015 08:41-0400 Systolic blood pressure 120 mm[Hg] Alona Jovel LPN [employer], [employer] Comment on above: Patient Position: Sitting; Cuff Location : Left Arm; Cuff Size: Standard 11-27-2014 11:34-0400 Body height 172.72 cm Silvia Loredoy SHIELD OPERATOR Work Phone: [employer].; [employer] 11-27-2014 11:34-0400 Body mass index (BMI) [Ratio] 22.05 kg/m2 Silvia Genesis SHIELD OPERATOR Work Phone: [employer].; [employer] 11-27-2014 11:34-0400 Body surface area Derived from formula 1.78 m2 Silvia Genesis SHIELD OPERATOR Work Phone: [employer].; [employer] 11-27-2014 11:34-0400 Body weight 65.77 kg Silvia Loredoy SHIELD OPERATOR Work Phone: [employer].; [employer] 11-27-2014 11:34-0400 Diastolic blood pressure 73 mm[Hg] Silvia Genesis SHIELD OPERATOR Work Phone: [employer].; [employer] Comment on above: Patient Position: Sitting; Cuff Location : Left Arm; Cuff Size: Standard 11-27-2014 11:34-0400 Heart rate 47 /min Silvia Loredoy SHIELD OPERATOR Work Phone: [employer].; [employer] Comment on above: Pattern: Regular 11-27-2014 11:34-0400 Systolic blood pressure 120 mm[Hg] Silvia Genesis SHIELD OPERATOR Work Phone: [employer] Comment on above: Patient Position: Sitting; Cuff Location : Left Arm; Cuff Size: Standard 05-24-2014 09:57-0500 Body height 172.72 cm Silvia Loredoy SHIELD OPERATOR Work Phone: [employer].; [employer] 05-24-2014 09:57-0500 Body mass index (BMI) [Ratio] 22.5 kg/m2 Silvia Genesis SHIELD OPERATOR Work Phone: [employer] 05-24-2014 09:57-0500 Body surface area Derived from formula 1.8 m2 Silvia Loredoy SHIELD OPERATOR Work Phone: [employer] 05-24-2014 09:57-0500 Body weight 67.13 kg Silvia Loredoy SHIELD OPERATOR Work Phone: [employer] 05-24-2014 09:57-0500 Diastolic blood pressure 69 mm[Hg] Silviashilo Loredoy SHIELD OPERATOR Work Phone: [employer] Comment on above: Patient Position: Sitting; Cuff Location : Left Arm; Cuff Size: Standard 05-24-2014 09:57-0500 Heart rate 58 /min Silvia Loredoy SHIELD OPERATOR Work Phone: [employer]; [employer] Comment on above: Pattern: Regular 05-24-2014 09:57-0500 Systolic blood pressure 116 mm[Hg] Silviashilo Loredoy SHIELD OPERATOR Work Phone: [employer]; [employer] Comment on above: Patient Position: Sitting; Cuff Location : Left Arm; Cuff Size: Standard 11-09-2013 11:58-0400 Body weight 65.77 kg Silvia Hurtado SHIELD OPERATOR Work Phone: [employer] 11-09-2013 11:58-0400 Diastolic blood pressure 77 mm[Hg] Silvia Genesis SHIELD OPERATOR Work Phone: [employer] Comment on above: Patient Position: Sitting; Cuff Location : Left Arm; Cuff Size: Standard 11-09-2013 11:58-0400 Heart rate 66 /min Silvia Genesis SHIELD OPERATOR Work Phone: [employer]; [employer] Comment on above: Pattern: Regular 11-09-2013 11:58-0400 Systolic blood pressure 122 mm[Hg] Silvia Hurtado SHIELD OPERATOR Work Phone: [employer] Comment on above: Patient Position: Sitting; Cuff Location : Left Arm; Cuff Size: Standard 08-25-2013 11:40-0500 Body temperature 98.1 [degF] Neilee L Vess SHIELD OPERATOR [facility] [employer] Comment on above: Method: Tympanic 08-25-2013 11:40-0500 Body weight 68.04 kg Neilee L Vess SHIELD OPERATOR [employer].; [employer] 08-25-2013 11:40-0500 Diastolic blood pressure 56 mm[Hg] Neilee L Vess SHIELD OPERATOR [employer] Comment on above: Patient Position: Sitting; Cuff Location : Left Arm; Cuff Size: Standard 08-25-2013 11:40-0500 Heart rate 60 /min Neilee L Vess SHIELD OPERATOR [employer] Comment on above: Pattern: Regular 08-25-2013 11:40-0500 Systolic blood pressure 109 mm[Hg] Neilee L Vess SHIELD OPERATOR [employer] Comment on above: Patient Position: Sitting; Cuff Location : Left Arm; Cuff Size: Standard 05-13-2013 09:46-0500 Body height 172.72 cm Silvia Genesis SHIELD OPERATOR Work Phone: [employer] 05-13-2013 09:46-0500 Body mass index (BMI) [Ratio] 22.2 kg/m2 [employer] [facility] Work Phone: [employer] 05-13-2013 09:46-0500 Body surface area Derived from formula 1.79 m2 [employer] SHIELD OPERATOR Work Phone: [employer].; [employer] 05-13-2013 09:46-0500 Body weight 66.23 kg Silvia Hurtado LPN Work Phone: [place] [employer], [employer] 05-13-2013 09:46-0500 Diastolic blood pressure 73 mm[Hg] Silvia Hurtado LPN Work Phone: [place] [employer], [employer].; [employer] Comment on above: Patient Position: Sitting; Cuff Location : Left Arm; Cuff Size: Standard 05-13-2013 09:46-0500 Heart rate 68 /min Silvia Hurtado LPN Work Phone: [facility] [employer], [employer]. Comment on above: Pattern: Regular 05-13-2013 09:46-0500 Systolic blood pressure 112 mm[Hg] Silvia Hurtado LPN Work Phone: [place] [employer], [employer].; [employer] Comment on above: Patient Position: Sitting; Cuff Location : Left Arm; Cuff Size: Standard 12-01-2012 15:280400 Body height 172.72 cm Alona Jovel LPN [place] [employer] [facility] [employer] 12-01-2012 15:28-0400 Body mass index (BMI) [Ratio] 21.61 kg/m2 [facility] [employer] [facility] [employer] 12-01-2012 15:28-0400 Body surface area Derived from formula 1.77 m2 Alona Jovel LPN [place] [employer] [facility] [employer] 12-01-2012 15:28-0400 Body weight 64.47 kg [facility] [employer] 12-01-2012 15:28-0400 Diastolic blood pressure 64 mm[Hg] [facility] [employer] [facility] [employer] Comment on above: Patient Position: Sitting; Cuff Location : Left Arm; Cuff Size: Standard 12-01-2012 15:28-0400 Heart rate 69 /min Alona Jovel LPN [facility] [employer]. Comment on above: Pattern: Regular 12-01-2012 15:28-0400 Systolic blood pressure 105 mm[Hg] Alona Olverachilo FAGAN [facility], [facility].; [employer] Comment on above: Patient Position: Sitting; Cuff Location : Left Arm; Cuff Size: Standard 11-18-2012 10:57-0400 Body height 172.72 cm Alona Wechilo FAGAN [facility] [employer] 11-18-2012 10:57-0400 Body mass index (BMI) [Ratio] 21.44 kg/m2 Alona Wadechilo [facility].; [place] [employer], [employer]. 11-18-2012 10:57-0400 Body surface area Derived from formula 1.76 m2 Alona Jovel LPN [facility] [employer], [employer]. 11-18-2012 10:57-0400 Body weight 63.96 kg Alona Wechilo [facility] [employer] [facility], [facility].; [employer], [employer]. 11-18-2012 10:57-0400 Diastolic blood pressure 62 mm[Hg] Alona Wechilo FAGAN [place] [employer] [facility], [employer].; [employer], [employer]. Comment on above: Patient Position: Sitting; Cuff Location : Left Arm; Cuff Size: Standard 11-18-2012 10:57-0400 Heart rate 81 /min Alonanikki Jovel LPN [facility], [employer] Comment on above: Pattern: Regular 11-18-2012 10:57-0400 Systolic blood pressure 94 mm[Hg] Alona Olverachilo FAGAN [place] [employer] [facility], [employer].; [employer]. Comment on above: Patient Position: Sitting; Cuff Location : Left Arm; Cuff Size: Standard 01-06-2011 14:05-0400 Body temperature 97.8 [degF] Neilee L Vess SHIELD OPERATOR [place] [employer] [facility] [employer] 01-06-2011 14:05-0400 Body weight 64.86 kg Neilee L Vess SHIELD OPERATOR [facility] [employer] 01-06-2011 14:05-0400 Diastolic blood pressure 72 mm[Hg] Neilee L Vess SHIELD OPERATOR [employer] Comment on above: Patient Position: Sitting; Cuff Location : Left Arm; Cuff Size: Standard 01-06-2011 14:05-0400 Heart rate 69 /min Neilee L Vess SHIELD OPERATOR [facility] [employer] Comment on above: Pattern: Regular 01-06-2011 14:05-0400 Systolic blood pressure 115 mm[Hg] Neilee L Vess SHIELD OPERATOR [employer] Comment on above: Patient Position: Sitting; Cuff Location : Left Arm; Cuff Size: Standard 10-28-2010 14:110400 Body height 172.72 cm [employer] SHIELD OPERATOR Work Phone: [employer] 10-28-2010 14:110400 Body mass index (BMI) [Ratio] 22.2 kg/m2 [employer] SHIELD OPERATOR Work Phone: [employer] 10-28-2010 14:110400 Body surface area Derived from formula 1.79 m2 [employer] [employer] SHIELD OPERATOR Work Phone: [employer] 10-28-2010 [id number] Body weight 66.23 kg [employer] SHIELD OPERATOR Work Phone: [employer] 10-28-2010 14:[id number] Diastolic blood pressure 66 mm[Hg] Silvia Genesis SHIELD OPERATOR Work Phone: [employer] Comment on above: Patient Position: Sitting; Cuff Location : Left Arm; Cuff Size: Standard 10-28-2010 14:110400 Heart rate 72 /min [employer] SHIELD OPERATOR Work Phone: [employer] Comment on above: Pattern: Regular 10-28-2010 14:11-0400 Systolic blood pressure 106 mm[Hg] Silvia Hurtado LPN [facility] Phone: [facility]; [facility] Comment on above: Patient Position: Sitting; Cuff Location : Left Arm; Cuff Size: Standard Encounters Encounter Date Encounter Type Care Provider Facility Start: 04-20-2025 ambulatory Staci [facility] Start: 03-22-2025 End: 03-22-2025 ambulatory Staci Obando Facility:[facility] Start: 01-26-2025 End: 01-26-2025 Alvarez [facility]bando MD Work [facility] Start: 01-02-2025 End: 01-02-2025 Admission to same day surgery center Dr. Vlad Santos MD -Etl Manager/Special Procedures Work Phone: Start: 01-02-2025 End: 01-02-[address] Staci Obando MD Work Phone: -Etl Manager/Special Procedures Start: 12-14-2024 End: 12-14-2024 Historical Summary [facility] MD [facility] Start: 12-14-2024 End: 12-14-[address] Vlad Santos MD -[facility] Work Phone: Start: 12-14-2024 End: 12-14-[address] Staci Obando MD Work Phone: [facility] Work Phone: Start: 12-14-2024 End: 12-14-2024 ambulatory Vlad Santos Facility:[facility] Start: 11-02-2024 End: 11-02-2024 Alvarez [facility]bando MD Work [facility] Start: 10-31-2024 Non-patient / Non-visit Dr. Vlad Santos MD -[facility] Start: 10-31-2024 End: 10-31-[address] Staci Obando MD Work Phone: [facility] Work Phone: Start: 10-31-2024 End: 10-31-[address] Staci Obando MD -Cardiovascular Services Work Phone: Start: 10-31-2024 End: 10-31-2024 ambulatory Staci Jacques Facility:[facility] Start: 09-21-2024 End: 09-21-2024 Office outpatient visit 15 minutes Staci Obando MD Work Phone: [employer] Start: 09-21-2024 Review Staci macias MD Work Phone: [employer] Start: 07-22-2024 End: 07-22-2024 Telephone follow-up Staci Obando MD Work Phone: [employer] Start: 07-21-2024 End: 07-21-2024 Emergency department patient visit Dr. Jakob Melo MD -Emergency Department Work Phone: Start: 06-20-2024 End: 06-20-2024 ambulatory Staci Obando Facility:[facility] Start: 06-03-2024 End: 06-03-2024 ambulatory Staci Obando Facility:[facility] Start: 04-18-2024 End: 04-18-2024 Patient encounter procedure Staci Obando MD Work Phone: [employer] Start: 04-07-2024 ambulatory STACI OBANDO [facility] Start: 03-17-2024 End: 03-17-2024 Procedure Staci Obando MD Work Phone: [employer] Start: 07-06-2023 End: 07-06-2023 Orders Staci Obando MD Work Phone: [employer] Start: 04-17-2023 End: 04-17-2023 Patient encounter procedure Staci Obando MD Work Phone: [employer] Start: 01-28-2023 End: 01-28-2023 Orders Staci Obando MD Work Phone: [employer] Start: 07-16-2022 End: 07-16-2022 Historical Summary Staci Obando MD Work Phone: [employer] Start: 07-15-2022 End: 07-15-2022 ambulatory [facility] Work Phone: Start: 07-15-2022 End: 07-15-2022 Patient encounter procedure [facility] Start: 07-07-2022 End: 07-07-2022 ambulatory [facility] Work Phone: Start: 07-07-2022 End: 07-07-2022 Patient encounter procedure [facility]Laboratory, Specimen Start: 04-14-2022 End: 04-14-2022 Patient encounter procedure Staci Obando MD Work Phone: [employer] Start: 04-12-2022 End: 04-12-2022 ambulatory [facility] Work Phone: Start: 04-12-2022 End: 04-12-2022 Patient encounter procedure [facility] Start: 03-13-2022 End: 03-14-2022 Historical Summary Staci Obando MD Work Phone: [employer] Start: 03-13-2022 End: 03-13-2022 Orders Staci Obando MD Work Phone: [employer] Start: 03-12-2022 End: 03-12-2022 Patient encounter procedure Staci Obando MD Work Phone: [employer] Start: 02-26-2022 End: 02-26-2022 Orders Staci Obando MD Work Phone: [employer] Start: 12-06-2021 End: 12-06-2021 Telephone follow-up Staci Obando MD Work Phone: [employer] Start: 11-30-2021 End: 11-30-2021 Emergency department patient visit [facility] Start: 11-05-2021 End: 11-05-2021 Telephone follow-up Staci Obando MD Work Phone: [employer] Start: 11-02-2021 End: 11-02-2021 Emergency department [facility] visit [facility] Start: 08-13-2021 Registered [facility], [facility] Start: 07-18-2021 End: 07-19-2021 Orders Staci Obando MD Work Phone: [employer] Start: 03-20-2021 End: 03-18-2021 Historical Summary Staic Obando MD Work Phone: [employer] Start: 03-20-2021 End: 03-20-2021 Patient encounter procedure Staci Obando MD Work Phone: [employer] Start: 03-15-2021 End: 03-15-2021 Orders Staci Obando MD Work Phone: [employer] Start: 03-15-2020 End: 03-15-2020 Orders Staci Obando MD Work Phone: [employer] Start: 02-20-2020 End: 02-20-2020 Orders Staci Obando MD Work Phone: [employer] Start: 01-19-2020 End: 01-19-2020 Patient encounter procedure Staci Obando MD Work Phone: [employer] Start: 12-30-2019 End: 12-30-2019 Orders Staci Obando MD Work Phone: [employer] Start: 12-02-2019 End: 12-02-2019 Orders Staci Obando MD Work Phone: [employer] Start: 11-23-2019 End: 11-23-2019 Orders Staci Obando MD Work Phone: [employer] Start: 11-21-2019 End: 11-21-2019 Orders Staci Obando MD Work Phone: [employer] Start: 11-17-2019 End: 11-17-2019 Patient encounter procedure Staci Obando MD Work Phone: [employer] Start: 10-26-2019 End: 10-26-2019 Orders Staci Obando MD Work Phone: [employer] Start: 08-11-2019 End: 08-11-2019 Office outpatient visit 15 minutes Staci Obando MD Work Phone: [employer] Start: 04-18-2019 End: 04-18-2019 Office outpatient visit 10 minutes Staci Obando MD Work Phone: [employer] Start: 04-07-2019 End: 04-07-2019 Orders Staci Obando MD Work Phone: [employer] Start: 10-14-2018 End: 10-14-2018 Patient encounter procedure Staci Obando MD Work Phone: [employer] Start: 08-14-2018 End: 08-14-2018 Patient encounter procedure Staci Obando MD Work Phone: [employer] Start: 06-09-2018 End: 06-09-2018 Procedure Staci Obando MD Work Phone: [employer] Start: 04-05-2018 End: 04-05-2018 Patient encounter procedure Staci Obando MD Work Phone: [employer] Start: 03-31-2018 End: 03-31-2018 Orders Staci Obando MD Work Phone: [employer] Start: 03-15-2018 End: 03-15-2018 Orders Staci Obando MD Work Phone: [employer] Start: 12-10-2017 End: 12-10-2017 Historical Summary Staci Obando MD Work Phone: [employer] Start: 08-10-2017 End: 08-10-2017 Patient encounter procedure Staci Obando MD Work Phone: [employer] Start: 01-22-2017 End: 01-22-2017 Historical Summary Staci Obando MD Work Phone: [employer] Start: 01-07-2017 End: 01-07-2017 Patient encounter procedure Staci Obando MD Work Phone: [employer] Start: 01-06-2017 End: 01-06-2017 Wellness Visit Staci Obando MD Work Phone: [employer] Start: 01-01-2017 End: 01-01-2017 Orders Staci Obando MD Work Phone: [employer] Start: 12-30-2016 End: 12-30-2016 Orders Staci Obando MD Work Phone: [employer] Start: 11-21-2016 End: 11-21-2016 Orders Staci Obando MD Work Phone: [employer] Start: 05-01-2016 End: 05-01-2016 Orders Staci Obando MD Work Phone: [employer] Start: 01-07-2016 End: 01-07-2016 Patient encounter procedure Staci Obando MD Work Phone: [employer] Start: 01-04-2016 End: 01-04-2016 Orders Staci Obando MD Work Phone: [employer] Start: 12-18-2015 End: 12-18-2015 Orders Staci Obando MD Work Phone: [employer] Start: 10-29-2015 End: 10-29-2015 Office outpatient visit 15 minutes Staci Obando MD Work Phone: [employer] Start: 09-07-2015 End: 09-07-2015 Patient encounter procedure Staci Obando MD Work Phone: [employer] Start: 11-27-2014 End: 11-30-2014 Patient encounter procedure Staci Obando MD Work Phone: [employer] Start: 05-24-2014 End: 05-24-2014 Patient encounter procedure Staci Obando MD Work Phone: [employer] Start: 04-04-2014 End: 04-05-2014 Orders Staci Obando MD Work Phone: [employer] Start: 11-09-2013 End: 11-09-2013 Patient encounter procedure Staci Obando MD Work Phone: [employer] Start: 08-25-2013 End: 08-25-2013 Patient encounter procedure Staci Obando MD Work Phone: [employer] Start: 05-13-2013 End: 05-13-2013 Patient encounter procedure Staci Obando MD Work Phone: [employer] Start: 05-06-2013 End: 05-06-2013 Orders Staci Obando MD Work Phone: [employer] Start: 03-23-2013 End: 03-23-2013 Orders Staci Obando MD Work Phone: [employer] Start: 12-01-2012 End: 12-02-2012 Patient encounter procedure Staci Obando MD Work Phone: [employer] Start: 11-18-2012 End: 11-18-2012 Patient encounter procedure Staci Obando MD Work Phone: [employer] Start: 04-28-2012 End: 04-28-2012 Patient encounter procedure Staci Obando MD Work Phone: [employer] Start: 04-20-2012 End: 04-21-2012 Orders Staci Obando MD Work Phone: [employer] Start: 04-07-2012 End: 04-07-2012 Orders Staci Obando MD Work Phone: [employer] Start: 08-15-2011 End: 08-18-2011 Orders Staci Obando MD Work Phone: [employer] Start: 04-22-2011 End: 04-23-2011 Orders Staci Obando MD Work Phone: [facility] [facility] Start: 04-21-2011 End: 04-21-2011 Orders Staci Obando MD Work Phone: [employer] Start: 01-17-2011 End: 01-17-2011 Medication Staci Obando MD Work Phone: [employer] Start: 01-06-2011 End: 01-06-2011 Patient encounter procedure Staci Obando MD Work Phone: [employer] [facility] Start: 10-28-2010 End: 10-28-2010 Patient encounter procedure Staci Obando MD Work Phone: [employer] Start: 09-26-2010 End: 09-26-2010 Orders Staci Obando MD Work Phone: [employer] Start: 09-24-2010 End: 09-24-2010 Historical Summary Staci Obando MD Work Phone: [employer] Start: 04-29-2010 End: 04-29-2010 Historical Summary Staci Obando MD Work Phone: [employer] Procedures Date Procedure Procedure Detail Performing Clinician Start: 12-14-2024 End: 12-14-2024 Most Recent Cardio Report Staci macias MD Work Phone: Start: 10-31-2024 End: 10-31-2024 stress ECHO Staci Glass Work Phone: Comment on above: Abnormal. ischemia s uggested by test response Start: 09-21-2024 End: 11-02-2024 Echo tthrc r-t 2d w/wo m-mode complete rest&VanessaStaci Obando MD Work Phone: Start: 07-21-2024 Plain chest X-ray Dr. Debby Obando MD Work Phone: Start: 07-21-[address] Staci Obando MD Work Phone: Start: 07-21-[address]24 Measurement of renal function Dr. Staci Obando MD Work Phone: Comment on above: GFR Calc Start: 04-18-2024 End: 04-18-2024 Adv care pln/ no alt dcsn mkr docd or refusal Staci Obando MD Work Phone: Start: 04-18-2024 End: 04-18-2024 Body mass index documented Staci bro MD Work Phone: Start: 04-18-2024 End: 04-18-2024 Depression screening Staci Obando MD Work Phone: Start: 04-18-2024 End: 04-18-2024 Docrev cur meds by billy Obando MD Work Phone: Start: 04-18-2024 End: 04-18-2024 Falls risk assessment documented Staci Obando MD Work Phone: Start: 04-18-2024 End: 04-18-2024 Flu immunize order/admin Staci pickett MD Work Phone: Start: 04-18-2024 End: 04-18-2024 Most recent diastolic blood pressure < 80 mm hg Staci Obando MD Work Phone: Start: 04-18-2024 End: 04-18-2024 Most recent systolic blood pressure <130 mm hg Staci Obando MD Work Phone: Start: 04-18-2024 End: 04-18-2024 Pneumococcal vaccine admin rcvd prior Staci Obando MD Work Phone: Start: 04-18-2024 End: 04-18-2024 PPPS, subseq visit Staci Glass Work Phone: Start: 04-18-2024 End: 04-18-2024 Pt falls assess docd w/o fall/injury past year Staci Obando MD Work Phone: Start: 04-18-2024 End: 04-18-2024 Scr dep neg, no plan reqd Staci benitez MD Work Phone: Start: 04-13-2024 End: 04-13-2024 Lab findings surveillance Silvia Alcocer PN Work Phone: Comment on above: 92 Start: 04-13-2024 End: 04-13-2024 Lipid panel results documented & reviewed Silvia Hurtado LPN Work Phone: Comment on above: Abnormal. tc 184 hdl 101 ldl 74 trig 44 on atorvastatin Start: 04-07-2024 End: 04-07-2024 Screening mammography Staci [...] End: 04-10-2023 Lab findings surveillance Kyra alvarado SHIELD OPERATOR Comment on above: 87 CMP Start: 04-10-2023 End: 04-10-2023 Lipid panel results documented & reviewed Kyra Mcgill LPN Comment on above: Abnormal. tc 174 hdl 82 ldl 79 trig 46 Start: 07-15-2022 End: 07-15-2022 Dual energy X-ray absorptiometry Kyra Mcgill LPN Comment on above: Abnormal. 07/15/22 wo mita osteopenia vertebra and femoral neck Start: 07-15-2022 End: 07-15-2022 Screening mammography Kyra Mcgill LPN Comment on above: Within Normal Limits . Cyruskos 06/2014 neg, 12/2015 neg (density 50-75%)--another planned [...] Start: 04-14-2022 End: 04-14-2022 Depression screening Staci Obanod MD Work Phone: Start: 04-14-2022 End: 04-14-2022 [...] Kyra Mcgill LPN Comment on above: Normal. [facility], dr larry velasquez Start: 04-05-2018 End: 04-05-2018 [...] on above: Normal. Benekos, hpv not done Start: 04-13-2014 End: 04-13-2014 Lipid panel results documented & reviewed Silvia Hurtado LPN Work Phone: Comment on above: Abnormal. tc 184 hdl 101 ldl 74 trig 44 on atorvastatin No Surgeries Kyra Capellan ch, LPN No Surgeries Silvia Quintanilla Work Phone: Plan of Treatment Date Care Activity Detail Author Start: 03-27-2025 Patient encounter procedure Medical; PHYSICAL - AWV, will have labs prior at [facility] [employer] Start: 27-Mar-2025 14:10-04:00 MD Staci Obando Appointment Request [employer] Start: 01-26-2025 Lipid panel LIPID PANEL (03464) Start: 26-Jan-2025 17:10-04:00 Request [employer] Start: 01-26-2025 Comprehensive metabolic panel CMP w/ GFR* (03913) Start: 26-Jan-2025 17:10-04:00 Request [employer] Start: 01-26-2025 Screening mammography bi 2-view breast inc cad Mammogram Bilateral Screening Digital w/CAD (71587) with 3D (tomosynthesis), bilateral ([id number]) Start: 26-Jan-2025 Intent [employer]. Start: 01-02-2025 Patient discharge [facility] Start: 12-14-2024 Evaluation of diagnostic study results [facility] Start: 09-21-2024 End: 09-21-2024 Echo tthr r-t 2d w/wo m-mode complete rest&st Stress Echo ([id number]) Date: 21-Sep-2024 [employer], [employer]. Start: 07-21-2024 Simple repair f/e/e/n/l/m 2.5cm/< RPR F/E/E/N/L/M 2.5 CM/< [facility] Start: 07-21-2024 [facility] Start: 07-21-2024 [facility] Start: 04-18-2024 Patient encounter procedure Medical; PHYSICAL - AWV. will have labs done at [facility] [employer] Start: 18-Apr-2024 09:40-04:00 MD Staci Obando A Appointment Request [employer] Start: 03-17-2024 Basic metabolic panel calcium total BMP w/ GFR (F) (12805) Start: 17-Mar-2024 Request [employer] Start: 03-17-2024 Lipid panel LIPID PANEL ([id number]) Start: 17-Mar-2024 Request [employer], [employer]. Start: 03-17-2024 Screening digital breast tomosynthesis bi Mammogram 3D (tomosynthesis), bilateral ([id number]) Start: 17-Mar-2024 Intent [employer], [employer]. Start: 02-26-2022 Screening mammography bi 2-view breast inc cad Mammogram Bilateral Screening Digital w/CAD (63567) with 3D (tomosynthesis), bilateral ([id number]) Start: 26-Feb-2022 [facility] [employer] [facility] Basic metabolic 2008 panel with ionized calcium - Serum or Plasma [facility] Catheterization of l eft heart [facility] CBC W Auto Different ial panel - Blood [facility] Patient Education [facility] Work Phone: Patient referral [facility] Work Phone: Immunizations Immunization Date Immunization Notes Care Provider Fa cility 07-21-2024 tetanus toxoid, redu devaughn diphtheria toxoid, and acellular pertussis vaccine, adsorbed Dr. Staci Obando MD Work Phone: [facility] 03-22-2024 COVID-Moderna (100 MCG/0.5 ML) Staci Obando MD Work Phone: [facility] [employer] [facility]. 03-22-2024 influenza, high dose seasonal, preservative-free Staci Obando MD Work Phone: [facility].; [facility] [employer] [facility]. 07-13-2023 RSV, bivalent, prote in subunit RSVpreF, 0.5 mL Staci Obando MD Work Phone: [facility].; [employer] [facility]. 04-22-2023 COVID-Moderna (100 MCG/0.5 ML) Staci Obando MD Work Phone: [facility].; [employer] 03-05-2023 influenza, high dose seasonal, preservative-free Staci Obando MD Work Phone: [facility] [employer] [facility].; [employer] 03-10-2022 COVID-Pfizer (30 MCG/0.3 ML) Staci Obando MD Work Phone: [facility].; [employer] 11-25-2021 tetanus toxoid, redu devaughn diphtheria toxoid, and acellular pertussis vaccine, adsorbed Staci Obando MD Work Phone: [facility]; [facility] 08-28-2021 zoster vaccine recombinant Staci Obando MD Work Phone: [facility]; [facility] 06-04-2021 COVID-Pfizer (30 MCG/0.3 ML) Staci Obando MD Work Phone: [facility]; [facility] 06-04-2021 zoster vaccine recombinant Staci Obando MD Work Phone: [facility]; [facility] 03-20-2021 influenza virus vaccine, unspecified formulation Staci Obando MD Work Phone: [facility]; [facility] 03-20-2021 Shingrix 50 MCG/0.5M L Intramuscular Suspension Reconstituted Staci Obando MD Work Phone: [facility]; [facility] 03-20-2021 influenza, injectabl e, quadrivalent, contains preservative Staci Obando MD Work Phone: [facility]; [facility] Comment on above: Site: Left DeltoidVI S Given: * Influenza - Inactivated (02/03/19) 03-20-2021 pneumococcal polysaccharide vaccine, 23 valent Staci Obando MD Work Phone: [facility]; [facility] Comment on above: Site: Right DeltoidV IS Given: * Pneumococcal Polysaccharide (PPSV23) (10/13/14) 10-18-2020 COVID-Pfizer (30 MCG/0.3 ML) Staci Obando MD Work Phone: [facility]; [facility] 09-25-2020 COVID-Pfizer (30 MCG/0.3 ML) Staci Obando MD Work Phone: [facility]; [employer] 04-07-2019 influenza virus vaccine, unspecified formulation Staci Obando MD Work Phone: [employer]; [employer] 04-07-2019 influenza, injectabl e, quadrivalent, contains preservative Staci Obando MD Work Phone: [employer]; [employer] Comment on above: Site: Left ArmVIS Gi jordyn: * Influenza - Inactivated (01/26/15) 03-31-2018 influenza, injectabl e, quadrivalent, contains preservative Staci Obando MD Work Phone: [employer]; [employer] Comment on above: at [facility] 03-22-2017 influenza, injectabl e, quadrivalent, contains preservative Staci Obando MD Work Phone: [employer]; [employer] Comment on above: at pharmacy 05-24-2014 IMMUNIZATION ADMIN ([id number]) Staci Obando MD Work Phone: [employer]; [employer] 05-24-2014 influenza, seasonal, injectable Staci Obando MD Work Phone: [employer]; [employer] Comment on above: Site: Deltoid (Left) VIS Given: * Influenza, Inactivated ([id number]) 05-24-2014 zoster vaccine, live Staci monge MD Work Phone: [employer]; [employer] Comment on above: Site: Posterior Uppe r Arm (Left)VIS Given: * Shingles (Herpes Zoster) (03/27/09) 10-20-2013 TD(adult) unspecifie d formulation Staci Obando MD Work Phone: [employer]; [employer] Comment on above: PH 06-22-2013 zoster vaccine, live Staci monge MD Work Phone: [employer]; [employer] 05-13-2013 influenza, seasonal, injectable Staci Obando MD Work Phone: [employer]; [employer] Comment on above: Site: Deltoid (Left) VIS Given: * Inactivated Influenza Vaccine (01/30/09) * Inactivated Influenza Vaccine (01/14/11) * Influenza vaccine [id number], inactivated (12/22/2011) * Influenza, Inactivated () * VIS Given (Unspecified) 05-13-2013 IMMUNIZATION ADMIN ([id number]) Staci Obando MD Work Phone: [employer]; [employer] 04-28-2012 influenza, seasonal, injectable Staci Obando MD Work Phone: [employer]; [employer] Comment on above: Site: Deltoid (Left) VIS Given: * Inactivated Influenza Vaccine (01/30/09) * Inactivated Influenza Vaccine (01/14/11) * Influenza vaccine , inactivated (12/22/2011) * VIS Given (Unspecified) 04-28-2012 IMMUNIZATION ADMIN ([id number]) Staci Obando MD Work Phone: [employer]; [employer] 08-15-2011 influenza, seasonal, injectable Staci Obando MD Work Phone: [employer]; [employer] Comment on above: Site: Deltoid (Left) VIS Given: * Inactivated Influenza Vaccine (01/30/09) * Inactivated Influenza Vaccine (01/14/11) * Inactivated Influenza Vaccine (01/14/11) * Inactivated Influenza Vaccine (01/14/11) * Inactivated Influenza Vaccine (01/14/11) * Inactivated Influenza Vaccine (01/14/11) * Inactivated Influenza Vaccine (01/14/11) * Inactivated Influenza Vaccine (01/14/11) * VIS Given (Unspecified) * VIS Given (Unspecified) 08-15-2011 IMMUNIZATION ADMIN ([id number]) Staci Obando MD Work Phone: [employer]; [employer] 04-29-2010 influenza, seasonal, injectable Staci Obando MD Work Phone: [facility]. Comment on above: Site: Deltoid (Left) VIS Given: * Inactivated Influenza Vaccine (01/30/09) 04-29-2010 IMMUNIZATION ADMIN ([id number]) Staci Obando MD Work Phone: [facility]; [facility] 04-13-2009 tetanus toxoid, redu devaughn diphtheria toxoid, and acellular pertussis vaccine, adsorbed Staci Obando MD Work Phone: [facility] Payers Date Payer Category Payer Self-pay [id number] 2024 Unknown [id number] 2021 Unknown [id number] 2021 Medicare [id number] 1955 Unknown [id number] 2.16. [id number] 1955 Unknown [id number] 2.16.8 [id number] Unknown [id number] Unknown [id number] 2.16.8 [id number] Unknown [id number] 2.16.8 [id number] Unknown [id number] 2.16.8 [id number] Unknown [id number] 2.16.8 [id number] Unknown [id number] 2.16.8 [id number] Unknown [id number] 2.16.8 [id number] Unknown [id number] 2.16.8 [id number] Unknown [id number] 2.16.8 [id number] Unknown [id number] 2.16.8 [id number] Unknown [id number] 2.16.8 [id number] Unknown [id number] 2.16.8 [id number] Social History Date Type Detail Facility Start: 11-02-2021 End: 11-26-2021 Tobacco smoking status NHIS Unknown if ever smoked [facility] Start: 1955 Sex Assigned At Female W [facility] Alcohol Use Alcohol Use [facility] [employer] [facility] Tobacco Use: Tobacco Use: ; N ever smoker. [facility] [employer] [facility] Start: 07-21-2024 End: 01-02-2025 Never smoked tobacco [facility] Evaluation note 12-14-2024 Note Date & Type Note Facility 12-14-2024 Evaluation note Diagnosis Onset Date Resolution Abnormal stress echo acute December 14, 2024 10:18am [facility] Work Phone: Progress note 12-14-2024 Note Date & Type Note Facility 12-14-2024 Progress note [facility] Progress note 12-14-2024 Note Date & Type Note Facility 12-14-2024 Progress note Note Date/Time December 14, 2024 11:05am [facility] [address], [place] [address] OFFICE VISIT Date of Service: 12/14/24 MR#: [id number] Acct: [id number] Name: CAPRICE MUELLER Rep #: [id number] 1955 Provider: Dr. Kandis Santos MD Age/Sex: 69/F Location: [facility] [place] Status: Signed HPI HPI History of Present Illness Details: Pleasant 69-year-old otherwise active lady who presents today for an initial evaluation. She says that she has been feeling her heart pounding with minimal exertion and does not think that she has the exertional capacity that she had a few months ago. As a result of this she underwent a stress echocardiogram whereshe was noted to have significant EKG changes during the stress test even thoughshe attained a fairly high workload of 10 metabolic equivalents. No wall motionabnormalities were noted And she did have preserved ejection fraction. Her blood pressure was also somewhat blunted and she did develop significant heavy breathing. She denies any chest pain at rest no dizziness or diaphoresis no near-syncope or syncope. Her EKG here demonstrates normal sinus rhythm with a rate of 58 bpm and no acute changes noted. Intake Vital Signs 07/21/24 06:54 12/14/24 10:21 Height 5 ft 8.9 in 5 ft 8.9 in Weight: 146 lb BMI 21.6 BP 123/72 H Blood Pressure Location Lt brachial Position Sitting Respiration 16 Pulse 55 L Pulse Source Monitor Intake Visit Reasons: PORTILLO (JACQUES) Sonar Watchstander Required: No Accompanied by: Significant Other Is patient in pain?: No Allergies celecoxib (From Celebrex) Allergy (Intermediate, Verified 12/14/24 10:31) Rash levofloxacin (From Levaquin) Allergy (Intermediate, Verified 12/14/24 10:31) Rash Medications ?Medication ?Instructions ?Recorded ?Confirmed ?Type atorvastatin 20 mg tablet 20 mg PO QHS 11/02/21 History Cecilia's wort 300 mg capsule 300 mg PO QDAY 06/03/24 12/14/24 History calcium carbonate 600 mg PO QDAY 06/03/2411/21 History cholecalciferol (vitamin D3) 50 50 mcg PO QDAY 4 12/14/24 History mcg (2,000 unit) capsule fexofenadine 180 mg tablet 180 mg PO QDAY PRN 12/14/24 12/14/24 History (Krysta Allergy) magnesium 250 mg tablet 250 mg PO QDAY 12/14/2411/21 History Have you fallen in the past year?: No PFSH Medical History Abnormal stress echo Exertional dyspnea Myocardial ischemia GERD (gastroesophageal reflux disease) Polyneuropathy Carpal tunnel syndrome of left wrist Uterine fibroid Chest pain Hypercholesteremia Surgical History No history of previous surgery Family History Father Myocardial infarction Mother Hypertension Hypercholesteremia Social History Smoking Status: Never smoker alcohol intake: current alcohol intake frequency: 0-2 drinks per day substance use type: does not use ROS Const Const: Negative for fatigue, weakness, headache(s), daytime sleepiness or difficulty sleeping ENT ENT: Positive for dizziness; Negative for headache(s) or Nosebleed/epistaxis Cardio Chest Pain: No Palpitations: Yes feels like its: pounding Edema: None Resp Respiratory: Negative for SOB with activity, SOB at rest, SOB orthopneaundefinedSOB lying down or Cough GI GI: Negative nausea, vomiting or heartburn Neuro Neuro: Positive for dizziness; Negative for lightheadedness, near syncope, headache(s) or weakness Endo Endo: Negative for fatigue Cardiology Exam Const Appearance: cooperative, healthy appearing, no acute distress, well developed and well groomed Nutritional Appearance: average body habitus and well nourished Orientation: alert, awake and oriented x3 Head Head: normal to inspection, normocephalic and atraumatic Ears: hearing grossly normal bilaterally and external ears normal Nose: external nose normal, nares normal, nasal mucous membranes and turbinates normal, septum normal and no nasal discharge Face and Sinus: face symmetric Mouth: oral mucosae normal, tongue normal, oropharynx normal and moist mucous membranes Teeth and gingiva: dentition normal Throat: posterior oropharynx normal, tonsils normal and uvula midline Eyes General: appearance normal, both eyes and all related structures Eyelids: eyelids normal Conjunctivae: conjunctivae normal Pupils: PERRL, normal by confrontation and accommodation normal EOM: EOM intact bilaterally Neck Neck: normal visual inspection, trachea midline and no JVD JVD: +5 Carotids: normal carotid upstroke and bounding pulses Chest Chest inspection: normal inspection of the chest, symmetric chest movement and normal respiratory effort Auscultation: Bilateral: Clear to Auscultation Cardio Palpation: normal PMI Rate: regular rate Rhythm: regular rhythm Heart sounds: S1 normal, S2 normal and normal, physiologic split S2; Negative rub, gallop or murmur GI GI: normal to inspection, soft, no hepatosplenomegaly and bowel sounds present Neuro General: patient alert, patient awake, patient oriented x3, gait normal, moves all extremities and no focal sensory deficit Skin Skin: no rashes or lesions noted Extremities Pulses: Normal: Right Femoral Pulse, Left Femoral Pulse, Right Dorsalis Pedis Pulse, Left Dorsalis Pedis Pulse, Right Posterior Tibial Pulse, Left Posterior Tibial Pulse, Right Radial Pulse and Left Radial Pulse Lower Extremity Edema: None: Bilateral Musculoskel Musculoskeletal: No joint tenderness Psych Psychological: normal affect Supplemental Info Supplemental Information Stress Echocardiogram 10/31/24 Conclusion: Exercise stress echocardiogram with EKG changes suggestive of ischemia. No clinical angina noted. Stress and resting echocardiographic images demonstrating no wall motion abnormalities noted. Labs: LDL Cholesterol 74 mg/dL (0-130) HDL Cholesterol 101 mg/dL (40-) Cholesterol 184 mg/dL (200) Triglycerides 44 mg/dL (-199) Diagnostics: Electrocardiogram Stress Echocardiogram Chest X-Ray Pulmonary: No Data to Display Past Visits: Cardiology Visit 12/14/24 Assessment and Plan Assessment and Plan (1) Abnormal stress echo: Status: Acute Plan: She does present with exertional fatigue as well as an abnormal stress test at this time my recommendation is for us to continue the current medical therapy and obtain a cardiac catheterization due to the significant EKG changes. I havediscussed the above with her the risk benefits alternatives and she understands and agrees to proceed. Depending on the findings further recommendations will be made. Thank you for allowing me to participate in the care of your patient. Please don't hesitate to call if any issues arise. Orders: Orders 12 Lead EKG performed by [facility] Today I25.9 - Chronic ischemic heart disease, unspecified, R06.09 - Other forms of dyspnea, R07.9 - Chest pain, unspecified, R94.39 - Abnormal result of other cardiovascular function study Plan Details Follow Up: prn Coding Level of Care Code Off vis,new,level 4 Diagnoses Abnormal stress echo R94.39 Coding Level of Care Code Off vis,new,level 4 Diagnoses Abnormal stress echo R94.39 Clinical Quality Measures Falls Risk Screening/Assistive Devices Have you fallen in the past year?: No 12/14/24 1105 <Electronically signed by Vlad Glass> Date _ Vlad Santos MD Cosigner Signature: Date (if applicable) CC: Dr. Staci Obando MD ~ [facility] Work Phone: Clinical Note 07-07-2022 Note Date & Type Note Facility 07-07-2022 Note [facility] Pap Smear Specimen Adequacy July 07, 2022 9:14am Comment . Satisfactory for evaluation. Endocervical and/or squamous metaplasticcells (endocervical component) are present. Comment on above: Satisfactory for liz luation. Endocervical and/or squamous metaplasticcells (endocervical component) are present. Clinical Note 07-07-2022 Note Date & Type Note Facility 07-07-2022 Note [facility] Pap Smear Specimen Adequacy July 07, 2022 9:14am Comment . Satisfactory for evaluation. Endocervical and/or squamous metaplasticcells (endocervical component) are present. Comment on above: Satisfactory for liz luation. Endocervical and/or squamous metaplasticcells (endocervical component) are present. Evaluation note Note Date & Type Note Facility Evaluation note No assessment information availa ble [facility] Work Phone: Evaluation note Note Date & Type Note Facility Evaluation note Diagnosis Onset Date Resolution Abnormal stress echo acute December 14, 2024 10:18am [facility] Work Phone: Reason for referral (narrative) Note Date & Type Note Facility Reason for referral (narrative) No reason for referral information available [facility] Work Phone: Summary Purpose Family History No Family History Records Found Coronary Artery Disease Status:Active Comments :parents Diabetes Mellitus Type II Status:Active Commen ts:parents Father Status:Active Comments: d. at age 57 [place] Hypertension Status:Active Comments:parents Mother Status:Active Comments: d. covid infection Coronary Artery Disease Status:Active Comments :parents Diabetes Mellitus Type II Status:Active Commen ts:parents Father Status:Active Comments: d. at age 57 MS Hypertension Status:Active Comments:parents Mother Status:Active Comments: d. covid infection Coronary Artery Disease Status:Active Comments :parents Diabetes Mellitus Type II Status:Active Commen ts:parents Father Status:Active Comments: d. at age 57 MS Hypertension Status:Active Comments:parents Mother Status:Active Comments: d. covid infection Coronary Artery Disease Status:Active Comments :parents Diabetes Mellitus Type II Status:Active Commen ts:parents Father Status:Active Comments: d. at age 57 MS Hypertension Status:Active Comments:parents Mother Status:Active Comments: d. covid infection Coronary Artery Disease Status:Active Comments :parents Diabetes Mellitus Type II Status:Active Commen ts:parents Father Status:Active Comments: d. at age 57 MS Hypertension Status:Active Comments:parents Mother Status:Active Comments: d. covid infection Coronary Artery Disease Status:Active Comments :parents Diabetes Mellitus Type II Status:Active Commen ts:parents Father Status:Active Comments: d. at age 57 MS Hypertension Status:Active Comments:parents Mother Status:Active Comments: d. covid infection Coronary Artery Disease Status:Active Comments :parents Diabetes Mellitus Type II Status:Active Commen ts:parents Father Status:Active Comments: d. at age 57 MS Hypertension Status:Active Comments:parents Mother Status:Active Comments: d. covid infection Coronary Artery Disease Status:Active Comments :parents Diabetes Mellitus Type II Status:Active Commen ts:parents Father Status:Active Comments: d. at age 57 MS Hypertension Status:Active Comments:parents Mother Status:Active Comments: d. covid infection Coronary Artery Disease Status:Active Comments :parents Diabetes Mellitus Type II Status:Active Commen ts:parents Father Status:Active Comments: d. at age 57 MS Hypertension Status:Active Comments:parents Mother Status:Active Comments: d. covid infection Coronary Artery Disease Status:Active Comments :parents Diabetes Mellitus Type II Status:Active Commen ts:parents Father Status:Active Comments: d. at age 57 MS Hypertension Status:Active Comments:parents Mother Status:Active Comments: d. covid infection Coronary Artery Disease Status:Active Comments :parents Diabetes Mellitus Type II Status:Active Commen ts:parents Father Status:Active Comments: d. at age 57 MS Hypertension Status:Active Comments:parents Mother Status:Active Comments: d. covid infection Coronary Artery Disease Status:Active Comments :parents Diabetes Mellitus Type II Status:Active Commen ts:parents Father Status:Active Comments: d. at age 57 MS Hypertension Status:Active Comments:parents Mother Status:Active Comments: d. covid infection Coronary Artery Disease Status:Active Comments :parents Diabetes Mellitus Type II Status:Active Commen ts:parents Father Status:Active Comments: d. at age 57 MS Hypertension Status:Active Comments:parents Mother Status:Active Comments: d. covid infection Coronary Artery Disease Status:Active Comments :parents Diabetes Mellitus Type II Status:Active Commen ts:parents Father Status:Active Comments: d. at age 57 MS Hypertension Status:Active Comments:parents Mother Status:Active Comments: d. covid infection Coronary Artery Disease Status:Active Comments :parents Diabetes Mellitus Type II Status:Active Commen ts:parents Father Status:Active Comments: d. at age 57 MS Hypertension Status:Active Comments:parents Mother Status:Active Comments: d. covid infection Coronary Artery Disease Status:Active Comments :parents Diabetes Mellitus Type II Status:Active Commen ts:parents Father Status:Active Comments: d. at age 57 MS Hypertension Status:Active Comments:parents Mother Status:Active Comments: d. covid infection Coronary Artery Disease Status:Active Comments :parents Diabetes Mellitus Type II Status:Active Commen ts:parents Father Status:Active Comments: d. at age 57 MS Hypertension Status:Active Comments:parents Mother Status:Active Comments: d. covid infection Coronary Artery Disease Status:Active Comments :parents Diabetes Mellitus Type II Status:Active Commen ts:parents Father Status:Active Comments: d. at age 57 MS Hypertension Status:Active Comments:parents Mother Status:Active Comments: d. covid infection Coronary Artery Disease Status:Active Comments :parents Diabetes Mellitus Type II Status:Active Commen ts:parents Father Status:Active Comments:Lloyd dAngelica at age 57 MS Hypertension Status:Active Comments:parents Mother Status:Active Comments: d. covid infection Coronary Artery Disease Status:Active Comments :parents Diabetes Mellitus Type II Status:Active Commen ts:parents Father Status:Active Comments: dAngelica at age 57 MS Hypertension Status:Active Comments:parents Mother Status:Active Comments: d. covid infection Coronary Artery Disease Status:Active Comments :parents Diabetes Mellitus Type II Status:Active Commen ts:parents Father Status:Active Comments: dAngelica at age 57 MS Hypertension Status:Active Comments:parents Mother Status:Active Comments: d. covid infection Coronary Artery Disease Status:Active Comments :parents Diabetes Mellitus Type II Status:Active Commen ts:parents Father Status:Active Comments: dAngelica at age 57 MS Hypertension Status:Active Comments:parents Mother Status:Active Comments: d. covid infection Coronary Artery Disease Status:Active Comments :parents Diabetes Mellitus Type II Status:Active Commen ts:parents Father Status:Active Comments:Lloyd dAngelica at age 57 MS Hypertension Status:Active Comments:parents Mother Status:Active Comments: d. covid infection Coronary Artery Disease Status:Active Comments :parents Diabetes Mellitus Type II Status:Active Commen ts:parents Father Status:Active Comments:Lloyd dAngelica at age 57 MS Hypertension Status:Active Comments:parents Mother Status:Active Comments: d. covid infection Coronary Artery Disease Status:Active Comments :parents Diabetes Mellitus Type II Status:Active Commen ts:parents Father Status:Active Comments:Lloyd dAngelica at age 57 MS Hypertension Status:Active Comments:parents Mother Status:Active Comments: d. covid infection Relationship Condition Age at Onset Recorded Date/T shannan father Myocardial infarction Unknown mother Hypertension Unknown Hypercholesterolemia Unknown Coronary Artery Disease Status:Active Comments :parents Diabetes Mellitus Type II Status:Active Commen ts:parents Father Status:Active Comments:Lloyd dAngelica at age 57 MS Hypertension Status:Active Comments:parents Mother Status:Active Comments: d. covid infection Coronary Artery Disease Status:Active Comments :parents Diabetes Mellitus Type II Status:Active Commen ts:parents Father Status:Active Comments:Lloyd d. at age 57 MS Hypertension Status:Active Comments:parents Mother Status:Active Comments: d. covid infection Coronary Artery Disease Status:Active Comments :parents Diabetes Mellitus Type II Status:Active Commen ts:parents Father Status:Active Comments: d. at age 57 MS Hypertension Status:Active Comments:parents Mother Status:Active Comments: d. covid infection Coronary Artery Disease Status:Active Comments :parents Diabetes Mellitus Type II Status:Active Commen ts:parents Father Status:Active Comments: d. at age 57 MS Hypertension Status:Active Comments:parents Mother Status:Active Comments: d. covid infection Advance Directives No Advanced Directives Records Found Advance Directive Response Recorded Date/ Time Living Will Yes November 02, 2021 4 :00am Power of Dental Ceramist Yes November 02, 2021 4:00am Advance Directive Response Recorded Date/ Time Living Will Yes November 02, 2021 3 :00am Power of Dental Ceramist Yes November 02, 2021 3:00am Advance Directive Response Recorded Date/ Time Living Will Yes July 21 7:54am Do you have a Healthcare Power of Dental Ceramist? Yes July 21, 2024 7:54am Name of Medical Power of Dental Ceramist irene July 21, 2024 7:54am Advance Directive Response Recorded Date/ Time Advance Directives on File No January 02, 2025 9:45am Living Will Yes January 02, 2025 9:45am Do you have a Healthcare Power of Dental Ceramist? Yes January 02, 2025 9:45am Name of Medical Power of Dental Ceramist irene mala mota January 02, 2025 9:45am Advance Directives Yes January 02 9:45am Chief Complaint and Reason for Visit Chief Complaint SELF PAY EAR PAIN Chief Complaint SCREENING Chief Complaint Admit Date syncope July 21, 2024 6 :54am EXERTIONAL DYSPNEA October 31, 2024 9:45a m Chief Complaint Admit Date EXERTIONAL DYSPNEA October 31, 2024 9:45a m CP (VACCARIELLO) December 14, 2024 10:1 8am Reason for Visit Admit Date Abnormal stress echo December 14, 2024 10: 18am Chief Complaint Admit Date EXERTIONAL DYSPNEA October 31, 2024 9:45a m CP (VACCARIELLO) December 14, 2024 10:1 8am INT LAB ORDERS December 14, 2024 11:1 7am Chief Complaint Admit Date EXERTIONAL DYSPNEA October 31, 2024 9:45a m CP (VACCARIELLO) December 14, 2024 10:1 8am INT LAB ORDERS December 14, 2024 11:1 7am Chronic ischemic heart disease, unspecif ied January 02, 2025 9:26am Additional Source Comments INFORMATION SOURCE (unrecogn ized section and content) DATE CREATED AUTHOR 02/23/2020 [facility] DATE CREATED AUTHOR AUTHOR'S ORGANIZ ATION 11/30/2021 [facility] DATE CREATED AUTHOR AUTHOR'S ORGANIZ ATION 04/11/2023 [facility] DATE CREATED AUTHOR AUTHOR'S ORGANIZ ATION 04/10/2024 [facility] DATE CREATED AUTHOR AUTHOR'S ORGANIZ ATION 04/17/2025 [facility] Goals (unrecognized section and content) Goals may be documented in a n alternate sectionGoals may be documented in an alternate sectionGoals may be documented in an alternate sectionGoals may be documented in an alternate sectionGoals may be documented in an alternate sectionGoals may be documented in an alternate sectionGoals may be documented in an alternate sectionGoals may be documented in an alternate section Care Teams (unrecognized sec tion and content) Team Status: Active Member Role Status Dates No Primary Care Physician Family Provider Active Dr. Staci Obando MD Primary Care Provider Active Team Status: Inactive Member Role Status Dates Dr. Staci Obando MD Primary Care Lui magallanes, Attending Provider, Referring Provider Active Team Status: Inactive Member Role Status Dates Dr. Staci Obando MD Primary Care Provider Active Dr. Ayesha Frey DO Attending Provider Active Team Status: Active Member Role Status Dates Dr. Staci Obando MD Primary Care Provider Active Dr. Ayesha Frey DO Attending Provider, Referdwight g Provider Active Team Status: Inactive Member Role Status Dates Dr. Staci Obando MD Primary Care Provider Active Dr. Ayesha Frey DO Attending Provider, Referdwight g Provider Active Team Status: Active Member Role Status Dates Dr. Staci Obando MD Primary Care Provider Active Team Status: Inactive Member Role Status Dates Dr. Staci Obando MD Primary Care Provider Active Start: July 21, 2024 End: July 21, 2024 Dr. Jakob Melo MD Attending Provider Active S tart: July 21, 2024 End: July 21, 2024 Dr. Jakob Melo MD Emergency Provider Active S tart: July 21, 2024 End: July 21, 2024 Team Status: Inactive Member Role Status Dates Dr. Staci Obando MD Primary Care Provider Active Start: October 31, 2024 End: October 31, 2024 Dr. Staci Obando MD Attending Provider Active Start: October 31, 2024 End: October 31, 2024 Dr. Staci Obando MD Referring Provider Active Start: October 31, 2024 End: October 31, 2024 Team Status: Active Member Role Status Dates Dr. Staci Obando MD Primary Care Provider Active Start: October 31, 2024 Dr. Vlad Santos MD Attending Provider Active S tart: October 31, 2024 Team Status: Inactive Member Role Status Dates Dr. Staci Obando MD Primary Care Provider Active Start: December 14, 2024 End: December 14, 2024 Dr. Staci Obando MD Referring Provider Active Start: December 14, 2024 End: December 14, 2024 Dr. Vlad Santos MD Attending Provider Active S tart: December 14, 2024 End: December 14, 2024 Team Status: Active Member Role/Relationship Status Dates Dr. Staci Obando MD Primary Care Provider Active Team Status: Inactive Member Role/Relationship Status Dates Dr. Staci Obando MD Primary Care Provider Active Start: October 31, 2024 End: October 31, 2024 Dr. Staci Obando MD Attending Provider Active Start: October 31, 2024 End: October 31, 2024 Dr. Staci Obando MD Referring Provider Active Start: October 31, 2024 End: October 31, 2024 Team Status: Active Member Role/Relationship Status Dates Dr. Staci Obando MD Primary Care Provider Active Start: October 31, 2024 Dr. Vlad Santos MD Attending Provider Active S tart: October 31, 2024 Team Status: Inactive Member Role/Relationship Status Dates Dr. Staci Obando MD Primary Care Provider Active Start: December 14, 2024 End: December 14, 2024 Dr. Staci Obando MD Referring Provider Active Start: December 14, 2024 End: December 14, 2024 Dr. Vlad Santos MD Attending Provider Active S tart: December 14, 2024 End: December 14, 2024 Team Status: Inactive Member Role/Relationship Status Dates Dr. Staci Obando MD Primary Care Provider Active Start: December 14, 2024 End: December 14, 2024 Dr. Vlad Santos MD Attending Provider Active S tart: December 14, 2024 End: December 14, 2024 Dr. Vlad Santos MD Referring Provider Active S tart: December 14, 2024 End: December 14, 2024 Team Status: Inactive Member Role/Relationship Status Dates Dr. Staci Obando MD Primary Care Provider Active Start: January 02, 2025 End: January 02, 2025 Dr. Vlad Santos MD Attending Provider Active S tart: January 02, 2025 End: January 02, 2025 Dr. Vlad Santos MD Referring Provider Active S tart: January 02, 2025 End: January 02, 2025 FOR RECORDS PERTAINING TO PATIENTS WHO ARE [...] BE BASED ON THE PRIMARY CLINICAL RECORDS. [employer] [facility]. provides no warranty or guarantee of the accuracy or completeness of information in this document.
== END | disposition home or self-care (01) ==
LOC: OPBI 07:36
PROVIDERS: PCP Family Medicine; Referring Provider Family Medicine; Visit Provider Family Medicine
DX: Z12.31 Encounter for screening mammogram for malignant neoplasm of breast (principal)
CPT/HCPCS: 77063; 77067